=== PATIENT | female | born 2000 | race Caucasian/White ===

== ENCOUNTER 2024-05-27 09:57 | Outpatient (OUT) | payer OTHER, SELFPAY ==
--- NOTE | 2024-05-27 09:58 | US_ITS ---
[facility] [place] [id number] Patient Name: JANET RANDALL MRN: [id number] date: 2000 Sex: F Assigned Patient Location: [facility] Current Patient Location: [facility] Accession/Order Number: [id number] Exam Date: 05/27/2024 09:58 Report Date: 05/27/2024 10:54 At the request of: RICARDO SANTIAGO Procedure: US OB transvaginal EXAMINATION: US OB transvaginal HISTORY: MISSED MENSES COMPARISON: No relevant comparison available. FINDINGS: GESTATIONAL SAC: Present and normal appearing. YOLK SAC: Present and normal appearing. POLE: Present and normal appearing. CARDIAC: Present. UTERUS: Normal size and appearance. OVARIES: Right: Normal. Left: Normal. CERVIX: 3.7 cm in length and closed. CUL-DE-SAC: Trace amount of free fluid; likely physiologic. OTHER: None. AGE BY LMP: 8 weeks 2 days SEEMA BY LMP: 01/04/2025 AGE BY US CRL: 8 weeks 1 day SEEMA BY US CRL: 01/05/2025 US/US OB transvaginal IMPRESSION: 1. Single live intrauterine . Electronically authenticated by: CLARICE HILL Date: 05/27/2024 10:54
== END 2024-05-27 09:58 | disposition home or self-care (01) ==
LOC: NOMS 09:57
PROVIDERS: Visit Provider Obstetrics & Gynecology
DX: Z34.91 Encounter for supervision of normal pregnancy, unspecified, first trimester (principal); Z3A.08 8 weeks gestation of pregnancy; N92.6 Irregular menstruation, unspecified
CPT/HCPCS: 76817

== ENCOUNTER 2024-06-08 15:17 | Outpatient (OUT) | payer OTHER, SELFPAY ==
--- OUTSIDE RECORDS SUMMARY | 2024-06-08 15:25 | XMS_ITS | CCD ---
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 Name Role Phone CLARICE HILL Consulting Unavailable RUSS GALLOWAY Attending Unavailable JOY DAY Primary Care Unavailable RUSS GALLOWAY Admitting Unavailable RUSS GALLOWAY Consulting Unavailable Julianne Davidson Unavailable Maximus SENIOR SOFTWARE QA ANALYST-JOANNE, Samir Primary Care Provide r DANIELLE LANGE Referring Unavailable SCHLAJONY, SAMIR Primary Care Unavailable DANIELLE LANGE Attending Unavailable SCHTERI, SAMIR Referring Unavailable SCHLACHTGIANNI, SAMIR Primary Care Unavailable DANIELLE LANGE Attending Unavailable SCHLACHTGIANNI, SAMIR Referring Unavailable SCHLACHTER, SAMIR Primary Care Unavailable DANIELLE LANGE Referring Unavailable SCHLACHTGIANNI, SAMIR Primary Care Unavailable DANIELLE LANGE Attending Unavailable DANIELLE LANGE Referring Unavailable SCHLACHTER, SAMIR Primary Care Unavailable Reecechtgianni BILLER, Samir Unavailable Allergies Allergy Classification Reported Allergen(s) Allergy Type Date of Onset Reaction(s) Facility (1 source) Sulfonamides (Antibiotic) Drug allergy (disorder) [facility] Repository (2 sources) Sulfacetamide / Sulfur Drug Allergy [facility] Other (6 sources) Ondansetron; Translations: [ONDANSETRON] [facility] (7 sources) Sulfonamides (Antibiotic); Translations: [SULFA (SULFONAMIDE ANTIBIOTICS)] Propensity to adverse reactions to drug 8 [facility] Work Phone: Medications Current Medications Medication Drug Class(es) Dates Sig (Normalized) Sig (Original) Escitalopram (2 sources) Serotonin Reuptake Inhibitor Escitalopram Oxalate Active ferrous sulfate 325 mg oral tablet (3 sources) take 1 tablet by mouth once daily at breakfast ferrous sulfate 325 (65 FE) mg tablet Take 1 tablet (325 mg total) by mouth daily with breakfast. 0 Active ibuprofen 800 mg oral tablet (3 sources) Nonsteroidal Anti-inflammatory Drug Start: take 1 tablet by mouth every eight hours as needed for pain ibuprofen (MOTRIN) 800 mg tablet Indications: Left sided abdominal pain , Mittelschmerz Take 1 tablet (800 mg total) by mouth every 8 (eight) hours as needed for pain. 60 tablet 2 09/08/2023 Active ondansetron 4 mg disintegrating oral tablet (1 source) Serotonin-3 Receptor Antagonist Start: End: take 1 tablet by mouth every six hours as needed for nausea and vomiting and nausea and nausea ondansetron ODT (Zofran-ODT) 4 MG disintegrating tablet Indications: Nausea Take 1 tablet (4 mg) by mouth every 6 (six) hours if needed for nausea or vomiting 30 tablet 2 05/23/2024 06/22/2024 Active Problems Active Problems Problem Classification Problem Date Documented Da te Episodic/Chronic Abdominal pain (12 sources) Unspecified abdominal pain; Translations: [Left sided abdominal pain] Onset: 03-17-2019 09-08-2023 Episodic Calculus of urinary tract (5 sources) Unspecified renal colic; Translations: [Personal history of urinary calculi] Onset: 03-21-2019 10-13-2023 Episodic Genitourinary symptoms and ill-defined conditions (4 sources) Hematuria, unspecified; Translations: [Urinary crystal, calcium oxalate] Onset: 03-21-2019 10-13-2023 Episodic Menstrual disorders (1 source) Missed period; Translations: [Irregular menstruation, unspecified] 05-27-2024 Chronic Other female genital disorders (1 source) Joel; Translations: [Joel] 09-08-2023 Chronic Other female genital disorders (1 source) Pain in female genitalia on intercourse; Translations: [Unspecified dyspareunia] 09-08-2023 Chronic Other female genital disorders (1 source) Joel; Translations: [Joel] Onset: 09-08-2023 Chronic Other female genital disorders (1 source) Unspecified dyspareunia; Translations: [Unspecified dyspareunia] Onset: 09-08-2023 Chronic Other and delivery including normal (2 sources) ; Translations: [Encounter for supervision of normal , unspecified, unspecified trimester] 05-27-2024 Episodic Past or Other Problems Problem Classification Problem Date Documented Da te Episodic/Chronic Immunizations and screening for infectious disease (1 source) Contact with and (suspected) exposure to other viral communicable diseases Onset: 07-06-2021 Resolved: 07-06-2021 Episodic Mood disorders (3 sources) Mood disorders Onset: 06-24-2023 06-24-2023 Other upper respiratory infections (1 source) Acute pharyngitis, unspecified Onset: 04-02-2022 Resolved: 04-02-2022 Episodic Unclassified (3 sources) Onset: 06-01-2023 06-01-2023 Viral infection (1 source) COVID-19 Onset: 07-06-2021 Resolved: 07-06-2021 Results Test Name Value Interpretation Reference Range Facility HCG ( test) Ql (U)o n 05-27-2024 Interpretation and review of laboratory results Abnormal [facility] Preg Test, Ur [facility] macro (dipstick) panel (U)on 05-27-2024 Bilirubin, UA Negative Negative - 4(70) +++ mg/dL [facility] Blood, UA Positive Negative - 50 Dipak/mcL [facility] Comment on above: trace intact Clarity, UA Clear [facility] re Color, UA Yellow [facility] Glucose, UA Negative Negative - 1999(110) ++++ mg/dL [facility] Interpretation and review of laboratory results Abnormal [facility] Ketones, UA Negative Negative - 160(16) ++++ mg/dL [facility] Leukocytes, UA Trace Negative - 500+++ Jaswant/mcL [facility] Nitrite, UA Negative Negative - Positive [facility] pH, UA 7.0 5 - 9 [facility] Protein, UA Negative Negative - 1999(20) ++++ mg/dL [facility] Spec Grav, UA 1.015 1 - 1.03 [facility] Urobilinogen, UA 0.2 0.2 - 12 mg/dL [facility] US RETROPERITONEAL COMPLETEo n 10-16-2023 US RETROPERITONEAL COMPLETE US RETROPERITONEAL COMPLETE History: Left flank pain, left-sided abdominal pain. Calcium oxalate crystals in urine. Exam/Technique: Ultrasound of the kidneys and urinary bladder Comparison: Previous ultrasound of 08/13/2018 Findings: There is no collecting system dilatation in either kidney. No focal renal lesions are displayed on either side. The right kidney measures 11.0 centimeters in length , and the left kidney 11.8 centimeters . The full urinary bladder measures 823 ml, and displays no gross focal abnormalities. Bilateral ureteral jets are demonstrated. Post void bladder volume is still measured at 191 IMPRESSION: Normal ultrasound of the kidneys. Prominent post void retention of urine in the bladder Finalized by Heri Marte MD on 10/16/2023 1:22 AM Normal [facility] US PELVIC WITH TRANSVAGINALo n 09-15-2023 US PELVIC WITH TRANSVAGINAL US PELVIC WITH TRANSVAGINAL HISTORY: Patient is complaining of left-sided pelvic pain for the past 2 months. COMPARISON: 08/13/2018 TECHNIQUE: Multiplanar transabdominal and transvaginal ultrasonography of the pelvis using grayscale imaging, supplemented by color Doppler as needed. FINDINGS: The uterus measures 8.2 x 5.9 x 4.8 cm and is retroverted. Normal contour without focal lesions. Endometrial stripe measures 13.7 mm which at the upper limits of normal for menstruating female.The right ovary measures 2.8 x 1.8 x 2.6 cm.The left ovary measures 3.6 x 2.7 x 2.2 cm. Bilateral small ovarian follicles are visualized. No adnexal masses. Color Doppler demonstrates arterial and venous flow in both ovaries The bladder is within normal limits. Small amount of free fluid is seen in the posterior cul-de-sac and adjacent to the ovaries, likely physiologic in nature. IMPRESSION: Retroverted uterus and small amount of physiologic fluid in the cul-de-sac. Otherwise, unremarkable pelvic echo. Finalized by Zoe Rogers MD on 09/15/2023 6:54 PM Normal [facility] CHLAMYDIA/GC BY PCRon 2023 CHLAMYDIA/GC BY PCR SPECIMEN SOURCE CERVIX CHLAMYDIA DNA(PCR) Negative (qualifier value) Chlamydia trachomatis not detected by nucleic acid amplification. This does not exclude the possibility of infection because results are dependent on adequate specimen collection. GONORRHOEAE DNA(PCR) Negative (qualifier value) Neisseria gonorrhoeae not detected by nucleic acid amplification. This does not exclude the possibility of infection because results are dependent on adequate specimen collection. Normal [facility] Comment on above: Performed By: #### C #### [facility] ([id number]) [address] [place] [address], [address] [place] [address] POCT , urineon 08-24 Beta HCG ( test) Ql (U) Negative [facility] URINALYSISon 09-08-2023 Bilirubin Ql (U) Negative Normal NEG [facility] BLOOD/HGB Negative Normal NEG [facility] CA OXALATE CRYSTALS PRESENT Abnormal NONE [facility] Color (U) YELLOW Normal YELLOW [facility] Glucose Ql (U) Negative Normal NEG [facility] Ketones Ql (U) Negative Normal NEG [facility] Leukocyte esterase Test strip Ql (U) Negative Normal NEG [facility] MUCOUS PRESENT Abnormal NONE [facility] Nitrite Ql (U) Negative Normal NEG [facility] pH (U) 6.5 [pH] Normal 5.0-8.5 [facility] Protein Ql (U) Trace Abnormal NEG [facility] R.B.CELLS 2 /hpf Normal 0-5 [facility] Specific gravity (U) [Rel density] 1.027 Normal 1.003-1.035 [facility] SQUAMOUS EPITHELIUM 14 /hpf High 0-5 [facility] TURBIDITY CLEAR Normal CLEAR [facility] Urobilinogen (U) [Mass/Vol] mg/dL Normal <1.1 [facility] W.B.CELLS 3 /hpf Normal 0-5 [facility] URINE CULTUREon 09-08-2023 Bacteria identified Cx Nom (U) CULTURE RESULTS 10-50,000 ORGANISMS/mL NORMAL UROGENITAL AYLIN Normal [facility] Comment on above: Performed By: #### 6 30-4 #### [facility] ([id number]) [address], [address] [place] [address] Urinalysison 09-08-2023 Bilirubin Ql (U) Negative Negative^Ne gat odell [facility] Calcium oxalate crystals LM Ql (Urine sed) PRESENT Abnormal NONE^NONE [facility] Color (U) YELLOW YELLOW^YELLOW [facility] Epithelial cells Auto (Urine sed) [#/Area] 14 High [facility] Glucose (U) [Mass/Vol] Negative Negative^Negat odell mg/dL [facility] Hemoglobin Auto test strip Ql (U) Negative Negative^Negat odell [facility] Interpretation and review of laboratory results Abnormal [facility] Ketones (U) [Mass/Vol] Negative Negative^Negat odell mg/dL [facility] Leukocyte esterase Auto test strip Ql (U) Negative Negative^Negat odell [facility] Mucus Ql (Urine sed) PRESENT Abnormal NONE^NONE [facility] Nitrite Auto test strip Ql (U) Negative Negative^Negat odell [facility] pH (U) 6.5 [pH] 5.0 - 8.5 [facility] Protein (U) [Mass/Vol] Trace Abnormal Negative^Negat odell mg/dL [facility] RBC Auto (Urine sed) [#/Area] 2 [facility] Specific gravity Refractometry automated (U) [Rel density] 1.027 1.003 - 1.035 [facility] Turbidity Ql (U) CLEAR CLEAR^CLEAR [facility] Urobilinogen Qn (U) NINF [facility] WBC Auto (Urine sed) [#/Area] 3 [facility] VAGINITIS PANEL PCRon 2023 VAGINITIS PANEL PCR BACT. VAGINOSIS DNA Not detected (qualifier value) Qualitative results are reported based on detection and quantitation of targeted organism markers which include: Lactobacillus spp. (L. crispatus and L. jensenii), Gardnerella vaginalis, Atopobium vaginae, Bacterial Vaginosis Associated Bacteria-2 (BVAB-2) and Megasphaera-1 LIA SPECIES DNA Not detected (qualifier value) Lia species not detected include: C. albicans, C. tropicalis, C. parapsilosis or C. dubliniensis LIA KRUSEI DNA Not detected (qualifier value) No Lia krusei detected LIA GLABRATA DNA Not detected (qualifier value) No Lia glabrata detected TRICHOMONAS VAG DNA Not detected (qualifier value) No Trichomonas vaginalis detected NOTE BD MAX Vaginal Panel has not been evaluated for patients under 18 years old. Results for these patients should be reviewed and assessed in accordance with clinical presentation to determine patient diagnosis. Normal [facility] Comment on above: Performed By: #### V PPCR #### [facility] ([id number]) [address] [place] [address], [address] [place] [address] Quick Strepon 04-02-2022 S. pyogenes Org specific cx Ql (Throat) Negative 3TEN8 [facility] Other Quick Strep [facility] Other Vital Signs Date Time Vital Sign Value Performing Clinician Facility 05-27-2024 10:31-0400 Body weight 79.38 kg [facility] Nurse [facility] 05-27-2024 10:31-0400 Diastolic blood pressure 80 mm[Hg] [facility] Nurse [facility] 05-27-2024 10:31-0400 Systolic blood pressure 122 mm[Hg] [facility] Nurse [facility] 10-13-2023 14:41-0500 Body height 165.1 cm [employer] Work Phone: [facility] 10-13-2023 14:41-0500 Body mass index (BMI) [Ratio] 28.09 kg/m2 [employer] Work Phone: [facility] 10-13-2023 14:41-0500 Body weight 76.57 kg [employer] Work Phone: [facility] 10-13-2023 14:41-0500 Diastolic blood pressure 68 mm[Hg] [employer] Work Phone: [facility] 10-13-2023 14:41-0500 Systolic blood pressure 104 mm[Hg] Danielle Lange DO Work Phone: [facility] 09-08-2023 11:06-0500 Body height 165.1 cm Danielle Lange DO Work Phone: [facility] 09-08-2023 11:06-0500 Body mass index (BMI) [Ratio] 28.22 kg/m2 Danielle Lange DO Work Phone: [facility] 09-08-2023 11:06-0500 Body weight 76.93 kg Danielle Lange DO Work Phone: [facility] 09-08-2023 11:06-0500 Diastolic blood pressure 70 mm[Hg] Danielle Lange DO Work Phone: [facility] 09-08-2023 11:06-0500 Systolic blood pressure 116 mm[Hg] Danielle Lange DO Work Phone: [facility] 04-02-2022 12:20-0400 Body height 167.64 cm Julianne Lety Other [facility] Other 04-02-2022 12:20-0400 Body mass index (BMI) [Ratio] 30.66 kg/m2 Julianne Lety Other [facility] Other 04-02-2022 12:20-0400 Body temperature 99.3 [degF] Julianne Lety Other [facility] Other 04-02-2022 12:20-0400 Body weight 86.18 kg Julianne Winklermond Other [facility] Other 04-02-2022 12:20-0400 Respiratory rate 18 /min Julianne Lety Other [facility] Other 04-02-2022 12:20-0400 SaO2% (BldA) [Mass fraction] 99 % Julianne Davidson Other [facility] Other 07-06-2021 11:30-0500 Body height 165.1 cm Julianne Davidson Other [facility] Other 07-06-2021 11:30-0500 Body mass index (BMI) [Ratio] 29.95 kg/m2 Julianne Davidson Other [facility] Other 07-06-2021 11:30-0500 Body temperature 98.2 [degF] Julianne Davidson Other [facility] Other 07-06-2021 11:30-0500 Body weight 81.65 kg Julianne Davidson Other [facility] Other 07-06-2021 11:30-0500 SaO2% (BldA) [Mass fraction] 99 % Julianne Davidson Other [facility] Other Encounters Encounter Date Encounter Type Care Provider Facility Start: 05-27-2024 End: 05-27-2024 Office outpatient visit 5 minutes [facility] Kylee Nurse [facility] Comment on above: GA: 8w2d Start: 05-27-2024 End: 05-27-2024 ambulatory Not Available Start: 10-29-2023 Orders Only Sowmya Retana [facility] Comment on above: Renal lithiasis (Yanet annita Dx); Calcium oxalate crystals in urine; Flank pain; Left sided abdominal pain Start: 10-15-2023 End: 10-16[facility]: 10-13-2023 End: 10-13-2023 ambulatory DANIELLE Alexa LANGE [facility] Start: 10-13-2023 End: 10-13-2023 Office outpatient visit 15 minutes Danielle Lange DO Work Phone: [facility] Comment on above: Renal lithiasis (Yanet annita Dx); Left sided abdominal pain; Flank pain; Calcium oxalate crystals in urine Start: 09-14-2023 End: 09-15-2023 ambulatory DANIELLE LANGE [facility] Start: 09-08-2023 End: 09-09-[address] [facility] Start: 09-08-2023 End: 09-08-2023 ambulatory DANIELLE LANGE [facility] Start: 09-08-2023 End: 09-08-2023 Office outpatient visit 15 minutes Danielle Lange DO Work Phone: [facility] Comment on above: Dyspareunia in femal e (Primary Dx); Left sided abdominal pain; Mittelschmerz Start: 04-02-2022 End: 04-02-2022 ambulatory Julianne Davidson Other [facility] Other Start: 04-02-2022 Office outpatient vi sit 15 minutes Julianne Davidson [facility] Start: 07-06-2021 (URG) Urgent Care Visit Julianne Irvin d [facility] Start: 07-06-2021 End: 07-06-2021 ambulatory Julianne Davidson Other [facility] Other Start: 03-17-2019 End: 03-18-2019 Patient encounter procedure CLARICE HILL Facility:[facility]1 Procedures Date Procedure Procedure Detail Performing Clinician Start: 05-27-2024 End: 05-27-2024 Urnls dip stick/tablet rgnt non-auto w/o micrscp Pal Kylee DO Work Phone: Start: 10-13-2023 Follow-up visit Follow-up DANIELLE Alexa ANISA Start: 09-08-2023 Urine test visual color cmprsn meths Danielle L Lange DO Work Phone: Start: 06-24-2023 Adult depression scr eening assessment Danielle Lange DO Work Phone: Start: 06-18-2022 Microscopic observat ion [Identifier] in Cervix by Cyto stain Danielle Lange DO Work Phone: Plan of Treatment Date Care Activity Detail Author Start: 06-18-2025 Screening for malign ant neoplasm of cervix Pap Smear [facility] Start: 10-13-2024 Adult BMI Screening Adult BMI Screen ing [facility] Start: 10-13-2024 Tobacco Screening Tobacco Screening [facility] Start: 09-08-2024 Adult BMI Screening Adult BMI Screen ing [facility] Start: 09-08-2024 Screening for Chlamy hernesto trachomatis Chlamydia Screening [facility] Start: 09-08-2024 Tobacco Screening Tobacco Screening [facility] Start: 06-27-2024 End: 06-27-2024 Patient encounter procedure 06/27/2024 3:30 PM EST Routine [facility] [address] [place] [id number] Pal Pichardo DO [address] [place] [place] [address] [facility] Start: 06-24-2024 Depression Screening Depression Scre ening [facility] Start: 06-01-2024 Adult BMI Follow Up Plan Adult BMI F ollow Up Plan [facility] Start: 05-27-2024 End: 05-27-2025 ABO/Rh ABO/Rh Lab Routine Missed menses , unspecified gestational age Expected: 05/27/2024 (Approximate), Expires: 05/27/2025 [facility] Comment on above: Expected: 05/27/2024 (Approximate), Expires: 05/27/2025 Start: 05-27-2024 End: 05-27-2025 Blood type and Indirect antibody screen panel - Blood Type and screen Lab Routine Missed menses , unspecified gestational age Expected: 05/27/2024 (Approximate), Expires: 05/27/2025 [facility] Work Phone: Comment on above: Expected: 05/27/2024 (Approximate), Expires: 05/27/2025 Start: 05-27-2024 End: 05-27-2025 Drugs of abuse panel - Urine by Screen method Rapid drug screen, urine Lab Routine , unspecified gestational age Encounter for supervision of normal first in first trimester Expected: 05/27/2024 (Approximate), Expires: 05/27/2025 [facility] Comment on above: Expected: 05/27/2024 (Approximate), Expires: 05/27/2025 Start: 05-27-2024 End: 05-27-2025 US Pelvis transvaginal US OB transvaginal Imaging Routine Missed menses Expected: 05/27/2024 (Approximate), Expires: 05/27/2025 [facility] Comment on above: Expected: 05/27/2024 (Approximate), Expires: 05/27/2025 Start: 11-26-2023 DTaP,Tdap and Td Vac cines (7 - Td or Tdap) DTaP,Tdap and Td Vaccines (7 - Td or Tdap) [facility] Start: 10-13-2023 End: 10-13-2024 US Retroperitoneum Ultrasound retroperitoneal complete Imaging Routine Left sided abdominal pain Flank pain Renal lithiasis Calcium oxalate crystals in urine Expected: 10/13/2023, Ex[facility]: [facility] Work Phone: Comment on above: Expected: 10/13/2023 , Expires: 10/13/2024 Start: 10-06-2023 End: 10-06-2023 Patient encounter procedure 10/06/2023 2:00 PM EST Office Visit [facility] [address] [place] [address] Danielle Lange DO [address] [place] [address] [facility]necolo gy Start: 09-14-2023 End: 09-14-2023 Patient encounter procedure 09/14/2023 2:00 PM EST Appointment [facility] - Ultrasound [address] [place] [address] [facility] - Ultrasound Start: 09-08-2023 End: 09-08-2024 Bacteria identified in Urine by Culture [facility] Work Phone: Comment on above: Expected: 09/08/2023 (Approximate), Expires: 09/08/2024 Start: 09-08-2023 End: 09-08-2024 US Pelvis transabdominal and transvaginal Ultrasound pelvic with transvaginal Imaging Routine Left sided abdominal pain Expected: 09/08/2023, Expires: 09/08/2024 [facility] Comment on above: Expected: 09/08/2023 , Expires: 09/08/2024 Start: 09-08-2023 End: 09-08-2024 Vaginitis Panel PCR [facility] Comment on above: Expected: 09/08/2023 (Approximate), Expires: 09/08/2024 Start: 06-18-2023 Screening for Chlamy hernesto trachomatis Chlamydia Screening [facility] Start: 04-24-2023 Influenza vaccination Influenza Vacc ine [facility] Bacteria identified in Urine by Culture Urine culture Microbiology Routine Missed menses Ordered: 05/27/2024 [facility] Comment on above: Ordered: 05/27/2024 CBC W Auto Different ial panel - Blood CBC and differential Lab Routine Missed menses , unspecified gestational age Ordered: 05/27/2024 [facility] Comment on above: Ordered: 05/27/2024 End: 09-08-2024 Chlamydia/GC by PCR Rowdy Swab Chlamydia/GC by PCR [facility] Microbiology Routine Left sided abdominal pain 1 Occurrences starting 09/08/2023 until 09/08/2024 [facility] Comment on above: 1 Occurrences starti ng 09/08/2023 until 09/08/2024 Chlamydia/GC by PCR Rowdy Swab Chlamydia/GC by PCR Row[facility] Microbiology Routine Left sided abdominal pain 09/08/2023 7:35 PM EST [facility] Hemoglobin A1c/Hemoglobin.total in Blood Hemoglobin A1c Lab Routine Missed menses , unspecified gestational age Ordered: 05/27/2024 [facility] Comment on above: Ordered: 05/27/2024 Hepatitis B virus clarke rface Ag [Presence] in Serum or Plasma by Immunoassay Hepatitis B surface antigen Lab Routine Missed menses , unspecified gestational age Ordered: 05/27/2024 [facility] Comment on above: Ordered: 05/27/2024 Hepatitis C virus Ab [Presence] in Serum or Plasma by Immunoassay Hepatitis C antibody Lab Routine Missed menses , unspecified gestational age Ordered: 05/27/2024 [facility] Comment on above: Ordered: 05/27/2024 HIV-1/HIV-2 antigen/antibody combination immunoassay HIV-1 and HIV-2 antibodies Lab Routine Missed menses , unspecified gestational age Ordered: 05/27/2024 [facility] Comment on above: Ordered: 05/27/2024 Reagin Ab [Presence] in Serum by RPR RPR Lab Routine Missed menses , unspecified gestational age Ordered: 05/27/2024 [facility] Comment on above: Ordered: 05/27/2024 Rubella antibody, IgG Rubella an tibody, IgG Lab Routine Missed menses , unspecified gestational age Ordered: 05/27/2024 [facility] Comment on above: Ordered: 05/27/2024 Immunizations Immunization Date Immunization Notes Care Provider Ton king 06-28-2009 influenza virus vaccine, unspecified formulation Danielle Lange DO Work Phone: [facility] [facility] Payers Date Payer Category Payer Managed Care HMO (unspecified) AETNA AETNA [id number] 2024-Present [address] [place] [address] HMO [id number] 2024 Private Health Insurance [id number] 2019 Private Health Insurance [id number] 2019 Private Health Insurance [facility] PLUS [id number] 2019-Present [phone] [address] [address] [place] [address] [id number] 2001 Unknown [id number] 2001 Unknown [id number] 2001 Unknown [id number] 1286 2001 Unknown [id number] 1286 2001 Unknown [id number] 1286 2001 Unknown [id number] [id number] 1976 Unknown [id number] 1959 Unknown [id number] Social History Date Type Detail Facility Sex Assigned At [facility] Other Start: 08-08-2018 End: 05-27-2024 Sex Assigned At [facility] [employer] [facility] Start: 06-18-2022 End: 05-27-2024 Tobacco smoking status VAIS Never smoked tobacco [facility] Start: 06-18-2022 End: 05-27-2024 Tobacco use and exposure Smokeless tobacco non-user [facility] Start: 09-08-2023 End: 10-13-2023 Alcohol intake Current non-drinker of alcohol (finding) [facility] Start: 08-08-2018 End: 05-27-2024 History of Social function [facility] Frequency of Alcohol Consumption Never [facility] Start: 2001 [facility] Start: 05-27-2024 Alcoholic beverage intake Lifetime non-drinker (finding) [facility] Start: 04-13-2024 [facility] Start: 2001 Sex assigned at Female [facility] Start: 12-29-2023 Gender identity Identifies as female gender (finding) [facility] Clinical Notes 04-02-2022 to 05-27-2024 Linda Barone - 05/27/2024 10:30 AM Eduar Retana, CHEST PAIN COORDINATOR - 10/29/2023 2:54 PM Easton Lange, DO - 10/13/2023 2:30 PM Easton Lange, DO - 09/08/2023 11:00 AM EST Note Date & Type Note Facility 05-27-2024 History of Present illness Narrative Reason for Appointment: Patient ID: Marisela Marino is a 24 y.o. female who presents for Initial Visit Patient presents today for a Nurse OB Intake appointment. Patient is 8w2d with a Estimated Date of Delivery: 01/04/25 OB History Para Term AB Living 1 SAB IAB Ectopic Multiple Live Births # Outcome Date GA Lbr Aldair/2nd Weight Sex Type Anes PTL Lv 1 Current Current Medications: has a current medication list which includes the following prescription(s): ondansetron odt. Medical History: Active Ambulatory Problems Diagnosis Date Noted No Active Ambulatory Problems Resolved Ambulatory Problems Diagnosis Date Noted No Resolved Ambulatory Problems No Additional Past Medical History Family History Problem Relation Name Age of Onset Asthma Maternal Grandfather Solomon smith Breast cancer Maternal Grandmother Mikaela smith Social History Tobacco Use Smoking status: Never Smokeless tobacco: Never Substance Use Topics Alcohol use: Never Drug use: Never History reviewed. No pertinent surgical history. Allergies Allergen Reactions Sulfa Antibiotics Vitals: Estimated body mass index is 27.6 kg/m as calculated from the following: Height as of 09/20/18: 5' 5.5 . Weight as of 09/20/18: 168 lb 6.4 oz. BP: 122/80 Patient's last menstrual period was 03/30/2024. Assessment/Plan Diagnoses and all orders for this visit: Missed menses - Type and screen; Future - ABO/Rh; Future - CBC and differential - Hemoglobin A1c - RPR - Rubella antibody, IgG - Hepatitis B surface antigen - Hepatitis C antibody - HIV-1 and HIV-2 antibodies - Urine culture - US OB transvaginal; Future - POCT , urine manually resulted - POCT urinalysis dipstick manually resulted , unspecified gestational age - Type and screen; Future - ABO/Rh; Future - CBC and differential - Hemoglobin A1c - RPR - Rubella antibody, IgG - Hepatitis B surface antigen - Hepatitis C antibody - HIV-1 and HIV-2 antibodies - Rapid drug screen, urine; Future Encounter for supervision of normal first in first trimester - Rapid drug screen, urine; Future Nurse Note: OB Intake: Patient presents today for first OB visit. Patients history has been reviewed in great detail including any potential risks. Patient signed consent forms and patient desires testing in both trimesters. Patient currently has no complaints and has been advised to drink 6-8 glasses of water a day, eat no raw or undercooked meat, and stay away from [facility]. Patient has also been advised to not change litter boxes and eat 6 small meals a day. Patient has been consulted regarding the do's and don'ts of . Patient was given labs and all questions and concerns were answered. Follow Up: Patient is to return in 4 weeks for routine OB appointment. Follow Up: Patient is to have labs drawn at directed and return to office for initial OB appointment with provider. Patient may call office as needed with any concerns or questions. Nurse Visit Completed by: Linda Barone documented in this encounter [facility] 10-29-2023 History of Present illness Narrative Ordered new Filter Filler referral documented in this encounter [facility] 10-13-2023 History of Present illness Narrative Images from the original note were not included. Subjective Patient ID: Marisela Marino is a pleasant 23 y.o. female who presents today for pelvic ultrasound follow-up. Patient states that her pain has continued, but has become more localized to the upper right flank. She does have a history of renal lithiasis in the past. She states she has seen a embossing machine operator, but was only counseled to not drink orange juice or Gatorade. She does feel that this pain is more related to a renal issue than her pelvis at this time. She states that the pain is intermittent, but can be severe. Chief Complaint: Flank pain with history of renal lithiasis Menstrual History: OB History 0 Para 0 Term 0 0 AB 0 Living 0 SAB 0 IAB 0 Ectopic 0 Multiple 0 Live Births 0 No LMP recorded. The following portions of the patient's history were reviewed and updated as appropriate: allergies, current medications, past family history, past medical history, past social history, past surgical history, problem list, and medication reconciliation was completed including current medication and post discharge medication. Review of Systems Constitutional: negative Cardiovascular: negative Gastrointestinal: negative Genitourinary: Pelvic ultrasound results flank pain history of renal lithiasis Behavioral/Psych: negative Endocrine: negative Objective BP 104/68 Ht 165.1 cm (5' 5 ) Wt 76.6 kg (168 lb 12.8 oz) BMI 28.09 kg/m General: alert, appears stated age, and cooperative Heart: regular rate and rhythm, S1, S2 normal, no murmur, click, rub or gallop Lungs: clear to auscultation bilaterally Abdomen: soft, non-tender, without masses or organomegaly Ultrasound pelvic with transvaginal Order Status: Final result Study Result HISTORY: Patient is complaining of left-sided pelvic pain for the past 2 months. COMPARISON: 08/13/2018 TECHNIQUE: Multiplanar transabdominal and transvaginal ultrasonography of the pelvis using grayscale imaging, supplemented by color Doppler as needed. FINDINGS: The uterus measures 8.2 x 5.9 x 4.8 cm and is retroverted. Normal contour without focal lesions. Endometrial stripe measures 13.7 mm which at the upper limits of normal for menstruating female.The right ovary measures 2.8 x 1.8 x 2.6 cm.The left ovary measures 3.6 x 2.7 x 2.2 cm. Bilateral small ovarian follicles are visualized. No adnexal masses. Color Doppler demonstrates arterial and venous flow in both ovaries The bladder is within normal limits. Small amount of free fluid is seen in the posterior cul-de-sac and adjacent to the ovaries, likely physiologic in nature. IMPRESSION: Retroverted uterus and small amount of physiologic fluid in the cul-de-sac. Otherwise, unremarkable pelvic echo. Finalized by Zoe Rogers MD on 09/15/2023 6:54 PM Study Result Narrative & Impression HISTORY: Patient is complaining of left-sided pelvic pain for the past 2 months. COMPARISON: 08/13/2018 TECHNIQUE: Multiplanar transabdominal and transvaginal ultrasonography of the pelvis using grayscale imaging, supplemented by color Doppler as needed. FINDINGS: The uterus measures 8.2 x 5.9 x 4.8 cm and is retroverted. Normal contour without focal lesions. Endometrial stripe measures 13.7 mm which at the upper limits of normal for menstruating female.The right ovary measures 2.8 x 1.8 x 2.6 cm.The left ovary measures 3.6 x 2.7 x 2.2 cm. Bilateral small ovarian follicles are visualized. No adnexal masses. Color Doppler demonstrates arterial and venous flow in both ovaries The bladder is within normal limits. Small amount of free fluid is seen in the posterior cul-de-sac and adjacent to the ovaries, likely physiologic in nature. IMPRESSION: Retroverted uterus and small amount of physiologic fluid in the cul-de-sac. Otherwise, unremarkable pelvic echo. Finalized by Zoe Rogers MD on 09/15/2023 6:54 PM Imaging Ultrasound pelvic with transvaginal (Order: [id number]) - 09/14/2023 Result History Ultrasound pelvic with transvaginal (Order #[id number]) on 09/15/2023 - Order Result History Report PACS Images Show images for Ultrasound pelvic with transvaginal Percentile Graphs No episode available Ultrasound pelvic with transvaginal: Patient Communication Add Comments Seen Signed by Signed Date/Time Phone Pager ZOE ROGERS 09/15/2023 18:54 Exam Information Status Exam Begun Exam Ended Final [99] 09/14/2023 13:45 09/14/2023 14:04 Reviewed by Anahy Elliott LPN 09/16/2023 13:43 Danielle Lange DO 09/16/2023 10:39 Encounter View Encounter External Results Report Open External Results Report Ultrasound pelvic with transvaginal: Result Notes Anahy Elliott LPN Assessment 1. Left sided abdominal pain 2. Flank pain 3. Renal lithiasis 4. Calcium oxalate crystals in urine Plan 1. Pelvic ultrasound reviewed and was within normal limits. 2. With patient's symptoms currently being localized to the flank, her history of previous renal lithiasis, and patient stating this feels like renal lithiasis to her, renal ultrasound was ordered and referral to nephrology placed. documented in this encounter [facility] 09-08-2023 History of Present illness Narrative Subjective Patient ID: Marisela Marino is a pleasant 23 y.o. female who presents today with a complaint of left-sided pelvic pain. Patient states that the pain is intermittent but can be sharp and stabbing. She reports that it is present every time she has intercourse. She states the pain is always present in worse approximately 1 day before her menses. Patient states yesterday she had an episode of sharp stabbing pain that was so severe she almost presented to the emergency room. She does have history of kidney stones as well. She has not currently on control. She has not trying to achieve , but states if it happens it happens . First day of her last menstrual cycle was 08/22/2023. Her menstrual cycles are regular. Chief Complaint: Pelvic pain dyspareunia Menstrual History: OB History 0 Para 0 Term 0 0 AB 0 Living 0 SAB 0 IAB 0 Ectopic 0 Multiple 0 Live Births 0 Patient's last menstrual period was 08/22/2023 (exact date). The following portions of the patient's history were reviewed and updated as appropriate: allergies, current medications, past family history, past medical history, past social history, past surgical history, problem list, and medication reconciliation was completed including current medication and post discharge medication. Review of Systems Constitutional: negative Respiratory: negative Cardiovascular: negative Gastrointestinal: negative Genitourinary: Pain with intercourse, pain before her menses, acute sharp pelvic pain yesterday Neurological: negative Behavioral/Psych: negative Endocrine: negative Objective BP 116/70 Ht 165.1 cm (5' 5 ) Wt 76.9 kg (169 lb 9.6 oz) LMP 08/22/2023 (Exact Date) BMI 28.22 kg/m General: alert, appears stated age, and cooperative Heart: regular rate and rhythm, S1, S2 normal, no murmur, click, rub or gallop Lungs: clear to auscultation bilaterally Abdomen: soft, non-tender, without masses or organomegaly Vulva: normal Vagina: normal mucosa, normal discharge, no palpable nodules, discharge thin clear consistent with ovulation V nap collected Cervix: no cervical motion tenderness, no lesions, nulliparous appearance, and GC collected Uterus: mobile, non-tender, normal shape and consistency Adnexa: no mass, fullness, tenderness Assessment 1. Left sided abdominal pain 2. Mittelschmerz 3. Dyspareunia Plan 1. V nap in GC collected today 2. HCGs negative 3. UA dip negative today will send for culture 4. Pelvic ultrasound ordered 5. Mittelschmerz discussed as well as dysmenorrhea prescription for Motrin provided 6. Will see patient back in 3-4 weeks to review ultrasound and see if the prescription strength Motrin is helping to alleviate her symptoms documented in this encounter [facility] 04-02-2022 Evaluation note Encounter Date Diagnosis Assessment Notes Mar, Viral pharyngitis (ICD-10 - J02.9) Pharyngitis/to nsillopharyngi tis: adult home care material was printed Drink plenty fluids, get plenty of rest. Take Tylenol or Motrin for aches pains or fevers. Continue your cephalexin as prescribed until gone. Follow-up with your family physician if no improvement in 2 to 3 days. [facility] Other Evaluation noteNortNeuronetics Other Evaluation note* Diagnosis Dyspareunia in female- Primary Left sided abdominal pain Abdominal pain, unspecified site Mittelschmerz documented in this encounter [facility]* Diagnosis Renal lithiasis- Primary Calculus of kidney Left sided abdominal pain Abdominal pain, unspecified site Flank pain Abdominal pain, unspecified site Calcium oxalate crystals in urine documented in this encounter [facility]* Diagnosis Renal lithiasis- Primary Calculus of kidney Calcium oxalate crystals in urine Flank pain Abdominal pain, unspecified site Left sided abdominal pain Abdominal pain, unspecified site documented in this encounter [facility]* Diagnosis Missed menses , unspecified gestational age Encounter for supervision of normal first in first trimester documented [facility] Narrative - ReportedNoKeen Systems Other History general Narrative - Reported* Type Description Date Medical History chronic depression [facility] Other Instructions* Attachments The following attachments cannot be sent through Care Everywhere. * Painful Ovulation (Vietnamese) documented in [facility]* Attachments The following attachments cannot be sent through Care Everywhere. * Kidney stones in adults (Vietnamese) documented in [facility]Pro[facility] DaytonInstructionsNot on file documented in this encounterProKindred Hospital DaytonReason for referral (narrative)* Consultation (Routine) - Pending Review Specialty Diagnoses / Procedures Referred By Contac gianluca Referred To Contact Nephrology Diagnoses Left sided abdominal pain Flank pain Renal lithiasis Calcium oxalate crystals in urine Danielle Lange DO [address] [place] [address] Yannick Villagomez MD [address] [place] [address] Referral ID Status Reason Start Date Expiration Date Visits Requested Visits Authorized [id number] Pending Review Specialty Services Required 10/13/2023 10/12/2024 1 [facility] (narrative)* Consultation (Routine) - Pending Review Specialty Diagnoses / Procedures Referred By Keerthi hough Referred To Contact Nephrology Diagnoses Renal lithiasis Calcium oxalate crystals in urine Flank pain Left sided abdominal pain Danielle Lange DO [address] [place] [address] Hussein Card MD [address] [place] [address] [place] [address] Referral ID Status Reason Start Date Expiration Date Visits Requested Visits Authorized [id number] Pending Review Specialty Services Required 10/29/2023 10/28/2024 1 1 [facility] Summary Purpose Family History No Family History Records FoundNo Family History Records FoundNo Family History Records FoundNo Family History Records FoundNo Family History Records Found Advance Directives No Advanced Directives Records FoundNo Advanced Directives Records FoundNo Advanced Directives Records FoundNo Advanced Directives Records FoundNo Advanced Directives Records Found Additional Source Comments INFORMATION SOURCE (unrecogn ized section and content) DATE CREATED AUTHOR 09/15/2020 [facility] DATE CREATED AUTHOR AUTHOR'S ORGANIZ ATION 09/12/2023 [facility] DATE CREATED AUTHOR AUTHOR'S ORGANIZ ATION 10/21/2023 [facility] DATE CREATED AUTHOR AUTHOR'S ORGANIZ ATION 10/23/2023 [facility] DATE CREATED AUTHOR AUTHOR'S ORGANIZ ATION 05/29/2024 [facility] d[facility] Specialists EPIC REASON FOR VISIT (unrecogniz ed section and content) Reason Comments Abdominal Pain Left side started ab out 2 months agoPain the first day of cycle Reason Comments Follow-up Ultrasound results d /t pelvic pain Reason Comments Initial Visit Care Teams (unrecognized sec tion and content) Embossing Machine Operator Relationship Specialty Start Date End Date Samir Stroud APRN-JOANNE [address] [place] [address] PCP - General Family Medicine 12/28/22 Embossing Machine Operator Relationship Specialty Start Date End Date Samir Stroud APRN-CNP [address] [place] [address] PCP - General Family Medicine 12/28/22 Embossing Machine Operator Relationship Specialty Start Date End Date Samir Stroud APRN-CNP [address] [place] [address] PCP - General Family Medicine 12/28/22 Embossing Machine Operator Relationship Specialty Start Date End Date Samir Stroud NP [address] [place] [address] Referring Physician Family Medicine 05/19/23 FOR RECORDS PERTAINING TO PATIENTS WHO ARE OR HAVE BEEN ENROLLED IN A CHEMICAL DEPENDENCY/SUBSTANCEABUSE PROGRAM, SOME INFORMATION MAY BE OMITTED. This clinical summary was aggregated from multiple sources. Caution should be exercised in using it in the provision of clinical care. This summary normalizes information from multiple sources, and as a consequence, information in this document may materially change the coding, format and clinical context of patient data. In addition, data may be omitted in some cases. CLINICAL DECISIONS SHOULD BE BASED ON THE PRIMARY CLINICAL RECORDS. [facility]. provides no warranty or guarantee of the accuracy or completeness of information in this document.
[2024-06-08 15:51] LABS: BOX Test Reference Lab UNITY; BOX Test Sent Out UNITY
[2024-06-08 15:53] LABS: Basophils Percent Auto 0.3 % (0.2-2.0); Eosinophils Absolute Auto 0.1 10^3/uL (0.0-0.7); Eosinophils Percent Auto 0.6 % (0.9-7.0); Hematocrit 37.3 % (36.0-48.0); Hemoglobin 12.5 g/dL (12.0-16.0); Immature Granulocytes Abs Auto 0.05 10^3/uL (0.00-0.03); Immature Granulocytes Pct Auto 0.5 % (0.0-0.5); Lymphocytes Absolute Auto 2.5 10^3/uL (1.2-3.8); Lymphocytes Percent Auto 23.4 % (20.5-60.0); Mean Corpuscular HGB Conc 33.5 g/dL (29.9-35.2); Mean Corpuscular Hemoglobin 29.6 pg (26.7-34.0); Mean Corpuscular Volume 88.2 fL (81.0-99.0); Mean Platelet Volume 9.3 fL (9.5-13.5); Monocytes Absolute Auto 0.7 10^3/uL (0.3-0.8); Monocytes Percent Auto 6.9 % (1.7-12.0); Neutrophils Absolute Auto 7.3 10^3/uL (1.4-6.5); Neutrophils Percent Auto 68.3 % (43.0-75.0); Platelet Count 321 10^3/uL (150-450); Red Blood Count 4.23 10^6/uL (4.20-5.40); Red Cell Distribution Width 12.9 % (11.0-15.0); White Blood Count 10.6 10^3/uL (4.0-11.0)
[2024-06-08 16:00] LABS: Cannabinoid Screen Urine NEGATIVE (NEGATIVE)
[2024-06-08 16:00] LABS: Estimated Average Glucose 97 mg/dL
[2024-06-08 16:01] LABS: Amphetamine Screen Urine NEGATIVE (NEGATIVE); Barbiturates Screen Urine NEGATIVE (NEGATIVE); Benzodiazepines Screen Urine NEGATIVE (NEGATIVE); Buprenorphine Screen Urine NEGATIVE (NEGATIVE); Cocaine Screen Urine NEGATIVE (NEGATIVE); Methadone Screen Urine NEGATIVE (NEGATIVE); Methamphetamines Screen Urine NEGATIVE (NEGATIVE); Opiate Screen Urine NEGATIVE (NEGATIVE); Oxycodone Screen Urine NEGATIVE (NEGATIVE); Phencyclidine Screen Urine NEGATIVE (NEGATIVE); Tricyclic Antidepressant Urine NEGATIVE (NEGATIVE)
[2024-06-10 06:10] LABS: HBsAg Screen Negative (Negative); HCV Ab Non Reactive (Non Reactive); HIV Ab/p24 Ag Screen Non Reactive (Non Reactive); Rubella Antibodies, IgG 2.64 index (Immune >0.99)
[2024-06-10 10:10] LABS: Rapid Plasma Reagin, Quant Non Reactive titer (NonRea<1:1)
== END 2024-06-08 15:18 | disposition home or self-care (01) ==
LOC: LAB 15:21
PROVIDERS: Visit Provider Obstetrics & Gynecology
DX: Z34.01 Encounter for supervision of normal first pregnancy, first trimester (principal); Z36.0 Encounter for antenatal screening for chromosomal anomalies; N92.6 Irregular menstruation, unspecified
CPT/HCPCS: 36415; 80307; 83036; 85025; 86592; 86762; 86803; 86850; 86900; 86901; 87086; 87340; 87389

== ENCOUNTER 2024-07-27 20:00 | Outpatient (REF) | payer OTHER, SELFPAY ==
--- OUTSIDE RECORDS SUMMARY | 2024-07-27 20:04 | XMS_ITS | CCD ---
Author Organization [facility] Care Team Providers Care Rn Lactation Consultant Name Role Phone CLARICE HILL Consulting Unavailable RUSS GALLOWAY Attending Unavailable JOY DAY Primary Care Unavailable RUSS GALLOWAY Admitting Unavailable RUSS GALLOWAY Consulting Unavailable Julianne Davidson Unavailable [employer] COMMODITY LEAD-Samir RUBIO Primary Care Provide r DANIELLE LANGE Referring Unavailable SCHLACHTER, SAMIR Primary Care Unavailable DANIELLE LANGE Attending Unavailable SCHLACHTGIANNI, SAMIR Referring Unavailable SCHLACHTER, SAMIR Primary Care Unavailable DANIELLE LANGE Attending Unavailable SCHLACHTER, SAMIR Referring Unavailable SCHLACHTER, SAMIR Primary Care Unavailable DANIELLE LANGE Referring Unavailable SCHLACHTER, SAMIR Primary Care Unavailable DANIELLE LANGE Attending Unavailable DANIELLE LANGE Referring Unavailable SCHLACHTER, SAMIR Primary Care Unavailable Schjanellchter SOLAR BUSINESS DEVELOPER, Samir Unavailable [phone] RICARDO PICHARDO Attending Unavailable Allergies Allergy Classification Reported Allergen(s) Allergy Type Date of Onset Reaction(s) Facility (1 source) Sulfonamides (Antibiotic) Drug allergy (disorder) The [facility] Repository (2 sources) Sulfacetamide / Sulfur Drug Allergy [facility] Other (8 sources) Ondansetron; Translations: [ONDANSETRON] Drug [facility] Sulfonamides (Antibiotic); Translations: [SULFA (SULFONAMIDE ANTIBIOTICS)] Propensity to adverse reactions to drug 8 [facility] Work Phone: Medications Current Medications Medication Drug Class(es) Dates Sig (Normalized) Sig (Original) azithromycin 250 mg oral tablet (5 sources) Macrolide Antimicrobial Start: 11-04-2024 azithromycin (Zithromax Z-Nikolas) 250 MG tablet Indications: Viral upper respiratory tract infection As directed 6 tablet 06/27/2024 Active Escitalopram (2 sources) Serotonin Reuptake Inhibitor Escitalopram [...] Active ondansetron 4 mg disintegrating oral tablet (9 sources) Serotonin-3 Receptor Antagonist Start: End: take 1 tablet by mouth every six hours as needed for nausea and vomiting and nausea and nausea ondansetron ODT (Zofran-ODT) 4 MG disintegrating tablet Indications: Nausea Take 1 tablet (4 mg) by mouth every 6 (six) hours if needed for nausea or vomiting 30 tablet 2 06/27/2024 07/27/2024 Active promethazine hydrochloride 12.5 mg oral tablet (12 sources) Phenothiazine Start: take 1 tablet by mouth every six hours as needed for nausea and vomiting and nausea and nausea promethazine (Phenergan) 12.5 MG tablet Indications: Nausea Take 1 tablet (12.5 mg) by mouth every 6 (six) hours if needed for nausea or vomiting for up to 30 doses Take 1 tablet by mouth every 6 hours as needed for nausea. 30 tablet 2 06/27/2024 Active Problems Active Problems Problem Classification Problem Date Documented Date Episodic/Chronic Abdominal pain (12 sources) Unspecified abdominal pain; Translations: [Left sided abdominal pain] Onset: 03-17-2019 09-08-2023 Episodic Calculus of urinary tract (5 sources) Unspecified renal colic; Translations: [Personal history of urinary calculi] Onset: 03-21-2019 10-13-2023 Episodic Genitourinary symptoms and ill-defined conditions (4 sources) Hematuria, unspecified; Translations: [Urinary crystal, calcium oxalate] Onset: 03-21-2019 10-13-2023 Episodic Immunizations and screening for infectious disease (3 sources) Contact with and (suspected) exposure to other viral communicable diseases; Translations: [Exposure to sexually transmissible disorder] Onset: 07-06-2021 Resolved: 07-06-2021 Episodic Menstrual disorders (1 source) Missed period; Translations: [Irregular menstruation, unspecified] 05-27-2024 Chronic Nausea and vomiting (2 sources) Nausea; Translations: [Nausea] 06-27-2024 Episodic Other female genital disorders (1 source) Mittelschmerz; 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] 09-08-2023 Chronic Other female genital disorders (1 source) Pain in female genitalia on intercourse; Translations: [Unspecified dyspareunia] 09-08-2023 Chronic Other female genital disorders (1 source) Mittelschmerz; 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] Onset: 09-08-2023 Chronic Other female genital disorders (1 source) Unspecified dyspareunia; Translations: [Unspecified dyspareunia] Onset: 09-08-2023 Chronic Other female genital disorders (2 sources) Vaginal discharge; Translations: [Other specified noninflammatory disorders of vagina] 07-27-2024 Episodic Other and delivery including normal (6 sources) ; Translations: [Encounter for supervision of normal , unspecified, unspecified trimester] 05-27-2024 Episodic Other screening for suspected conditions (not mental disorders or infectious disease) (2 sources) Patient encounter status; Translations: [Encounter for other specified screening] 07-27-2024 Episodic Other upper respiratory infections (3 sources) Acute pharyngitis, unspecified; Translations: [Viral upper respiratory tract infection] Onset: 04-02-2022 Resolved: 04-02-2022 Episodic Residual codes; unclassified (2 sources) Gestation period, 12 weeks; Translations: [12 weeks gestation of ] 06-27-2024 Episodic Residual codes; unclassified (2 sources) Gestation period, 16 weeks; Translations: [16 weeks gestation of ] 07-27-2024 Episodic Past or Other Problems Problem Classification Problem Date Documented Da te Episodic/Chronic Mood disorders (3 sources) Mood disorders Onset: 06-24-2023 06-24-2023 Unclassified (3 sources) Onset: 06-01-2023 06-01-2023 Viral infection (1 source) COVID-19 Onset: 07-06-2021 Resolved: 07-06-2021 Results Test Name Value Interpretation Reference Range Facility Urinalysis macro (dipstick) panel (U)on 07-27-2024 Bilirubin, UA Negative Negative - 4(70) +++ mg/dL [facility] Healthcare Blood, UA Negative Negative - 50 Dipak/mcL [facility] Clarity, UA Clear [facility] Color, UA Yellow [facility] Glucose, UA Negative Negative - 1999(110) ++++ mg/dL [facility] Interpretation and review of laboratory results Normal [facility] Ketones, UA Negative Negative - 160(16) ++++ mg/dL [facility] Leukocytes, UA Negative Negative - 500+++ Jaswant/mcL [facility] Nitrite, UA Negative Negative - Positive [facility] pH, UA 6 5 - 9 [facility] Protein, UA Negative Negative - 1999(20) ++++ mg/dL [facility] Spec Grav, UA 1.02 1 - 1.03 [facility] Health care Urobilinogen, UA 1.0 0.2 - 12 mg/dL [facility] Urinalysis macro (dipstick) panel (U)on 06-27-2024 Bilirubin, UA Negative Negative - 4(70) +++ mg/dL [facility] Blood, UA Negative Negative - 50 Dipak/mcL [facility] Clarity, UA Clear [facility] Color, UA Yellow [facility] Glucose, UA Negative Negative - 1999(110) ++++ mg/dL [facility] Interpretation and review of laboratory results Abnormal [facility] Ketones, UA Negative Negative - 160(16) ++++ mg/dL [facility] Leukocytes, UA Trace Negative - 500+++ Jaswant/mcL [facility] Nitrite, UA Negative Negative - Positive [facility] pH, UA 5.5 5 - 9 [facility] Protein, UA Negative Negative - 1999(20) ++++ mg/dL [facility] Spec Grav, UA 1.02 1 - 1.03 [facility] Urobilinogen, UA 0.2 0.2 - 12 mg/dL [facility]on 06-08-2024 BOX TEST SENT OUT KERA edwards [address] [facility] BOX2 06/08/24 [facility] e HCG ( test) Ql (U)o n 05-27-2024 Interpretation and review of laboratory results Abnormal [facility] Preg Test, Ur Positive [facility] Urinalysis macro (dipstick) panel (U)on 05-27-2024 Bilirubin, UA Negative Negative - 4(70) +++ mg/dL [facility] Blood, UA Positive Negative - 50 Dipak/mcL [facility] Comment on above: trace intact Clarity, UA Clear [facility] re Color, UA Yellow [facility] e Glucose, UA Negative Negative - 1999(110) ++++ mg/dL [facility] Interpretation and review of laboratory results Abnormal [facility] Ketones, UA Negative Negative - 160(16) ++++ mg/dL [facility] Leukocytes, UA Trace Negative - 500+++ Jaswant/mcL [facility] Nitrite, UA Negative Negative - Positive [facility] pH, UA 7.0 5 - 9 [facility] Protein, UA Negative Negative - 2000(20) ++++ mg/dL [facility] Spec Grav, UA 1.015 1 - 1.03 [facility] Urobilinogen, UA 0.2 0.2 - 12 mg/dL [facility] US RETROPERITONEAL COMPLETEo n 10-16-2023 [...] Marte MD on 10/16/2023 1:22 AM Normal [facility] US PELVIC WITH TRANSVAGINALo n 09-15-2023 [...] Rogers MD on 09/15/2023 6:54 PM Normal [facility] CHLAMYDIA/GC BY PCRon 2023 CHLAMYDIA/GC BY [...] dependent on adequate specimen collection. Normal [facility] Comment on above: Performed By: #### C #### [facility] ([id number]) [address], [address] [place] [address] POCT , urineon 08-24 Beta HCG ( test) Ql (U) Negative [facility] URINALYSISon 09-08-2023 Bilirubin Ql (U) Negative Normal NEG [facility] BLOOD/HGB Negative Normal NEG [facility] CA OXALATE CRYSTALS PRESENT Abnormal NONE [facility] Color (U) YELLOW Normal YELLOW [facility] Glucose Ql (U) Negative Normal NEG [facility] Ketones Ql (U) Negative Normal NEG [facility] Leukocyte esterase Test strip Ql (U) Negative Normal NEG [facility] MUCOUS PRESENT Abnormal NONE [facility] Nitrite Ql (U) Negative Normal NEG [facility] pH (U) 6.5 [pH] Normal 5.0-8.5 [facility] Protein Ql (U) Trace Abnormal NEG [facility] R.B.CELLS 2 /hpf Normal 0-5 [facility] Specific gravity (U) [Rel density] 1.027 Normal 1.003-1.035 [facility] SQUAMOUS EPITHELIUM 14 /hpf High 0-5 [facility] TURBIDITY CLEAR Normal CLEAR [facility] Urobilinogen (U) [Mass/Vol] mg/dL Normal <1.1 [facility] W.B.CELLS 3 /hpf Normal 0-5 [facility] URINE CULTUREon 09-08-2023 Bacteria identified Cx Nom (U) CULTURE RESULTS 10-50,000 ORGANISMS/mL NORMAL UROGENITAL AYLIN Normal [facility] Comment on above: Performed By: #### 6 30-4 #### [facility] ([id number]) [address] [place] [address], [address] [place] [address] Urinalysison 09-08-2023 Bilirubin Ql (U) Negative Negative^Ne gat odell [facility] Calcium oxalate crystals LM Ql (Urine sed) PRESENT Abnormal NONE^NONE [facility] Color (U) YELLOW YELLOW^YELLOW [facility] Epithelial cells Auto (Urine sed) [#/Area] [address] [facility] Glucose (U) [Mass/Vol] Negative Negative^Negat odell mg/dL [facility] Hemoglobin Auto test strip Ql (U) Negative Negative^Negat odell [facility] Interpretation and review of laboratory results Abnormal [facility] Ketones (U) [Mass/Vol] Negative Negative^Negat odell mg/dL [facility] Leukocyte esterase Auto test strip Ql (U) Negative Negative^Negat odell [facility] Mucus Ql (Urine sed) PRESENT Abnormal NONE^NONE [facility] Nitrite Auto test strip Ql (U) Negative Negative^Negat odell [facility] pH (U) 6.5 [pH] 5.0 - 8.5 [facility] Protein (U) [Mass/Vol] Trace Abnormal Negative^Negat odell mg/dL [facility] RBC Auto (Urine sed) [#/Area] 2 [facility] Specific gravity Refractometry automated (U) [Rel density] 1.027 1.003 - 1.035 [facility] Turbidity Ql (U) CLEAR CLEAR^CLEAR [facility] Urobilinogen Qn (U) NINF [facility] WBC Auto (Urine sed) [#/Area] 3 [facility] VAGINITIS PANEL PCRon 2023 VAGINITIS PANEL PCR [...] presentation to determine patient diagnosis. Normal [facility] Comment on above: Performed By: #### V PPCR #### [facility] ([id number]) [address] [place] [address] Quick Strepon 04-02-2022 S. pyogenes Org specific cx Ql (Throat) Negative [facility] [employer] Other Quick Strep [facility] [employer] Other Vital Signs Date Time Vital Sign Value Performing Clinician Facility 07-27-2024 15:32-0500 Body weight 81.38 kg Ricardo Kylee DO Work Phone: [facility] 07-27-2024 15:32-0500 Diastolic blood pressure 66 mm[Hg] Ricardo Kylee DO Work Phone: [facility] 07-27-2024 15:32-0500 Systolic blood pressure 108 mm[Hg] Ricardo Kylee DO Work Phone: [facility] 06-27-2024 16:10-0500 Body weight 79.83 kg Ricardo Kylee DO Work Phone: [facility] 06-27-2024 16:10-0500 Diastolic blood pressure 68 mm[Hg] Ricardo Kylee DO Work Phone: [facility] 06-27-2024 16:10-0500 Systolic blood pressure 108 mm[Hg] Ricardo Kylee DO Work Phone: [facility] 05-27-2024 10:31-0400 Body weight 79.38 kg Nom Nurse [facility] 05-27-2024 10:31-0400 Diastolic blood pressure 80 mm[Hg] [facility] Nurse [facility] 05-27-2024 10:31-0400 Systolic blood pressure 122 mm[Hg] [facility] Nurse [facility] 10-13-2023 14:41-0500 Body height 165.1 cm Danielle Lange DO Work Phone: [facility] 10-13-2023 14:41-0500 Body mass index (BMI) [Ratio] 28.09 kg/m2 Danielle Lange DO Work Phone: [facility] 10-13-2023 14:41-0500 Body weight 76.57 kg Danielle Lange DO Work Phone: [facility] 10-13-2023 14:41-0500 Diastolic blood pressure 68 mm[Hg] Danielle Lange DO Work Phone: [facility] 10-13-2023 14:41-0500 Systolic blood pressure 104 mm[Hg] [facility] 09-08-2023 11:06-0500 Body height 165.1 cm Danielle Lange DO Work Phone: [facility] 09-08-2023 11:06-0500 Body mass index (BMI) [Ratio] 28.22 kg/m2 Danielle Lange DO Work Phone: [facility] 09-08-2023 11:06-0500 Body weight 76.93 kg Danielle Lange [facility] 09-08-2023 11:06-0500 Diastolic blood pressure 70 mm[Hg] Danielle Lange DO Work Phone: [facility] 09-08-2023 11:06-0500 Systolic blood pressure 116 mm[Hg] Danielle Lange DO Work Phone: [facility] 04-02-2022 12:20-0400 Body height 167.64 cm Julianne Davidson Other [employer] Other 04-02-2022 12:20-0400 Body mass index (BMI) [Ratio] 30.66 kg/m2 Julianne Davidson Other [employer] Other 04-02-2022 12:20-0400 Body temperature 99.3 [degF] Julianne Davidson Other [facility] [employer] Other 04-02-2022 12:20-0400 Body weight 86.18 kg Julianne Davidson Other [facility] [employer] Other 04-02-2022 12:20-0400 Respiratory rate 18 /min Julianne Davidson Other [facility] Other 04-02-2022 12:20-0400 SaO2% (BldA) [Mass fraction] 99 % Julianne Davidson Other [facility] Other 07-06-2021 11:30-0500 Body height 165.1 cm Julianne Davidson Other [employer] Other 07-06-2021 11:30-0500 Body mass index (BMI) [Ratio] 29.95 kg/m2 Julianne Davidson Other [facility] Other 07-06-2021 11:30-0500 Body temperature 98.2 [degF] Julianne Davidson Other [facility] [employer] Other 07-06-2021 11:30-0500 Body weight 81.65 kg Julianne Davidson Other [employer] Other 07-06-2021 11:30-0500 SaO2% (BldA) [Mass fraction] 99 % Julianne Davidson Other [employer] Other Encounters Encounter Date Encounter Type Care Provider Facility Start: 07-27-2024 End: 07-27-2024 Patient encounter procedure Ricardo Kylee DO Work Phone: [facility] Work Phone: Start: 07-27-2024 End: 07-27-2024 Periodic preventive med est patient 18-39 yrs Ricardo Kylee DO Work Phone: [facility] Comment on above: Well woman exam with routine gynecological exam; Second trimester ; 16 weeks gestation of ; Screening, , for anatomic survey; Vaginal discharge; STD exposure Start: 07-27-2024 End: 07-27-2024 Bamboo flowsheet Ricardo Kylee DO Work Phone: [facility] Start: 07-27-2024 End: 07-27-2024 Bamboo flowsheet Ricardo Kylee DO Work Phone: [facility] Start: 06-27-2024 End: 06-27-2024 flow sheet Ricardo Kylee DO Work Phone: [facility] Comment on above: First trimester preg nadeen; 12 weeks gestation of ; Nausea; Viral upper respiratory tract infection Start: 06-27-2024 End: 06-27-2024 ambulatory RICARDO KYLEE Not Available Start: 06-27-2024 End: 06-27-2024 Bamboo flowsheet Ricardo Kylee DO Work Phone: [facility] Start: 06-27-2024 End: 06-27-2024 Bamboo flowsheet Ricardo Kylee DO Work Phone: [facility] Start: 06-08-2024 End: 06-08-2024 Clinisync Result Encounter Ricardo Kylee DO Work Phone: [facility] External Department Unsolicited Start: 06-08-2024 End: 06-08-2024 Clinisync Result Encounter Ricardo Kylee DO Work Phone: [facility] External Department Unsolicited Start: 05-27-2024 End: 05-27-2024 Office outpatient visit 5 minutes [facility] Kylee Nurse [facility] Comment on above: GA: 8w2d Start: 05-27-2024 End: 05-27-2024 ambulatory RICARDO KYLEE Not Available Start: 10-29-2023 Orders Only Sowmya Retana [facility] Comment on above: Renal lithiasis (Yanet annita Dx); Calcium oxalate crystals in urine; Flank pain; Left sided abdominal pain Start: 10-15-2023 End: 10-16-2023 ambulatory DANIELLE [facility] Start: 10-13-2023 End: 10-13-2023 ambulatory [facility] Start: 10-13-2023 End: 10-13-2023 Office outpatient visit 15 minutes Danielle Lange DO Work Phone: [facility] Comment on above: Renal lithiasis (Yanet annita Dx); Left sided abdominal pain; Flank pain; Calcium oxalate crystals in urine Start: 09-14-2023 End: 09-15-2023 ambulatory [facility] Start: 09-08-2023 End: 09-09-2023 ambulatory [facility] Start: 09-08-2023 End: 09-08-2023 ambulatory [facility] Start: 09-08-2023 End: 09-08-2023 Office outpatient visit 15 minutes Danielle Liu Lange DO Work Phone: [facility] Comment on above: Dyspareunia in femal e (Primary Dx); Left sided abdominal pain; Mittelschmerz Start: 04-02-2022 End: 04-02-2022 ambulatory Julianne Davidson Other [employer] Other Start: 04-02-2022 Office outpatient vi sit 15 minutes Julianen Davidson [facility] Start: 07-06-2021 (URG) Urgent Care Visit Julianne monsalve [facility] Start: 07-06-2021 End: 07-06-2021 ambulatory Julianne Davidson Other [employer] Other Start: 03-17-2019 End: 03-18-2019 Patient encounter procedure CLARICE HILL Facility:H1 Procedures Date Procedure Procedure Detail Performing Clinician Start: 07-27-2024 Urnls dip stick/tabl et rgnt non-auto w/o micrscp Ricardo Kylee DO Work Phone: Start: 06-27-2024 Urnls dip stick/tabl et rgnt non-auto w/o micrscp Ricardo Kylee DO Work Phone: Start: 06-08-2024 BOX TEST Ricardo Fazi o DO Work Phone: Start: 05-27-2024 End: 05-27-2024 Urnls dip stick/tablet rgnt non-auto w/o micrscp Ricardo Kylee DO Work Phone: Start: 10-13-2023 Follow-up visit Follow-up DANIELLE Alexa ANISA Start: 09-08-2023 Urine test visual color cmprsn meths Danielle Liu Lange DO Work Phone: Start: 06-24-2023 Adult depression scr eening assessment Danielle Lange DO Work Phone: Start: 06-18-2022 Microscopic observat ion [Identifier] in Cervix by Cyto stain Danielle Lange DO Work Phone: Plan of Treatment Date Care Activity Detail Author Start: 06-18-2025 Screening for malign ant neoplasm of cervix Pap Smear [facility] Start: 10-13-2024 Adult BMI Screening Adult BMI Screen ing [facility] Start: 10-13-2024 Tobacco Screening Tobacco Screening [facility] Start: 09-08-2024 Adult BMI Screening Adult BMI Screen ing [facility] Start: 09-08-2024 Screening for Chlamy hernesto trachomatis Chlamydia Screening [facility] Start: 09-08-2024 Tobacco Screening Tobacco Screening [facility] Start: 08-29-2024 End: 08-29-2024 Patient encounter procedure 08/29/2024 3:20 PM EST Routine [facility] [address] [place] [place] [id number] Carin Hernandez PA [address] [place] [address] [facility] Start: 07-27-2024 End: 07-27-2024 Patient encounter procedure [facility] Comment on above: Arrived Start: 07-27-2024 End: 01-25-2025 Alpha fetoprotein, maternal Alpha fetoprotein, maternal Lab Routine Second trimester 16 weeks gestation of Expected: 07/27/2024 (Approximate), Expires: 01/25/2025 [facility] Comment on above: Expected: 07/27/2024 (Approximate), Expires: 01/25/2025 Start: 07-27-2024 End: 07-27-2025 US for US OB ANATOMY SINGLE W US OB CERVICAL LENGTH Imaging Routine Screening, , for anatomic survey Expected: 07/27/2024 (Approximate), Expires: 07/27/2025 [facility] Comment on above: Expected: 07/27/2024 (Approximate), Expires: 07/27/2025 Start: 06-27-2024 End: 06-27-2024 Patient encounter procedure [facility] Comment on above: Arrived Start: 06-24-2024 Depression Screening Depression Scre [facility] Start: 06-01-2024 Adult BMI Follow Up Plan Adult BMI F ollow Up Plan [facility] Start: 05-27-2024 End: 05-27-2025 ABO/Rh ABO/Rh Lab Routine Missed menses , unspecified gestational age Expected: 05/27/2024 (Approximate), Expires: 05/27/2025 [facility] Comment on above: Expected: 05/27/2024 (Approximate), Expires: 05/27/2025 Start: 05-27-2024 End: 05-27-2025 Blood type and Indirect antibody screen panel - Blood Type and screen Lab Routine Missed menses , unspecified gestational age Expected: 05/27/2024 (Approximate), Expires: 05/27/2025 [facility] Work Phone: Comment on above: Expected: 05/27/2024 (Approximate), Expires: 05/27/2025 Start: 05-27-2024 End: 05-27-2025 Drugs of abuse panel - Urine by Screen method Rapid drug screen, urine Lab Routine , unspecified gestational age Encounter for supervision of normal first in first trimester Expected: 05/27/2024 (Approximate), Expires: 05/27/2025 [facility] Comment on above: Expected: 05/27/2024 (Approximate), Expires: 05/27/2025 Start: 05-27-2024 End: 05-27-2025 US Pelvis transvaginal US OB transvaginal Imaging Routine Missed menses Expected: 05/27/2024 (Approximate), Expires: 05/27/2025 [facility] Comment on above: Expected: 05/27/2024 (Approximate), Expires: 05/27/2025 Start: 11-26-2023 DTaP,Tdap and Td Vac cines (7 - Td or Tdap) DTaP,Tdap and Td Vaccines (7 - Td or Tdap) [facility] Start: 10-13-2023 End: 10-13-2024 US Retroperitoneum Ultrasound retroperitoneal complete Imaging Routine Left sided abdominal pain Flank pain Renal lithiasis Calcium oxalate crystals in urine Expected: 10/13/2023, Expires: 10/13/2024 [facility] Work Phone: Comment on above: Expected: 10/13/2023 , Expires: 10/13/2024 Start: 10-06-2023 End: 10-06-2023 Patient encounter procedure 10/06/2023 2:00 PM EST Office Visit [facility] Obstetrics/Gynecology [address] [place] [address] Danielle Lange, [address] [place] [address] [facility] [facility] Start: 09-14-2023 End: 09-14-2023 Patient encounter procedure 09/14/2023 2:00 PM EST Appointment [facility] - Ultrasound [address] [place] [id number] [facility] - Ultrasound Start: 09-08-2023 End: 09-08-2024 Bacteria identified in Urine by Culture [facility] Work Phone: Comment on above: Expected: 09/08/2023 (Approximate), Expires: 09/08/2024 Start: 09-08-2023 End: 09-08-2024 US Pelvis transabdominal and transvaginal Ultrasound pelvic with transvaginal Imaging Routine Left sided abdominal pain Expected: 09/08/2023, Expires: 09/08/2024 [facility] Comment on above: Expected: 09/08/2023 , Expires: 09/08/2024 Start: 09-08-2023 End: 09-08-[address] [facility] Comment on above: Expected: 09/08/2023 (Approximate), Expires: 09/08/2024 Start: 06-18-2023 Screening for Chlamy hernesto trachomatis Chlamydia Screening [facility] Start: 04-24-2023 Influenza vaccination Influenza Vacc ine [facility] Bacteria identified in Urine by Culture Urine culture Microbiology Routine Missed menses Ordered: 05/27/2024 [facility] Comment on above: Ordered: 05/27/2024 CBC W Auto Different ial panel - Blood CBC and differential Lab Routine Missed menses , unspecified gestational age Ordered: 05/27/2024 [facility] Comment on above: Ordered: 05/27/2024 CHLAMYDIA TRACHOMATI S (GENITO/STI) CHLAMYDIA TRACHOMATIS (GENITO/STI) Lab Routine STD exposure Ordered: 07/27/2024 [facility] Comment on above: Ordered: 07/27/2024 End: 09-08-2024 Chlamydia/GC by PCR Row[facility]ab Chlamydia/GC by PCR [facility] Microbiology Routine Left sided abdominal pain 1 Occurrences starting 09/08/2023 until 09/08/2024 [facility] Comment on above: 1 Occurrences starti ng 09/08/2023 until 09/08/2024 Chlamydia/GC by PCR Row[facility]ab Chlamydia/GC by PCR [facility] Microbiology Routine Left sided abdominal pain 09/08/2023 7:[address] [facility] Cytology Cervical or vaginal smear or scraping study Pap Smear Pathology and Cytology Routine Well woman exam with routine gynecological exam Ordered: 07/27/2024 [facility] Comment on above: Ordered: 07/27/2024 Hemoglobin A1c/Hemoglobin.total in Blood Hemoglobin A1c Lab Routine Missed menses , unspecified gestational age Ordered: 05/27/2024 [facility] Comment on above: Ordered: 05/27/2024 Hepatitis B virus clarke rface Ag [Presence] in Serum or Plasma by Immunoassay Hepatitis B surface antigen Lab Routine Missed menses , unspecified gestational age Ordered: 05/27/2024 [facility] Comment on above: Ordered: 05/27/2024 Hepatitis C virus Ab [Presence] in Serum or Plasma by Immunoassay Hepatitis C antibody Lab Routine Missed menses , unspecified gestational age Ordered: 05/27/2024 [facility] Comment on above: Ordered: 05/27/2024 HIV-1/HIV-2 antigen/antibody combination immunoassay HIV-1 and HIV-2 antibodies Lab Routine Missed menses , unspecified gestational age Ordered: 05/27/2024 [facility] Comment on above: Ordered: 05/27/2024 Neisseria gonorrhoea e DNA [Presence] in Unspecified specimen by MARIA M with probe detection Neisseria gonorrhea DNA probe, direct Lab Routine STD exposure Ordered: 07/27/2024 [facility] Comment on above: Ordered: 07/27/2024 Reagin Ab [Presence] in Serum by RPR RPR Lab Routine Missed menses , unspecified gestational age Ordered: 05/27/2024 [facility] Comment on above: Ordered: 05/27/2024 Rubella antibody, IgG Rubella an tibody, IgG Lab Routine Missed menses , unspecified gestational age Ordered: 05/27/2024 [facility] Comment on above: Ordered: 05/27/2024 SURESWAB(R) ADVANCED VAGINITIS PLUS, TMA SURESWAB(R) ADVANCED VAGINITIS PLUS, TMA Pathology and Cytology Routine Vaginal discharge STD exposure Ordered: 07/27/2024 [facility] Work Phone: Comment on above: Ordered: 07/27/2024 Immunizations Immunization Date Immunization Notes Care Provider Ton king 06-28-2009 influenza virus vaccine, unspecified formulation Danielle Lange DO Work Phone: [facility] Payers Date Payer Category Payer Managed Care HMO (unspecified) [id number] 2024 Private Health Insurance [id number] 2019 Private Health Insurance [id number] 2019 Private Health Insurance [facility] [id number] 2019-Present [phone] [address] [address] [place] [address] [id number] 2001 Unknown [id number] 2001 Unknown [id number] 2001 Unknown [id number] 2001 Unknown [id number] 1286 2001 Unknown [id number] 1286 2001 Unknown [id number] 1259 2001 Unknown [id number] 1259 1976 Unknown [id number] 1959 Unknown [id number] Social History Date Type Detail Facility Sex Assigned At [facility] Other Start: 08-08-2018 End: 05-27-2024 Sex Assigned At [facility] Start: 06-18-2022 End: 05-27-2024 Tobacco smoking status NHIS Never smoked tobacco [facility] Start: 06-18-2022 End: 05-27-2024 Tobacco use and exposure Smokeless tobacco non-user [facility] Start: 09-08-2023 End: 10-13-2023 Alcohol intake Current non-drinker of alcohol (finding) [facility] Start: 08-08-2018 End: 05-27-[address] [facility] Frequency of Alcohol Consumption Never [facility] Start: 2000 Sex Assigned At Not on file [facility] Start: 05-27-2024 End: 07-27-2024 Alcoholic beverage intake Lifetime non-drinker (finding) [facility] Start: 04-13-2024 [facility] Start: 2000 Sex assigned at Female [facility] Start: 12-29-2023 Gender identity Identifies as female gender (finding) [facility] Clinical Notes 04-02-2022 to 07-27-2024 Whitley Sanchez LPN - 07/27/2024 2:50 PM Katja Barone - 06/27/2024 3:30 PM Katja Barone - 05/27/2024 10:30 AM Eduar Retana CMA - 10/29/2023 2:54 PM EST Note Date & Type Note Facility 07-27-2024 History of Present illness Narrative Reason for Appointment: Patient ID: Marisela Marino is a 24 y.o. female who presents for Well Women Visit, Routine Visit, and STI Screening Patient presents today for Return OB appointment. MEDICATIONS Current Outpatient Medications Medication Instructions azithromycin (Zithromax Z-Nikolas) 250 MG tablet As directed ondansetron ODT (ZOFRAN-ODT) 4 mg, Oral, Every 6 hours PRN promethazine (PHENERGAN) 12.5 mg, Oral, Every 6 hours PRN, Take 1 tablet by mouth every 6 hours as needed for nausea. promethazine (PHENERGAN) 12.5 mg, Oral, Every 6 hours PRN, Take 1 tablet by mouth every 6 hours as needed for nausea. ALLERGIES Allergies Allergen Reactions Ondansetron Other Reaction(s): Vomiting Sulfa Antibiotics Hives Other Reaction(s): Unknown PROBLEMS Active Ambulatory Problems Diagnosis Date Noted No Active Ambulatory Problems Resolved Ambulatory Problems Diagnosis Date Noted No Resolved Ambulatory Problems No Additional Past Medical History HISTORY PAST MEDICAL HISTORY SOCIAL HISTORY History reviewed. No pertinent past medical history. Social History Tobacco Use Smoking status: Never Smokeless tobacco: Never Substance Use Topics Alcohol use: Never Drug use: Never FAMILY HISTORY Family History Problem Relation Name Age of Onset Asthma Maternal Grandfather Solomon smith Breast cancer Maternal Grandmother Mikaela smith SURGICAL HISTORY History reviewed. No pertinent surgical history. REVIEW OF SYSTEMS Review of Systems: Review of Systems Constitutional: Negative. HENT: Negative. Eyes: Negative. Respiratory: Negative. Cardiovascular: Negative. Gastrointestinal: Negative. Genitourinary: Negative. Musculoskeletal: Negative. Skin: Negative. Neurological: Negative. All other systems reviewed and are negative. Hematological: Negative. Endocrine: Negative. Allergic/Immunologic: Negative. OBJECTIVE Objective: Physical Exam Constitutional: Appearance: Normal appearance. She is well-developed. Genitourinary: Vulva normal. Breasts: Breasts are soft. Right: Normal. Left: Normal. Cardiovascular: Rate and Rhythm: Normal rate and regular rhythm. Pulmonary: Effort: Pulmonary effort is normal. Breath sounds: Normal breath sounds. Abdominal: General: Bowel sounds are normal. There is no distension. Palpations: Abdomen is soft. Tenderness: There is no abdominal tenderness. There is no guarding or rebound. Musculoskeletal: General: No swelling. Normal range of motion. Right lower leg: No edema. Left lower leg: No edema. Neurological: Mental Status: She is alert and oriented to person, place, and time. Skin: General: Skin is warm and dry. Psychiatric: Mood and Affect: Mood normal. Behavior: Behavior normal. Vitals and nursing note reviewed. Exam conducted with a crm coordinator present. Vitals: Estimated body mass index is 27.6 kg/m as calculated from the following: Height as of 09/20/18: 5' 5.5 . Weight as of 09/20/18: 168 lb 6.4 oz. BP: 108/66 Patient's last menstrual period was 03/30/2024. ASSESSMENT & PLAN ICD-10-CM 1. Well woman exam with routine gynecological exam Z01.419 Pap Smear 2. Second trimester Z34.92 POCT urinalysis dipstick manually resulted Alpha fetoprotein, maternal Alpha fetoprotein, maternal 3. 16 weeks gestation of Z3A.16 POCT urinalysis dipstick manually resulted Alpha fetoprotein, maternal Alpha fetoprotein, maternal 4. Screening, , for anatomic survey Z36.89 US OB ANATOMY SINGLE W US OB CERVICAL LENGTH 5. Vaginal discharge N89.8 SURESWAB(R) ADVANCED VAGINITIS PLUS, TMA 6. STD exposure Z20.2 SURESWAB(R) ADVANCED VAGINITIS PLUS, TMA CHLAMYDIA TRACHOMATIS (GENITO/STI) Neisseria gonorrhea DNA probe, direct Return OB/Annual Exam: Patient presents today for a annual exam/routine obstetrics appointment. Patient is currently 17w0d . Patient states she is doing well but has complaints of nausea in the morning. Pap and cultures was obtained without difficulty and patient was given orders for anatomy scan and msAFP to be obtained. Orders Placed This Encounter Procedures US OB ANATOMY SINGLE W US OB CERVICAL LENGTH CHLAMYDIA TRACHOMATIS (GENITO/STI) Neisseria gonorrhea DNA probe, direct Alpha fetoprotein, maternal POCT urinalysis dipstick manually resulted Follow Up: Patient is to schedule annual exam for next year and return to office in 4 weeks for OB appointment. Documented by Whitley Sanchez LPN on behalf of: Ricardo Pichardo DO documented in this encounter [facility] 06-27-2024 History of Present illness Narrative Reason for Appointment: Patient ID: Marisela Marino is a 24 y.o. female who presents for No chief complaint on file. Patient presents today for Return OB appointment. MEDICATIONS Current Outpatient Medications Medication Instructions promethazine (PHENERGAN) 12.5 mg, Oral, Every 6 hours PRN, Take 1 tablet by mouth every 6 hours as needed for nausea. ALLERGIES Allergies Allergen Reactions Sulfa Antibiotics PROBLEMS Active Ambulatory Problems Diagnosis Date Noted No Active Ambulatory Problems Resolved Ambulatory Problems Diagnosis Date Noted No Resolved Ambulatory Problems No Additional Past Medical History HISTORY PAST MEDICAL HISTORY SOCIAL HISTORY No past medical history on file. Social History Tobacco Use Smoking status: Never Smokeless tobacco: Never Substance Use Topics Alcohol use: Never Drug use: Never FAMILY HISTORY Family History Problem Relation Name Age of Onset Asthma Maternal Grandfather Solomon smith Breast cancer Maternal Grandmother Mikaela smith SURGICAL HISTORY No past surgical history on file. REVIEW OF SYSTEMS Review of Systems: Review of Systems All other systems reviewed and are negative. OBJECTIVE Objective: OBGyn Exam Vitals: Estimated body mass index is 27.6 kg/m as calculated from the following: Height as of 09/20/18: 5' 5.5 . Weight as of 09/20/18: 168 lb 6.4 oz. BP: Patient's last menstrual period was 03/30/2024. ASSESSMENT & PLAN ICD-10-CM 1. First trimester Z34.91 2. 12 weeks gestation of Z3A.12 POCT urinalysis dipstick manually resulted Return OB: Patient presents today for a routine obstetrics appointment. Patient is currently 12w5d . Patient states she is doing well but has complaints of being tired due to current . Orders Placed This Encounter Procedures POCT urinalysis dipstick manually resulted Patient will be given Zofran, Phenergan and Z-Pack. Patient to call office with any questions/concerns. Follow Up: Patient is to return to office in 4 weeks for routine OB appointment. Documented by Laila Allred LPN on behalf of: Rciardo Pichardo DO documented in this encounter [facility] 05-27-2024 History of Present illness Narrative Reason [...] or undercooked meat, and stay away from [facility]. Patient has also been advised to not [...] by: Linda Barone documented in this encounter [facility] 10-29-2023 History of Present illness Narrative Ordered new Sample Dye Mixer referral documented in this encounter [facility] 10-13-2023 History of Present illness Narrative Images [...] past. She states she has seen a manager shift, but was only counseled to not drink [...] PM Imaging Ultrasound pelvic with transvaginal (Order: [id number]) - 09/14/2023 Result History Ultrasound pelvic with transvaginal (Order #[id number]) on 09/15/2023 - Order Result History Report [...] to nephrology placed. documented in this encounter [facility] 09-08-2023 History of Present illness Narrative Subjective [...] alleviate her symptoms documented in this encounter [facility] 04-02-2022 Evaluation note Encounter Date Diagnosis Assessment Notes Mar, Viral pharyngitis (ICD-10 - J02.9) Pharyngitis/to nsillopharyngi tis: adult home care material was printed Drink plenty fluids, get plenty of rest. Take Tylenol or Motrin for aches pains or fevers. Continue your cephalexin as prescribed until gone. Follow-up with your family physician if no improvement in 2 to 3 days. [place] [facility] Other Evaluation noteNort [facility] Other Evaluation note* Diagnosis Dyspareunia in female- Primary Left sided abdominal pain Abdominal pain, unspecified site Mittelschmerz [facility] Diagnosis Renal lithiasis- Primary Calculus of kidney Left sided abdominal pain Abdominal pain, unspecified site Flank pain Abdominal pain, unspecified site Calcium oxalate crystals in urine [facility]* Diagnosis Renal lithiasis- Primary Calculus of kidney Calcium oxalate crystals in urine Flank pain Abdominal pain, unspecified site Left sided abdominal pain Abdominal pain, unspecified site [facility] Diagnosis Missed menses , unspecified gestational age Encounter for supervision of normal first in first trimester documented in this encounter [facility] Healthcare[facility]* Diagnosis First trimester state, incidental 12 weeks gestation of Nausea Nausea alone Viral upper respiratory tract infection Acute upper respiratory infections of unspecified site documented in this encounter [facility] HealthcareEvaluation note* Diagnosis Well woman exam with routine gynecological exam Routine gynecological examination Second trimester state, incidental 16 weeks gestation of Screening, , for anatomic survey Encounter for anatomic survey Vaginal discharge Leukorrhea, not specified as infective STD exposure [facility] - [facility] [employer] Other History general Narrative - Reported* Type Description Date Medical History chronic depression [facility] [employer] Other Instructions* Attachments The following attachments cannot be sent through Care Everywhere. * Painful Ovulation (Swazi) [facility]* Attachments The following attachments cannot be sent through Care Everywhere. * Kidney stones in adults (Swazi) [facility] KrowdPadInstructionsNot on file documented [facility] KrowdPadReason for referral (narrative)* Consultation (Routine) - Pending Review Specialty Diagnoses / Procedures Referred By Keerthi hough Referred To Contact Nephrology Diagnoses Left sided abdominal pain Flank pain Renal lithiasis Calcium oxalate crystals in urine Danielle Lange DO [address] [place] [address] Yannick Villagomez MD [address] [place] [address] Referral ID Status Reason Start Date Expiration Date Visits Requested Visits Authorized [id number] Pending Review Specialty Services Required 10/13/2023 10/12/[address] [facility] (n[facility]ative[facility] Consultation (Routine) - Pending Review Specialty Diagnoses / Procedures Referred By Keerthi hough Referred To Contact Nephrology Diagnoses Renal lithiasis Calcium oxalate crystals in urine Flank pain Left sided abdominal pain Danielle Lange DO [address] [place] [address] Hussein Card MD [address] [place] [address] [place] [address] Referral ID Status Reason Start Date Expiration Date Visits Requested Visits Authorized [id number] Pending Review Specialty Services Required 10/29/2023 10/28/2024 1 1 [facility] Summary Purpose Family History No Family History Records FoundNo Family History Records FoundNo Family History Records FoundNo Family History Records FoundNo Family History Records Found Advance Directives No Advanced Directives Records FoundNo Advanced Directives Records FoundNo Advanced Directives Records FoundNo Advanced Directives Records FoundNo Advanced Directives Records Found Additional Source Comments INFORMATION SOURCE (unrecogn ized section and content) DATE CREATED AUTHOR 09/15/2020 [facility] DATE CREATED AUTHOR AUTHOR'S ORGANIZ ATION 09/12/2023 [facility] DATE CREATED AUTHOR AUTHOR'S ORGANIZ ATION 10/21/2023 [facility] Ambulatory [facility] DATE CREATED AUTHOR AUTHOR'S ORGANIZ ATION 10/23/2023 [facility] DATE CREATED AUTHOR AUTHOR'S ORGANIZ ATION 06/28/2024 [facility] Special[facility] EPIC REASON FOR VISIT (unrecogniz ed section and content) Reason Comments Abdominal Pain Left side started ab out 2 months agoPain the first day of cycle Reason Comments Follow-up Ultrasound results d /t pelvic pain Reason Comments Initial Visit Reason Comments Routine Visit Reason Comments Well Women Visit Routine Visit STI Screening Care Teams (unrecognized sec tion and content) Rn Lactation Consultant Relationship Specialty Start Date End Date Samir Stroud APRN-[employer] [address] [place] [address] PCP - General Family Medicine 12/28/22 Rn Lactation Consultant Relationship Specialty Start Date End Date Samir Stroud, COMMODITY LEAD-[employer] [address] [place] [address] PCP - General Family Medicine 12/28/22 Rn Lactation Consultant Relationship Specialty Start Date End Date Samir Stroud APRN-[employer] [address] [place] [address] PCP - General Family Medicine 12/28/22 Rn Lactation Consultant Relationship Specialty Start Date End Date Samir Stroud NP [address] [place] [address] Referring Physician Family Medicine 05/19/23 Rn Lactation Consultant Relationship Specialty Start Date End Date Samir Stroud NP [address] [place] [address] Referring Physician Family Medicine 05/19/23 Rn Lactation Consultant Relationship Specialty Start Date End Date Samir Stroud NP [address] [place] [address] Referring Physician Family Medicine 05/19/23 Rn Lactation Consultant Relationship Specialty Start Date End Date Samir Stroud NP [address] [place] [address] Referring Physician Family Medicine 05/19/23 Rn Lactation Consultant Relationship Specialty Start Date End Date Samir Stroud NP [address] [place] [address] Referring Physician Family Medicine 05/19/23 Rn Lactation Consultant Relationship Specialty Start Date End Date Samir Stroud NP [address] [place] [address] Referring Physician Family Medicine 05/19/23 FOR RECORDS [...] BE BASED ON THE PRIMARY CLINICAL RECORDS. [email or web address] [email or web address]. provides no warranty or guarantee of the accuracy or completeness of information in this document.
[2024-08-03 18:07] LABS: Age Gdln ACOG Testing Note (.); IGP, rfx Aptima HPV ASCU Note (.)
== END 2024-07-27 20:01 | disposition home or self-care (01) ==
LOC: LAB 20:00
PROVIDERS: Visit Provider Obstetrics & Gynecology
DX: Z01.419 Encounter for gynecological examination (general) (routine) without abnormal findings (principal)
CPT/HCPCS: 88175

== ENCOUNTER 2024-08-25 15:05 | Outpatient (OUT) | payer OTHER, SELFPAY ==
--- NOTE | 2024-08-25 15:37 | US_ITS ---
[place] [id number] Patient Name: JANET RANDALL MRN: [id number] date: 2000 Sex: F Assigned Patient Location: LAB Current Patient Location: Accession/Order Number: [id number] Exam Date: 08/25/2024 16:04 Report Date: 08/26/2024 07:20 At the request of: RICARDO SANTIAGO Procedure: US OB anatomy EXAMINATION: US OB cervical length, US OB anatomy HISTORY: Anatomic Survey COMPARISON: No relevant comparison available. TECHNIQUE: Transabdominal sonographic examination was performed for obstetrical and evaluation. FINDINGS: Number: 1 Heart Rate: 155.17 bpm H.B. /min Amniotic Fluid Volume: Subjectively normal position: Breech presentation, longitudinal lie Placental Location: ANTERIOR, the placental edge is 7.3 cm from the internal cervical os Cervix Length: 4.66 cm , closed Normal anatomy: Lateral ventricles, cerebellum, posterior fossa, nose, lips, orbits, four-chamber heart, RVOT, LVOT, diaphragm, stomach, kidneys, abdominal cord insertion, bladder, both arteries, three-vessel cord, extremities Suboptimal visualization: Spine secondary to position Abnormalities: 1 mm left ventricular echogenic focus BIOMETRY: BPD: 5.03 cm; 21 weeks 2 days; 52.20 % HC: 19.01 cm; 21 weeks 2 days; 46.70 % AC: 16.17 cm; 21 weeks 2 days; 46.70 % FL: 3.59 cm; 21 weeks 3 days; 48.30 % EFW:413.46 g; 53 %, 15 ounces FL/AC: 22.18 FL/BPD: 71.29 HC/AC: 1.18 GESTATIONAL AGE: Age by EDC: 21 weeks 1 day SEEMA by EDC: 2025-01-04 Age by current US: 21 weeks 2 days SEEMA by current US: 2025-01-03 US/US OB anatomy IMPRESSION: 1 mm left ventricular echogenic focus, nonspecific Suboptimal visualization of spine Otherwise normal anatomy scan *Reference: [employer] Practice Guideline for the performance of Obstetric Ultrasound Examinations, May 24, 2007. Electronically authenticated by: MEERA SALGADO Date: 08/26/2024 07:20
--- NOTE | 2024-08-25 15:37 | US_ITS ---
[place] [id number] Patient Name: JANET RANDALL MRN: [id number] date: 2000 Sex: F Assigned Patient Location: LAB Current Patient Location: Accession/Order Number: [id number] Exam Date: 08/25/2024 16:04 Report Date: 08/26/2024 07:20 At the request of: RICARDO SANTIAGO Procedure: US OB cervical length EXAMINATION: US OB cervical length, US OB anatomy HISTORY: Anatomic Survey COMPARISON: No relevant comparison available. TECHNIQUE: Transabdominal sonographic examination was performed for obstetrical and evaluation. FINDINGS: Number: 1 Heart Rate: 155.17 bpm H.B. /min Amniotic Fluid Volume: Subjectively normal position: Breech presentation, longitudinal lie Placental Location: ANTERIOR, the placental edge is 7.3 cm from the internal cervical os Cervix Length: 4.66 cm , closed Normal anatomy: Lateral ventricles, cerebellum, posterior fossa, nose, lips, orbits, four-chamber heart, RVOT, LVOT, diaphragm, stomach, kidneys, abdominal cord insertion, bladder, both arteries, three-vessel cord, extremities Suboptimal visualization: Spine secondary to position Abnormalities: 1 mm left ventricular echogenic focus BIOMETRY: BPD: 5.03 cm; 21 weeks 2 days; 52.20 % HC: 19.01 cm; 21 weeks 2 days; 46.70 % AC: 16.17 cm; 21 weeks 2 days; 46.70 % FL: 3.59 cm; 21 weeks 3 days; 48.30 % EFW:413.46 g; 53 %, 15 ounces FL/AC: 22.18 FL/BPD: 71.29 HC/AC: 1.18 GESTATIONAL AGE: Age by EDC: 21 weeks 1 day SEEMA by EDC: 2025-01-04 Age by current US: 21 weeks 2 days SEEMA by current US: 2025-01-03 US/US OB cervical length IMPRESSION: 1 mm left ventricular echogenic focus, nonspecific Suboptimal visualization of spine Otherwise normal anatomy scan *Reference: [facility] Practice Guideline for the performance of Obstetric Ultrasound Examinations, May 24, 2007. Electronically authenticated by: MEERA SALGADO Date: 08/26/2024 07:20
[2024-08-29 17:07] LABS: AFP Value 51.3 ng/mL (.); Gest. Age on Collection Date 21.1 weeks (.); Insulin Dep Diabetes No (.); Maternal Age At EDD 23.7 yr (.); OSBR Risk 1 IN 10000 (.); Results Report (.)
== END 2024-08-25 15:06 | disposition home or self-care (01) ==
PROVIDERS: PCP Nurse Practitioner Family; Visit Provider Obstetrics & Gynecology
DX: Z34.92 Encounter for supervision of normal pregnancy, unspecified, second trimester (principal); Z36.89 Encounter for other specified antenatal screening; Z3A.21 21 weeks gestation of pregnancy
CPT/HCPCS: 36415; 76805; 76817; 82105

== ENCOUNTER 2024-09-22 16:04 | Outpatient (OUT) | payer OTHER, SELFPAY ==
--- NOTE | 2024-09-22 16:06 | US_ITS ---
The [address] [address] Patient Name: JANET RANDALL MRN: [id number] date: 2000 Sex: F Assigned Patient Location: US Current Patient Location: Accession/Order Number: [id number] Exam Date: 09/22/2024 16:10 Report Date: 09/23/2024 06:19 At the request of: RICARDO SANTIAGO Procedure: US OB incomplete anatomy EXAM: US OB incomplete anatomy HISTORY: ENCOUNTER FOR FOLLOW-UP ANATOMY Z36.2 COMPARISON: Ultrasound OB anatomy 08/25/2024 TECHNIQUE: Transabdominal ultrasound. FINDINGS: Presentation: Breech Amniotic fluid: Subjectively normal Heart rate: 151 bpm Anatomy: Adequate visualization of the spine. Persistent echogenic focus within left cardiac ventricle. US/US OB incomplete anatomy IMPRESSION: 1. Single live intrauterine . 2. Persistent echogenic focus within the left cardiac ventricle; nonspecific but can be associated with the trisomy syndromes. 3. No appreciable abnormality of the spine. Electronically authenticated by: CLARICE HILL Date: 09/23/2024 06:19
--- OUTSIDE RECORDS SUMMARY | 2024-09-22 16:15 | XMS_ITS | CCD ---
Author Organization [facility] Care Team Providers Care Recreational Director Name Role Phone CLARICE HILL Consulting Unavailable RUSS GALLOWAY Attending Unavailable JOY DAY Primary Care Unavailable RUSS GALLOWAY Admitting Unavailable RUSS GALLOWAY Consulting Unavailable Julianne Davidson Unavailable Maximus FOUNTAIN ROLLER ASSEMBLER-JOANNE, Samir Primary Care Provide r DANIELLE LANGE Referring Unavailable SCHLACHTER, SAMIR Primary Care Unavailable DANIELLE LANGE Attending Unavailable SCHLACHTGIANNI, SAMIR Referring Unavailable SCHLACHTER, SAMIR Primary Care Unavailable DANIELLE LANGE Attending Unavailable SCHLACHTER, SAMIR Referring Unavailable SCHLACHTER, SAMIR Primary Care Unavailable DANIELLE LANGE Referring Unavailable SCHLACHTER, SAMIR Primary Care Unavailable DANIELLE LANGE Attending Unavailable ADNIELLE LANGE Referring Unavailable SCHLACHTER, SAMIR Primary Care Unavailable Schjanellchter FELLMONGERING MACHINE OPERATOR, Samir Unavailable RICARDO PICHARDO Attending Unavailable RICARDO PICHARDO Attending Unavailable CARIN GARCIA Attending Unavailable Allergies Allergy Classification Reported Allergen(s) Allergy Type Date of Onset Reaction(s) Facility (1 source) Sulfonamides (Antibiotic) Drug allergy (disorder) [facility] Repository (2 sources) Sulfacetamide / Sulfur Drug Allergy Dinos Rule Other (14 sources) Ondansetron; Translations: [ONDANSETRON] Drug Allergy 9 [facility] (20 sources) Sulfonamides (Antibiotic); Translations: [SULFA (SULFONAMIDE ANTIBIOTICS)] Propensity to adverse reactions to drug 8 [facility] [employer] Work Phone: Medications Current Medications Medication Drug [...] for pain. 60 tablet 2 09/08/2023 Active omeprazole 20 mg delayed release oral capsule (4 sources) Proton Pump Inhibitor Start: End: take 1 capsule by mouth before mealtime omeprazole (PriLOSEC) [address] capsule Indications: Gastroesophageal Reflux Disease , Heartburn Take 1 capsule (20 mg) by mouth in the morning. Take before meals. Do not crush or chew.. 30 capsule 11 08/01/2024 08/01/2025 Active ondansetron 4 mg disintegrating oral tablet [...] Active promethazine hydrochloride 12.5 mg oral tablet (20 sources) Phenothiazine Start: take 1 tablet by [...] for nausea. 30 tablet 2 06/27/2024 Active Completed/Discontinued Medications Medication Drug Class(es) Dates Sig (Normalized) Sig (Original) azithromycin 250 mg oral tablet (10 sources) Macrolide Antimicrobial Start: 06-27-2024 End: 08-29-2024 azithromycin (Zithromax Z-Nikolas) 250 MG tablet Indications: Viral upper respiratory tract infection As directed 6 tablet 06/27/2024 08/29/2024 Discontinued (Therapy completed) Problems Active Problems Problem Classification Problem Date [...] Episodic Other female genital disorders (1 source) Amortelschjefferson; 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] 09-08-2023 Chronic Other female genital disorders (1 source) Pain in female genitalia on intercourse; Translations: [Unspecified dyspareunia] 09-08-2023 Chronic Other female genital disorders (1 source) Joel; 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] Onset: 09-08-2023 Chronic Other female genital disorders (1 source) Unspecified dyspareunia; Translations: [Unspecified dyspareunia] Onset: 09-08-2023 Chronic Other female genital disorders (2 sources) Vaginal discharge; Translations: [Other specified noninflammatory disorders of vagina] 07-27-2024 Episodic Other and delivery including normal (8 sources) ; Translations: [Encounter for supervision of [...] [16 weeks gestation of ] 07-27-2024 Episodic Residual codes; unclassified (2 sources) Gestation period, 21 weeks; Translations: [21 weeks gestation of ] 08-29-2024 Episodic Past or Other Problems Problem Classification Problem Date Documented Da te Episodic/Chronic Mood disorders (3 sources) Mood disorders Onset: 06-24-2023 06-24-2023 Unclassified (3 sources) Onset: 06-01-2023 06-01-2023 Viral infection (1 source) COVID-19 Onset: 07-06-2021 Resolved: 07-06-2021 Results Test Name Value Interpretation Reference Range Facility AFP, SERUM, OPEN SPINA BIFID Aon 08-29-2024 AFP MOM 0.89 . [facility] [employer] AFP VALUE 51.3 ng/mL . [facility] [employer] COMMENT: Comment . [facility] [employer] Comment on above: Esha Pacheco , Ph.D., [facility] Director References: Available Upon Request. Multiples Of Median Cutoffs For AFP Elevations Crandall 2.5 Black 2.8 IDD 2.0 Twins 4.5 Abbreviation Definitions IDD - Insulin Dep Diabetes OSBR - Open Spina Bifida Risk For further inquiries contact [employer] [facility] [facility] at [phone]. This test was developed and its performance characteristics determined by [employer]. It has not been cleared or approved by the Food and Drug Administration. Performed at: [facility] [address] [place], [place] [id number] Diamond Mounter: Manoj Flores [facility]ly [facility], Phone: [phone] GEST. AGE ON COLLECTION DATE 21.1 . weeks [facility] GESTAT. AGE BASED ON LMP . [facility] Comment on above: Recalculations are n ot recommended when gestational dating by LMP and ultrasound are within 10 days. INSULIN DEP DIABETES No . [facility] INTERPRETATION Comment . [facility] Comment on above: Interpretation: Scre en Negative This result is screen negative for OSB. The AFP MoM calculated is based on the gestational age provided. MS-AFP can identify up to 80% of open neural tube defects. Closed neural tube defects and some open defects may not be detected by this test. This test does not screen for Down Syndrome or Trisomy 18. If screening for Down Syndrome or Trisomy 18 is desired, contact [facility] to discuss available options. The [employer] recommends amniocentesis be offered to women age 35 and older. [age] [facility] MULTIPLE GESTATION No . [facility] [place] [address] [place] [id number] . [facility] . [facility] [employer] RESULTS Report . [facility] [employer] TEST RESULTS: Negative . [facility] WEIGHT 179 . lbs [facility] [employer] N N LMP [id number] [phone] N 1 Y 179 N N N N N White/ [facility] [employer] Urinalysis macro (dipstick) panel (U)on 08-29-2024 Bilirubin, UA Negative Negative - 4(70) +++ mg/dL [facility] Blood, UA Negative Negative - 50 Dipak/mcL [facility] Clarity, UA Clear [facility] re Color, UA Yellow [facility] [employer] Glucose, UA Negative Negative - 1999(110) ++++ mg/dL [facility] Interpretation and review of laboratory results Abnormal [facility] Ketones, UA Negative Negative - 160(16) ++++ mg/dL [facility] Leukocytes, UA Positive Negative - 500+++ Jaswant/mcL [facility] Comment on above: small Nitrite, UA Negative Negative - Positive [facility] pH, UA 6 5 - 9 [facility] [employer] Protein, UA Negative Negative - 1999(20) ++++ mg/dL [facility] Spec Grav, UA 1.025 1 - 1.03 [facility] Urobilinogen, UA 0.2 0.2 - 12 mg/dL [facility] IGP,APTIMA HPV,AGE GDLNon AGE GDLN ACOG TESTING Note . [facility] Comment on above: TESTS RESULT FLAG UN ITS REF RANGE LAB Clinician Provided Cytology Information Source.............Cervix Other.............. No. of containers..01 ThinPrep Vial Age Algo ACOG Kizzy... FLAG LEGEND: L-Low Normal,H-High Normal,LL-Alert Low,HH-Alert High <-Panic Low,>-Panic High,A-Abnormal,AA-Critical Abnormal Performed at: 01 =G [address] [address] Ambar Castillo MD, IGP, RFX APTIMA HPV ASCU Note . [facility] Comment on above: TESTS RESULT FLAG UN ITS REF RANGE LAB DIAGNOSIS: 02 NEGATIVE FOR INTRAEPITHELIAL LESION OR MALIGNANCY. Specimen adequacy: 02 Satisfactory for evaluation. No endocervical component is identified. An endocervical component is not commonly seen in the patient. Performed by: 02 Grecia Davis Property Worker ([facility]) . 02 Note: Note 02 The Pap smear is a screening test designed to aid in the detection of premalignant and malignant conditions of the uterine cervix. It is not a diagnostic procedure and should not be used as the sole means of detecting cervical cancer. Both false-positive and false-negative reports do occur. Test Methodology: Note 02 This liquid based ThinPrep(R) pap test was screened with the use of an image guided system. . 02 The HPV DNA reflex criteria were not met with this specimen result therefore, no HPV testing was performed. FLAG LEGEND: L-Low Normal,H-High Normal,LL-Alert Low,HH-Alert High <-Panic Low,>-Panic High,A-Abnormal,AA-Critical Abnormal Performed at: [address] [id number] Ambar Castillo MD, Performed at: =G - [address] [id number] Diamond Mounter: Ambar Castillo MD, Phone: [phone] Performed at: [facility] [address] [id number] Diamond Mounter: Ambar Castillo MD, Phone: [phone] SPATULA-ALONE CERVIX [facility] RECURRENT VAGINITIS (HTRX)on 07-30-2024 ATOPOBIUM VAGINAE 0 [facility] ATOPOBIUM VAGINAE Not detected [facility] BVAB 2,3 (BACTERIAL VAGINOSIS ASSOCIATED BACTERIA 2, 3); MOBILUNCUS SPP 0 [facility] BVAB 2,3 (BACTERIAL VAGINOSIS ASSOCIATED BACTERIA 2, 3); MOBILUNCUS SPP Not detected [facility] LIA ALBICANS, PARAPSILOSIS, TROPICALIS 0 [facility] LIA ALBICANS, PARAPSILOSIS, TROPICALIS Not detected [facility] LIA GLABRATA 0 [facility] LIA GLABRATA Not detected [facility] LIA KRUSEI 0 [facility] LIA KRUSEI Not detected [facility] CHLAMYDIA TR[facility]ATIS 0 [facility]ACHOMATIS [facility] detected [facility] GARDNERELLA VAGINALIS 0 [facility] GARDNERELLA VAGINALIS Not detected [facility] MEGASPHAERA (TYPES 1, 2) 0 [facility] MEGASPHAERA (TYPES 1, 2) Not detected [facility] MYCOPLASMA GENITALIUM 0 [facility] MYCOPLASMA GENITALIUM Not detected [facility] NEISSERIA GONORRHOEAE 0 [facility] NEISSERIA GONORRHOEAE Not detected [facility] TRICHOMONAS VAGINALIS 0 [facility] TRICHOMONAS VAGINALIS Not detected [facility] Urinalysis macro (dipstick) panel (U)on 07-27-2024 Bilirubin, UA Negative Negative - 4(70) +++ mg/dL [facility] Blood, UA Negative Negative - 50 Dipak/mcL [facility] Clarity, UA Clear [facility] Color, UA Yellow [facility] Glucose, UA Negative Negative - 1999(110) ++++ mg/dL [facility] Interpretation and review of laboratory results Normal [facility] Ketones, UA Negative Negative - 160(16) ++++ mg/dL [facility] Leukocytes, UA Negative Negative - 500+++ Jaswant/mcL [facility] Nitrite, UA Negative Negative - Positive [facility] pH, UA 6 5 - 9 [facility] Protein, UA Negative Negative - 1999(20) ++++ mg/dL [facility] Spec Grav, UA 1.02 1 - 1.03 [facility] Urobilinogen, UA 1.0 0.2 - 12 mg/dL [facility] Urinalysis macro (dipstick) panel (U)on 06-27-2024 Bilirubin, UA Negative Negative - 4(70) +++ mg/dL [facility] Blood, UA Negative Negative - 50 Dipak/mcL [facility] Clarity, UA Clear [facility] re Color, UA Yellow [facility] Glucose, UA Negative Negative - 1999(110) ++++ mg/dL [facility] Interpretation and review of laboratory results Abnormal [facility] Ketones, UA Negative Negative - 160(16) ++++ mg/dL [facility] Leukocytes, UA Trace Negative - 500+++ Jaswant/mcL [facility] Nitrite, UA Negative Negative - Positive [facility] pH, UA 5.5 5 - 9 [facility] Protein, UA Negative Negative - 1999(20) ++++ mg/dL [facility] Spec Grav, UA 1.02 1 - 1.03 [facility] Urobilinogen, UA 0.2 0.2 - 12 mg/dL [facility] BOX TESTon 06-08-2024 BOX TEST SENT OUT [facility] BOX1 [facility] BOX2 06/08/24 [facility] HCG ( test) Ql (U)o n 05-27-2024 Interpretation and review of laboratory results Abnormal [facility] Preg Test, Ur Positive [facility] Urinalysis macro (dipstick) panel (U)on 05-27-2024 Bilirubin, UA Negative Negative - 4(70) +++ mg/dL [facility] Blood, UA Positive Negative - 50 Dipak/mcL [facility] Comment on above: trace intact Clarity, UA Clear [facility] re Color, UA Yellow [facility] Glucose, UA Negative Negative - 1999(110) ++++ mg/dL [facility] Interpretation and review of laboratory results Abnormal [facility] Ketones, UA Negative Negative - 160(16) ++++ mg/dL [facility] Leukocytes, UA Trace Negative - 500+++ Jaswant/mcL [facility] Nitrite, UA Negative Negative - Positive [facility] pH, UA 7.0 5 - 9 [facility] Protein, UA Negative Negative - 1999(20) ++++ mg/dL [facility] Spec Grav, UA 1.015 1 - 1.03 [facility] Urobilinogen, UA 0.2 0.2 - 12 mg/dL [facility] US RETROPERITONEAL COMPLETEo n 10-16-2023 [...] Marte MD on 10/16/2023 1:22 AM Normal [facility] US PELVIC WITH TRANSVAGINALo n 09-15-2023 [...] Rogers MD on 09/15/2023 6:54 PM Normal [facility] CHLAMYDIA/GC BY PCRon 2023 CHLAMYDIA/GC BY [...] are dependent on adequate specimen collection. Normal [facility] Comment on above: Performed By: #### C #### [facility] ([id number]) [address], [address] [place] [address] POCT , urineon 08-24 Beta HCG ( test) Ql (U) Negative [facility] URINALYSISon 09-08-2023 Bilirubin Ql (U) Negative Normal NEG [facility] BLOOD/HGB Negative Normal NEG [facility] CA OXALATE CRYSTALS PRESENT Abnormal NONE [facility] Color (U) YELLOW Normal YELLOW [facility] Glucose Ql (U) Negative Normal NEG [facility] Ketones Ql (U) Negative Normal NEG [facility] Leukocyte esterase Test strip Ql (U) Negative Normal NEG [facility] MUCOUS PRESENT Abnormal NONE [facility] Nitrite Ql (U) Negative Normal NEG [facility] pH (U) 6.5 [pH] Normal 5.0-8.5 [facility] Protein Ql (U) Trace Abnormal NEG [facility] R.B.CELLS 2 /hpf Normal 0-5 [facility] Specific gravity (U) [Rel density] 1.027 Normal 1.003-1.035 [facility] SQUAMOUS EPITHELIUM 14 /hpf High 0-5 [facility] TURBIDITY CLEAR Normal CLEAR [facility] Urobilinogen (U) [Mass/Vol] mg/dL Normal <1.1 [facility] W.B.CELLS 3 /hpf Normal 0-5 [facility] URINE CULTUREon 09-08-2023 Bacteria identified Cx Nom (U) CULTURE RESULTS 10-50,000 ORGANISMS/mL NORMAL UROGENITAL AYLIN Normal [facility] Comment on above: Performed By: #### 6 30-4 #### [facility] ([id number]) [address], [address] [place] [address] Urinalysison 01-16-2024 Bilirubin Ql (U) Negative Negative^Ne ga tive [facility] Calcium oxalate crystals LM Ql (Urine sed) PRESENT Abnormal NONE^NONE [facility] Color (U) YELLOW YELLOW^YELLOW [facility] Epithelial cells Auto (Urine sed) [#/Area] 14 High [facility] Glucose (U) [Mass/Vol] Negative Negative^Nega tive mg/dL [facility] Hemoglobin Auto test strip Ql (U) Negative Negative^Nega tive [facility] Interpretation and review of laboratory results Abnormal [facility] Ketones (U) [Mass/Vol] Negative Negative^Nega tive mg/dL [facility] Leukocyte esterase Auto test strip Ql (U) Negative Negative^Nega tive [facility] Mucus Ql (Urine sed) PRESENT Abnormal NONE^NONE [facility] Nitrite Auto test strip Ql (U) Negative Negative^Nega tive [facility] pH (U) 6.5 [pH] 5.0 - 8.5 [facility] Protein (U) [Mass/Vol] Trace Abnormal Negative^Nega tive mg/dL [facility] RBC Auto (Urine sed) [#/Area] 2 [facility] Specific gravity Refractometry automated (U) [Rel density] 1.027 1.003 - 1.035 [facility] Turbidity Ql (U) CLEAR CLEAR^CLEAR [facility] Urobilinogen Qn (U) NINF [facility] WBC Auto (Urine sed) [#/Area] 3 [facility] VAGINITIS PANEL PCRon 2023 VAGINITIS PANEL [...] clinical presentation to determine patient diagnosis. Normal [facility] Comment on above: Performed By: #### V PPCR #### [facility] ([id number]) [address], [address] [place] [address] Quick Strepon 04-02-2022 S. pyogenes Org specific cx Ql (Throat) Negative [employer] Other Quick Strep [employer] Other Vital Signs Date Time Vital Sign Value Performing Clinician Facility 08-29-2024 15:54-0500 Body weight 84.82 kg Carin VILLAGOMEZ Work Phone: [facility] 08-29-2024 15:54-0500 Diastolic blood pressure 74 mm[Hg] Carin VILLAGOMEZ Work Phone: [facility] 08-29-2024 15:54-0500 Systolic blood pressure 120 mm[Hg] Carin VILLAGOMEZ Work Phone: [facility] 07-27-2024 15:32-0500 Body weight 81.38 kg Ricardo Kylee DO Work Phone: [facility] 07-27-2024 15:32-0500 Diastolic blood pressure 66 mm[Hg] Ricardo Kylee DO Work Phone: [facility] 07-27-2024 15:32-0500 Systolic blood pressure 108 mm[Hg] Ricardo Kylee DO Work Phone: [facility] 06-27-2024 16:10-0500 Body weight 79.83 kg Ricardo Kylee DO Work Phone: [facility] 06-27-2024 16:10-0500 Diastolic blood pressure 68 mm[Hg] Ricardo Kylee DO Work Phone: [facility] 06-27-2024 16:10-0500 Systolic blood pressure 108 mm[Hg] Ricardo Pichardo DO Work Phone: [facility] 05-27-2024 10:31-0400 Body weight 79.38 kg [facility] 05-27-2024 10:31-0400 Diastolic blood pressure 80 mm[Hg] [facility] Nurse [facility] 05-27-2024 10:31-0400 Systolic blood pressure 122 mm[Hg] [facility] Nurse [facility] 10-13-2023 14:41-0500 Body height 165.1 cm Danielle Lange DO Work Phone: [facility] 10-13-2023 14:41-0500 Body mass index (BMI) [Ratio] 28.09 kg/m2 Danielle Lange DO Work Phone: [facility] 10-13-2023 14:41-0500 Body weight 76.57 kg Danielle Lange DO Work Phone: [facility] 10-13-2023 14:41-0500 Diastolic blood pressure 68 mm[Hg] Danielle Lange DO Work Phone: [facility] 10-13-2023 14:41-0500 Systolic blood pressure 104 mm[Hg] Danielle Lange DO Work Phone: [facility] 09-08-2023 11:06-0500 Body height 165.1 cm Danielle Lange DO Work Phone: [facility] 09-08-2023 11:06-0500 Body mass index (BMI) [Ratio] 28.22 kg/m2 Danielle Lange DO Work Phone: [facility] 09-08-2023 11:06-0500 Body weight 76.93 kg Danielle Lange DO Work Phone: [facility] 09-08-2023 11:06-0500 Diastolic blood pressure 70 mm[Hg] Danielle Lange DO Work Phone: [facility] 09-08-2023 11:06-0500 Systolic blood pressure 116 mm[Hg] Danielle Lange DO Work Phone: [employer] 04-02-2022 12:20-0400 Body height 167.64 cm Jluianne Winklermond Other [employer] Other 04-02-2022 12:20-0400 Body mass index (BMI) [Ratio] 30.66 kg/m2 Julianne Lety Other [employer] Other 04-02-2022 12:20-0400 Body temperature 99.3 [degF] Julianne Lety Other [employer] Other 04-02-2022 12:20-0400 Body weight 86.18 kg Julianne Lety Other [employer] Other 04-02-2022 12:20-0400 Respiratory rate 18 /min Julianne Lety Other [employer] Other 04-02-2022 12:20-0400 SaO2% (BldA) [Mass fraction] 99 % Julianne Lety Other [employer] Other 07-06-2021 11:30-0500 Body height 165.1 cm Julianne Lety Other [employer] Other 07-06-2021 11:30-0500 Body mass index (BMI) [Ratio] 29.95 kg/m2 Julianne Lety Other [employer] Other 07-06-2021 11:30-0500 Body temperature 98.2 [degF] Julianne Lety Other [employer] Other 07-06-2021 11:30-0500 Body weight 81.65 kg Julianne Lety Other [employer] Other 07-06-2021 11:30-0500 SaO2% (BldA) [Mass fraction] 99 % Julianne Lety Other [employer] Other Encounters Encounter Date Encounter Type Care Provider Facility Start: 08-29-2024 End: 08-29-2024 flow sheet Carin VILLAGOMEZ Work Phone: [facility] Comment on above: Second trimester pre gnancy; 21 weeks gestation of Start: 08-29-2024 End: 08-29-2024 ambulatory CARIN GARCIA Not Available Start: 08-29-2024 End: 08-29-2024 Bamboo flowsheet Carin VILLAGOMEZ Work Phone: [facility] Start: 08-29-2024 End: 08-29-2024 Bamboo flowsheet Carin VILLAGOMEZ Work Phone: [facility] Start: 08-25-2024 End: 08-29-2024 [facility] Result Encounter Ricardo Kylee DO Work Phone: [facility] External Department Unsolicited Start: 08-25-2024 End: 08-29-2024 Clinisync Result Encounter Ricardo Kylee DO Work Phone: [facility] External Department Unsolicited Start: 07-27-2024 End: 07-27-2024 Patient encounter procedure Ricardo Kylee DO Work Phone: [facility] Healthcare Work Phone: Start: 07-27-2024 End: 07-27-2024 Periodic preventive med est patient 18-39 yrs Ricardo Kylee DO Work Phone: [facility] Comment on above: Well woman exam with routine gynecological exam; Second trimester ; 16 weeks gestation of ; Screening, , for anatomic survey; Vaginal discharge; STD exposure Start: 07-27-2024 End: 07-27-2024 ambulatory RICARDO KYLEE Not Available Start: 07-27-2024 End: 07-27-2024 Bamboo flowsheet Ricardo Kylee DO Work Phone: [facility] Start: 07-27-2024 End: 08-03-2024 Bamboo flowsheet Ricardo Kylee DO Work Phone: [facility] Start: 07-27-2024 End: 08-03-2024 Clinisync Result Encounter Ricardo Kylee DO Work Phone: [facility] External Department Unsolicited Start: 07-27-2024 End: 07-30-2024 External Result Encounter Ricardo Kylee DO Work Phone: [facility] External Department Unsolicited Start: 06-27-2024 End: 06-27-2024 flow sheet Ricardo Kylee DO Work Phone: [facility] Comment on above: First trimester preg nadeen; 12 weeks gestation of ; Nausea; Viral upper respiratory tract infection Start: 06-27-2024 End: 06-27-2024 ambulatory RICARDO KYLEE Not Available Start: 06-27-2024 End: 06-27-2024 Bamboo flowsheet Ricardo Kylee DO Work Phone: [facility] Start: 06-27-2024 End: 06-27-2024 Bamboo flowsheet Ricardo Kylee DO Work Phone: [facility] Start: 06-08-2024 End: 06-08-2024 Clinisync Result Encounter Ricardo Kylee DO Work Phone: [facility] External [facility] Unsolicited Start: 06-08-2024 End: 06-08-2024 Clinisync Result Encounter Ricardo Kylee DO Work Phone: [facility] Unsolicited Start: 05-27-2024 End: 05-27-2024 Office outpatient visit 5 minutes [facility] Kylee Nurse [facility] Comment on above: GA: 8w2d Start: 05-27-2024 End: 05-27-2024 ambulatory RICARDO KYLEE Not Available Start: 10-29-2023 Orders Only Sowmya Retana [facility]ne[facility] Comment on above: Renal lithiasis (Yanet annita Dx); Calcium oxalate crystals in urine; Flank pain; Left sided abdominal pain Start: 10-15-2023 End: 10-16-2023 [facility]ulatory [facility] [facility] Start: 10-13-2023 End: 10-13-2023 ambulatory [facility] Start: 10-13-2023 End: 10-13-2023 Office outpatient visit 15 minutes Danielle Liu Vendly DO Work Phone: [facility] Comment on above: Renal lithiasis (Yanet annita Dx); Left sided abdominal pain; Flank pain; Calcium oxalate crystals in urine Start: 09-14-2023 End: 09-15-2023 [facility] Start: 09-08-2023 End: 09-09-2023 ambulatory [facility] Start: 09-08-2023 End: 09-08-2023 ambulatory [facility] Start: 09-08-2023 End: 09-08-2023 Office outpatient visit 15 minutes Danielle Liu Vendly DO Work Phone: [facility] Comment on above: Dyspareunia in femal e (Primary Dx); Left sided abdominal pain; Mittelschmerz Start: 04-02-2022 End: 04-02-2022 ambulatory Julianne Davidson Other [employer] Other Start: 04-02-2022 Office outpatient vi sit 15 minutes Julianne Davidson [facility] Start: 07-06-2021 (URG) Urgent Care Visit Julianne monsalve [facility] Start: 07-06-2021 End: 07-06-2021 ambulatory Julianne Davidson Other [employer] Other Start: 03-17-2019 End: 03-18-2019 Patient encounter procedure [place] Facility:[facility]1 Procedures Date Procedure Procedure Detail Performing Clinician Start: 08-29-2024 Urnls dip stick/tabl et rgnt non-auto w/o micrscp Carin Garcia PA Work Phone: Start: 08-25-2024 AFP, SERUM, OPEN SPI NA BIFIDA [employer] DO Work Phone: Start: 07-27-2024 RECURRENT VAGINITIS (HTRX) [employer] DO Work Phone: Start: 07-27-2024 Urnls dip stick/tabl et rgnt non-auto w/o micrscp Ricardo Kylee DO Work Phone: Start: 07-27-2024 IGP,APTIMA HPV,AGE GDLN [employer] Work Phone: Start: 06-27-2024 Urnls dip stick/tabl et rgnt non-auto w/o micrscp RicardoSemantriao DO Work Phone: Start: 06-08-2024 BOX TEST [employer] DO Work Phone: Start: 05-27-2024 End: 05-27-2024 Urnls dip stick/tablet rgnt non-auto w/o micrscp Ricardo Kylee DO Work Phone: Start: 10-13-2023 Follow-up visit Follow-up DANIELLE LANGE Start: 09-08-2023 Urine test visual color cmprsn meths Danielle Lange DO Work Phone: Start: 06-24-2023 Adult depression scr eening assessment Danielle Lange DO Work Phone: Start: 06-18-2022 Microscopic observat ion [Identifier] in Cervix by Cyto stain Danielle Lange DO Work Phone: Plan of Treatment Date Care Activity Detail Author Start: 06-18-2025 Screening for malign ant neoplasm of cervix Pap Smear [facility] Start: 10-13-2024 Adult BMI Screening Adult BMI Screen ing [facility] Start: 10-13-2024 Tobacco Screening Tobacco Screening [facility] Start: 09-28-2024 End: 09-28-2024 Patient encounter procedure 09/28/2024 3:40 PM EST Routine [facility] [address] [place] [address] Ricardo Pichardo DO [address] [place] [address] [facility] Start: 09-08-2024 Adult BMI Screening Adult BMI Screen ing [facility] Start: 09-08-2024 Screening for Chlamy hernesto trachomatis Chlamydia Screening [facility] Start: 09-08-2024 Tobacco Screening Tobacco Screening [facility] Start: 08-29-2024 End: 08-29-2024 Patient encounter procedure [facility] Comment on above: Arrived Start: 07-27-2024 End: 07-27-2024 Patient encounter procedure [...] Arrived Start: 06-24-2024 Depression Screening Depression Scre ening [facility] Start: 06-01-2024 Adult BMI Follow Up Plan Adult BMI F ollow Up Plan [facility] Start: 05-27-2024 End: 05-27-2025 ABO/Rh ABO/Rh Lab Routine Missed menses , unspecified gestational age Expected: 05/27/2024 (Approximate), Expires: 05/27/2025 [facility] Comment on above: Expected: 05/27/2024 (Approximate), Expires: 05/27/2025 Start: 05-27-2024 End: 05-27-2025 Blood type and Indirect antibody screen panel - Blood Type and screen Lab Routine Missed menses , unspecified gestational age Expected: 05/27/2024 (Approximate), Expires: 05/27/2025 [facility] Work Phone: Comment on above: Expected: 05/27/2024 (Approximate), Expires: 05/27/2025 Start: 05-27-2024 End: 05-27-2025 Drugs of abuse panel - Urine by Screen method Rapid drug screen, urine Lab Routine , unspecified gestational age Encounter for supervision of normal first in first trimester Expected: 05/27/2024 (Approximate), Expires: 05/27/2025 [facility] Comment on above: Expected: 05/27/2024 (Approximate), Expires: 05/27/2025 Start: 05-27-2024 End: 05-27-2025 US Pelvis transvaginal US OB transvaginal Imaging Routine Missed menses Expected: 05/27/2024 (Approximate), Expires: 05/27/2025 [facility] Comment on above: Expected: 05/27/2024 (Approximate), Expires: 05/27/2025 Start: 11-26-2023 DTaP,Tdap and Td Vac cines (7 - Td or Tdap) DTaP,Tdap and Td Vaccines (7 - Td or Tdap) [facility] Start: 10-13-2023 End: 10-13-2024 US Retroperitoneum Ultrasound retroperitoneal complete Imaging Routine Left sided abdominal pain Flank pain Renal lithiasis Calcium oxalate crystals in urine Expected: 10/13/2023, Expires: 10/13/2024 [facility] Work Phone: Comment on above: Expected: 10/13/2023 , Expires: 10/13/2024 Start: 10-06-2023 End: 10-06-2023 Patient encounter procedure 10/06/2023 2:00 PM EST Office Visit [facility] [address] [place] [phone] Danielle Lange, DO [address] [place], [place] [id number] [facility] Start: 09-14-2023 End: 09-14-2023 Patient encounter procedure 09/14/2023 2:00 PM EST Appointment [facility] Ultrasound [address] [place] [address] [facility] Start: 09-08-2023 End: 09-08-2024 Bacteria identified in Urine by Culture [facility] Work Phone: Comment on above: Expected: 09/08/2023 (Approximate), Expires: 09/08/2024 Start: 09-08-2023 End: 09-08-2024 US Pelvis transabdominal and transvaginal Ultrasound pelvic with transvaginal Imaging Routine Left sided abdominal pain Expected: 09/08/2023, Expires: 09/08/2024 [facility] Comment on above: Expected: 09/08/2023 , Expires: 09/08/2024 Start: 09-08-2023 End: 09-08-2024 Vaginitis Panel PCR [facility] Comment on above: Expected: 09/08/2023 (Approximate), Expires: 09/08/2024 Start: 06-18-2023 Screening for Chlamy hernesto trachomatis Chlamydia Screening [facility] Start: 04-24-2023 Influenza vaccination Influenza Vacc ine [facility] Bacteria identified in Urine by Culture Urine culture Microbiology Routine Missed menses Ordered: 05/27/2024 [facility] Comment on above: Ordered: 05/27/2024 CBC W Auto Different ial panel - Blood CBC and differential Lab Routine Missed menses , unspecified gestational age Ordered: 05/27/2024 [facility] Comment on above: Ordered: 05/27/2024 CHLAMYDIA TRACHOMATI S (GENITO/STI) CHLAMYDIA TRACHOMATIS (GENITO/STI) Lab Routine STD exposure Ordered: 07/27/2024 [facility] Comment on above: Ordered: 07/27/2024 End: 09-08-2024 Chlamydia/GC by PCR Rowdy Swab Chlamydia/GC by PCR [facility]ab Microbiology Routine Left sided abdominal pain 1 Occurrences starting 09/08/2023 until 09/08/2024 [facility] Comment on above: 1 Occurrences starti ng 09/08/2023 until 09/08/2024 Chlamydia/GC by PCR Rowdy Swab Chlamydia/GC by PCR Rowdy Swab Microbiology Routine Left sided abdominal pain 09/08/2023 7:35 PM EST [facility] Cytology Cervical or vaginal smear or scraping study Pap Smear Pathology and Cytology Routine Well woman exam with routine gynecological exam Ordered: 07/27/2024 [facility] Comment on above: Ordered: 07/27/2024 Hemoglobin A1c/Hemoglobin.total in Blood Hemoglobin A1c Lab Routine Missed menses , unspecified gestational age Ordered: 05/27/2024 [facility] Comment on above: Ordered: 05/27/2024 Hepatitis B virus clarke rface Ag [Presence] in Serum or Plasma by Immunoassay Hepatitis B surface antigen Lab Routine Missed menses , unspecified gestational age Ordered: 05/27/2024 [facility] Comment on above: Ordered: 05/27/2024 Hepatitis C virus Ab [Presence] in Serum or Plasma by Immunoassay Hepatitis C antibody Lab Routine Missed menses , unspecified gestational age Ordered: 05/27/2024 [facility] Comment on above: Ordered: 05/27/2024 HIV-1/HIV-2 antigen/antibody combination immunoassay HIV-1 and HIV-2 antibodies Lab Routine Missed menses , unspecified gestational age Ordered: 05/27/2024 [facility] Comment on above: Ordered: 05/27/2024 Neisseria gonorrhoea e DNA [Presence] in Unspecified specimen by MARIA M with probe detection Neisseria gonorrhea DNA probe, direct Lab Routine STD exposure Ordered: 07/27/2024 [facility] Comment on above: Ordered: 07/27/2024 Reagin Ab [Presence] in Serum by RPR RPR Lab Routine Missed menses , unspecified gestational age Ordered: 05/27/2024 [facility] Comment on above: Ordered: 05/27/2024 Rubella antibody, IgG Rubella an tibody, IgG Lab Routine Missed menses , unspecified gestational age Ordered: 05/27/2024 [facility] Comment on above: Ordered: 05/27/2024 SURESWAB(R) ADVANCED VAGINITIS PLUS, TMA SURESWAB(R) ADVANCED VAGINITIS PLUS, TMA Pathology and Cytology Routine Vaginal discharge STD exposure Ordered: 07/27/2024 [facility] Work Phone: Comment on above: Ordered: 07/27/2024 Immunizations Immunization Date Immunization Notes Care Provider Ton king 06-28-2009 influenza virus vaccine, unspecified formulation Danielle Mauro DO Work Phone: [facility] Payers Date Payer Category Payer Managed Care HMO (unspecified) [id number] 2024 Private Health Insurance [id number] 2019 Private Health Insurance [id number] 2019 Private Health Insurance [facility] CHOICE PLUS [id number] 2019-Present [phone] [address] [address] [place] [address] [id number] 2001 Unknown [id number] 2001 Unknown [id number] 1285 2001 Unknown [id number] 1285 2001 Unknown [id number] 1285 2001 Unknown [id number] 1285 2001 Unknown [id number] 9 2001 Unknown [id number] 1259 2001 Unknown [id number]. 1259 2001 Unknown [id number] 1259 1976 Unknown [id number] 593 1959 Unknown [id number] Social History Date Type Detail Facility Sex Assigned At [employer] Other Start: 08-08-2018 End: 05-27-2024 Sex Assigned At [facility] Start: 06-18-2022 End: 05-27-2024 Tobacco smoking status ARIS Never smoked tobacco [facility] Start: 06-18-2022 End: 05-27-2024 Tobacco use and exposure Smokeless tobacco non-user [facility] Start: 09-08-2023 End: 10-13-2023 Alcohol intake Current non-drinker of alcohol (finding) [facility] Start: 08-08-2018 End: 05-27-2024 History of Social function [facility] Frequency of Alcohol Consumption Never [facility] Start: 2001 Sex Assigned At Not on file [facility] Start: 05-27-2024 End: 07-27-2024 Alcoholic beverage intake Lifetime non-drinker (finding) [facility] Start: 04-13-2024 [facility] Start: 2001 Sex assigned at Female [facility] Start: 12-29-2023 Gender identity Identifies as female gender (finding) [facility] Clinical Notes 04-02-2022 to 08-29-2024 HERNANDO Magallanes - 08/29/2024 3:20 PM Lizette Sanchez LPN - 07/27/2024 2:50 PM Katja Barone - 06/27/2024 3:30 PM Katja Barone - 05/27/2024 10:30 AM EDT Note Date & Type Note Facility 08-29-2024 History of Present illness Narrative Reason for Appointment: Patient ID: Marisela Marino is a 24 y.o. female who presents for Routine Visit Patient presents today for Return OB appointment. MEDICATIONS Current Outpatient Medications Medication Instructions omeprazole (PRILOSEC) 20 mg, Oral, Daily before breakfast, Do not crush or chew. promethazine (PHENERGAN) 12.5 mg, Oral, Every 6 [...] Exam Constitutional: Appearance: Normal appearance. She is normal weight. HENT: Head: Normocephalic. Cardiovascular: Rate and Rhythm: Normal rate. Pulses: Normal pulses. Pulmonary: Effort: Pulmonary effort is normal. Breath sounds: Normal breath sounds. Abdominal: Palpations: Abdomen is soft. Musculoskeletal: General: Normal range of motion. Neurological: General: No focal deficit present. Mental Status: She is alert and oriented to person, place, and time. Psychiatric: Mood and Affect: Mood normal. Behavior: Behavior normal. Thought Content: Thought content normal. Judgment: Judgment normal. Vitals and nursing note reviewed. Vitals: Estimated body mass index is 27.6 kg/m as calculated from the following: Height as of 09/20/18: 5' 5.5 . Weight as of 09/20/18: 168 lb 6.4 oz. BP: 120/74 Patient's last menstrual period was 03/30/2024. ASSESSMENT & PLAN ICD-10-CM 1. Second trimester Z34.92 POCT urinalysis dipstick manually resulted 2. 21 weeks gestation of Z3A.21 Return OB: Patient presents today for a routine obstetrics appointment. Patient is currently 21w5d . Patient states she is doing well but has complaints of being tired due to current . Patient has verbalizes frequent movement. labor precautions was discussed/given and patient was instructed to perform kick counts three times a day. Orders Placed This Encounter Procedures POCT urinalysis dipstick manually resulted Follow Up: Patient is to return to office in 2 week for routine OB appointment. Documented by Kassandra Greenwood MA on behalf of: HERNANDO Magallanes documented in this encounter [facility] 07-27-2024 History of Present illness Narrative Reason [...] nursing note reviewed. Exam conducted with a reliner present. Vitals: Estimated body mass index is [...] Ricardo Pichardo DO documented in this encounter [facility] 06-27-2024 History of Present illness Narrative Reason [...] by Laila Allred LPN on behalf of: Ricardo Pichardo DO documented in this encounter [facility] 05-27-2024 History of Present illness Narrative Reason [...] or undercooked meat, and stay away from [facility]. 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 She states she has seen a observation nurse, but was only counseled to not drink [...] PM Imaging Ultrasound pelvic with transvaginal (Order: [id number]) - 09/14/2023 Result History Ultrasound pelvic with transvaginal (Order #[id number]) on 09/15/2023 - Order Result History Report [...] to nephrology placed. documented in this encounter [facility] 09-08-2023 History of Present illness Narrative Subjective [...] alleviate her symptoms [facility] Evaluation note Encounter Date Diagnosis Assessment Notes Mar, Viral pharyngitis (ICD-10 - J02.9) Pharyngitis/to nsillopharyngi tis: adult home care material was printed Drink plenty fluids, get plenty of rest. Take Tylenol or Motrin for aches pains or fevers. Continue your cephalexin as prescribed until gone. Follow-up with your family physician if no improvement in 2 to 3 days. [employer] Other Evaluation noteNort [employer] Other Evaluation note* Diagnosis Dyspareunia in female- Primary Left sided abdominal pain Abdominal pain, unspecified site Mittelschmerz [facility]* Diagnosis Renal lithiasis- Primary Calculus of kidney Left sided abdominal pain Abdominal pain, unspecified site Flank pain Abdominal pain, unspecified site Calcium oxalate crystals in urine [facility] Diagnosis Renal lithiasis- Primary Calculus of kidney Calcium oxalate crystals in urine Flank pain Abdominal pain, unspecified site Left sided abdominal pain Abdominal pain, unspecified site [facility]* Diagnosis Missed menses , unspecified gestational age Encounter for supervision of normal first in first trimester documented [facility]* Diagnosis First trimester state, incidental 12 weeks gestation of Nausea Nausea alone Viral upper respiratory tract infection Acute upper respiratory infections of unspecified site documented in [facility] encounter [facility]* Diagnosis Well woman exam with routine gynecological exam Routine gynecological examination Second trimester state, incidental 16 weeks gestation of Screening, , for anatomic survey Encounter for anatomic survey Vaginal discharge Leukorrhea, not specified as infective STD exposure documented in this encounter [facility]* Diagnosis Second trimester state, incidental 21 weeks gestation of [facility] Other History general Narrative - Reported* Type Description Date Medical History chronic depression [facility] Other Instructions* Attachments The following attachments cannot be sent through Care Everywhere. * Painful Ovulation (Lao) [facility]* Attachments The following attachments cannot be sent through Care Everywhere. * Kidney stones in adults (Lao) documented in [facility] WestInstructionsNot on file documented in this encounterPro[facility] WestReason for referral (narrative)* Consultation (Routine) - Pending Review Specialty Diagnoses / Procedures Referred By Keerthi hough Referred To Contact Nephrology Diagnoses Left sided abdominal pain Flank pain Renal lithiasis Calcium oxalate crystals in urine Danielle Lange DO [address] [place] [address] Yannick Villagomez MD [address] [place] [id number] Referral ID Status Reason Start Date Expiration Date Visits Requested Visits Authorized [id number] Pending Review Specialty Services Required 10/13/2023 10/12/2024 1 1 [facility] (narrative)* Consultation (Routine) - Pending Review Specialty Diagnoses / Procedures Referred By Keerthi hough Referred To Contact Nephrology Diagnoses Renal lithiasis Calcium oxalate crystals in urine Flank pain Left sided abdominal pain Danielle Lange DO [address] [place] [address] Hussein Card MD [address] [place] [address] [place] [address] Referral ID Status Reason Start Date Expiration Date Visits Requested Visits Authorized [id number] Pending Review Specialty Services Required 10/29/2023 10/28/2024 1 1 [facility] Summary Purpose Family History No Family History Records FoundNo Family History Records FoundNo Family History Records FoundNo Family History Records FoundNo Family History Records Found Advance Directives No Advanced Directives Records FoundNo Advanced Directives Records FoundNo Advanced Directives Records FoundNo Advanced Directives Records FoundNo Advanced Directives Records Found Additional Source Comments INFORMATION SOURCE (unrecogn ized section and content) DATE CREATED AUTHOR 09/15/2020 [facility] DATE CREATED AUTHOR AUTHOR'S ORGANIZ ATION 09/12/2023 [facility] DATE CREATED AUTHOR AUTHOR'S ORGANIZ ATION 10/21/2023 [facility] DATE CREATED AUTHOR AUTHOR'S ORGANIZ ATION 10/23/2023 [facility] DATE CREATED AUTHOR AUTHOR'S ORGANIZ ATION 09/04/2024 [facility] dical Specialists EPIC REASON FOR VISIT (unrecogniz ed section and content) Reason Comments Abdominal Pain Left side started ab out 2 months agoPain the first day of cycle Reason Comments Follow-up Ultrasound results d /t pelvic pain Reason Comments Initial Visit Reason Comments Routine Visit Reason Comments Well Women Visit Routine Visit STI Screening Care Teams (unrecognized sec tion and content) Recreational Director Relationship Specialty Start Date End Date Samir Stroud APRN-WEIGHT AND BALANCE CONTROL AGENT [address] [place] [id number] PCP - General Family Medicine 12/28/22 Recreational Director Relationship Specialty Start Date End Date Samir Stroud APRN-WEIGHT AND BALANCE CONTROL AGENT [address] [place] [id number] PCP - General Family Medicine 12/28/22 Recreational Director Relationship Specialty Start Date End Date Samir Stroud APRN-WEIGHT AND BALANCE CONTROL AGENT [address] [place] [id number] PCP - General Family Medicine 12/28/22 Recreational Director Relationship Specialty Start Date End Date Samir Stroud NP [address] [place] [id number] Referring Physician Family Medicine 05/19/23 Recreational Director Relationship Specialty Start Date End Date Samir Stroud NP [address] [place] [address] Referring Physician Family Medicine 05/19/23 Recreational Director Relationship Specialty Start Date End Date Samir Stroud NP [address] [place] [id number] Referring Physician Family Medicine 05/19/23 Recreational Director Relationship Specialty Start Date End Date Samir Stroud NP [address] [place] [address] Referring Physician Family Medicine 05/19/23 Recreational Director Relationship Specialty Start Date End Date Samir Stroud NP [address] [place] [id number] Referring Physician Family Medicine 05/19/23 Recreational Director Relationship Specialty Start Date End Date Samir Stroud NP [address] [place] [id number] Referring Physician Family Medicine 05/19/23 Recreational Director Relationship Specialty Start Date End Date Samir Stroud NP [address] [place] [id number] Referring Physician Family Medicine 05/19/23 Recreational Director Relationship Specialty Start Date End Date Samir Stroud NP [address] [place] [id number] Referring Physician Family Medicine 05/19/23 Recreational Director Relationship Specialty Start Date End Date Samir Stroud NP [address] [place] [id number] Referring Physician Family Medicine 05/19/23 FOR RECORDS [...] BE BASED ON THE PRIMARY CLINICAL RECORDS. [employer] provides no warranty or guarantee of the accuracy or completeness of information in this document.
== END 2024-09-22 16:05 | disposition home or self-care (01) ==
LOC: US 16:04
PROVIDERS: PCP Nurse Practitioner Family; Visit Provider Obstetrics & Gynecology
DX: Z36.2 Encounter for other antenatal screening follow-up (principal)
CPT/HCPCS: 76815

== ENCOUNTER 2024-10-01 08:30 | Outpatient (OUT) | payer OTHER, SELFPAY ==
--- OUTSIDE RECORDS SUMMARY | 2024-10-01 08:33 | XMS_ITS | CCD ---
Author Organization [facility] Inform ion Partnership [facility] Care Team Providers Care Pin Game Machine Inspector Name Role Phone CJ MANZO Consulting Unavailable RUSS GALLOWAY Attending Unavailable JOY DAY Primary Care Unavailable RUSS GALLOWAY Admitting Unavailable RUSS GALLOWAY Consulting Unavailable Julianne Davidson Unavailable Maximus PELT INSPECTOR-PRODUCT MANAGEMENT INTERN, Samir Primary Care Provide r DANIELLE LANGE Referring Unavailable SCHLACHTER, SAMIR Primary Care Unavailable DANIELLE LANGE Attending Unavailable SCHLACHTGIANNI, SAMIR Referring Unavailable SCHLACHTER, SAMIR Primary Care Unavailable DANIELLE LANGE Attending Unavailable SCHLACHTGIANNI, SAMIR Referring Unavailable SCHLACHTER, SAMIR Primary Care Unavailable DANIELLE LANGE Referring Unavailable SCHLACHTER, SAMIR Primary Care Unavailable DANIELLE LANGE Attending Unavailable DANIELLE LANGE Referring Unavailable SCHLACHTER, SAMIR Primary Care Unavailable Schlachter CORE ANALYSIS OPERATOR, Samir Unavailable RICARDO PICHARDO Attending Unavailable RICARDO PICHARDO Attending Unavailable RICARDO PICHARDO Attending Unavailable CARIN GARCIA Attending Unavailable Allergies Allergy Classification Reported Allergen(s) Allergy Type Date of Onset Reaction(s) Facility (1 source) Sulfonamides (Antibiotic) Drug allergy (disorder) [facility] Repository (2 sources) Sulfacetamide / Sulfur Drug Allergy [employer] Other (16 sources) Ondansetron; Translations: [ONDANSETRON] Drug Allergy 9 [facility] [employer] (20 sources) Sulfonamides (Antibiotic); Translations: [SULFA (SULFONAMIDE ANTIBIOTICS)] Propensity to adverse reactions to drug 8 [facility] [employer] Work Phone: Medications Current Medications [...] omeprazole 20 mg delayed release oral capsule (6 sources) Proton Pump Inhibitor Start: End: take [...] Test Name Value Interpretation Reference Range Facility OB INCOMPLETE ANATOMYon 0 09-23-2024 [place] [address] Ultrasound Report Signed Patient: MARISELA RANDALL MR#: [id number] : 2000 Acct:[id number] Age/Sex: 24 / F ADM Date: 09/22/24 Loc: US Attending Dr: Ricardo Pichardo D.O. Ordering Physician: Ricardo Pichardo D.O. Date of Service: 09/22/24 Procedure(s): US OB incomplete anatomy Accession Number(s): [id number] cc: Ricardo Pichardo D.O.; Samir Stroud NP [address] [address] Patient Name: MARISELA RANDALL MRN: [facility]:[id number] date: 2000 Sex: F Assigned Patient Location: US Current Patient Location: Accession/Order Number: [id number] Exam Date: 09/22/2024 16:10 Report Date: 09/23/2024 06:19 At the request of: RICARDO PICHARDO Procedure: US OB incomplete anatomy EXAM: US OB incomplete anatomy HISTORY: ENCOUNTER FOR FOLLOW-UP ANATOMY Z36.2 COMPARISON: Ultrasound OB anatomy 08/25/2024 TECHNIQUE: Transabdominal ultrasound. FINDINGS: Presentation: Breech Amniotic fluid: Subjectively normal Heart rate: 151 bpm Anatomy: Adequate visualization of the spine. Persistent echogenic focus within left cardiac ventricle. US/US OB incomplete anatomy IMPRESSION: 1. Single live intrauterine . 2. Persistent echogenic focus within the left cardiac ventricle; nonspecific but can be associated with the trisomy syndromes. 3. No appreciable abnormality of the spine. Electronically authenticated by: CJ MANZO Date: 09/23/2024 06:19 Dictated By: Cj Manzo M.D. Signed By: 09/23/24620 DD/ 8 TD/TT: Web Designer Developer: [facility] Radiology, Radiologist, MD - 09/23/2024 [place] [address] Ultrasound Report Signed Patient: MARISELA RANDALL MR#: [id number] : 2000 Acct:[id number] Age/Sex: 24 / F ADM Date: 09/22/24 Loc: US Attending Dr: Ricardo Pichardo D.O. Ordering Physician: Ricardo Pichardo D.O. Date of Service: 09/22/24 Procedure(s): US OB incomplete anatomy Accession Number(s): [id number] cc: Ricardo Pichardo D.O.; Samir Stroud NP The [address] [address] Patient Name: MARISELA RANDALL MRN: [facility]:[id number] date: 2000 Sex: F Assigned Patient Location: US Current Patient Location: Accession/Order Number: [id number] Exam Date: 09/22/2024 16:10 Report Date: 09/23/2024 06:19 At the request of: RICARDO PICHARDO Procedure: US OB incomplete anatomy EXAM: US OB incomplete anatomy HISTORY: ENCOUNTER FOR FOLLOW-UP ANATOMY Z36.2 COMPARISON: Ultrasound OB anatomy 08/25/2024 TECHNIQUE: Transabdominal ultrasound. FINDINGS: Presentation: Breech Amniotic fluid: Subjectively normal Heart rate: 151 bpm Anatomy: Adequate visualization of the spine. Persistent echogenic focus within left cardiac ventricle. US/US OB incomplete anatomy IMPRESSION: 1. Single live intrauterine . 2. Persistent echogenic focus within the left cardiac ventricle; nonspecific but can be associated with the trisomy syndromes. 3. No appreciable abnormality of the spine. Electronically authenticated by: CJ MANZO Date: 09/23/2024 06:19 Dictated By: Cj Manzo M.D. Signed By: 09/23/24620 DD/ 8 TD/TT: Web Designer Developer: [facility] Intent Radiology Study observation (narrative) [facility] Intent US OB INCOMPLETE ANATOMYOrde red By: Radiologist Radiology on 09-23-2024 [facility] Work Phone: AFP, SERUM, OPEN SPINA BIFID Aon 08-29-2024 AFP MOM 0.89 . [employer] AFP VALUE 51.3 ng/mL . getupp COMMENT: Comment . [facility] Comment on above: Esha Pacheco , Ph.D., [facility] Director References: Available Upon Request. Multiples Of Median Cutoffs For AFP Elevations Crandall 2.5 Black 2.8 IDD 2.0 Twins 4.5 Abbreviation Definitions IDD - Insulin Dep Diabetes OSBR - Open Spina Bifida Risk For further inquiries contact [employer] at [phone]. This test was developed and its performance characteristics determined by [employer]. It has not been cleared or approved by the Food and Drug Administration. Performed at: [facility] [employer] [address], [place] [id number] Field Artillery Operations Man: Manoj Flores Formerly [facility], Phone: [phone] GEST. AGE ON COLLECTION DATE 21.1 . weeks [facility] Intent GESTAT. AGE BASED ON LMP . [facility] Intent Comment on above: Recalculations are n ot recommended when gestational dating by LMP and ultrasound are within 10 days. INSULIN DEP DIABETES No . [facility] INTERPRETATION Comment . [facility] Comment on above: Interpretation: Scre en [...] Customer Services to discuss available options. The [place] [employer] recommends amniocentesis be offered to women age 35 and older. [age] [facility] MULTIPLE GESTATION No . [facility] H [facility] [place] [address] [place] [id number] . [facility] Rodrigo oquendore RACE . [facility] RESULTS Report . [facility] TEST RESULTS: Negative . [facility] WEIGHT 179 . lbs [facility] N N LMP [id number] [phone] N 1 Y 179 N N N N N White/ [facility] Urinalysis macro (dipstick) panel (U)on 08-29-2024 Bilirubin, UA Negative Negative - 4(70) +++ mg/dL [facility] Blood, UA Negative Negative - 50 Dipak/mcL [facility] Clarity, UA Clear [facility] re Color, UA Yellow [facility] Glucose, UA Negative Negative - 1999(110) ++++ mg/dL [facility] Interpretation and review of laboratory results Abnormal [facility] Ketones, UA Negative Negative - 160(16) ++++ mg/dL [facility] Leukocytes, UA Positive Negative - 500+++ Jaswant/mcL [facility] Comment on above: small Nitrite, UA Negative Negative - Positive [facility] pH, UA 6 5 - 9 [facility] e Protein, UA Negative Negative - 1999(20) ++++ mg/dL [facility] Spec Grav, UA 1.025 1 - 1.03 [facility] Urobilinogen, UA 0.2 0.2 - 12 mg/dL [facility] Health[facility] e IGP,APTIMA HPV,AGE GDLNon AGE GDLN ACOG TESTING Note . [facility] Comment on above: TESTS RESULT FLAG UN ITS REF RANGE LAB Clinician Provided Cytology Information Source.............Cervix Other.............. No. of containers..01 ThinPrep Vial Age Ifraho BHAVESH Kizzy... FLAG LEGEND: L-Low Normal,H-High Normal,LL-Alert Low,HH-Alert High <-Panic Low,>-Panic High,A-Abnormal,AA-Critical Abnormal Performed at: 01 =G [address] [address] Ambar Castillo MD, IGP, RFX APTIMA HPV ASCU Note . [facility] Comment on above: TESTS RESULT FLAG U NITS REF RANGE LAB DIAGNOSIS: 02 NEGATIVE FOR INTRAEPITHELIAL LESION OR MALIGNANCY. Specimen adequacy: 02 Satisfactory for evaluation. No endocervical component is identified. An endocervical component is not commonly seen in the patient. Performed by: 02 Grecia Davis Screw Driver Operator ([facility]) . 02 Note: Note 02 The [...] <-Panic Low,>-Panic High,A-Abnormal,AA-Critical Abnormal Performed at: [address] [address] Ambar Castillo MD, Performed at: =G - [facility] [id number] Field Artillery Operations Man: Ambar Castillo MD, Phone: [phone] Performed at: [address] [id number] Field Artillery Operations Man: Ambar Castillo MD, Phone: [phone] SPATULA-ALONE CERVIX [facility] e RECURRENT VAGINITIS (HTRX)on 07-30-2024 ATOPOBIUM VAGINAE 0 [facility] ATOPOBIUM VAGINAE Not detected [facility] BVAB 2,3 (BACTERIAL VAGINOSIS ASSOCIATED BACTERIA 2, 3); MOBILUNCUS SPP 0 [facility] BVAB 2,3 (BACTERIAL VAGINOSIS ASSOCIATED BACTERIA 2, 3); MOBILUNCUS SPP Not detected [facility] LIA ALBICANS, PARAPSILOSIS, TROPICALIS 0 [facility] LIA ALBICANS, PARAPSILOSIS, TROPICALIS Not detected [facility] LIA GLABRATA 0 [facility] LIA GLABRATA Not detected [facility] LIA KRUSEI 0 [facility] Healt hcare LIA KRUSEI Not detected [facility] CHLAMYDIA TRACHOMATIS 0 [facility] CHLAMYDIA TRACHOMATIS Not detected [facility] GARDNERELLA VAGINALIS 0 [facility] GARDNERELLA VAGINALIS Not detected [facility] MEGASPHAERA (TYPES 1, 2) 0 [facility] MEGASPHAERA (TYPES 1, 2) Not detected [facility] MYCOPLASMA GENITALIUM 0 [facility] MYCOPLASMA GENITALIUM Not detected [facility] NEISSERIA GONORRHOEAE 0 [facility] NEISSERIA GONORRHOEAE Not detected [facility] TRICHOMONAS VAGINALIS 0 [facility] TRICHOMONAS VAGINALIS Not detected [facility] Urinalysis macro (dipstick) panel (U)on 07-27-2024 Bilirubin, UA Negative Negative - 4(70) +++ mg/dL [facility] Blood, UA Negative Negative - 50 Dipak/mcL [facility] Clarity, UA Clear [facility] re Color, UA Yellow [facility] Glucose, UA Negative Negative - 1999(110) ++++ mg/dL [facility] Interpretation and review of laboratory results Normal [facility] Ketones, UA Negative Negative - 160(16) ++++ mg/dL [facility] Leukocytes, UA Negative Negative - 500+++ Jaswant/mcL [facility] Nitrite, UA Negative Negative - Positive [facility] pH, UA 6 5 - 9 [facility] Protein, UA Negative Negative - 1999(20) ++++ mg/dL [facility] Spec Grav, UA 1.02 1 - 1.03 [facility] Urobilinogen, UA 1.0 0.2 - 12 mg/dL [facility] Urinalysis macro (dipstick) panel (U)on 06-27-2024 Bilirubin, UA Negative Negative - 4(70) +++ mg/dL [facility] Blood, UA Negative Negative - 50 Dipak/mcL [facility] Clarity, UA Clear [facility]ca re Color, UA Yellow [facility] e Glucose, UA Negative Negative - 1999(110) ++++ mg/dL [facility] Interpretation and review of laboratory results Abnormal [facility] Ketones, UA Negative Negative - 160(16) ++++ mg/dL [facility] Leukocytes, UA Trace Negative - 500+++ Jaswant/mcL [facility] Nitrite, UA Negative Negative - Positive [facility] pH, UA 5.5 5 - 9 [facility] Protein, UA Negative Negative - 1999(20) ++++ mg/dL [facility] Spec Grav, UA 1.02 1 - 1.03 [facility] Urobilinogen, UA 0.2 0.2 - 12 mg/dL [facility] BOX TESTon 06-08-2024 BOX TEST SENT OUT [facility] [address]1 [facility] e BOX2 06/08/24 [facility] B[facility] [employer] HCG ( test) Ql (U)o n 05-27-2024 Interpretation and review of laboratory results Abnormal [facility] Preg Test, Ur Positive [facility] Urinalysis macro (dipstick) panel (U)on 05-27-2024 Bilirubin, UA Negative Negative - 4(70) +++ mg/dL [facility] Blood, UA Positive Negative - 50 Dipak/mcL [facility] Comment on above: trace intact Clarity, UA Clear [facility] [employer] re Color, UA Yellow [facility] Glucose, UA Negative Negative - 1999(110) ++++ mg/dL [facility] Interpretation and review of laboratory results Abnormal [facility] Ketones, UA Negative Negative - 160(16) ++++ mg/dL [facility] Leukocytes, UA Trace Negative - 500+++ Jaswant/mcL [facility] Nitrite, UA Negative Negative - Positive [facility] pH, UA 7.0 5 - 9 [facility] Protein, UA Negative Negative - 1999(20) ++++ mg/dL [facility] Spec Grav, UA 1.015 1 - 1.03 [facility] Urobilinogen, UA 0.2 0.2 - 12 mg/dL [facility] US RETROPERITONEAL COMPLETEo n [...] Marte MD on 10/16/2023 1:22 AM Normal [facility] US PELVIC WITH TRANSVAGINALo n 09-15-2023 [...] Rogers MD on 09/15/2023 6:54 PM Normal [facility] CHLAMYDIA/GC BY PCRon 2023 CHLAMYDIA/GC BY [...] are dependent on adequate specimen collection. Normal Comment on above: Performed By: #### C #### [facility] ([id number]) [address], [address] [place] [address] POCT , urineon 08-24 Beta HCG ( test) Ql (U) Negative [facility]-08-2023 Bilirubin Ql (U) Negative Normal NEG [facility] BLOOD/HGB Negative Normal NEG [facility] CA OXALATE CRYSTALS PRESENT Abnormal NONE [facility] Color (U) YELLOW Normal YELLOW [facility] Glucose Ql (U) Negative Normal NEG Ketones Ql (U) Negative Normal NEG Leukocyte esterase Test strip Ql (U) Negative Normal NEG [facility] MUCOUS PRESENT Abnormal NONE [facility] Nitrite Ql (U) Negative Normal NEG pH (U) 6.5 [pH] Normal 5.0-8.5 [facility] Protein Ql (U) Trace Abnormal NEG R.B.CELLS 2 /hpf Normal 0-5 [facility] Specific gravity (U) [Rel density] 1.027 Normal 1.003-1.035 SQUAMOUS EPITHELIUM 14 /hpf High 0-5 [facility] TURBIDITY CLEAR Normal CLEAR [facility] Urobilinogen (U) [Mass/Vol] mg/dL Normal <1.1 W.B.CELLS 3 /hpf Normal 0-5 [facility] URINE CULTUREon 09-08-2023 Bacteria identified Cx Nom (U) CULTURE RESULTS 10-50,000 ORGANISMS/mL NORMAL UROGENITAL AYLIN Normal Comment on above: Performed By: #### 6 30-4 #### [facility] ([id number]) [address], [address] [place] [address] Urinalysison 09-08-2023 Bilirubin Ql (U) Negative Negative^Ne ga tive [facility] Calcium oxalate crystals LM Ql (Urine sed) PRESENT Abnormal NONE^NONE [facility] Color (U) YELLOW YELLOW^YELLOW [facility] H ealth System Epithelial cells Auto (Urine sed) [#/Area] [address] [facility] Glucose (U) [Mass/Vol] Negative Negative^Nega tive mg/dL [facility] Hemoglobin Auto test strip Ql (U) Negative Negative^Nega tive [facility] Interpretation and review of laboratory results Abnormal [facility] Ketones (U) [Mass/Vol] Negative Negative^Nega tive mg/dL [facility] Leukocyte esterase Auto test strip Ql (U) Negative Negative^Nega tive [facility] Mucus Ql (Urine sed) PRESENT Abnormal NONE^NONE [facility] Nitrite Auto test strip Ql (U) Negative Negative^Nega tive [facility] pH (U) 6.5 [pH] 5.0 - 8.5 [facility] Protein (U) [Mass/Vol] Trace Abnormal Negative^Nega tive mg/dL [facility] RBC Auto (Urine sed) [#/Area] [address] [facility] Specific gravity Refractometry automated (U) [Rel density] 1.027 1.003 - 1.[address] [facility] Turbidity Ql (U) CLEAR CLEAR^CLEAR [facility] Urobilinogen Qn (U) NINF [facility] WBC Auto (Urine sed) [#/Area] 3 [facility] VAGINITIS PANEL PCRon 2023 VAGINITIS PANEL [...] clinical presentation to determine patient diagnosis. Normal Comment on above: Performed By: #### V PPCR #### [facility] ([id number]) [address], [address] [place] [address] Quick Strepon 04-02-2022 S. pyogenes Org specific cx Ql (Throat) Negative [email or web address] Other [employer] [facility] [employer] Other Vital Signs Date Time Vital Sign Value Performing Clinician Facility 08-29-2024 15:54-0500 Body weight 84.82 kg Carin VILLAGOMEZ Work Phone: [facility] 08-29-2024 15:54-0500 Diastolic blood pressure 74 mm[Hg] Carin VILLAGOMEZ Work Phone: [facility] 08-29-2024 15:54-0500 Systolic blood pressure 120 mm[Hg] Carin VILLAGOMEZ Work Phone: [facility] 07-27-2024 15:32-0500 Body weight 81.38 kg Ricardo Kylee DO Work Phone: [facility] 07-27-2024 15:32-0500 Diastolic blood pressure 66 mm[Hg] Ricardo Kylee DO Work Phone: [facility] 07-27-2024 15:32-0500 Systolic blood pressure 108 mm[Hg] Ricardo Kylee DO Work Phone: [facility] 06-27-2024 16:10-0500 Body weight 79.83 kg Ricardo Kylee DO Work Phone: [facility] 06-27-2024 16:10-0500 Diastolic blood pressure 68 mm[Hg] Ricardo Kylee DO Work Phone: [facility] 06-27-2024 16:10-0500 Systolic blood pressure 108 mm[Hg] Ricardo Brookso DO Work Phone: [facility] 05-27-2024 10:31-0400 Body weight 79.38 kg Nom Nurse [facility] 05-27-2024 10:31-0400 Diastolic blood pressure 80 mm[Hg] [facility] Nurse [facility] 05-27-2024 10:31-0400 Systolic blood pressure 122 mm[Hg] [facility] Nurse [facility] 10-13-2023 14:41-0500 Body height 165.1 cm Danielle Lange DO Work Phone: [facility] 10-13-2023 14:41-0500 Body mass index (BMI) [Ratio] 28.09 kg/m2 Danielle Lange DO Work Phone: [facility] 10-13-2023 14:41-0500 Body weight 76.57 kg Danielle Lange DO Work Phone: [facility] 10-13-2023 14:41-0500 Diastolic blood pressure 68 mm[Hg] Danielle Lange DO Work Phone: [facility] 10-13-2023 14:41-0500 Systolic blood pressure 104 mm[Hg] Danielle Lange DO Work Phone: [facility] 09-08-2023 11:06-0500 Body height 165.1 cm Danielle Lange DO Work Phone: [facility] 09-08-2023 11:06-0500 Body mass index (BMI) [Ratio] 28.22 kg/m2 Danielle Lange DO Work Phone: [facility] 09-08-2023 11:06-0500 Body weight 76.93 kg Danielle Lange DO Work Phone: [facility] 09-08-2023 11:06-0500 Diastolic blood pressure 70 mm[Hg] Danielle Lange DO Work Phone: [facility] 09-08-2023 11:06-0500 Systolic blood pressure 116 mm[Hg] Danielle Lange DO Work Phone: [employer] 04-02-2022 12:20-0400 Body height 167.64 cm Julianne Winklermond Other [email or web address] Other 04-02-2022 12:20-0400 Body mass index (BMI) [Ratio] 30.66 kg/m2 Julianne Lety Other [email or web address] Other 04-02-2022 12:20-0400 Body temperature 99.3 [degF] Julianne Lety Other [email or web address] Other 04-02-2022 12:20-0400 Body weight 86.18 kg Julianne Lety Other [email or web address] Other 04-02-2022 12:20-0400 Respiratory rate 18 /min Julianne Lety Other [email or web address] Other 04-02-2022 12:20-0400 SaO2% (BldA) [Mass fraction] 99 % Julianne Lety Other [email or web address] Other 07-06-2021 11:30-0500 Body height 165.1 cm Julianne Lety Other [email or web address] Other 07-06-2021 11:30-0500 Body mass index (BMI) [Ratio] 29.95 kg/m2 Julianne Lety Other [email or web address] Other 07-06-2021 11:30-0500 Body temperature 98.2 [degF] Julianne Lety Other [email or web address] Other 07-06-2021 11:30-0500 Body weight 81.65 kg Julianne Lety Other [email or web address] Other 07-06-2021 11:30-0500 SaO2% (BldA) [Mass fraction] 99 % Julianne Davidson Other [email or web address] Other Encounters Encounter Date Encounter Type Care Provider Facility Start: 09-28-2024 End: 09-28-2024 ambulatory RICARDO KYLEE Not Available Start: 09-28-2024 End: 09-28-2024 Bamboo flowsheet Ricardo Kylee DO Work Phone: [facility] Start: 09-28-2024 End: 09-28-2024 Bamboo flowsheet Ricardo Kylee DO Work Phone: [facility] Start: 09-23-2024 End: 09-23-2024 Clinisync Result Encounter Ricardo Kylee DO Work Phone: [facility] Unsolicited Start: 09-23-2024 End: 09-23-2024 Clinisync Result Encounter Ricardo Kylee DO Work Phone: [facility] Unsolicited Start: 08-29-2024 End: 08-29-2024 flow sheet Carin VILLAGOMEZ Work Phone: [facility] Comment on above: Second trimester pre gnancy; 21 weeks gestation of Start: 08-29-2024 End: 08-29-2024 ambulatory CARIN GARCIA Not Available Start: 08-29-2024 End: 08-29-2024 Bamboo flowsheet Carin VILLAGOMEZ Work Phone: [facility] Start: 08-29-2024 End: 08-29-2024 Bamboo flowsheet Carin VILLAGOMEZ Work Phone: [facility] Start: 08-25-2024 End: 08-29-2024 Clinisync Result Encounter Ricardo Kylee DO Work Phone: [facility] Unsolicited Start: 08-25-2024 End: 08-29-2024 Clinisync Result Encounter Ricardo Kylee DO Work Phone: [facility] Unsolicited Start: 07-27-2024 End: 07-27-2024 Patient encounter procedure Ricardo Kylee DO Work Phone: [facility] Work Phone: Start: 07-27-2024 End: 07-27-2024 [...] KYLEE Not Available Start: 10-29-2023 Orders Only Swomya Retana [facility] Obstetrics/Gynecology Comment on above: Renal lithiasis (Yanet annita Dx); Calcium oxalate crystals in urine; Flank pain; Left sided abdominal pain Start: 10-15-2023 End: 10-16-2023 ambulatory [facility] Start: 10-13-2023 End: 10-13-2023 ambulatory [facility] Start: 10-13-2023 End: 10-13-2023 [facility] Work Phone: [facility] Comment on above: Renal lithiasis (Yanet annita Dx); Left sided abdominal pain; Flank pain; Calcium oxalate crystals in urine Start: 09-14-2023 End: 09-15-2023 ambulatory [facility] Start: 09-08-2023 End: 09-09-2023 ambulatory [facility] Start: 09-08-2023 End: 09-08-2023 ambulatory [facility] Start: 09-08-2023 End: 09-08-2023 Office outpatient visit 15 minutes Danielle Liu Lange DO [facility] Comment on above: Dyspareunia in femal e (Primary Dx); Left sided abdominal pain; Mittelschmerz Start: 04-02-2022 End: 04-02-2022 ambulatory Julianne Davidson Other [email or web address] Other Start: 04-02-2022 Office outpatient vi sit 15 minutes Julianne Davidson [facility] Start: 07-06-2021 (URG) Urgent Care Visit Julianne Albaro monsalve [facility] Start: 07-06-2021 End: 07-06-2021 ambulatory Julianne Davidson Other [email or web address] Other Start: 03-17-2019 End: 03-18-2019 Patient encounter procedure CJ MANZO Facility: Procedures Date Procedure Procedure Detail Performing Clinician Start: 09-23-2024 OB INCOMPLETE ANATOMY Ricardo Kylee DO Work Phone: Start: 08-29-2024 Urnls dip stick/tabl et rgnt non-auto w/o micrscp Carin VILLAGOMEZ Work Phone: Start: 08-25-2024 AFP, SERUM, OPEN SPI NA BIFIDA Ricardo Kylee DO Work Phone: Start: 07-27-2024 RECURRENT VAGINITIS (HTRX) Ricardo Kylee DO Work Phone: Start: 07-27-2024 Urnls dip stick/tabl et rgnt non-auto w/o micrscp Ricardo Kylee DO Work Phone: Start: 07-27-2024 IGP,APTIMA HPV,AGE GDLN Ricardo Kylee DO Work Phone: Start: 06-27-2024 Urnls dip stick/tabl et rgnt non-auto w/o micrscp Ricardo Kylee DO Work Phone: Start: 06-08-2024 BOX TEST Ricardo Fazi o DO Work Phone: Start: 05-27-2024 End: 05-27-2024 Urnls dip stick/tablet rgnt non-auto w/o micrscp Ricardo Pichardo DO Work Phone: Start: 10-13-2023 Follow-up visit [...] malign ant neoplasm of cervix Pap Smear [facility] Start: 10-13-2024 Adult BMI Screening Adult BMI Screen ing [facility] Start: 10-13-2024 Tobacco Screening Tobacco Screening [facility] Start: 09-28-2024 End: 09-28-2024 Patient encounter procedure [facility] Comment on above: Arrived Start: 09-08-2024 Adult [facility] Start: 09-08-2024 Screening for Chlamy hernesto trachomatis Chlamydia Screening [facility] Start: 09-08-2024 Tobacco Screening Tobacco Screening [facility] Start: 08-29-2024 End: 08-29-2024 Patient encounter procedure [...] Start: 06-27-2024 End: 06-27-2024 Patient encounter procedure [facility] Comment on above: Arrived Start: 06-24-2024 Depression Screening Depression Scre prashant [facility] Start: 06-01-2024 Adult BMI Follow Up Plan Adult BMI F ollow Up Plan [facility] Start: 05-27-2024 End: 05-27-2025 ABO/Rh ABO/Rh Lab Routine Missed menses , unspecified gestational age Expected: 05/27/2024 (Approximate), Expires: 05/27/2025 [facility] Comment on above: Expected: 05/27/2024 (Approximate), Expires: 05/27/2025 Start: 05-27-2024 End: 05-27-2025 Blood type and Indirect antibody screen panel - Blood Type and screen Lab Routine Missed menses , unspecified gestational age Expected: 05/27/2024 (Approximate), Expires: 05/27/2025 [facility] Work Phone: Comment on above: Expected: 05/27/2024 (Approximate), Expires: 05/27/2025 Start: 05-27-2024 End: 05-27-2025 Drugs of abuse panel - Urine by Screen method Rapid drug screen, urine Lab Routine , unspecified gestational age Encounter for supervision of normal first in first trimester Expected: 05/27/2024 (Approximate), Expires: 05/27/2025 [facility] Comment on above: Expected: 05/27/2024 (Approximate), Expires: 05/27/2025 Start: 05-27-2024 End: 05-27-2025 US Pelvis transvaginal US OB transvaginal Imaging Routine Missed menses Expected: 05/27/2024 (Approximate), Expires: 05/27/2025 [facility] Comment on above: Expected: 05/27/2024 (Approximate), Expires: 05/27/2025 Start: 11-26-2023 DTaP,Tdap and Td Vac cines (7 - Td or Tdap) DTaP,Tdap and Td Vaccines (7 - Td or Tdap) [facility] Start: 10-13-2023 End: 10-13-2024 US Retroperitoneum Ultrasound retroperitoneal complete Imaging Routine Left sided abdominal pain Flank pain Renal lithiasis Calcium oxalate crystals in urine Expected: 10/13/2023, Expires: 10/13/2024 [facility] Work Phone: Comment on above: Expected: 10/13/2023 , Expires: 10/13/2024 Start: 10-06-2023 End: 10-06-2023 Patient encounter procedure 10/06/2023 2:00 PM EST Office Visit [facility] [address] [place] [address] Danielle Lange DO [address] [place] [address] [facility] Start: 09-14-2023 End: 09-14-2023 Patient encounter procedure 09/14/2023 2:00 PM EST Appointment [facility] - Ultrasound [address] [place] [address] [facility] - Ultrasound Start: 09-08-2023 End: 09-08-2024 Bacteria identified in Urine by Culture [facility] Work Phone: Comment on above: Expected: 09/08/2023 (Approximate), Expires: 09/08/2024 Start: 09-08-2023 End: 09-08-2024 US Pelvis transabdominal and transvaginal Ultrasound pelvic with transvaginal Imaging Routine Left sided abdominal pain Expected: 09/08/2023, Expires: 09/08/[address] [facility] Comment on above: Expected: 09/08/2023 , Expires: 09/08/2024 Start: 09-08-2023 End: 09-08-2024 Vaginitis Panel PCR [facility] Comment on above: Expected: 09/08/2023 (Approximate), Expires: 09/08/2024 Start: 06-18-2023 Screening for Chlamy hernesto trachomatis Chlamydia Screening [facility] Start: 04-24-2023 Influenza vaccination Influenza Vacc ine [facility] Bacteria identified in Urine by Culture Urine culture Microbiology Routine Missed menses Ordered: 05/27/2024 [facility] Comment on above: Ordered: 05/27/2024 CBC W Auto Different ial panel - Blood CBC and differential Lab Routine Missed menses , unspecified gestational age Ordered: 05/27/2024 [facility] Comment on above: Ordered: 05/27/2024 CHLAMYDIA TRACHOMATI S (GENITO/STI) CHLAMYDIA TRACHOMATIS (GENITO/STI) Lab Routine STD exposure Ordered: 07/27/2024 [facility] Comment on above: Ordered: 07/27/2024 End: 09-08-2024 Chlamydia/GC by PCR Rowdy Swab Chlamydia/GC by PCR Rowdy Swab Microbiology Routine Left sided abdominal pain 1 Occurrences starting 09/08/2023 until 09/08/[address] [facility] Comment on above: 1 Occurrences starti ng 09/08/2023 until 09/08/2024 Chlamydia/GC by PCR Rowdy Swab Chlamydia/GC by PCR Rowdy Swab Microbiology Routine Left sided abdominal pain 09/08/2023 7:35 PM EST [facility] Cytology Cervical or vaginal smear or scraping study Pap Smear Pathology and Cytology Routine Well woman exam with routine gynecological exam Ordered: 07/27/2024 [facility] Comment on above: Ordered: 07/27/2024 Hemoglobin A1c/Hemoglobin.total in Blood Hemoglobin A1c Lab Routine Missed menses , unspecified gestational age Ordered: 05/27/2024 [facility] Comment on above: Ordered: 05/27/2024 Hepatitis B virus clarke rface Ag [Presence] in Serum or Plasma by Immunoassay Hepatitis B surface antigen Lab Routine Missed menses , unspecified gestational age Ordered: 05/27/2024 [facility] Comment on above: Ordered: 05/27/2024 Hepatitis C virus Ab [Presence] in Serum or Plasma by Immunoassay Hepatitis C antibody Lab Routine Missed menses , unspecified gestational age Ordered: 05/27/2024 [facility] Comment on above: Ordered: 05/27/2024 HIV-1/HIV-2 antigen/antibody combination immunoassay HIV-1 and HIV-2 antibodies Lab Routine Missed menses , unspecified gestational age Ordered: 05/27/2024 [facility] Comment on above: Ordered: 05/27/2024 Neisseria gonorrhoea e DNA [Presence] in Unspecified specimen by MARIA M with probe detection Neisseria gonorrhea DNA probe, direct Lab Routine STD exposure Ordered: 07/27/2024 [facility] Comment on above: Ordered: 07/27/2024 Reagin Ab [Presence] in Serum by RPR RPR Lab Routine Missed menses , unspecified gestational age Ordered: 05/27/2024 [facility] Comment on above: Ordered: 05/27/2024 Rubella antibody, IgG Rubella an tibody, IgG Lab Routine Missed menses , unspecified gestational age Ordered: 05/27/2024 [facility] Comment on above: Ordered: 05/27/2024 SURESWAB(R) ADVANCED VAGINITIS PLUS, TMA SURESWAB(R) ADVANCED VAGINITIS PLUS, TMA Pathology and Cytology Routine Vaginal discharge STD exposure Ordered: 07/27/2024 [facility] Work Phone: Comment on above: Ordered: 07/27/2024 Immunizations Immunization Date Immunization Notes Care Provider Ton king 06-28-2009 influenza virus vaccine, unspecified formulation Danielle Lange DO Work Phone: [facility] Payers Date Payer Category Payer Managed Care HMO (unspecified) [id number] 2024 Private Health Insurance [id number] 2019 Private Health Insurance [id number] 2019 Private Health Insurance [facility] PLUS [id number] 2019-Present [phone] [address] [address] [place] [address] [id number] 2001 Unknown [id number] 1286 2001 Unknown [id number]. 1286 2001 Unknown [id number]. 1286 2001 Unknown [id number] [id number]. 1286 2001 Unknown [id number] [id number]. 1286 2001 Unknown [id number] [id number]. 9 2001 Unknown [id number] [id number]. 9 2001 Unknown [id number] [id number]. 9 2001 Unknown [id number] [id number]. 9 2001 Unknown [id number]. 1259 1976 Unknown [id number]. 593 1959 Unknown [id number] Social History Date Type Detail Facility Sex Assigned At [email or web address] Other Start: 08-08-2018 End: 05-27-2024 [facility] Start: 06-18-2022 End: 05-27-2024 Tobacco smoking status NDIS Never smoked tobacco [facility] Start: 06-18-2022 End: 05-27-2024 Tobacco use and exposure Smokeless tobacco non-user [facility] Start: 09-08-2023 End: 10-13-2023 Alcohol intake Current non-drinker of alcohol (finding) [facility] Start: 08-08-2018 End: 05-27-2024 History of Social function [facility] Frequency of Alcohol Consumption Never [facility] Start: 2001 Sex Assigned At Not on file [facility] Start: 05-27-2024 End: 07-27-2024 Alcoholic beverage intake Lifetime non-drinker (finding) [facility] Start: 04-13-2024 [facility] Start: 2001 Sex assigned at Female [facility] Start: 12-29-2023 Gender identity Identifies as female gender (finding) [facility] Clinical Notes 04-02-2022 to 08-29-2024 HERNANDO Magallanes - 08/29/2024 3:20 PM Lizette Sanchez LPN - 07/27/2024 2:50 PM Katja Barone - 06/27/2024 3:30 PM Katja Barone - 05/27/2024 10:30 AM EDT Note Date & Type Note Facility 08-29-2024 History of Present illness Narrative Reason for Appointment: Patient ID: Marisela Randall is a 24 y.o. female who presents [...] of: HERNANDO Magallanes documented in this encounter [facility] 07-27-2024 History of Present illness Narrative Reason for Appointment: Patient ID: Marisela Randall is a 24 y.o. female who presents [...] nursing note reviewed. Exam conducted with a facility attendant present. Vitals: Estimated body mass index is [...] Ricardo Pichardo DO documented in this encounter [facility] 06-27-2024 History of Present illness Narrative Reason for Appointment: Patient ID: Marisela Randall is a 24 y.o. female who presents [...] Ricardo Pichardo DO documented in this encounter [facility] 05-27-2024 History of Present illness Narrative Reason for Appointment: Patient ID: Marisela Randall is a 24 y.o. female who presents [...] or undercooked meat, and stay away from [facility]. Patient has also been advised to [...] by: Linda Barone documented in this encounter [facility] 10-29-2023 History of Present illness Narrative Ordered new Conveyor Man referral documented in this encounter [facility] 10-13-2023 History of Present illness Narrative Images from the original note were not included. Subjective Patient ID: Marisela Randall is a pleasant 23 y.o. female who presents today for pelvic ultrasound follow-up. Patient states that her pain has continued, but has become more localized to the upper right flank. She does have a history of renal lithiasis in the past. She states she has seen a zigzag tunnel elastic operator, but was only counseled to not [...] PM Imaging Ultrasound pelvic with transvaginal (Order: [id number]) - 09/14/2023 Result History Ultrasound pelvic with transvaginal (Order #[id number]) on 09/15/2023 - Order Result History Report [...] to nephrology placed. documented in this encounter [facility] 09-08-2023 History of Present illness Narrative Subjective Patient ID: Marisela Randall is a pleasant 23 y.o. female who [...] for culture 4. Pelvic ultrasound ordered 5. Mittelschmerluiza discussed as well as dysmenorrhea prescription for Motrin provided 6. Will see patient back in 3-4 weeks to review ultrasound and see if the prescription strength Motrin is helping to alleviate her symptoms documented in this encounter [facility] 04-02-2022 Evaluation note Encounter Date Diagnosis Assessment Notes Mar, Viral pharyngitis (ICD-10 - J02.9) Pharyngitis/to nsillopharyngi tis: adult home care material was printed Drink plenty fluids, get plenty of rest. Take Tylenol or Motrin for aches pains or fevers. Continue your cephalexin as prescribed until gone. Follow-up with your family physician if no improvement in 2 to 3 days. [email or web address] Other Evaluation [email or web address] Other Evaluation note* Diagnosis Dyspareunia in female- Primary Left sided abdominal pain Abdominal pain, unspecified site Mittelschmerz documented in this encounter [facility] [employer] System[facility] note* Diagnosis Renal lithiasis- Primary Calculus of kidney Left sided abdominal pain Abdominal pain, unspecified site Flank pain Abdominal pain, unspecified site Calcium oxalate crystals in urine documented in this encounter [facility]* Diagnosis Renal lithiasis- Primary Calculus of kidney Calcium oxalate crystals in urine Flank pain Abdominal pain, unspecified site Left sided abdominal pain Abdominal pain, unspecified site documented in this encounter [facility] [employer] [facility] note* Diagnosis Missed menses , unspecified gestational age Encounter for supervision of normal first in first trimester documented in this encounter [facility]* Diagnosis First trimester state, incidental 12 weeks gestation of Nausea Nausea alone Viral upper respiratory tract infection Acute upper respiratory infections of unspecified site documented in this encounter [facility] Healthcare[facility] note* Diagnosis Well woman exam with routine gynecological exam Routine gynecological examination Second trimester state, incidental 16 weeks gestation of Screening, , for anatomic survey Encounter for anatomic survey Vaginal discharge Leukorrhea, not specified as infective STD exposure documented in this encounter [facility] Healthcare[facility] note* Diagnosis Second trimester state, incidental 21 weeks gestation of documented in this encounter [facility] HealthcareHistory general Narrative - [email or web address] Other History general Narrative - Reported* Type Description Date Medical History chronic depression [email or web address] Other Instructions* Attachments The following attachments cannot be sent through Care Everywhere. * Painful Ovulation (Panamanian) documented [facility] System[facility]* Attachments The following attachments cannot be sent through Care Everywhere. * Kidney stones in adults (Panamanian) documented in this encounterProFirelands [facility] CenterInstructionsNot on file documented in this encounterProFirelands Regional Medical CenterResaint [facility] for referral (narrative)* Consultation (Routine) - Pending Review Specialty Diagnoses / Procedures Referred By Contac t Referred To Contact Nephrology Diagnoses Left sided abdominal pain Flank pain Renal lithiasis Calcium oxalate crystals in urine Danielle Lange DO [address] [place] [address] Yannick Villagomez MD [address] [place] [id number] Referral ID Status Reason Start Date Expiration Date Visits Requested Visits Authorized [id number] Pending Review Specialty Services Required 10/13/2023 10/12/2024 1 1 [facility] (narrative)* Consultation (Routine) - Pending Review Specialty Diagnoses / Procedures Referred By Contac t Referred To Contact Nephrology Diagnoses Renal lithiasis Calcium oxalate crystals in urine Flank pain Left sided abdominal pain Danielle Lange DO [address] [place] [address] Hussein Card MD [address] [place] [address] [facility] [place] [address] Referral ID Status Reason Start Date Expiration Date Visits Requested Visits Authorized [id number] Pending Review Specialty Services Required 10/29/2023 10/28/2024 1 1 [employer] Summary Purpose Family History No Family History Records FoundNo Family History Records FoundNo Family History Records FoundNo Family History Records FoundNo Family History Records Found Advance Directives No Advanced Directives Records FoundNo Advanced Directives Records FoundNo Advanced Directives Records FoundNo Advanced Directives Records FoundNo Advanced Directives Records Found Additional Source Comments INFORMATION SOURCE (unrecogn ized section and content) DATE CREATED AUTHOR 09/15/2020 [facility] DATE CREATED AUTHOR AUTHOR'S ORGANIZ ATION 09/12/2023 DATE CREATED AUTHOR AUTHOR'S ORGANIZ ATION [facility]20[facility] DATE CREATED AUTHOR AUTHOR'S ORGANIZ ATION [facility] DATE CREATED AUTHOR AUTHOR'S ORGANIZ ATION 10/01/[address] [facility] EPIC REASON FOR VISIT (unrecogniz ed section and content) Reason Comments Abdominal Pain Left side started ab out 2 months agoPain the first day of cycle Reason Comments Follow-up Ultrasound results d /t pelvic pain Reason Comments Initial Visit Reason Comments Routine Visit Reason Comments Well Women Visit Routine Visit STI Screening Care Teams (unrecognized sec tion and content) Pin Game Machine Inspector Relationship Specialty Start Date End Date Samir Stroud APRN-JOANNE [address] [place] [address] PCP - General Family Medicine 12/28/22 Pin Game Machine Inspector Relationship Specialty Start Date End Date Samir Stroud APRN-CNP [address] [place] [address] PCP - General Family Medicine 12/28/22 Pin Game Machine Inspector Relationship Specialty Start Date End Date Samir Stroud APRN-CNP [address] [place] [address] PCP - General Family Medicine 12/28/22 Pin Game Machine Inspector Relationship Specialty Start Date End Date Samir Stroud NP [address] [place] [address] Referring Physician Family Medicine 05/19/23 Pin Game Machine Inspector Relationship Specialty Start Date End Date Samir Stroud NP [address] [place] [address] Referring Physician Family Medicine 05/19/23 Pin Game Machine Inspector Relationship Specialty Start Date End Date Samir Stroud NP [address] [place] [address] Referring Physician Family Medicine 05/19/23 Pin Game Machine Inspector Relationship Specialty Start Date End Date Samir Stroud NP [address] [place] [address] Referring Physician Family Medicine 05/19/23 Pin Game Machine Inspector Relationship Specialty Start Date End Date Samir Stroud NP [address] [place] [address] Referring Physician Family Medicine 05/19/23 Pin Game Machine Inspector Relationship Specialty Start Date End Date Samir Stroud NP [address] [place] [address] Referring Physician Family Medicine 05/19/23 Pin Game Machine Inspector Relationship Specialty Start Date End Date Samir Stroud NP [address] [place] [address] Referring Physician Family Medicine 05/19/23 Pin Game Machine Inspector Relationship Specialty Start Date End Date Samir Stroud NP [address] [place] [address] Referring Physician Family Medicine 05/19/23 Pin Game Machine Inspector Relationship Specialty Start Date End Date Samir Stroud NP [address] [place] [address] Referring Physician Family Medicine 05/19/23 FOR RECORDS [...] BE BASED ON THE PRIMARY CLINICAL RECORDS. [facility] CenterGreeng[facility]. provides no warranty or guarantee of the accuracy or completeness of information in this document.
[2024-10-01 09:39] LABS: Basophils Percent Auto 0.4 % (0.2-2.0); Eosinophils Percent Auto 0.4 % (0.9-7.0); Hematocrit 31.4 % (36.0-48.0); Hemoglobin 10.6 g/dL (12.0-16.0); Immature Granulocytes Abs Auto 0.07 10^3/uL (0.00-0.03); Immature Granulocytes Pct Auto 0.7 % (0.0-0.5); Lymphocytes Absolute Auto 1.7 10^3/uL (1.2-3.8); Lymphocytes Percent Auto 17.8 % (20.5-60.0); Mean Corpuscular HGB Conc 33.8 g/dL (29.9-35.2); Mean Corpuscular Hemoglobin 30.5 pg (26.7-34.0); Mean Corpuscular Volume 90.5 fL (81.0-99.0); Mean Platelet Volume 9.2 fL (9.5-13.5); Monocytes Absolute Auto 0.6 10^3/uL (0.3-0.8); Monocytes Percent Auto 5.8 % (1.7-12.0); Neutrophils Absolute Auto 7.2 10^3/uL (1.4-6.5); Neutrophils Percent Auto 74.9 % (43.0-75.0); Platelet Count 282 10^3/uL (150-450); Red Blood Count 3.47 10^6/uL (4.20-5.40); Red Cell Distribution Width 12.8 % (11.0-15.0); White Blood Count 9.6 10^3/uL (4.0-11.0)
[2024-10-01 09:49] LABS: Glucose 1 Hour 116 mg/dL (<130)
== END 2024-10-01 08:31 | disposition home or self-care (01) ==
LOC: LAB 08:30
PROVIDERS: PCP Nurse Practitioner Family; Visit Provider Obstetrics & Gynecology
DX: Z13.1 Encounter for screening for diabetes mellitus (principal)
CPT/HCPCS: 36415; 82950; 85025

== ENCOUNTER 2024-10-14 07:40 | Outpatient (RCR) | payer OTHER, SELFPAY ==
[2024-10-14 11:30] VITALS: BP 115/73; PULSE 86; TEMP 36.6; O2SAT 99
[2024-10-14] MEDS: RHO(D) IMMUNE GLOBULIN 1,500 UNIT SYRINGE 1500 UNIT IM (11:36)
--- NOTE | 2024-10-14 12:05 | PC.NURSE ---
1200 Patient waited for 25 min post injection and tolerated IM injection without difficulty. Patient denies feeling sick , short of breath or palpations.
== END 2024-10-17 12:24 | disposition home or self-care (01) ==
LOC: LAB 07:40
PROVIDERS: PCP Nurse Practitioner Family; Visit Provider Obstetrics & Gynecology
DX: O26.893 Other specified pregnancy related conditions, third trimester (principal); Z67.91 Unspecified blood type, Rh negative; Z3A.00 Weeks of gestation of pregnancy not specified
CPT/HCPCS: 36415; 86850; 86900; 86901; 96372; J2791

== ENCOUNTER 2024-12-07 20:08 | Outpatient (REF) | payer OTHER, SELFPAY ==
--- OUTSIDE RECORDS SUMMARY | 2024-12-07 20:14 | XMS_ITS | CCD ---
Author Organization [facility] Care Team Providers Care Medical Transcriptionist Name Role Phone CJ MANZO Consulting Unavailable RUSS GALLOWAY Attending Unavailable JYO DAY Primary Care Unavailable RUSS GALLOWAY Admitting Unavailable RUSS GALLOWAY Consulting Unavailable Julianne Davidson Unavailable DANIELLE LANGE Referring Unavailable SCHLACHTER, SAMIR Primary Care Unavailable DANIELLE LANGE Attending Unavailable SCHLACHTER, SAMIR Referring Unavailable SCHLACHTER, SAMIR Primary Care Unavailable DANIELLE LANGE Attending Unavailable SCHLACHTER, SAMIR Referring Unavailable SCHLACHTER, SAMIR Primary Care Unavailable DANIELLE LANGE Referring Unavailable SCHLACHTER, SAMIR Primary Care Unavailable DANIELLE LANGE Attending Unavailable DANIELLE LANGE Referring Unavailable SCHLACHTER, SAMIR Primary Care Unavailable Schlachter MOLDED CANDLES WICKER, Samir Unavailable Scheliana OPERATORS TEACHER-ADULT MANAGER, Samir Primary Care Provide r Micheal Salas DDS Attending Unavailable Schlachtrush MOLDED CANDLES WICKER, Samir Unavailable [phone] RICARDO PICHARDO Attending Unavailable KYLEERICARDO Attending Unavailable RADHA, CARIN Attending Unavailable KYLEEANSLEYY Attending Unavailable RADHA, CARIN Attending Unavailable RADHA, CARIN Referring Unavailable KYLEE, RICARDO Attending Unavailable RADHA, CARIN Attending Unavailable RADHA, CARIN Attending Unavailable Allergies Allergy Classification Reported Allergen(s) Allergy Type Date of Onset Reaction(s) Facility (1 source) Sulfonamides (Antibiotic) Drug allergy (disorder) [facility] Repository (2 sources) Sulfacetamide / Sulfur Drug Allergy [facility] Other (20 sources) Ondansetron; Translations: [ONDANSETRON] Drug Allergy 9 Vomiting [facility] Repository (6 sources) Sulfonamides (Antibiotic); Translations: [SULFA (SULFONAMIDE ANTIBIOTICS)] Propensity to adverse reactions to drug (disorder) 8 Hives [facility] Repository (20 sources) Sulfonamides (Antibiotic) Propensity to adverse reactions 8 Hives [facility] Work Phone: Medications Current Medications Medication Drug Class(es) Dates Sig (Normalized) Sig (Original) cephalexin 500 mg oral capsule (2 sources) Cephalosporin Antibacterial Start: 10-12-2024 End: 10-17-2024 take 1 capsule by mouth in the morning cephalexin (Keflex) 500 MG capsule Indications: Low back pain, unspecified back pain laterality, unspecified chronicity, unspecified whether sciatica present Take 1 capsule (500 mg) by mouth in the morning and 1 capsule (500 mg) before bedtime. Do all this for 5 days. 10 capsule 10/12/2024 10/17/2024 Active Escitalopram (2 sources) Serotonin Reuptake Inhibitor Escitalopram Oxalate Active ibuprofen 800 mg oral tablet (3 sources) Nonsteroidal Anti-inflammatory Drug Start: 09-08-2023 take 1 tablet by mouth every eight hours as needed for pain ibuprofen (MOTRIN) 800 mg tablet Indications: Left sided abdominal pain , Mittelschmerz Take 1 tablet (800 mg total) by mouth every 8 (eight) hours as needed for pain. 60 tablet 2 09/08/2023 Active metroNIDAZOLE 500 mg oral tablet (3 sources) Nitroimidazole Antimicrobial Start: 12-05-2024 End: 12-12-2024 take 1 tablet by mouth in the morning metroNIDAZOLE (Flagyl) 500 MG tablet Indications: Vaginal discharge Take 1 tablet (500 mg) by mouth in the morning and 1 tablet (500 mg) before bedtime. Do all this for 7 days. Do not drink alcohol while taking this medication. 14 tablet 12/05/2024 12/12/2024 Active ondansetron 4 mg disintegrating oral tablet (9 sources) Serotonin-3 Receptor Antagonist Start: 05-23-2024 End: 07-27-2024 take 1 tablet by mouth every six hours as needed for nausea and vomiting and nausea and nausea ondansetron ODT (Zofran-ODT) 4 MG disintegrating tablet Indications: Nausea Take 1 tablet (4 mg) by mouth every 6 (six) hours if needed for nausea or vomiting 30 tablet 2 06/27/2024 07/27/2024 Active pantoprazole 40 mg delayed release oral tablet (7 sources) Proton Pump Inhibitor Start: 10-26-2024 End: 10-26-2025 take 1 tablet by mouth before mealtime pantoprazole (Protonix) 40 MG EC tablet Indications: Gastroesophageal reflux in Take 1 tablet (40 mg) by mouth in the morning. Take before meals. Do not crush, chew, or split.. 30 tablet 11 10/26/2024 10/26/2025 Active Completed/Discontinued Medications Medication Drug Class(es) Dates Sig (Normalized) Sig (Original) azithromycin 250 mg oral tablet (10 sources) Macrolide Antimicrobial Start: 06-27-2024 End: 08-29-2024 azithromycin (Zithromax Z-Nikolas) 250 MG tablet Indications: Viral upper respiratory tract infection As directed 6 tablet 06/27/2024 08/29/2024 Discontinued (Therapy completed) ferrous sulfate 325 mg oral tablet (7 sources) End: 11-24-2024 take 1 tablet by mouth at mealtime ferrous sulfate 325 (65 Fe) MG tablet Take 325 mg by mouth in the morning. Take with meals. 11/24/2024 Discontinued omeprazole 20 mg delayed release oral capsule (16 sources) Proton Pump Inhibitor Start: 08-01-2024 End: 08-01-2025 take 1 capsule by mouth before mealtime omeprazole (PriLOSEC) [address] capsule Indications: Gastroesophageal Reflux Disease , Heartburn Take 1 capsule (20 mg) by mouth in the morning. Take before meals. Do not crush or chew.. 90 capsule 1 10/19/2024 11/24/2024 Discontinued promethazine hydrochloride 12.5 mg oral tablet (20 sources) Phenothiazine Start: 06-01-2024 End: 10-12-2024 take 1 tablet by mouth every six hours as needed for nausea and vomiting and nausea and nausea promethazine (Phenergan) 12.5 MG tablet Indications: Nausea Take 1 tablet (12.5 mg) by mouth every 6 (six) hours if needed for nausea or vomiting for up to 30 doses Take 1 tablet by mouth every 6 hours as needed for nausea. 30 tablet 2 06/27/2024 10/12/2024 Discontinued (Therapy completed) Problems Active Problems Problem Classification Problem Date Documented Date Episodic/Chronic Immunizations and screening for infectious disease (3 sources) Contact with and (suspected) exposure to other viral communicable diseases; Translations: [Exposure to sexually transmissible disorder] Onset: 07-06-2021 Resolved: 07-06-2021 Episodic Menstrual disorders (1 source) Missed period; Translations: [Irregular menstruation, unspecified] 05-27-2024 Chronic Nausea and vomiting (2 sources) Nausea; Translations: [Nausea] 06-27-2024 Episodic Other complications of (2 sources) Excessive growth affecting management of mother; Translations: [Maternal care for excessive growth, third trimester, not applicable or unspecified] 10-12-2024 Episodic Other complications of (2 sources) Gastroesophageal reflux disease in ; Translations: [Diseases of the digestive system complicating , unspecified trimester] 10-26-2024 Episodic Other female genital disorders (1 source) Mittelschmerz; 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] Onset: 09-08-2023 Chronic Other female genital disorders (1 source) Unspecified dyspareunia; Translations: [Unspecified dyspareunia] Onset: 09-08-2023 Chronic Other female genital disorders (1 source) Mittelschmerz; 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] 09-08-2023 Chronic Other female genital disorders (1 source) Pain in female genitalia on intercourse; Translations: [Unspecified dyspareunia] 09-08-2023 Chronic Other female genital disorders (2 sources) Vaginal discharge; Translations: [Other specified noninflammatory disorders of vagina] 07-27-2024 Episodic Other and delivery including normal (18 sources) ; Translations: [Encounter for supervision of normal , unspecified, unspecified trimester] 05-27-2024 Episodic Other screening for suspected conditions (not mental disorders or infectious disease) (4 sources) Patient encounter status; Translations: [Encounter for [...] [21 weeks gestation of ] 08-29-2024 Episodic Residual codes; unclassified (2 sources) Gestation period, 26 weeks; Translations: [26 weeks gestation of ] 09-28-2024 Episodic Residual codes; unclassified (2 sources) Gestation period, 28 weeks; Translations: [28 weeks gestation of ] 10-12-2024 Episodic Residual codes; unclassified (2 sources) Gestation period, 30 weeks; Translations: [30 weeks gestation of ] 10-26-2024 Episodic Residual codes; unclassified (2 sources) Gestation period, 34 weeks; Translations: [34 weeks gestation of ] 11-24-2024 Episodic Residual codes; unclassified (2 sources) Gestation period, 36 weeks; Translations: [36 weeks gestation of ] 12-07-2024 Episodic Spondylosis; intervertebral disc disorders; other back problems (2 sources) Low back pain; Translations: [Low back pain, unspecified back pain laterality, unspecified chronicity, unspecified whether sciatica present] 10-12-2024 Episodic Urinary tract infections (2 sources) Urinary tract infectious disease; Translations: [Urinary tract infection, site not specified] 10-12-2024 Episodic Past or Other Problems Problem Classification Problem Date Documented Da te Episodic/Chronic Abdominal pain (12 sources) Unspecified abdominal pain; Translations: [Abdominal pain] Onset: 03-17-2019 09-08-2023 Episodic Calculus of urinary tract (5 sources) Unspecified renal colic; Translations: [Personal history of urinary calculi] Onset: 03-21-2019 10-13-2023 Episodic Genitourinary symptoms and ill-defined conditions (4 sources) Hematuria, unspecified; Translations: [Other abnormal findings in urine] Onset: 03-21-2019 10-13-2023 Episodic Mood disorders (3 sources) Mood disorders Onset: 06-24-2023 06-24-2023 Unclassified (3 sources) Onset: 06-01-2023 06-01-2023 Viral infection (1 source) COVID-19 Onset: 07-06-2021 Resolved: 07-06-2021 Results Test Name Value Interpretation Reference Range Facility Urinalysis macro (dipstick) panel (U)on 12-07-2024 Bilirubin, UA Negative Negative - 4(70) +++ mg/dL [facility] Blood, UA Negative Negative - 50 Dipak/mcL [facility] Clarity, UA Clear [facility] re Color, UA Yellow [facility] Glucose, UA Negative Negative - 1999(110) ++++ mg/dL [facility] Interpretation and review of laboratory results Abnormal [facility] Ketones, UA Negative Negative - 160(16) ++++ mg/dL [facility] Leukocytes, UA Positive Negative - 500+++ Jaswant/mcL [facility] Nitrite, UA Negative Negative - Positive [facility] pH, UA 6.5 5 - 9 [facility] e Protein, UA Positive Negative - 1999(20) ++++ mg/dL [facility] Spec Grav, UA 1.025 1 - 1.03 [facility] Urobilinogen, UA 1.0 0.2 - 12 mg/dL [facility] US OB FOLLOW UP TRANSABDOMIN AL APPROACHon 11-24-2024 US OB FOLLOW UP TRANSABDOMINAL APPROACH EXAM: US OB FOLLOW UP TRANSABDOMINAL APPROACH HISTORY: Large for gestational age. COMPARISON: OB ultrasound 10/26/2024. TECHNIQUE: Two-dimensional transabdominal grayscale ultrasound imaging of the pelvis was performed. FINDINGS: Gestation: Single Presentation: Cephalic Cardiac Activity: 153 beats per minute Placental Location: Anterior with no sonographic abnormalities identified. Cervical canal: Not visualized Amniotic Fluid Index: 15.1 cm MEASUREMENTS: BPD: 8.9 cm EGA: 36 weeks 1 days HC: 30.8 cm EGA: 34 weeks 3 days AC: 31.6 cm EGA: 35 weeks 4 days FL: 6.7 cm EGA: 34 weeks 4 days HC/AC Ratio: 0.98 The gestational age by today's ultrasound is 35 weeks 1 days (+/- 17 days gestation). Estimated Weight: 2627 grams, +/- 394 grams ( 5 lb 13 oz). Weight Percentile for gestational age: 76 % IMPRESSION: 1. Single, live intrauterine gestation 34 weeks, 1 days by LMP. Today's ultrasound measurements correlate with a gestational age of 35 weeks 1 days. Estimated weight is 2627 grams, +/- 394 grams ( 5 lb 13 oz) which correlates to 76 %. SEEMA is 12/28/2024. Electronically Signed:Electronically signed by LINDSAY STEEL II, MD, PHD at 27-Nov-2024 10:37:34 PM [facility] Normal Not Available Comment on above: Order Comment: US OB SCAN FOR GROWTH Estimated Date of Delivery: 01/04/25 Gestational Age as of 11/09/2024: 32w0d Urinalysis macro (dipstick) panel (U)on 11-24-2024 Bilirubin, UA Negative Negative - 4(70) +++ mg/dL [facility] Blood, UA Positive Negative - 50 Dipak/mcL [facility] Comment on above: trace-intact Clarity, UA Clear [facility] Color, UA Yellow [facility] Glucose, UA Negative Negative - 2000(110) ++++ mg/dL [facility] Interpretation and review of laboratory results Abnormal [facility] Ketones, UA Positive Negative - 160(16) ++++ mg/dL [facility] Comment on above: 15 Leukocytes, UA Positive Negative - 500+++ Jaswant/mcL [facility] Comment on above: small Nitrite, UA Negative Negative - Positive [facility] pH, UA 7 5 - 9 [facility] Protein, UA Positive Negative - 2000(20) ++++ mg/dL [facility] Comment on above: 30 Spec Grav, UA 1.025 1 - 1.03 [facility] Urobilinogen, UA 1.0 0.2 - 12 [facility] FOLLOW UP TRANSABDOMIN AL APPROACHon 10-26-2024 US OB FOLLOW UP TRANSABDOMINAL APPROACH EXAM: US OB FOLLOW UP TRANSABDOMINAL APPROACH HISTORY: Large for gestational age. TECHNIQUE: Two-dimensional transabdominal grayscale ultrasound imaging of the pelvis was performed. COMPARISON: OB ultrasound 09/22/2024. FINDINGS: Gestation: Single Presentation: Cephalic Cardiac Activity: 163 beats per minute Placental Location: Anterior with no sonographic abnormalities identified. Cervical canal: Not visualized Amniotic Fluid Index: 12.8 cm MEASUREMENTS: BPD: 8.0 cm EGA: 32 weeks 1 days HC: 28.4 cm EGA: 31 weeks 1 days AC: 26.5 cm EGA: 30 weeks 4 days FL: 6.0 cm EGA: 31 weeks 2 days HC/AC Ratio: 1.07 The gestational age by today's ultrasound is 31 weeks 2 days (+/- 15 days gestation). Estimated Weight: 1675 grams, +/- 251 grams ( 3 lb 11 oz). Weight Percentile for gestational age: 72 % IMPRESSION: 1. Single, live intrauterine gestation 30 weeks, 0 days by LMP. Today's ultrasound measurements correlate with a gestational age of 31 weeks 2 days. Estimated weight is 1675 grams, +/- 251 grams ( 3 lb 11 oz) which correlates to 72 %. SEEMA is 12/26/2024. Electronically Signed:Electronically signed by LINDSAY STEEL II, MD, PHD at 27-Oct-2024 10:37:59 AM [facility] Normal Not Available Comment on above: Order Comment: US OB SCAN FOR GROWTH Estimated Date of Delivery: 01/04/25 Gestational Age as of 10/12/2024: 28w0d Urinalysis macro (dipstick) panel (U)on 10-26-2024 Bilirubin, UA Negative Negative - 4(70) +++ mg/dL [facility] Blood, UA Negative Negative - 50 Dipak/mcL [facility] Clarity, UA Clear [facility] re Color, UA Yellow [facility] e Glucose, UA Negative Negative - 1999(110) ++++ mg/dL [facility] Interpretation and review of laboratory results Abnormal [facility] Ketones, UA Negative Negative - 160(16) ++++ mg/dL [facility] Leukocytes, UA Positive Negative - 500+++ Jaswant/mcL [facility] Comment on above: large Nitrite, UA Negative Negative - Positive [facility] pH, UA 6.5 5 - 9 [facility] Protein, UA Negative Negative - 1999(20) ++++ mg/dL [facility] Spec Grav, UA 1.01 1 - 1.03 [facility] Urobilinogen, UA 0.2 0.2 - 12 mg/dL [facility] Urinalysis macro (dipstick) panel (U)on 10-12-2024 Bilirubin, UA Negative Negative - 4(70) +++ mg/dL [facility] Blood, UA Negative Negative - 50 Dipak/mcL [facility] Clarity, UA Clear [facility] re Color, UA Yellow [facility] Glucose, UA Negative Negative - 1999(110) ++++ mg/dL [facility] Interpretation and review of laboratory results Abnormal [facility] Ketones, UA Negative Negative - 160(16) ++++ mg/dL [facility] Leukocytes, UA Positive Negative - 500+++ Jaswant/mcL [facility] Comment on above: large Nitrite, UA Negative Negative - Positive [facility] pH, UA 7 5 - 9 [facility] e Protein, UA Negative Negative - 1999(20) ++++ mg/dL [facility] Spec Grav, UA 1.015 1 - 1.03 [facility] Urobilinogen, UA 0.2 0.2 - 12 mg/dL [facility] ALL CBC WITH AUTO DIFFon BASOPHILS ABSOLUTE AUTO 0 [facility] Basophils/100 WBC (Bld) 0.4 % 0.2 - 2.0 % [facility] Eosinophils/100 WBC (Bld) 0.4 % Low 0.9 - 7.0 % [facility] Erythrocyte distribution width (RBC) [Ratio] 12.8 % 11.0 - 15.0 % [facility] Hematocrit (Bld) [Volume fraction] 31.4 % Low 36.0 - 48.0 % [facility] e Hemoglobin (Bld) [Mass/Vol] 10.6 g/dL Low 12.0 - 16.0 g/dL [facility] IMMATURE GRANULOCYTES ABS AUTO 0.07 High [facility] Immature granulocytes/100 WBC (Bld) 0.7 % High 0.0 - 0.5 % [facility] Interpretation and review of laboratory results Abnormal [facility] LYMPHOCYTES ABSOLUTE AUTO 1.7 [facility] Lymphocytes/100 WBC (Bld) 17.8 % Low 20.5 - 60.0 % [facility] MCH (RBC) [Entitic mass] 30.5 pg 26.7 - 34.0 pg [facility] MCHC (RBC) [Mass/Vol] 33.8 g/dL 29.9 - 35.2 g/dL [facility] MCV (RBC) [Entitic vol] 90.5 fL 81.0 - 99.0 fL [facility] MONOCYTES ABSOLUTE AUTO 0.6 [facility] Monocytes/100 WBC (Bld) 5.8 % 1.7 - 12.0 % [facility] NEUTROPHILS ABSOLUTE AUTO 7.2 High [facility] Neutrophils/100 WBC (Bld) 74.9 % 43.0 - 75.0 % [facility] Platelet mean volume (Bld) [Entitic vol] 9.2 fL Low 9.5 - 13.5 fL [facility] EO # 0 [facility] PLT 282 [facility] RBC 3.47 Low [facility] WBC 9.6 [facility] US OB INCOMPLETE ANATOMYon 0 09-23-2024 [place] [address] Ultrasound Report Signed Patient: MARISELA RANDALL MR#: [id number] : 2000 Acct:[id number] Age/Sex: 24 / F ADM Date: 09/22/24 Loc: US Attending Dr: Ricardo Pichardo D.O. Ordering Physician: Ricardo Pichardo D.O. Date of Service: 09/22/24 Procedure(s): US OB incomplete anatomy Accession Number(s): [id number] cc: Ricardo Pichardo D.O.; Samir Stroud NP [place] [id number] Patient Name: MARISELA RANDALL MRN: [id number] date: 2000 Sex: F Assigned Patient Location: US Current Patient Location: Accession/Order Number: [id number] Exam Date: 09/22/2024 16:10 Report Date: 09/23/2024 [...] M.D. Signed By: 09/23/24620 DD/ 8 TD/TT: Patient Support Representative: [facility] Radiology, Radiologist, MD - 09/23/2024 [place] [address] Ultrasound Report Signed Patient: MARISELA RANDALL MR#: [id number] : 2000 Acct:[id number] Age/Sex: 24 / F ADM Date: 09/22/24 Loc: US Attending Dr: Ricardo Pichardo D.O. Ordering Physician: Ricardo Pichardo D.O. Date of Service: 09/22/24 Procedure(s): US OB incomplete anatomy Accession Number(s): [id number] cc: Ricardo Pichardo D.O.; Samir Stroud NP [facility] [place] [address] Patient Name: MARISELA RANDALL MRN: [facility]:[id number] date: 2000 Sex: F Assigned Patient Location: US Current Patient Location: Accession/Order Number: [id number] Exam Date: 09/22/2024 16:10 Report Date: 09/23/2024 [...] M.D. Signed By: 09/23/24620 DD/ 8 TD/TT: Patient Support Representative: [facility] Radiology Study observation (narrative) [facility] US OB INCOMPLETE ANATOMYOrde red By: Radiologist Radiology on 09-23-2024 [facility] [employer] Work Phone: AFP, SERUM, OPEN SPINA BIFID Aon 08-29-2024 AFP MOM 0.89 . [facility] [employer] [facility] AFP VALUE 51.3 ng/mL . [facility] [employer] COMMENT: Comment . [facility] [employer] Comment on above: Esha Pacheco , Ph.D., [facility] Director References: Available Upon Request. Multiples Of Median Cutoffs For AFP Elevations Crandall 2.5 Black 2.8 IDD 2.0 Twins 4.5 Abbreviation Definitions IDD - Insulin Dep Diabetes OSBR - Open Spina Bifida Risk For further inquiries contact [email or web address] [facility] at [phone]. This test was developed and its performance characteristics determined by [employer]. It has not been cleared or approved by the Food and Drug Administration. Performed at: [facility] [address] [place], [place] [id number] Trim Machine Operator: Manoj Flores Formerly [facility], Phone: [phone] GEST. AGE ON COLLECTION DATE 21.1 . weeks [facility] GESTAT. AGE BASED ON LMP . [facility] Comment on above: Recalculations are n ot recommended when gestational dating by LMP and ultrasound are within 10 days. INSULIN DEP DIABETES No . [facility] INTERPRETATION Comment . [facility] Comment on above: Interpretation: Scre en [...] Customer Services to discuss available options. The [employer] recommends amniocentesis be offered to women age 35 and older. [age]EMA [age] [facility] MULTIPLE GESTATION No . [facility] [place] [address] [place] [id number] . [facility] Healt hcare RACE . [facility] [employer] [facility] RESULTS Report . [facility] [employer] [facility] TEST RESULTS: Negative . [facility] WEIGHT 179 . lbs [facility] [employer] e N N LMP [id number] N 1 Y 179 N N N N N White/ [facility] [employer] [facility] Urinalysis macro (dipstick) panel (U)on 08-29-2024 Bilirubin, UA Negative Negative - 4(70) +++ mg/dL [facility] Blood, UA Negative Negative - 50 Dipak/mcL [facility] Clarity, UA Clear [facility] re Color, UA Yellow [facility] [employer] [facility] Glucose, UA Negative Negative - 1999(110) ++++ mg/dL [facility] Interpretation and review of laboratory results Abnormal [facility] Ketones, UA Negative Negative - 160(16) ++++ mg/dL [facility] Leukocytes, UA Positive Negative - 500+++ Jaswant/mcL [facility] Comment on above: small Nitrite, UA Negative Negative - Positive [facility] pH, UA 6 5 - 9 [facility] Protein, UA Negative Negative - 1999(20) ++++ mg/dL [facility] Spec Grav, UA 1.025 1 - 1.03 [facility] Urobilinogen, UA 0.2 0.2 - 12 mg/dL [facility] [employer] [facility] IGP,APTIMA HPV,AGE GDLNon AGE GDLN ACOG TESTING Note . [facility] Comment on above: TESTS RESULT FLAG UN ITS REF RANGE LAB Clinician Provided Cytology Information Source.............Cervix Other.............. No. of containers..01 ThinPrep Vial Age Algo ACOG Kizzy... 21-21 09 FLAG LEGEND: L-Low Normal,H-High Normal,LL-Alert Low,HH-Alert High <-Panic Low,>-Panic High,A-Abnormal,AA-Critical Abnormal Performed at: 01 [facility] [address] [place] [address] Ambar Castillo MD, IGP, RFX APTIMA HPV ASCU Note . [facility] Comment on above: TESTS RESULT FLAG UN ITS REF RANGE LAB DIAGNOSIS: 02 NEGATIVE FOR INTRAEPITHELIAL LESION OR MALIGNANCY. Specimen adequacy: 02 Satisfactory for evaluation. No endocervical component is identified. An endocervical component is not commonly seen in the patient. Performed by: Roopa Davis, Silk Screener ([facility]) . 02 Note: Note 02 The [...] <-Panic Low,>-Panic High,A-Abnormal,AA-Critical Abnormal Performed at: [address] [address] Ambar Castillo MD, Performed at: = - [facility] [id number] Trim Machine Operator: Ambar Castillo MD, Phone: [phone] Performed at: [address] [id number] Trim Machine Operator: Ambar Castillo MD, Phone: [phone] SPATULA-ALONE CERVIX [facility] e RECURRENT VAGINITIS (HTRX)on 07-30-2024 [facility] V[facility]AE Not detected [facility] BVAB 2,3 (BACTERIAL VAGINOSIS ASSOCIATED BACTERIA 2, 3); MOBILUNCUS SPP 0 [facility] BVAB 2,3 (BACTERIAL VAGINOSIS ASSOCIATED BACTERIA 2, 3); MOBILUNCUS SPP Not detected [facility] LIA ALBICANS, PARAPSILOSIS, TROPICALIS 0 [facility] LIA ALBICANS, PARAPSILOSIS, TROPICALIS Not detected [facility] LIA GLAB[facility]ATA 0 [facility] L[facility] GLABRATA Not detected [facility] LIA KRUSEI 0 [facility] LIA KRUSEI Not [facility] CHLAMYDIA TRACHOMATIS 0 [facility] CHLAM[facility] TRACHOMATIS Not detected [facility] GARDNERELLA VAGINALIS 0 [facility] GARDNERELLA VAGINALIS Not detected [facility] MEGASPHAERA (TYPES 1, 2) 0 [facility] MEGASPHAERA (TYPES 1, 2) Not detected [facility] MYCOPLASMA GENITALIUM 0 [facility] MYCOPLASMA GENITALIUM Not detected [facility] NEISSERIA GONORRHOEAE 0 [facility] NEISSERIA GONORRHOEAE Not detected [facility] TRICHOMONAS VAGINALIS 0 [facility] TRICHOMONAS VAGINALIS Not detected [facility] Urinalysis macro (dipstick) panel (U)on 07-27-2024 Bilirubin, UA Negative Negative - 4(70) +++ mg/dL [facility] Healthcare Blood, UA Negative Negative - 50 Dipak/mcL [facility] Healthcare Clarity, UA Clear [facility] Color, UA Yellow [facility] Healthcar e Glucose, UA Negative Negative - 1999(110) ++++ mg/dL [facility] Interpretation and review of laboratory results Normal [facility] Ketones, UA Negative Negative - 160(16) ++++ mg/dL [facility] Leukocytes, UA Negative Negative - 500+++ Jaswant/mcL [facility] Healthcare Nitrite, UA Negative Negative - Positive [facility] pH, UA 6 5 - 9 [facility] Healthcar e Protein, UA Negative Negative - 1999(20) ++++ mg/dL [facility] Healthcare Spec Grav, UA 1.02 1 - 1.03 [facility] Urobilinogen, UA 1.0 0.2 - 12 mg/dL [facility]inalysis macro (dipstick) panel (U)on 06-27-2024 Bilirubin, UA Negative Negative - 4(70) +++ mg/dL [facility] Blood, UA Negative Negative - 50 Dipak/mcL [facility] Healthcare Clarity, UA Clear [facility] Color, UA Yellow [facility] Healthcar e Glucose, UA Negative Negative - 1999(110) ++++ mg/dL [facility] Interpretation and review of laboratory results Abnormal [facility] Ketones, UA Negative Negative - 160(16) ++++ mg/dL [facility] Healthcare Leukocytes, UA Trace Negative - 500+++ Jaswant/mcL [facility] Healthcare Nitrite, UA Negative Negative - Positive [facility] pH, UA 5.5 5 - 9 [facility] Protein, UA Negative Negative - 1999(20) ++++ mg/dL [facility] Healthcare Spec Grav, UA 1.02 1 - 1.03 [facility] Urobilinogen, UA 0.2 0.2 - 12 mg/dL [facility] BOX TESTon 06-08-2024 BOX TEST SENT [facility] B[facility] Healthcar e BOX2 06/08/24 [facility] e [facility] e HCG ( test) Ql (U)o n 05-27-2024 Interpretation and review of laboratory results Abnormal [facility] Preg Test, Ur Positive [facility] Urinalysis macro (dipstick) panel (U)on 05-27-2024 Bilirubin, UA Negative Negative - 4(70) +++ mg/dL [facility] Blood, UA Positive Negative - 50 Dipak/mcL [facility] Comment on above: trace intact Clarity, UA Clear [facility] re Color, UA Yellow [facility] e Glucose, UA Negative Negative - 1999(110) ++++ mg/dL [facility] Interpretation and review of laboratory results Abnormal [facility] Ketones, UA Negative Negative - 160(16) ++++ mg/dL [facility] Leukocytes, UA Trace Negative - 500+++ Jaswant/mcL [facility] Nitrite, UA Negative Negative - Positive [facility] pH, UA 7.0 5 - 9 [facility] e Protein, UA Negative Negative - 1999(20) ++++ mg/dL [facility] Spec Grav, UA 1.015 1 - 1.03 [facility] Urobilinogen, UA 0.2 0.2 - 12 mg/dL [facility] Healthcar e US RETROPERITONEAL COMPLETEo n 10-16-2023 [...] Marte MD on 10/16/2023 1:22 AM Normal [facility] US PELVIC WITH TRANSVAGINALo n 09-15-2023 US [...] Rogers MD on 09/15/2023 6:54 PM Normal [facility] CHLAMYDIA/GC BY PCRon 2023 CHLAMYDIA/GC BY PCR [...] are dependent on adequate specimen collection. Normal [facility] [place] Comment on above: Performed By: #### C #### [facility] ([id number]) [address], [address] [place] [address] POCT , urineon 08-24 Beta HCG ( test) Ql (U) Negative [facility] URINALYSISon 09-08-2023 Bilirubin Ql (U) Negative Normal NEG [facility] BLOOD/HGB Negative Normal NEG [facility] CA OXALATE CRYSTALS PRESENT Abnormal NONE [facility] Color (U) YELLOW Normal YELLOW [facility] Glucose Ql (U) Negative Normal NEG [facility] Ketones Ql (U) Negative Normal NEG [facility] Leukocyte esterase Test strip Ql (U) Negative Normal NEG [facility] MUCOUS PRESENT Abnormal NONE [facility] Nitrite Ql (U) Negative Normal NEG [facility] pH (U) 6.5 [pH] Normal 5.0-8.5 [facility] Protein Ql (U) Trace Abnormal NEG [facility] R.B.CELLS 2 /hpf Normal 0-5 [facility] Specific gravity (U) [Rel density] 1.027 Normal 1.003-1.035 [facility] SQUAMOUS EPITHELIUM 14 /hpf High 0-5 [facility] TURBIDITY CLEAR Normal CLEAR [facility] Urobilinogen (U) [Mass/Vol] mg/dL Normal <1.1 [facility] W.B.CELLS 3 /hpf Normal 0-5 [facility] URINE CULTUREon 09-08-2023 Bacteria identified Cx Nom (U) CULTURE RESULTS 10-50,000 ORGANISMS/mL NORMAL UROGENITAL AYLIN Normal [facility] Comment on above: Performed By: #### 6 30-4 #### [facility] ([id number]) [address] [place] [address], [address] [place] [address] Urinalysison 09-08-2023 Bilirubin Ql (U) Negative Negative^Ne ga tive [facility] Calcium oxalate crystals LM Ql (Urine sed) PRESENT Abnormal NONE^NONE [facility] Color (U) YELLOW YELLOW^YELLOW [facility] Epithelial cells Auto (Urine sed) [#/Area] 14 High [facility] Glucose (U) [Mass/Vol] Negative Negative^Nega tive mg/dL [facility] Hemoglobin Auto test strip Ql (U) Negative Negative^Nega tive [facility] Interpretation and review of laboratory results Abnormal [facility] Ketones (U) [Mass/Vol] Negative Negative^Nega tive mg/dL [facility] Leukocyte esterase Auto test strip Ql (U) Negative Negative^Nega tive [facility] Mucus Ql (Urine sed) PRESENT Abnormal NONE^NONE [facility] Nitrite Auto test strip Ql (U) Negative Negative^Nega tive [facility] pH (U) 6.5 [pH] 5.0 - 8.5 [facility] Protein (U) [Mass/Vol] Trace Abnormal Negative^Nega tive mg/dL [facility] RBC Auto (Urine sed) [#/Area] 2 [facility] Specific gravity Refractometry automated (U) [Rel density] 1.027 1.003 - 1.035 [facility] Turbidity Ql (U) CLEAR CLEAR^CLEAR [facility] Urobilinogen Qn (U) NINF [facility] WBC Auto (Urine sed) [#/Area] 3 [facility] VAGINITIS PANEL PCRon 2023 VAGINITIS PANEL PCR [...] clinical presentation to determine patient diagnosis. Normal [facility] [place] Comment on above: Performed By: #### V PPCR #### [facility] ([id number]) [address] [place] [address], [address] [place] [address] [employer] Strepon 04-02-2022 S. pyogenes Org specific cx Ql (Throat) Negative [employer] Other [employer] Other Vital Signs Date Time Vital Sign Value Performing Clinician Facility 12-07-2024 15:42-0400 Body weight 99.29 kg Ricardo Kylee DO Work Phone: [facility] 12-07-2024 15:42-0400 Diastolic blood pressure 82 mm[Hg] Ricardo Kylee DO Work Phone: [facility] 12-07-2024 15:42-0400 Systolic blood pressure 122 mm[Hg] Ricardo Kylee DO Work Phone: [facility] 11-24-2024 15:42-0400 Body weight 95.62 kg Carin VILLAGOMEZ Work Phone: [facility] 11-24-2024 15:42-0400 Diastolic blood pressure 74 mm[Hg] Carin VILLAGOMEZ Work Phone: [facility] 11-24-2024 15:42-0400 Systolic blood pressure 118 mm[Hg] Carin VILLAGOMEZ Work Phone: [facility] 10-26-2024 14:45-0500 Body weight 90.27 kg Ricardo Kylee DO Work Phone: [facility] 10-26-2024 14:45-0500 Diastolic blood pressure 76 mm[Hg] Ricardo Kylee DO Work Phone: [facility] 10-26-2024 14:45-0500 Systolic blood pressure 122 mm[Hg] Ricardo Kylee DO Work Phone: [facility] 10-12-2024 16:21-0500 Body weight 90.72 kg Carin VILLAGOMEZ Work Phone: [facility] 10-12-2024 16:21-0500 Diastolic blood pressure 70 mm[Hg] Carin VILLAGOMEZ Work Phone: [facility] 10-12-2024 16:21-0500 Systolic blood pressure 120 mm[Hg] Carin VILLAGOMEZ Work Phone: [facility] 09-28-2024 16:23-0500 Body weight 88.51 kg Ricardo Kylee DO Work Phone: [facility] 09-28-2024 16:23-0500 Diastolic blood pressure 72 mm[Hg] Ricardo Kylee DO Work Phone: [facility] 09-28-2024 16:23-0500 Systolic blood pressure 116 mm[Hg] Ricardo Kylee DO Work Phone: [facility] 08-29-2024 15:54-0500 Body weight 84.82 kg Carin VILLAGOMEZ Work Phone: [facility] 08-29-2024 15:54-0500 Diastolic blood pressure 74 mm[Hg] Carin Garcia PA Work Phone: [facility] 08-29-2024 15:54-0500 Systolic blood pressure 120 mm[Hg] Carin Radha PA Work Phone: [facility] 07-27-2024 15:32-0500 Body weight 81.38 kg Ricardo Kylee DO Work Phone: [facility] 07-27-2024 15:32-0500 Diastolic blood pressure 66 mm[Hg] Ricardo Kylee DO Work Phone: [facility] 07-27-2024 15:32-0500 Systolic blood pressure 108 mm[Hg] Ricardo Kylee DO Work Phone: [facility] 06-27-2024 16:10-0500 Body weight 79.83 kg Ricardo Kylee DO Work Phone: [facility] 06-27-2024 16:10-0500 Diastolic blood pressure 68 mm[Hg] Ricardo Kylee DO Work Phone: [facility] 06-27-2024 16:10-0500 Systolic blood pressure 108 mm[Hg] Ricardo Kylee DO Work Phone: [facility] 05-27-2024 10:31-0400 Body weight 79.38 kg Nom Nurse [facility] 05-27-2024 10:31-0400 Diastolic blood pressure 80 mm[Hg] [facility] Nurse [facility] 05-27-2024 10:31-0400 Systolic blood pressure 122 mm[Hg] [facility] Nurse [facility] 10-13-2023 14:41-0500 Body height 165.1 cm Danielle Lange DO Work Phone: [facility] 10-13-2023 14:41-0500 Body mass index (BMI) [Ratio] 28.09 kg/m2 Danielle Lange DO Work Phone: [facility] 10-13-2023 14:41-0500 Body weight 76.57 kg Danielle Lange DO Work Phone: [facility] 10-13-2023 14:41-0500 Diastolic blood pressure 68 mm[Hg] Danielle Lange DO Work Phone: [facility] 10-13-2023 14:41-0500 Systolic blood pressure 104 mm[Hg] Danielle Lange DO Work Phone: [facility] 09-08-2023 11:06-0500 Body height 165.1 cm Danielle Lange DO Work Phone: [facility] [employer] 09-08-2023 11:06-0500 Body mass index (BMI) [Ratio] 28.22 kg/m2 Danielle Lange DO Work Phone: [facility] [employer] 09-08-2023 11:06-0500 Body weight 76.93 kg Danielle Lange DO Work Phone: [facility] [employer] 09-08-2023 11:06-0500 Diastolic blood pressure 70 mm[Hg] Danielle Lange DO Work Phone: [facility] [employer] 09-08-2023 11:06-0500 Systolic blood pressure 116 mm[Hg] Danielle Lange DO Work Phone: [facility] [employer] 04-02-2022 12:20-0400 Body height 167.64 cm Julianne Davidson Other [employer] Other 04-02-2022 12:20-0400 Body mass index (BMI) [Ratio] 30.66 kg/m2 Julianne Lety Other [employer] Other 04-02-2022 12:20-0400 Body temperature 99.3 [degF] Julianne Lety Other [employer] Other 04-02-2022 12:20-0400 Body weight 86.18 kg Julianne Lety Other [employer] Other 04-02-2022 12:20-0400 Respiratory rate 18 /min Julianne Lety Other [employer] Other 04-02-2022 12:20-0400 SaO2% (BldA) [Mass fraction] 99 % Julianne Lety Other [employer] Other 07-06-2021 11:30-0500 Body height 165.1 cm Julianne Lety Other [employer] Other 07-06-2021 11:30-0500 Body mass index (BMI) [Ratio] 29.95 kg/m2 Julianne Lety Other [employer] Other 07-06-2021 11:30-0500 Body temperature 98.2 [degF] Julianne Lety Other [employer] Other 07-06-2021 11:30-0500 Body weight 81.65 kg Julianne Lety Other [employer] Other 07-06-2021 11:30-0500 SaO2% (BldA) [Mass fraction] 99 % Julianne Lety Other [employer] Other Encounters Encounter Date Encounter Type Care Provider Facility Start: 12-07-2024 End: 12-07-2024 flow sheet Ricardo Kylee DO Work Phone: [facility] Comment on above: Third trimester preg nadeen; 36 weeks gestation of Start: 12-07-2024 End: 12-07-2024 Bamboo flowsheet Ricardo Kylee DO Work Phone: [facility] Start: 12-07-2024 End: 12-07-2024 Bamboo flowsheet Ricardo Kylee DO Work Phone: [facility] Start: 11-24-2024 End: 11-24-2024 flow sheet Carin VILLAGOMEZ Work Phone: [facility] Comment on above: 34 weeks gestation o f ; Third trimester Start: 11-24-2024 End: 11-24-2024 ambulatory CARIN GARCIA Not Available Start: 11-09-2024 End: 11-09-2024 ambulatory CARIN GARCIA Not Available Start: 11-01-2024 ambulatory Micheal Salas [facility] - [facility] Start: 10-26-2024 End: 10-26-2024 flow sheet Ricardo Kylee DO Work Phone: [facility] Comment on above: Third trimester preg nadeen; 30 weeks gestation of ; Gastroesophageal reflux in Start: 10-26-2024 End: 10-26-2024 ambulatory RICARDO KYLEE Not Available Start: 10-12-2024 End: 10-12-2024 flow sheet Carin VILLAGOMEZ Work Phone: [facility] Comment on above: Third trimester preg nadeen; 28 weeks gestation of ; Excessive growth affecting management of in third trimester, single or unspecified fetus; Urinary tract infection without hematuria, site unspecified; Low back pain, unspecified back pain laterality, unspecified chronicity, unspecified whether sciatica present Start: 10-12-2024 End: 10-12-2024 ambulatory CARIN GARCIA Not Available Start: 10-12-2024 End: 10-12-2024 Bamboo flowsheet Carin VILLAGOMEZ Work Phone: [facility] Start: 10-12-2024 End: 10-12-2024 Bamboo flowsheet Carin VILLAGOMEZ Work Phone: [facility] Start: 10-01-2024 End: 10-01-2024 Clinisync Result Encounter Ricardo Kylee DO Work Phone: [facility] Unsolicited Start: 10-01-2024 End: 10-01-2024 Clinisync Result Encounter Ricardo Kylee DO Work Phone: [facility] Unsolicited Start: 09-28-2024 End: 09-28-2024 flow sheet Ricardo Kylee DO Work Phone: [facility] Comment on above: Second trimester pre gnancy; 26 weeks gestation of ; Diabetes mellitus screening Start: 09-28-2024 End: 09-28-2024 ambulatory RICARDO KYLEE [...] Available Start: 10-29-2023 Orders Only Sowmya Retana [facility] Obst[facility]s/Gynecology Comment on above: Renal lithiasis (Yanet annita Dx); Calcium oxalate crystals in urine; Flank pain; Left sided abdominal pain Start: 10-15-2023 End: 10-16-2023 ambulatory [facility] Start: 10-13-2023 End: 10-13-2023 ambulatory [facility] Start: 10-13-2023 End: 10-13-2023 Office outpatient visit 15 minutes Danielle Lange DO [facility] Comment on above: Renal lithiasis (Yanet annita Dx); Left sided abdominal pain; Flank pain; Calcium oxalate crystals in urine Start: 09-14-2023 End: 09-15-2023 ambulatory [facility] Start: 09-08-2023 End: 09-09-2023 ambulatory DANIELLE LANGE [facility] Start: 09-08-2023 End: 09-08-2023 ambulatory DANIELLE LANGE [facility] Start: 09-08-2023 End: 09-08-2023 Office outpatient visit 15 minutes Danielle Lange DO [facility] Comment on above: Dyspareunia in femal e (Primary Dx); Left sided abdominal pain; [place] Start: 04-02-2022 End: 04-02-2022 ambulatory Juliannenelson Davidson Other [employer] Other Start: 04-02-2022 Office outpatient vi sit 15 minutes Juliannenelson Davidson [facility] Start: 07-06-2021 (URG) Urgent Care Visit Juliannenelson Irvin d [facility] Start: 07-06-2021 End: 07-06-2021 ambulatory Julianne Lety Other [employer] Other Start: 03-17-2019 End: 03-18-2019 Patient encounter procedure CJ MANZO Facility:[facility]1 Procedures Date Procedure Procedure Detail Performing Clinician Start: 12-07-2024 Urnls dip stick/tabl et rgnt non-auto w/o micrscp Ricardo Kylee DO Work Phone: Start: 11-24-2024 Urnls dip stick/tabl et rgnt non-auto w/o micrscp Carin VILLAGOMEZ Work Phone: Start: 10-26-2024 Urnls dip stick/tabl et rgnt non-auto w/o micrscp Ricardo Kylee DO Work Phone: Start: 10-12-2024 Urnls dip stick/tabl et rgnt non-auto w/o micrscp Carin VILLAGOMEZ Work Phone: Start: 10-01-2024 ALL CBC WITH AUTO DIFF Ricardo Kylee DO Work Phone: Start: 09-23-2024 US OB INCOMPLETE ANATOMY Ricardo Kylee DO Work [...] malign ant neoplasm of cervix Pap Smear [facility] Start: 12-13-2024 End: 12-13-2024 Patient encounter procedure 12/13/2024 2:20 PM EDT Routine [facility] [address] [place] [phone] Carin Garcia PA [address] [place] [address] [facility] Start: 12-07-2024 End: 12-07-2024 Patient encounter procedure 12/07/2024 3:30 PM EDT Routine [facility] [address] [place] [address] Ricardo Pichardo, DO [address] [place] [address] Arrived [facility] Comment on above: Arrived Start: 12-07-2024 End: 12-07-2025 CULTURE, GROUP B STREP WITH SUSCEPTIBLITY CULTURE, GROUP B STREP WITH SUSCEPTIBLITY Lab Routine Third trimester Expected: 12/07/2024, Expires: 12/07/2025 [facility] Work Phone: Comment on above: Expected: 12/07/2024 , Expires: 12/07/2025 Start: 11-09-2024 End: 11-09-2024 Patient encounter procedure 11/09/2024 3:20 PM EDT Routine [facility] [address] [place] [phone] Carin Garcia PA [address] [place] [address] [facility] Start: 10-26-2024 End: 10-26-2024 Patient encounter procedure 10/26/2024 2:40 PM EST Routine [facility] [address] [place] [phone] Ricardo Pichardo, DO [address] [place], [place] [id number] [facility] Start: 10-26-2024 End: 10-26-2024 Professional / ancillary services management 10/26/2024 2:00 PM EST Ancillary Procedure [facility] [address] [id number] [facility] Start: 10-13-2024 Adult BMI Screening Adult BMI Screen ing [facility] Start: 10-13-2024 Tobacco Screening Tobacco Screening [facility] Start: 10-12-2024 End: 10-12-2024 Patient encounter procedure [facility] Comment on above: Arrived Start: 10-12-2024 End: 10-12-2025 US for US OB follow up transabdominal approach Imaging Routine Excessive growth affecting management of in third trimester, single or unspecified fetus Expected: 10/12/2024 (Approximate), Expires: 10/12/2025 [facility] Work Phone: Comment on above: Expected: 10/12/2024 (Approximate), Expires: 10/12/2025 Start: 09-28-2024 End: 09-28-2024 Patient encounter procedure [facility] Comment on above: Arrived Start: 09-28-2024 End: 09-28-2025 CBC panel - Blood by Automated count CBC Lab Routine Diabetes mellitus screening Expected: 09/28/2024 (Approximate), Expires: 09/28/2025 [facility] Work Phone: Comment on above: Expected: 09/28/2024 (Approximate), Expires: 09/28/2025 Start: 09-28-2024 End: 09-28-2025 Measurement of glucose 1 hour after glucose challenge for glucose tolerance test Glucose tolerance, 1 hour Lab Routine Diabetes mellitus screening Expected: 09/28/2024 (Approximate), Expires: 09/28/2025 [facility] Healthcare Comment on above: Expected: 09/28/2024 (Approximate), Expires: 09/28/2025 Start: 09-08-2024 Adult BMI Screening Adult BMI Screen ing [facility] Start: 09-08-2024 Screening for Chlamy hernesto trachomatis Chlamydia Screening [facility] Start: 09-08-2024 Tobacco Screening Tobacco Screening [facility] Start: 08-29-2024 End: 08-29-2024 Patient encounter [...] Arrived Start: 06-24-2024 Depression Screening Depression Scre [facility] Start: 06-01-2024 Adult BMI Follow Up Plan Adult BMI F ollow Up Plan [facility] Start: 05-27-2024 End: 05-27-2025 ABO/Rh ABO/Rh Lab Routine Missed menses , unspecified gestational age Expected: 05/27/2024 (Approximate), Expires: 05/27/2025 [facility] Comment on above: Expected: 05/27/2024 (Approximate), [...] first trimester Expected: 05/27/2024 (Approximate), Expires: 05/27/2025 [facility] Comment on above: Expected: 05/27/2024 (Approximate), Expires: 05/27/2025 Start: 05-27-2024 End: 05-27-2025 US Pelvis transvaginal US OB transvaginal Imaging Routine Missed menses Expected: 05/27/2024 (Approximate), Expires: 05/27/2025 [facility] Comment on above: Expected: 05/27/2024 (Approximate), Expires: 05/27/2025 Start: 11-26-2023 DTaP,Tdap and Td Vac cines (7 - Td or Tdap) DTaP,Tdap and Td Vaccines (7 - Td or Tdap) [facility] Start: 10-13-2023 End: 10-13-2024 US Retroperitoneum Ultrasound retroperitoneal complete Imaging Routine Left sided abdominal pain Flank pain Renal lithiasis Calcium oxalate crystals in urine Expected: 10/13/2023, Expires: 10/13/2024 [facility] Work Phone: Comment on above: Expected: 10/13/2023 , Expires: 10/13/2024 Start: 10-06-2023 End: 10-06-2023 Patient encounter procedure 10/06/2023 2:00 PM EST Office Visit [facility] Obstetrics/Gynecology [address] [place] [address] Danielle Lange DO [address] [place], [place] [id number] [facility] Obstetrics/Gynecolo gy Start: 09-14-2023 End: 09-14-2023 Patient encounter procedure 09/14/2023 2:00 PM EST Appointment [facility] - Ultrasound [address] [place] [address] [facility] - Ultrasound Start: 09-08-2023 End: 09-08-2024 Bacteria identified in Urine by Culture [facility] Work Phone: Comment on above: Expected: 09/08/2023 (Approximate), Expires: 09/08/2024 Start: 09-08-2023 End: 09-08-2024 US Pelvis transabdominal and transvaginal Ultrasound pelvic with transvaginal Imaging Routine Left sided abdominal pain Expected: 09/08/2023, Expires: 09/08/2024 [facility] Comment on above: Expected: 09/08/2023 , Expires: 09/08/2024 Start: 09-08-2023 End: 09-08-2024 Vaginitis Panel PCR [facility] Comment on above: Expected: 09/08/2023 (Approximate), Expires: 09/08/2024 Start: 06-18-2023 Screening for Chlamy hernesto trachomatis Chlamydia Screening [facility] Start: 04-24-2023 Influenza vaccination Influenza Vacc ine [facility] Bacteria identified in Urine by Culture Urine culture Microbiology Routine Missed menses Ordered: 05/27/2024 [facility] Comment on above: Ordered: 05/27/2024 Bacteria identified in Urine by Culture Urine culture Microbiology Routine Urinary tract infection without hematuria, site unspecified Ordered: 10/12/2024 [facility] Comment on above: Ordered: 10/12/2024 CBC W Auto Different ial panel - Blood CBC and differential Lab Routine Missed menses , unspecified gestational age Ordered: 05/27/2024 [facility] Comment on above: Ordered: 05/27/2024 CHLAMYDIA TRACHOMATI S (GENITO/STI) CHLAMYDIA TRACHOMATIS (GENITO/STI) Lab Routine STD exposure Ordered: 07/27/2024 [facility] Comment on above: Ordered: 07/27/2024 End: 09-08-2024 Chlamydia/GC by PCR Rowdy Swab Chlamydia/GC by PCR Rowdy Swab Microbiology Routine Left sided abdominal pain 1 Occurrences starting 09/08/2023 until 09/08/2024 [facility] Comment on above: 1 Occurrences starti ng 09/08/2023 until 09/08/2024 Chlamydia/GC by PCR Rowdy Swab Chlamydia/GC by PCR Rowdy Swab Microbiology Routine Left sided abdominal pain 09/08/2023 7:35 PM [facility] Cytology Cervical or vaginal smear or scraping study Pap Smear Pathology and Cytology Routine Well woman exam with routine gynecological exam Ordered: 07/27/2024 [facility] Comment on above: Ordered: 07/27/2024 Hemoglobin A1c/Hemoglobin.total in Blood Hemoglobin A1c Lab Routine Missed menses , unspecified gestational age Ordered: 05/27/2024 [facility] Comment on above: Ordered: 05/27/2024 Hepatitis B virus clarke rface Ag [Presence] in Serum or Plasma by Immunoassay Hepatitis B surface antigen Lab Routine Missed menses , unspecified gestational age Ordered: 05/27/2024 [facility] Comment on above: Ordered: 05/27/2024 Hepatitis C virus Ab [Presence] in Serum or Plasma by Immunoassay Hepatitis C antibody Lab Routine Missed menses , unspecified gestational age Ordered: 05/27/2024 [facility] Comment on above: Ordered: 05/27/2024 HIV-1/HIV-2 antigen/antibody combination immunoassay HIV-1 and HIV-2 antibodies Lab Routine Missed menses , unspecified gestational age Ordered: 05/27/2024 [facility] Comment on above: Ordered: 05/27/2024 Neisseria gonorrhoea e DNA [Presence] in Unspecified specimen by MARIA M with probe detection Neisseria gonorrhea DNA probe, direct Lab Routine STD exposure Ordered: 07/27/2024 [facility] Comment on above: Ordered: 07/27/2024 Reagin Ab [Presence] in Serum by RPR RPR Lab Routine Missed menses , unspecified gestational age Ordered: 05/27/2024 [facility] Comment on above: Ordered: 05/27/2024 Rubella antibody, IgG Rubella an tibody, IgG Lab Routine Missed menses , unspecified gestational age Ordered: 05/27/2024 [facility] Comment on above: Ordered: 05/27/2024 SURESWAB(R) ADVANCED VAGINITIS PLUS, TMA SURESWAB(R) ADVANCED VAGINITIS PLUS, TMA Pathology and Cytology Routine Vaginal discharge STD exposure Ordered: 07/27/2024 [facility] Work Phone: Comment on above: Ordered: 07/27/2024 Immunizations Immunization Date Immunization Notes Care Provider Ton king 06-28-2009 influenza virus vaccine, unspecified formulation Danielle Lange DO Work Phone: [facility] Payers Date Payer Category Payer Managed Care HMO (unspecified) [id number] 2024 Private Health Insurance [id number] 2019 Private Health Insurance [id number] [address] [facility] PLUS [id number] 2019-Present [phone] [address] [address] [place] [address] [id number] 2001 Unknown [id number] 2.16.840.1.588098.3.579.2. 1285 2001 Unknown [id number] 2.16.840.1.444918.3.579.2. 128 2001 Unknown [id number] 2.16.840.1.311069.3.579.2. 1285 2001 Unknown [id number] 2.16.840.1.081593.3.579.2. 1286 2001 Unknown [id number] 2.16.840.1.993076.3.579.2. 1285 2001 Unknown [id number] 2.16.840.1.600939.3.579.2. 9 2001 Unknown [id number] 2.16.840.1.361432.3.579.2. 1258 2001 Unknown [id number] 2.16.840.1.549796.3.579.2. 9 2001 Unknown [id number] 2.16.840.1.362818.3.579.2. 9 2001 Unknown [id number] 2.16.840.1.633034.3.579.2. 1259 2001 Unknown [id number] 2.16.840.1.994662.3.579.2. 9 2001 Unknown [id number] 2.16.840.1.556550.3.579.2. 1259 2001 Unknown [id number] 2.16.840.1.315531.3.579.2. 9 2001 Unknown [id number] 2.16.840.1.729623.3.579.2. 1259 2001 Unknown [id number] 2.16.840.1.265825.3.579.2. 9 2001 Unknown [id number] 2.16.840.1.292471.3.579.2. 1259 1976 Unknown [id number] 2.16.840.1.514123.3.579.2. 593 1959 Unknown [id number] Social History Date Type Detail Facility Sex Assigned At [facility] Other Start: 10-04-2020 End: 05-27-2024 Sex Assigned At [facility] Start: 06-18-2022 End: 05-27-2024 Tobacco smoking status NJIS Never smoked tobacco [facility] Start: 06-18-2022 End: 05-27-2024 Tobacco use and exposure Smokeless tobacco non-user [facility] Start: 05-27-2024 End: 12-07-2024 Alcoholic beverage intake Lifetime non-drinker (finding) [facility] Start: 10-04-2020 End: 05-27-2024 History of Social function [facility] Start: 04-13-2024 [facility] Start: 2001 Sex assigned at Female [facility] Start: 12-29-2023 Gender identity Identifies as female gender (finding) [facility] Start: 09-08-2023 End: 10-13-2023 Alcohol intake Current non-drinker of alcohol (finding) [facility] Frequency of Alcohol Consumption Never [facility] Start: 2001 Sex Assigned At Not on file [facility] Clinical Notes 04-02-2022 to 12-07-2024 Whitley Daniel, STATION INSTALLER - 12/07/2024 3:30 PM HERNANDO Adler - 11/24/2024 3:50 PM Valentino Sanchez, STATION INSTALLER - 10/26/2024 2:40 PM HERNANDO Faye - 10/12/2024 3:20 PM Lizette Sanchez, STATION INSTALLER - 09/28/2024 3:40 PM EST Note Date & Type Note Facility 12-07-2024 History of Present illness Narrative Reason for Appointment: Patient ID: Marisela Randall is a 24 y.o. female who presents for Routine Visit Patient presents today for Return OB appointment. MEDICATIONS Current Outpatient Medications Medication Instructions metroNIDAZOLE (FLAGYL) 500 mg, Oral, 2 times daily, Do not drink alcohol while taking this medication pantoprazole (PROTONIX) 40 mg, Oral, Daily before breakfast, Do not crush, chew, or split. ALLERGIES Allergies Allergen Reactions Ondansetron Other Reaction(s): [...] appearance. She is well-developed. Genitourinary: Vulva normal. Cardiovascular: Rate and Rhythm: Normal rate and [...] nursing note reviewed. Exam conducted with a brownfield redevelopment specialist present. Vitals: Estimated body mass index is 27.6 kg/m as calculated from the following: Height as of 09/20/18: 5' 5.5 . Weight as of 09/20/18: 168 lb 6.4 oz. BP: 122/82 Patient's last menstrual period was 03/30/2024. ASSESSMENT & PLAN ICD-10-CM 1. Third trimester Z34.93 POCT urinalysis dipstick manually resulted CULTURE, GROUP B STREP WITH SUSCEPTIBLITY CULTURE, GROUP B STREP WITH SUSCEPTIBLITY 2. 36 weeks gestation of Z3A.36 POCT urinalysis dipstick manually resulted Patient is doing well but has complaints of being tired and having maternal discomfort due to . Patient verbalized frequent movement and was instructed to perform kick counts three times per day. labor precautions were given, LARC consent was signed/declined, and GBS was obtained. Cervical check was performed and patient is 0.5cm dilated. Orders Placed This Encounter Procedures CULTURE, GROUP B STREP WITH SUSCEPTIBLITY POCT urinalysis dipstick manually resulted Follow Up: Patient is to return to office in 1 week for routine OB appointment Documented by Whitley Sanchez LPN on behalf of: Ricardo Pichardo DO documented in this encounter [facility] 11-24-2024 History of Present illness Narrative Reason for Appointment: Patient ID: Marisela Randall is a 24 y.o. female who presents for Routine Visit Patient presents today for Return OB appointment. MEDICATIONS Current Outpatient Medications Medication Instructions pantoprazole (PROTONIX) 40 mg, Oral, Daily before breakfast, Do not crush, chew, or split. ALLERGIES Allergies Allergen Reactions Ondansetron Other Reaction(s): [...] Name Age of Onset Asthma Maternal Grandfather Sloomon smith Breast cancer Maternal Grandmother Mikaela smith [...] of 09/20/18: 168 lb 6.4 oz. BP: 118/74 Patient's last menstrual period was 03/30/2024. ASSESSMENT & PLAN ICD-10-CM 1. 34 weeks gestation of Z3A.34 POCT urinalysis dipstick manually resulted 2. Third trimester Z34.93 POCT urinalysis dipstick manually resulted Return OB: Patient presents today for a routine obstetrics appointment. Patient is currently 34w1d . Patient states she is doing well [...] week for routine OB appointment. Documented by HERNANDO Magallanes on behalf of: HERNANDO Magallanes documented in this encounter [facility] 10-26-2024 History of Present illness Narrative Reason for Appointment: Patient ID: Marisela Randall is a 24 y.o. female who presents for Routine Visit Patient presents today for Return OB appointment. MEDICATIONS Current Outpatient Medications Medication Instructions ferrous sulfate 325 mg, Oral, Daily with breakfast omeprazole (PRILOSEC) 20 mg, Oral, Daily before breakfast, Do not crush or chew. ALLERGIES Allergies Allergen Reactions Ondansetron Other Reaction(s): [...] Constitutional: Appearance: Normal appearance. She is well-developed. Cardiovascular: Rate and Rhythm: Normal rate and [...] nursing note reviewed. Exam conducted with a brownfield redevelopment specialist present. Vitals: Estimated body mass index is 27.6 kg/m as calculated from the following: Height as of 09/20/18: 5' 5.5 . Weight as of 09/20/18: 168 lb 6.4 oz. BP: 122/76 Patient's last menstrual period was 03/30/2024. ASSESSMENT & PLAN ICD-10-CM 1. Third trimester Z34.93 POCT urinalysis dipstick manually resulted 2. 30 weeks gestation of Z3A.30 Return OB: Patient presents today for a routine obstetrics appointment. Patient is currently 30w0d . Patient states she is doing well [...] week for routine OB appointment. Documented by Whitley Sanchez LPN on behalf of: Ricardo Pichardo DO documented in this encounter [facility] 10-12-2024 History of Present illness Narrative Reason for Appointment: Patient ID: Marisela Randall is a 24 y.o. female who presents for Routine Visit Patient presents today for Return OB appointment. MEDICATIONS Current Outpatient Medications Medication Instructions omeprazole (PRILOSEC) 20 mg, Oral, Daily before breakfast, Do not crush or chew. ALLERGIES Allergies Allergen Reactions Ondansetron Other Reaction(s): [...] was 03/30/2024. ASSESSMENT & PLAN ICD-10-CM 1. Third trimester Z34.93 POCT urinalysis dipstick manually resulted 2. 28 weeks gestation of Z3A.28 Return OB: Patient presents today for a routine obstetrics appointment. Patient is currently 28w0d . Patient states she is doing well but has complaints of being tired due to current . Patient has verbalizes frequent movement. labor precautions was discussed/given and patient was instructed to perform kick counts three times a day. Patient complaining of SOB and lower back pain for 2 weeks and its been consistent. Pt also complaining today was worse with the lower back pain to the point patient unable to walk for awhile. Patient looks well, physical exam is benign, pt does not appear short of breath at this time, no back pain noted on exam with range of motion and laying on cot. BP with in normal limits. Pt advised to get belly band to take some pressure off of her lower lumbar region and we will send in keflex as urine shows large leuks, UA will be sent for culture. Orders Placed This Encounter Procedures POCT urinalysis dipstick manually resulted Follow Up: Patient is to return to office in 2 week for routine OB appointment. Documented by Kassandra Greenwood MA on behalf of: HERNANDO Magallanes documented in this encounter [facility] 09-28-2024 History of Present illness Narrative Reason for [...] Constitutional: Appearance: Normal appearance. She is well-developed. Cardiovascular: Rate and Rhythm: Normal rate and [...] nursing note reviewed. Exam conducted with a brownfield redevelopment specialist present. Vitals: Estimated body mass index is 27.6 kg/m as calculated from the following: Height as of 09/20/18: 5' 5.5 . Weight as of 09/20/18: 168 lb 6.4 oz. BP: 116/72 Patient's last menstrual period was 03/30/2024. ASSESSMENT & PLAN ICD-10-CM 1. Second trimester Z34.92 POCT urinalysis dipstick manually resulted 2. 26 weeks gestation of Z3A.26 POCT urinalysis dipstick manually resulted 3. Diabetes mellitus screening Z13.1 CBC Glucose tolerance, 1 hour CBC Glucose tolerance, 1 hour Return OB: Patient presents today for a routine obstetrics appointment. Patient is currently 26w0d . Patient states she is doing well but has complaints of being tired due to current . Patient has verbalizes frequent movement. labor precautions was discussed/given. Orders Placed This Encounter Procedures CBC Glucose tolerance, 1 hour POCT urinalysis dipstick manually resulted Follow Up: Patient is to return to office in 2 week for routine OB appointment. Documented by Whitley Sanchez LPN on behalf of: Ricardo Pichardo DO documented in this encounter [facility] 08-29-2024 History of Present illness Narrative Reason [...] of: HERNANDO Magallanes documented in this encounter [facility] 07-27-2024 History of Present illness Narrative Reason [...] nursing note reviewed. Exam conducted with a brownfield redevelopment specialist present. Vitals: Estimated body mass index is [...] Ricardo Pichardo DO documented in this encounter [facility] 06-27-2024 History of Present illness Narrative [...] Ricardo Pichardo DO documented in this encounter [facility] 05-27-2024 History of Present illness Narrative [...] or undercooked meat, and stay away from [facility]. Patient has also been advised to [...] by: Linda Barone documented in this encounter [facility] 10-29-2023 History of Present illness Narrative Ordered new Mast Maker referral documented in this encounter [facility] 10-13-2023 History of Present illness Narrative [...] past. She states she has seen a security support analyst, but was only counseled to not drink [...] PM Imaging Ultrasound pelvic with transvaginal (Order: [id number]) - 09/14/2023 Result History Ultrasound pelvic with transvaginal (Order #[id number]) on 09/15/2023 - Order Result History Report [...] placed. [facility] History of Present illness Narrative Subjective [...] symptoms [facility] Evaluation note Encounter Date Diagnosis Assessment Notes Mar, Viral pharyngitis (ICD-10 - J02.9) Pharyngitis/to nsillopharyngi tis: adult home care material was printed Drink plenty fluids, get plenty of rest. Take Tylenol or Motrin for aches pains or fevers. Continue your cephalexin as prescribed until gone. Follow-up with your family physician if no improvement in 2 to 3 days. [facility] [employer] Other Evaluation noteNort [employer] Other Evaluation note* Diagnosis Missed menses , unspecified gestational age Encounter for supervision of normal first in first trimester documented in this encounter [facility] Healthcare[facility] note* Diagnosis First trimester state, incidental 12 weeks gestation of Nausea Nausea alone Viral upper respiratory tract infection Acute upper respiratory infections of unspecified site documented in [facility]* Diagnosis Well woman exam with routine gynecological exam Routine gynecological examination Second trimester state, incidental 16 weeks gestation of Screening, , for anatomic survey Encounter for anatomic survey Vaginal discharge Leukorrhea, not specified as infective STD exposure documented in this encounter [facility]* Diagnosis Second trimester state, incidental 21 weeks gestation of documented in this encounter [facility] HealthcareEvaluation note* Diagnosis Dyspareunia in female- Primary Left sided abdominal pain Abdominal pain, unspecified site [place]merz [facility] Diagnosis Second trimester state, incidental 26 weeks gestation of Diabetes mellitus screening Screening for diabetes mellitus documented in this encounter [facility] HealthcareEvaluation note* Diagnosis Renal lithiasis- Primary Calculus of kidney Left sided abdominal pain Abdominal pain, unspecified site Flank pain Abdominal pain, unspecified site Calcium oxalate crystals in urine [facility] Diagnosis Renal lithiasis- Primary Calculus of kidney Calcium oxalate crystals in urine Flank pain Abdominal pain, unspecified site Left sided abdominal pain Abdominal pain, unspecified site [facility] Diagnosis Third trimester state, incidental 28 weeks gestation of Excessive growth affecting management of in third trimester, single or unspecified fetus Urinary tract infection without hematuria, site unspecified Low back pain, unspecified back pain laterality, unspecified chronicity, unspecified whether sciatica present documented in this encounter [facility] note* Diagnosis Third trimester state, incidental 30 weeks gestation of Gastroesophageal reflux in documented in this encounter [facility]* Diagnosis 34 weeks gestation of Third trimester state, incidental documented in this encounter [facility] note* Diagnosis Third trimester state, incidental 36 weeks gestation of [facility] N[facility] - ReportedNortBarnes-[facility] [employer] Other History general Narrative - Reported* Type Description Date Medical History chronic depression [employer] Other Instructions* Attachments The following attachments cannot be sent through Care Everywhere. * Painful Ovulation (Albanian) [facility] Attachments The following attachments cannot be sent through Care Everywhere. * Kidney stones in adults (Albanian) [facility] [place] [facility] on [facility] documented in [facility]Pro[facility] [place] [facility] HospitalReason for referral (narrative)* Consultation (Routine) - Pending Review Specialty Diagnoses / Procedures Referred By Contkathleen hough Referred To Contact Nephrology Diagnoses Left sided abdominal pain Flank pain Renal lithiasis Calcium oxalate crystals in urine Danielle Lange DO [address] [place] [address] Yannick Villagomez MD [address] [place] [address] Referral ID Status Reason Start Date Expiration Date Visits Requested Visits Authorized [id number] Pending Review Specialty Services Required 10/13/2023 10/12/2024 1 1 [facility] Consultation (Routine) - Pending Review Specialty Diagnoses / Procedures Referred By Keerthi hough Referred To Contact Nephrology Diagnoses Renal lithiasis Calcium oxalate crystals in urine Flank pain Left sided abdominal pain Danielle Lange DO [address] [place] [address] Hussein Card MD [address] [place] [address] [place] [address] Referral ID Status Reason Start Date Expiration Date Visits Requested Visits Authorized [id number] Pending Review Specialty Services Required 10/29/2023 10/28/2024 1 1 [employer] Summary Purpose Family History No Family History [...] content) DATE CREATED AUTHOR 09/15/2020 [facility] DATE CREATED AUTHOR AUTHOR'S ORGANIZ ATION 09/12/2023 [facility] DATE CREATED AUTHOR AUTHOR'S ORGANIZ ATION [facility]/21/20[facility] DATE CREATED AUTHOR AUTHOR'S ORGANIZ ATION 10/23/2023 [facility] DATE CREATED AUTHOR AUTHOR'S ORGANIZ ATION 11/04/2024 [facility] DATE CREATED AUTHOR AUTHOR'S ORGANIZ ATION 11/28/2024 [facility] dical Specialists EPIC REASON FOR VISIT (unrecogniz ed section and content) Reason Comments Initial Visit Reason Comments Routine Visit Reason Comments Well Women Visit Routine Visit STI Screening Reason Comments Abdominal Pain Left side started ab out 2 months agoPain the first day of cycle Reason Comments Follow-up Ultrasound results d /t pelvic pain Care Teams (unrecognized sec tion and content) Medical Transcriptionist Relationship Specialty Start Date End Date Samir Stroud NP [address] [place] [address] Referring Physician Family Medicine 05/19/23 Medical Transcriptionist Relationship Specialty Start Date End Date Samir Stroud NP [address] [place] [address] Referring Physician Family Medicine 05/19/23 Medical Transcriptionist Relationship Specialty Start Date End Date Samir Stroud NP [address] [place] [address] Referring Physician Family Medicine 05/19/23 Medical Transcriptionist Relationship Specialty Start Date End Date Samir Stroud NP [address] [place] [address] Referring Physician Family Medicine 05/19/23 Medical Transcriptionist Relationship Specialty Start Date End Date Samir Stroud NP [address] [place] [address] Referring Physician Family Medicine 05/19/23 Medical Transcriptionist Relationship Specialty Start Date End Date Samir Stroud NP [address] [place] [address] Referring Physician Family Medicine 05/19/23 Medical Transcriptionist Relationship Specialty Start Date End Date Samir Stroud NP [address] [place] [address] Referring Physician Family Medicine 05/19/23 Medical Transcriptionist Relationship Specialty Start Date End Date Samir Stroud NP [address] [place] [address] Referring Physician Family Medicine 05/19/23 Medical Transcriptionist Relationship Specialty Start Date End Date Samir Stroud NP [address] [place] [address] Referring Physician Family Medicine 05/19/23 Medical Transcriptionist Relationship Specialty Start Date End Date Samir Stroud APRN-ADULT MANAGER [address] [place] [address] PCP - General Family Medicine 12/28/22 Medical Transcriptionist Relationship Specialty Start Date End Date Samir Stroud NP [address] [place] [address] Referring Physician Family Medicine 05/19/23 Medical Transcriptionist Relationship Specialty Start Date End Date Samir Stroud APRN-ADULT MANAGER [address] [place] [address] PCP - General Family Medicine 12/28/22 Medical Transcriptionist Relationship Specialty Start Date End Date Samir Stroud, OPERATORS TEACHER-ADULT MANAGER [address] [place] [address] PCP - General Family Medicine 12/28/22 Medical Transcriptionist Relationship Specialty Start Date End Date Samir Stroud NP [address] [place], [place] [id number] Referring Physician Family Medicine 05/19/23 Medical Transcriptionist Relationship Specialty Start Date End Date Samir Stroud NP [address] [place], [place] [address] Referring Physician Family Medicine 05/19/23 Medical Transcriptionist Relationship Specialty Start Date End Date Samir Stroud NP Referring Physician Family Medicine 05/19/23 Medical Transcriptionist Relationship Specialty Start Date End Date Samir Stroud NP Referring Physician Family Medicine 05/19/23 FOR RECORDS [...] BE BASED ON THE PRIMARY CLINICAL RECORDS. [employer] provides no warranty or guarantee of the accuracy or completeness of information in this document.
== END 2024-12-07 20:09 | disposition home or self-care (01) ==
LOC: LAB 20:08
PROVIDERS: PCP Nurse Practitioner Family; Visit Provider Obstetrics & Gynecology
DX: Z34.93 Encounter for supervision of normal pregnancy, unspecified, third trimester (principal)
CPT/HCPCS: 36415; 87081

== ENCOUNTER 2025-01-01 04:04 | Inpatient (IN) | payer OTHER, MEDICAID, SELFPAY ==
[2025-01-01] VITALS (60 sets, daily range): BP systolic 100–163; BP diastolic 55–89; PULSE 74–107; TEMP 35.8–36.9
--- OUTSIDE RECORDS SUMMARY | 2025-01-01 04:08 | XMS_ITS | CCD ---
Author Organization [facility] CliniSyny Care Team Providers Care [employer] Sales Engineer Name Role Phone CLARICE MANZO Consulting Unavailable RUSS GALLOWAY Attending Unavailable [...] Unavailable SCHLACHTER, SAMIR Primary Care Unavailable Schjanellchter NUTRITION TECHNICIAN, Samir Unavailable Maximus FIFTH HAND-ASSET MANAGER, Samir Primary Care Provide r Micheal Salas DDS Attending Unavailable Schjanellchtrush DANIELS, Samir Unavailable PAL PICHARDO Attending Unavailable DAVID, CARIN Attending Unavailable DAVID, CARIN Referring Unavailable KYLEE, PAL Attending Unavailable DAVID, CARIN Attending Unavailable KYLEE, PAL Attending Unavailable KYLEE, PAL Attending Unavailable DAVID, CARIN Attending Unavailable KYLEE, PAL Attending Unavailable DAVID, CARIN Attending Unavailable JESU PANDA Attending Unavailable KYLEE, PAL Attending Unavailable DAVID, CARIN Attending Unavailable Allergies Allergy Classification Reported Allergen(s) Allergy Type Date of Onset Reaction(s) Facility (1 source) Sulfonamides (Antibiotic) Drug allergy (disorder) [facility] Repository (2 sources) Sulfacetamide / Sulfur Drug Allergy [employer] Other (20 sources) Ondansetron; Translations: [ONDANSETRON] Drug [...] pantoprazole 40 mg delayed release oral tablet (17 sources) Proton Pump Inhibitor Start: 10-26-2024 End: [...] tablet 2 06/27/2024 10/12/2024 Discontinued (Therapy completed) terconazole 4 mg/ml vaginal cream (5 sources) Azole Antifungal Start: 12-12-2024 End: 12-21-2024 terconazole (Terazol 7) 0.4 % vaginal cream Indications: Yeast infection Insert 1 applicator into the vagina at bedtime for 7 days 45 g 12/12/2024 12/21/2024 Discontinued Problems Active Problems Problem Classification Problem Date [...] Episodic Other female genital disorders (1 source) Joel; 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] Onset: 09-08-2023 Chronic Other female genital disorders (1 source) Unspecified dyspareunia; Translations: [Unspecified dyspareunia] Onset: 09-08-2023 Chronic Other female genital disorders (1 source) Joel; 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] 09-08-2023 Chronic Other female genital disorders (1 source) Pain in female genitalia on intercourse; Translations: [Unspecified dyspareunia] 09-08-2023 Chronic Other female genital disorders (2 sources) Vaginal discharge; Translations: [Other specified noninflammatory disorders of vagina] 07-27-2024 Episodic Other and delivery including normal (20 sources) ; Translations: [Encounter for supervision of [...] of ] 11-24-2024 Episodic Residual codes; unclassified (4 sources) Gestation period, 36 weeks; Translations: [36 weeks gestation of ] 12-07-2024 Episodic Residual codes; unclassified (2 sources) Gestation period, 38 weeks; Translations: [38 weeks gestation of ] 12-21-2024 Episodic Residual codes; unclassified (2 sources) Gestation period, 39 weeks; Translations: [39 weeks gestation of ] 12-28-2024 Episodic Spondylosis; intervertebral disc disorders; other back [...] Range Facility Urinalysis macro (dipstick) panel (U)on 12-28-2024 Bilirubin, UA Negative Negative - 4(70) +++ mg/dL [facility] Blood, UA Positive Negative - 50 Dipak/mcL [facility] Comment on above: Moderate Clarity, UA Clear [facility] re Color, UA Yellow [facility] Glucose, UA Negative Negative - 1999(110) ++++ mg/dL [facility] Interpretation and review of laboratory results Abnormal [facility] Ketones, UA Negative Negative - 160(16) ++++ mg/dL [facility] Leukocytes, UA Trace Negative - 500+++ Jaswant/mcL [facility] Nitrite, UA Negative Negative - Positive [facility] pH, UA 7 5 - 9 [facility] Protein, UA Positive Negative - 1999(20) ++++ mg/dL [facility] Comment on above: 30mg/dL Spec Grav, UA 1.025 1 - 1.03 [facility] Urobilinogen, UA 0.2 0.2 - 12 mg/dL [facility] Urinalysis macro (dipstick) panel (U)on 12-21-2024 Bilirubin, UA Negative Negative - 4(70) +++ mg/dL [facility] Blood, UA Positive Negative - 50 Dipak/mcL [facility] Clarity, UA Clear [facility] Color, UA Yellow [facility] Glucose, UA Negative Negative - 1999(110) ++++ mg/dL [facility] Interpretation and review of laboratory results Abnormal [facility] Ketones, UA Negative Negative - 160(16) ++++ mg/dL [facility] Leukocytes, UA Moderate Negative - 500+++ Jaswant/mcL [facility] Nitrite, UA Negative Negative - Positive [facility] pH, UA 6.5 5 - 9 [facility] Protein, UA Trace Negative - 1999(20) ++++ mg/dL [facility] Spec Grav, UA 1.025 1 - 1.03 [facility] Urobilinogen, UA 0.2 0.2 - 12 mg/dL [facility] STREP GP B CULTURE+RFLXon STREP GP B CULTURE+RFLX SEE SCANNED REPORT [facility] Urinalysis macro (dipstick) panel (U)on 12-13-2024 Bilirubin, UA Negative Negative - 4(70) +++ mg/dL [facility] Blood, UA Positive Negative - 50 Dipak/mcL [facility] Comment on above: Trace-intact Clarity, UA Clear [facility] Color, UA Yellow [facility] Glucose, UA Negative Negative - 1999(110) ++++ mg/dL [facility] Interpretation and review of laboratory results Abnormal [facility] Ketones, UA Negative Negative - 160(16) ++++ mg/dL [facility] Leukocytes, UA Positive Negative - 500+++ Jaswant/mcL [facility] Comment on above: small Nitrite, UA Negative Negative - Positive [facility] pH, UA 6.5 5 - 9 [facility] Protein, UA Positive Negative - 1999(20) ++++ mg/dL [facility] Comment on above: 30mg/dL Spec Grav, UA 1.025 1 - 1.03 [facility] Urobilinogen, UA 0.2 0.2 - 12 mg/dL [facility] Urinalysis macro (dipstick) panel (U)on 12-07-2024 Bilirubin, UA Negative Negative - 4(70) +++ mg/dL [facility] Blood, UA Negative Negative - 50 Dipak/mcL [facility] Healthcare Clarity, UA Clear [facility] Color, UA Yellow [facility] Glucose, UA Negative Negative - 1999(110) ++++ mg/dL [facility] Interpretation and review of laboratory results Abnormal [facility] Ketones, UA Negative Negative - 160(16) ++++ mg/dL [facility] Leukocytes, UA Positive Negative - 500+++ Jaswant/mcL [facility] Nitrite, UA Negative Negative - Positive [facility] pH, UA 6.5 5 - 9 [facility] Global Experience e Protein, UA Positive Negative - 1999(20) ++++ mg/dL [facility] Spec Grav, UA 1.025 1 - 1.03 [facility] Urobilinogen, UA 1.0 0.2 - 12 mg/dL [facility] US OB FOLLOW UP TRANSABDOMIN [...] II, MD, PHD at 27-Nov-2024 10:37:34 PM [facility] Normal Not Available Comment on above: Order Comment: US OB SCAN FOR GROWTH Estimated Date of Delivery: 5/14/25 Gestational Age as of 11/09/2024: 32w0d Urinalysis macro (dipstick) panel (U)on 11-24-2024 Bilirubin, UA Negative Negative - 4(70) +++ mg/dL [facility] Blood, UA Positive Negative - 50 Dipak/mcL [facility] Comment on above: trace-intact Clarity, UA Clear [facility] Color, UA Yellow [facility] Glucose, UA Negative Negative - 2000(110) ++++ mg/dL [facility] Interpretation and review of laboratory results Abnormal [facility] Ketones, UA Positive Negative - 160(16) ++++ mg/dL [facility] Comment on above: 15 Leukocytes, UA Positive Negative - 500+++ Jaswant/mcL [facility] Comment on above: small Nitrite, UA Negative Negative - Positive [facility] pH, UA 7 5 - 9 [facility] Protein, UA Positive Negative - 2000(20) ++++ mg/dL [facility] Comment on above: 30 Spec Grav, UA 1.025 1 - 1.03 [facility] Urobilinogen, UA 1.0 0.2 - 12 mg/dL [facility] US OB FOLLOW UP TRANSABDOMIN [...] II, MD, PHD at 27-Oct-2024 10:37:59 AM [facility] Normal Not Available Comment on above: Order Comment: US OB SCAN FOR GROWTH Estimated Date of Delivery: 01/04/25 Gestational Age as of 10/12/2024: 28w0d Urinalysis macro (dipstick) panel (U)on 10-26-2024 Bilirubin, UA Negative Negative - 4(70) +++ mg/dL [facility] Blood, UA Negative Negative - 50 Dipak/mcL [facility] Healthcare Clarity, UA Clear [facility] Color, UA Yellow [facility] Glucose, UA Negative Negative - 1999(110) ++++ mg/dL [facility] Interpretation and review of laboratory results Abnormal [facility] Ketones, UA Negative Negative - 160(16) ++++ mg/dL [facility] Leukocytes, UA Positive Negative - 500+++ Jaswant/mcL [facility] Healthcare Comment on above: large Nitrite, UA Negative Negative - Positive [facility] pH, UA 6.5 5 - 9 [facility] Protein, UA Negative Negative - 1999(20) ++++ mg/dL [facility] Spec Grav, UA 1.01 1 - 1.03 [facility] Urobilinogen, UA 0.2 0.2 - 12 mg/dL [facility] Healthcare [facility] Urinalysis macro (dipstick) panel (U)on 10-12-2024 Bilirubin, UA Negative Negative - 4(70) +++ mg/dL [facility] Blood, UA Negative Negative - 50 Dipak/mcL [facility] Healthcare Clarity, UA Clear [facility] Color, UA Yellow [facility] Glucose, UA Negative Negative - 1999(110) ++++ mg/dL [facility] Interpretation and review of laboratory results Abnormal [facility] Healthcare Ketones, UA Negative Negative - 160(16) ++++ mg/dL [facility] Healthcare Leukocytes, UA Positive Negative - 500+++ Jaswant/mcL [facility] Comment on above: large Nitrite, UA Negative Negative - Positive [facility] pH, UA 7 5 - 9 [facility] Protein, UA Negative Negative - 1999(20) ++++ mg/dL [facility] Spec Grav, UA 1.015 1 - 1.03 [facility] Urobilinogen, UA 0.2 0.2 - 12 mg/dL [facility] ALL CBC WITH AUTO DIFFon BASOPHILS ABSOLUTE AUTO 0 [facility] Basophils/100 WBC (Bld) 0.4 % 0.2 - 2.0 % [facility] Eosinophils/100 WBC (Bld) 0.4 % Low 0.9 - 7.0 % [facility] Erythrocyte distribution width (RBC) [Ratio] 12.8 % 11.0 - 15.0 % [facility] Hematocrit (Bld) [Volume fraction] 31.4 % Low 36.0 - 48.0 % [facility] Hemoglobin (Bld) [Mass/Vol] 10.6 g/dL Low 12.0 - 16.0 g/dL [facility] IMMATURE GRANULOCYTES ABS AUTO 0.07 High [facility] Immature granulocytes/100 WBC (Bld) 0.7 % High 0.0 - 0.5 % [facility] Interpretation and review of laboratory results Abnormal [facility] LYMPHOCYTES ABSOLUTE AUTO 1.7 [facility] Lymphocytes/100 WBC (Bld) 17.8 % Low 20.5 - 60.0 % [facility] MCH (RBC) [Entitic mass] 30.5 pg 26.7 - 34.0 pg [facility] MCHC (RBC) [Mass/Vol] 33.8 g/dL 29.9 - 35.2 g/dL [facility] MCV (RBC) [Entitic vol] 90.5 fL 81.0 - 99.0 fL [facility] MONOCYTES ABSOLUTE AUTO 0.6 [facility] Monocytes/100 WBC (Bld) 5.8 % 1.7 - 12.0 % [facility] NEUTROPHILS ABSOLUTE AUTO 7.2 High [facility] Neutrophils/100 WBC (Bld) 74.9 % 43.0 - 75.0 % [facility] Platelet mean volume (Bld) [Entitic vol] 9.2 fL Low 9.5 - 13.5 fL [facility] EO # 0 [facility] PLT 282 [facility] RBC 3.47 Low [facility] WBC 9.6 [facility] US OB INCOMPLETE ANATOMYon 0 09-23-2024 [place] [address] Ultrasound Report Signed Patient: MARISELA RANDALL MR#: [id number] : 2000 Acct:[id number] Age/Sex: 24 / F ADM Date: 09/22/24 Loc: US Attending Dr: Pal Pichardo D.O. Ordering Physician: Pal Pichardo D.O. Date of Service: 09/22/24 Procedure(s): US OB incomplete anatomy Accession Number(s): [id number] cc: Pal Pichardo D.O.; Samir Stroud NP [place] [address] Patient Name: MARISELA RANDALL MRN: [facility]:[id number] date: 2000 Sex: F Assigned Patient Location: US Current Patient Location: Accession/Order Number: [id number] Exam Date: 09/22/2024 16:10 Report Date: 09/23/2024 06:19 At the request of: PAL PICHARDO Procedure: US OB incomplete anatomy EXAM: [...] abnormality of the spine. Electronically authenticated by: CLARICE MANZO Date: 09/23/2024 06:19 Dictated By: Clarice Manzo M.D. Signed By: 09/23/24620 DD/ 8 TD/TT: Finished Cloth Checker: [facility] Radiology, Radiologist, - 09/23/2024 [place] [address] Ultrasound Report Signed Patient: MARISELA RANDALL MR#: [id number] : 2000 Acct:[id number] Age/Sex: 24 / F ADM Date: 09/22/24 Loc: US Attending Dr: Pal Pichardo D.O. Ordering Physician: Pal Pichardo D.O. Date of Service: 09/22/24 Procedure(s): US OB incomplete anatomy Accession Number(s): [id number] cc: Pal Pichardo D.O.; Samir Stroud NP The [place] [id number] Patient Name: MARISELA RANDALL MRN: [facility]:[id number] date: 2000 Sex: F Assigned Patient Location: US Current Patient Location: Accession/Order Number: [id number] Exam Date: 09/22/2024 16:10 Report Date: 09/23/2024 06:19 At the request of: PAL PICHARDO Procedure: US OB incomplete anatomy EXAM: [...] abnormality of the spine. Electronically authenticated by: CLARICE MANZO Date: 09/23/2024 06:19 Dictated By: Clarice Manzo M.D. Signed By: 09/23/24620 DD/ 8 TD/TT: Finished Cloth Checker: [facility] Radiology Study observation (narrative) [facility] US OB INCOMPLETE ANATOMYOrde red By: Radiologist Radiology on 09-23-2024 [facility] Work Phone: AFP, SERUM, OPEN SPINA BIFID Aon 08-29-2024 AFP MOM 0.89 . [facility] Nuvilex[facility] AFP VALUE 51.3 ng/mL . [facility] COMMENT: Comment . [facility] Global Experience e Comment on above: Esha Pacheco , Ph.D., [facility] Director References: Available Upon Request. Multiples Of Median Cutoffs For AFP Elevations Crandall 2.5 Black 2.8 IDD 2.0 Twins 4.5 Abbreviation Definitions IDD - Insulin Dep Diabetes OSBR - Open Spina Bifida Risk For further inquiries contact [facility] [employer] [facility] at [phone]. This test was developed and its performance characteristics determined by [employer]. It has not been cleared or approved by the Food and Drug Administration. Performed at: [facility] [address] [place], [place] [id number] Instrumentation Manager: Manoj Flores [facility], Phone: [phone] GEST. AGE ON COLLECTION DATE 21.1 . weeks [facility] GESTAT. AGE BASED ON LMP . [facility] [employer] Comment on above: Recalculations are n ot recommended when gestational dating by LMP and ultrasound are within 10 days. INSULIN DEP DIABETES No . [facility] Healthcare INTERPRETATION Comment . [facility] Rodrigo cartwright Comment on above: Interpretation: Scre en Negative [...] Customer Services to discuss available options. The [employer] recommends amniocentesis be offered to women age 35 and older. [age] [facility] [employer] MULTIPLE GESTATION No . [facility] [place] [phone] . [facility] RACE . [facility] RESULTS Report . [facility] TEST RESULTS: Negative . [facility] WEIGHT 179 . lbs [facility] N N LMP [id number] 17 N 1 Y 179 N N N N N White/ [facility] Urinalysis macro (dipstick) panel (U)on 08-29-2024 Bilirubin, UA Negative Negative - 4(70) +++ mg/dL [facility] Blood, UA Negative Negative - 50 Dipak/mcL [facility] Clarity, UA Clear [facility] Nuvilexal re Color, UA Yellow [facility] Glucose, UA Negative Negative - 1999(110) ++++ mg/dL [facility] Interpretation and review of laboratory results Abnormal [facility] Ketones, UA Negative Negative - 160(16) ++++ mg/dL [facility] Leukocytes, UA Positive Negative - 500+++ Jaswant/mcL [facility] Comment on above: small Nitrite, UA Negative Negative - Positive [facility] pH, UA 6 5 - 9 [facility] Protein, UA Negative Negative - 1999(20) ++++ mg/dL [facility] Spec Grav, UA 1.025 1 - 1.03 [facility] Urobilinogen, UA 0.2 0.2 - 12 mg/dL [facility] IGP,APTIMA HPV,AGE GDLNon AGE GDLN ACOG TESTING Note . [facility] Comment on above: TESTS RESULT FLAG UN ITS REF RANGE LAB Clinician Provided Cytology Information Source.............Cervix Other.............. No. of containers..01 ThinPrep Vial Age Algo ACOG Kizzy... -21 09 FLAG LEGEND: L-Low Normal,H-High Normal,LL-Alert Low,HH-Alert High <-Panic Low,>-Panic High,A-Abnormal,AA-Critical Abnormal Performed at: 01 [facility] [address] [place] [address] Ambar Castillo MD, IGP, RFX APTIMA HPV ASCU Note . [facility] Comment on above: TESTS RESULT FLAG UN ITS REF RANGE LAB DIAGNOSIS: 02 NEGATIVE FOR INTRAEPITHELIAL LESION OR MALIGNANCY. Specimen adequacy: 02 Satisfactory for evaluation. No endocervical component is identified. An endocervical component is not commonly seen in the patient. Performed by: Roopa Davis, Spring Production Supervisor ([facility]) . 02 Note: Note 02 The Pap [...] <-Panic Low,>-Panic High,A-Abnormal,AA-Critical Abnormal Performed at: [address] [address] Ambar Castillo MD, Performed at: =[facility] [id number] Instrumentation Manager: Ambar Castillo MD, Phone: [phone] Performed at: [address] [id number] Instrumentation Manager: Ambar Castillo MD, Phone: [phone] SPATULA-ALONE CERVIX [facility] e RECURRENT VAGINITIS (HTRX)on 07-30-2024 ATOPOBIUM VAGINAE 0 [facility] ATOPOBIUM VAGINAE Not detected [facility] BVAB 2,3 (BACTERIAL VAGINOSIS ASSOCIATED BACTERIA 2, 3); MOBILUNCUS SPP 0 [facility] BVAB 2,3 (BACTERIAL VAGINOSIS ASSOCIATED BACTERIA 2, 3); MOBILUNCUS SPP Not detected [facility] CARTER ALBICANS, PARAPSILOSIS, TROPICALIS 0 [facility] CARTER ALBICANS, PARAPSILOSIS, TROPICALIS Not detected [facility] CARTER GLABRATA 0 [facility] Hea lthcare CARTER GLABRATA Not detected [facility]I [facility] CARTER KRUSEI Not detected [facility] CHLAMYDIA TRACHOMATIS 0 [facility] CHLAMYDIA TRACHOMATIS Not detected [facility] GARDNERELLA VAGINALIS 0 [facility] GARDNERELLA VAGINALIS Not detected [facility] MEGASPHAERA (TYPES 1, 2) 0 [facility] MEGASPHAERA (TYPES 1, 2) Not detected [facility] MYCOPLASMA GENITALIUM 0 [facility] MYCOPLASMA GENITALIUM Not detected [facility] NEISSERIA GONORRHOEAE 0 [facility] NEISSERIA GONORRHOEAE Not detected [facility] TRICHOMONAS VAGINALIS 0 [facility] TRICHOMONAS VAGINALIS Not detected [facility] Urinalysis macro (dipstick) panel (U)on 07-27-2024 Bilirubin, UA Negative Negative - 4(70) +++ mg/dL [facility] Blood, UA Negative Negative - 50 Dipak/mcL [facility] Clarity, UA Clear [facility] Healthca re Color, UA Yellow [facility] e Glucose, UA Negative Negative - 2000(110) ++++ mg/dL [facility] Interpretation and review of laboratory results Normal [facility] Ketones, UA Negative Negative - 160(16) ++++ mg/dL [facility] Leukocytes, UA Negative Negative - 500+++ Jaswant/mcL [facility] Nitrite, UA Negative Negative - Positive [facility] pH, UA 6 5 - 9 [facility] Health[facility] Protein, UA Negative Negative - 1999(20) ++++ mg/dL [facility] Spec Grav, UA 1.02 1 - 1.03 [facility] Urobilinogen, UA 1.0 0.2 - 12 mg/dL [facility] Urinalysis macro (dipstick) panel (U)on 06-27-2024 Bilirubin, UA Negative Negative - 4(70) +++ mg/dL [facility] Blood, UA Negative Negative - 50 Dipak/mcL [facility] Clarity, UA Clear [facility] re Color, UA Yellow [facility] e Glucose, UA Negative Negative - 1999(110) ++++ mg/dL [facility] Interpretation and review of laboratory results Abnormal [facility] Ketones, UA Negative Negative - 160(16) ++++ mg/dL [facility] Leukocytes, UA Trace Negative - 500+++ Jaswant/mcL [facility] Nitrite, UA Negative Negative - Positive [facility] pH, UA 5.5 5 - 9 [facility] Protein, UA Negative Negative - 1999(20) ++++ mg/dL [facility] Spec Grav, UA 1.02 1 - 1.03 [facility] Urobilinogen, UA 0.2 0.2 - 12 mg/dL [facility] Health[facility] BOX TESTon 06-08-2024 BOX TEST SENT OUT [facility] [address] [facility] HealthCinnaBid e [address]OX2 06/08/24 [facility] ROLI BOX [facility] Nuvilexcar e HCG ( test) Ql (U)o n 05-27-2024 Interpretation and review of laboratory results Abnormal [facility] Preg Test, Ur Positive [facility] Urinalysis macro (dipstick) panel (U)on 05-27-2024 Bilirubin, UA Negative Negative - 4(70) +++ mg/dL [facility] Blood, UA Positive Negative - 50 Dipak/mcL [facility] Comment on above: trace intact Clarity, UA Clear [facility] Healthca re Color, UA Yellow [facility] Health[facility] Glucose, UA Negative Negative - 1999(110) ++++ mg/dL [facility] Interpretation and review of laboratory results Abnormal [facility] Ketones, UA Negative Negative - 160(16) ++++ mg/dL [facility] Leukocytes, UA Trace Negative - 500+++ Jaswant/mcL [facility] Nitrite, UA Negative Negative - Positive [facility] pH, UA 7.0 5 - 9 [facility] e Protein, UA Negative Negative - 1999(20) ++++ mg/dL [facility] Spec Grav, UA 1.015 1 - 1.03 [facility] Urobilinogen, UA 0.2 0.2 - 12 mg/dL [facility] US RETROPERITONEAL COMPLETEo n 10-16-2023 [...] Marte MD on 10/16/2023 1:22 AM Normal [facility] US PELVIC WITH TRANSVAGINALo n [...] Rogers MD on 09/15/2023 6:54 PM Normal [facility] CHLAMYDIA/GC BY PCRon 2023 CHLAMYDIA/GC [...] are dependent on adequate specimen collection. Normal [facility] Comment on above: Performed By: #### C #### [facility] ([id number]) [address] [place] [address], [address] [place] [address] POCT , urineon 08-24 Beta HCG ( test) Ql (U) Negative [facility] URINALYSISon 09-08-2023 Bilirubin Ql (U) Negative Normal NEG [facility] BLOOD/HGB Negative Normal NEG [facility] CA OXALATE CRYSTALS PRESENT Abnormal NONE [facility] Color (U) YELLOW Normal YELLOW [facility] Glucose Ql (U) Negative Normal NEG [facility] Ketones Ql (U) Negative Normal NEG [facility] Leukocyte esterase Test strip Ql (U) Negative Normal NEG [facility] MUCOUS PRESENT Abnormal NONE [facility] Nitrite Ql (U) Negative Normal NEG [facility] pH (U) 6.5 [pH] Normal 5.0-8.5 [facility] Protein Ql (U) Trace Abnormal NEG [facility] R.B.CELLS 2 /hpf Normal 0-5 [facility] Specific gravity (U) [Rel density] 1.027 Normal 1.003-1.035 [facility] SQUAMOUS EPITHELIUM 14 /hpf High 0-5 [facility] TURBIDITY CLEAR Normal CLEAR [facility] Urobilinogen (U) [Mass/Vol] mg/dL Normal <1.1 [facility] W.B.CELLS 3 /hpf Normal 0-5 [facility] URINE CULTUREon 09-08-2023 Bacteria identified Cx Nom (U) CULTURE RESULTS 10-50,000 ORGANISMS/mL NORMAL UROGENITAL AYLIN Normal [facility] Comment on above: Performed By: #### 6 30-4 #### [facility] ([id number]) [address] [place] [address], [address] [place] [address] Urinalysison 09-08-2023 Bilirubin Ql (U) Negative Negative^Ne ga tive [facility] Calcium oxalate crystals LM Ql (Urine sed) PRESENT Abnormal NONE^NONE [facility] Color (U) YELLOW YELLOW^YELLOW [facility] Epithelial cells Auto (Urine sed) [#/Area] 14 High [facility] Glucose (U) [Mass/Vol] Negative Negative^Nega tive mg/dL [facility] Hemoglobin Auto test strip Ql (U) Negative Negative^Nega tive [facility] Interpretation and review of laboratory results Abnormal [facility] Ketones (U) [Mass/Vol] Negative Negative^Nega tive mg/dL [facility] Leukocyte esterase Auto test strip Ql (U) Negative Negative^Nega tive [facility] Mucus Ql (Urine sed) PRESENT Abnormal NONE^NONE [facility] Nitrite Auto test strip Ql (U) Negative Negative^Nega tive [facility] pH (U) 6.5 [pH] 5.0 - 8.5 [facility] Protein (U) [Mass/Vol] Trace Abnormal Negative^Nega tive mg/dL [facility] RBC Auto (Urine sed) [#/Area] 2 [facility] Specific gravity Refractometry automated (U) [Rel density] 1.027 1.003 - 1.035 [facility] Turbidity Ql (U) CLEAR CLEAR^CLEAR [facility] Urobilinogen Qn (U) NINF [facility] WBC Auto (Urine sed) [#/Area] 3 [facility] VAGINITIS PANEL PCRon 2023 VAGINITIS PANEL PCR BACT. VAGINOSIS DNA Not detected (qualifier value) Qualitative results are reported based on detection and quantitation of targeted organism markers which include: Lactobacillus spp. (L. crispatus and L. jensenii), Gardnerella vaginalis, Atopobium vaginae, Bacterial Vaginosis Associated Bacteria-2 (BVAB-2) and Megasphaera-1 CARTER SPECIES DNA Not detected (qualifier value) Carter species not detected include: C. albicans, C. tropicalis, C. parapsilosis or C. dubliniensis CARTER KRUSEI DNA Not detected (qualifier value) No Carter krusei detected CARTER GLABRATA DNA Not detected (qualifier value) No Carter glabrata detected TRICHOMONAS VAG DNA Not detected (qualifier value) No Trichomonas vaginalis detected NOTE BD MAX Vaginal Panel has not been evaluated for patients under 18 years old. Results for these patients should be reviewed and assessed in accordance with clinical presentation to determine patient diagnosis. Normal [facility] Comment on above: Performed By: #### V PPCR #### [facility] ([id number]) [address] [place] [address], [address] [place] [address] Quick Strepon 04-02-2022 S. pyogenes Org specific cx Ql (Throat) Negative [facility] Other Quick Strep [facility] Other Vital Signs Date Time Vital Sign Value Performing Clinician Facility 12-28-2024 15:23-0400 Body weight 100.7 kg Rentlord Phone: [facility] 12-28-2024 15:23-0400 Diastolic blood pressure 70 mm[Hg] Pal Kylee DO Work Phone: [facility] 12-28-2024 15:23-0400 Systolic blood pressure 130 mm[Hg] Pal Kylee DO Work Phone: [facility] 12-21-2024 15:55-0400 Body weight 100.43 kg Jesu Jassoerly NUTRITION TECHNICIAN Work Phone: [facility] 12-21-2024 15:55-0400 Diastolic blood pressure 76 mm[Hg] Jesu Farzad NUTRITION TECHNICIAN Work Phone: [facility] 12-21-2024 15:55-0400 Systolic blood pressure 110 mm[Hg] Jesu Farzad NUTRITION TECHNICIAN Work Phone: [facility] 12-13-2024 14:27-0400 Body weight 99.22 kg Carin VILLAGOMEZ Work Phone: [facility] 12-13-2024 14:27-0400 Diastolic blood pressure 70 mm[Hg] Carin VILLAGOMEZ Work Phone: [facility] 12-13-2024 14:27-0400 Systolic blood pressure 120 mm[Hg] Carin VILLAGOMEZ Work Phone: [facility] 12-07-2024 15:42-0400 Body weight 99.29 kg Pal Kylee DO Work Phone: [facility] 12-07-2024 15:42-0400 Diastolic blood pressure 82 mm[Hg] Pal Kylee DO Work Phone: [facility] 12-07-2024 15:42-0400 Systolic blood pressure 122 mm[Hg] Pal Kylee DO Work Phone: [facility] 11-24-2024 15:42-0400 Body weight 95.62 kg Carin VILLAGOMEZ Work Phone: [facility] 11-24-2024 15:42-0400 Diastolic blood pressure 74 mm[Hg] Carin VILLAGOMEZ Work Phone: [facility] 11-24-2024 15:42-0400 Systolic blood pressure 118 mm[Hg] Carin Mcneil PA Work Phone: [facility] 10-26-2024 14:45-0500 Body weight 90.27 kg Pal Kylee DO Work Phone: [facility] 10-26-2024 14:45-0500 Diastolic blood pressure 76 mm[Hg] Pal Kylee DO Work Phone: [facility] 10-26-2024 14:45-0500 Systolic blood pressure 122 mm[Hg] Pal Kylee DO Work Phone: [facility] 10-12-2024 16:21-0500 Body weight 90.72 kg Carin David PA Work Phone: [facility] 10-12-2024 16:21-0500 Diastolic blood pressure 70 mm[Hg] Carin David PA Work Phone: [facility] 10-12-2024 16:21-0500 Systolic blood pressure 120 mm[Hg] Carin Garcia PA Work Phone: [facility] 09-28-2024 16:23-0500 Body weight 88.51 kg Pal Kylee DO Work Phone: [facility] 09-28-2024 16:23-0500 Diastolic blood pressure 72 mm[Hg] Pal Kylee DO Work Phone: [facility] 09-28-2024 16:23-0500 Systolic blood pressure 116 mm[Hg] Pal Kylee DO Work Phone: [facility] 08-29-2024 15:54-0500 Body weight 84.82 kg Carin David PA Work Phone: [facility] 08-29-2024 15:54-0500 Diastolic blood pressure 74 mm[Hg] Carin David PA Work Phone: [facility] 08-29-2024 15:54-0500 Systolic blood pressure 120 mm[Hg] Carin David PA Work Phone: [facility] 07-27-2024 15:32-0500 Body weight 81.38 kg Pal Kylee DO Work Phone: [facility] 07-27-2024 15:32-0500 Diastolic blood pressure 66 mm[Hg] Pal Kylee DO Work Phone: [facility] 07-27-2024 15:32-0500 Systolic blood pressure 108 mm[Hg] Pal Kylee DO Work Phone: [facility] 06-27-2024 16:10-0500 Body weight 79.83 kg Pal Kylee DO Work Phone: [facility] 06-27-2024 16:10-0500 Diastolic blood pressure 68 mm[Hg] Pal Kylee DO Work Phone: [facility] 06-27-2024 16:10-0500 Systolic blood pressure 108 mm[Hg] Pal Kylee DO Work Phone: [facility] 05-27-2024 10:31-0400 Body weight 79.38 kg Nom Nurse [facility] 05-27-2024 10:31-0400 Diastolic blood pressure 80 mm[Hg] [facility] Nurse [facility] 05-27-2024 10:31-0400 Systolic blood pressure 122 mm[Hg] [facility] Nurse [facility] 10-13-2023 14:41-0500 Body height 165.1 cm Danielle Lange DO Work Phone: [facility] 10-13-2023 14:41-0500 Body mass index (BMI) [Ratio] 28.09 kg/m2 Danielle Lange DO Work Phone: [facility] 10-13-2023 14:41-0500 Body weight 76.57 kg Danielle Lange DO Work Phone: [facility] 10-13-2023 14:41-0500 Diastolic blood pressure 68 mm[Hg] Danielle Lange DO Work Phone: [facility] 10-13-2023 14:41-0500 Systolic blood pressure 104 mm[Hg] Danielle Lange DO Work Phone: [facility] 09-08-2023 11:06-0500 Body height 165.1 cm Danielle Lange DO Work Phone: [facility] 09-08-2023 11:06-0500 Body mass index (BMI) [Ratio] 28.22 kg/m2 Danielle Lange DO Work Phone: [facility] 09-08-2023 11:06-0500 Body weight 76.93 kg Danielle Lange DO Work Phone: [facility] 09-08-2023 11:06-0500 Diastolic blood pressure 70 mm[Hg] Danielle Lange DO Work Phone: [facility] 09-08-2023 11:06-0500 Systolic blood pressure 116 mm[Hg] Danielle Lange DO Work Phone: [facility] 04-02-2022 12:20-0400 Body height 167.64 cm Julianne Lety Other [facility] Other 04-02-2022 12:20-0400 Body mass index (BMI) [Ratio] 30.66 kg/m2 Julianne Lety Other [facility] Other 04-02-2022 12:20-0400 Body temperature 99.3 [degF] Julianne Lety Other [facility] Other 04-02-2022 12:20-0400 Body weight 86.18 kg Julianne Lety Other [facility] Other 04-02-2022 12:20-0400 Respiratory rate 18 /min Julianne Lety Other [facility] Other 04-02-2022 12:20-0400 SaO2% (BldA) [Mass fraction] 99 % Juliannenelson Davidson Other [facility] Other 07-06-2021 11:30-0500 Body height 165.1 cm Julianne Davidson Other [facility] Other 07-06-2021 11:30-0500 Body mass index (BMI) [Ratio] 29.95 kg/m2 Julianne Davidson Other [facility] Other 07-06-2021 11:30-0500 Body temperature 98.2 [degF] Julianne Davidson Other [facility] Other 07-06-2021 11:30-0500 Body weight 81.65 kg Julianne Davidson Other [facility] Other 07-06-2021 11:30-0500 SaO2% (BldA) [Mass fraction] 99 % Julianne Davidson Other [facility] Other Encounters Encounter Date Encounter Type Care Provider Facility Start: 12-28-2024 End: 12-28-2024 flow sheet Pal Kylee DO Work Phone: [facility] Comment on above: Third trimester preg nadeen; 39 weeks gestation of Start: 12-28-2024 End: 12-28-2024 ambulatory PAL KYLEE Not Available Start: 12-28-2024 End: 12-28-2024 Bamboo flowsheet Pal Kylee DO Work Phone: [facility] Start: 12-28-2024 End: 12-28-2024 Bamboo flowsheet Pal Kylee DO Work Phone: [facility] Start: 12-21-2024 End: 12-21-2024 flow sheet Jesu Panda NUTRITION TECHNICIAN Work Phone: [facility] Comment on above: 38 weeks gestation o f ; Third trimester Start: 12-21-2024 End: 12-21-2024 ambulatory JESU JASSOERLY Not Available Start: 12-21-2024 End: 12-21-2024 Bamboo flowsheet Jesu Farzad NUTRITION TECHNICIAN Work Phone: [facility] Start: 12-21-2024 End: 12-21-2024 Bamboo flowsheet Jesu Farzad NUTRITION TECHNICIAN Work Phone: [facility] Start: 12-13-2024 End: 12-13-2024 flow sheet Carin VILLAGOMEZ Work Phone: [facility] Comment on above: Third trimester preg nadeen; 36 weeks gestation of Start: 12-13-2024 End: 12-13-2024 ambulatory CARIN GARCIA Not Available Start: 12-13-2024 End: 12-13-2024 Bamboo flowsheet Carin VILLAGOMEZ Work Phone: [facility] Start: 12-13-2024 End: 12-13-2024 Bamboo flowsheet Carin VILLAGOMEZ Work Phone: [facility] Start: 12-07-2024 End: 12-07-2024 flow sheet Pal Kylee DO Work Phone: [facility] Comment on above: Third trimester preg nadeen; 36 weeks gestation of Start: 12-07-2024 End: 12-07-2024 ambulatory PAL KYLEE Not Available Start: 12-07-2024 End: 12-07-2024 Bamboo flowsheet Pal Kylee DO Work Phone: [facility] Start: 12-07-2024 End: 12-16-2024 Bamboo flowsheet Pal Kylee DO Work Phone: [facility] Start: 12-07-2024 End: 12-16-2024 Clinisync Result Encounter Pal Kylee DO Work Phone: [facility] Unsolicited Start: 11-24-2024 End: 11-24-2024 flow sheet Carin VILLAGOMEZ Work Phone: [facility] Comment on above: 34 weeks gestation o f ; Third trimester Start: 11-24-2024 End: 11-24-2024 ambulatory CARIN GARCIA Not Available Start: 11-09-2024 End: 11-09-2024 ambulatory CARIN GARCIA Not Available Start: 11-01-2024 ambulatory [facility]heal Salas D[facility] Start: 10-26-2024 End: 10-26-2024 flow sheet Pal Kylee DO Work Phone: [facility] Comment on above: Third trimester preg nadeen; 30 weeks gestation of ; Gastroesophageal reflux in Start: 10-26-2024 End: 10-26-2024 ambulatory PAL KYLEE Not Available Start: 10-12-2024 End: 10-12-2024 [...] Start: 10-01-2024 End: 10-01-2024 Clinisync Result Encounter Pal Kylee DO Work Phone: [facility] Unsolicited Start: 10-01-2024 End: 10-01-2024 Clinisync Result Encounter Pal Kylee DO Work Phone: [facility] Unsolicited Start: 09-28-2024 End: 09-28-2024 flow sheet Pal Kylee DO Work Phone: [facility] Comment on above: Second trimester pre gnancy; 26 weeks gestation of ; Diabetes mellitus screening Start: 09-28-2024 End: 09-28-2024 ambulatory PAL KYLEE Not Available Start: 09-28-2024 End: 09-28-2024 Bamboo flowsheet Pal Kylee DO Work Phone: [facility] Start: 09-28-2024 End: 09-28-2024 Bamboo flowsheet Pal Kylee DO Work Phone: [facility] Start: 09-23-2024 End: 09-23-2024 Clinisync Result Encounter Pal Kylee DO Work Phone: [facility] Unsolicited Start: 09-23-2024 End: 09-23-2024 Clinisync Result Encounter Pal Kylee DO Work Phone: [facility] Unsolicited Start: 08-29-2024 End: 08-29-2024 flow sheet Carin VILLAGOMEZ Work Phone: [facility] Comment on above: Second trimester pre gnancy; 21 weeks gestation of Start: 08-29-2024 End: 08-29-2024 ambulatory CARIN GARCIA Not Available Start: 08-29-2024 End: 08-29-2024 Bamboo flowsheet Carin VILLAGOMEZ Work Phone: [facility] Start: 08-29-2024 End: 08-29-2024 Bamboo flowsheet Carin VILLAGOMEZ Work Phone: [facility] Start: 08-25-2024 End: 08-29-2024 Clinisync Result Encounter Pal Kylee DO Work Phone: [facility] Unsolicited Start: 08-25-2024 End: 08-29-2024 Clinisync Result Encounter Pal Kylee DO Work Phone: [facility] Unsolicited Start: 07-27-2024 End: 07-27-2024 Patient encounter procedure Pal Kylee DO Work Phone: [facility] Work Phone: Start: 07-27-2024 End: 07-27-2024 Periodic preventive med est patient 18-39 yrs Pal Kylee DO Work Phone: [facility] Comment on above: Well woman exam with routine gynecological exam; Second trimester ; 16 weeks gestation of ; Screening, , for anatomic survey; Vaginal discharge; STD exposure Start: 07-27-2024 End: 07-27-2024 ambulatory PAL KYLEE Not Available Start: 07-27-2024 End: 07-27-2024 Bamboo flowsheet Pal Kylee DO Work Phone: [facility] Start: 07-27-2024 End: 08-03-2024 Bamboo flowsheet Pal Kylee DO Work Phone: [facility] Start: 07-27-2024 End: 08-03-2024 Clinisync Result Encounter Pal Kylee DO Work Phone: [facility] External Department Unsolicited Start: 07-27-2024 End: 07-30-2024 External Result Encounter Pal Kylee DO Work Phone: [facility] Unsolicited Start: 06-27-2024 End: 06-27-2024 flow sheet Pal Kylee DO Work Phone: [facility] Comment on above: First trimester preg nadeen; 12 weeks gestation of ; Nausea; Viral upper respiratory tract infection Start: 06-27-2024 End: 06-27-2024 ambulatory PAL KYLEE Not Available Start: 06-27-2024 End: 06-27-2024 Bamboo flowsheet Pal Kylee DO Work Phone: [facility] Start: 06-27-2024 End: 06-27-2024 Bamboo flowsheet Pal Kylee DO Work Phone: [facility] Start: 06-08-2024 End: 06-08-2024 Clinisync Result Encounter Pal Kylee DO Work Phone: [facility] Unsolicited Start: 06-08-2024 End: 06-08-2024 Clinisync Result Encounter Pal Camilozio DO Work Phone: [facility] External Department Unsolicited Start: 05-27-2024 End: 05-27-2024 Office outpatient visit 5 minutes [facility] Kylee Nurse [facility] Comment on above: GA: 8w2d Start: 05-27-2024 End: 05-27-2024 ambulatory PAL PICHARDO Not Available Start: 10-29-2023 Orders Only [facility] Comment on above: Renal lithiasis (Yante annita Dx); Calcium oxalate crystals in urine; Flank pain; Left sided abdominal pain Start: 10-15-2023 End: 10-16-2023 [facility] Start: 10-13-2023 End: 10-13-2023 ambulatory [facility] Start: 10-13-2023 End: 10-13-2023 Office outpatient visit 15 minutes [facility]le Lange [facility] Comment on above: Renal lithiasis (Yanet annita Dx); Left sided abdominal pain; Flank pain; Calcium oxalate crystals in urine Start: 09-14-2023 End: 09-15-2023 [facility] Start: 09-08-2023 End: 09-09-2023 ambulatory [facility] Start: 09-08-2023 End: 09-08-2023 ambulatory [facility] Start: 09-08-2023 End: 09-08-2023 Office outpatient visit 15 minutes Danielle Liu Lange DO [facility] Comment on above: Dyspareunia in femal e (Primary Dx); Left sided abdominal pain; [place] Start: 04-02-2022 End: 04-02-2022 ambulatory Julianne Davidson Other [facility] Other Start: 04-02-2022 Office outpatient vi sit 15 minutes Julianne Davidson [facility] Start: 07-06-2021 (URG) Urgent Care Visit Julianne monsalve [facility] Start: 07-06-2021 End: 07-06-2021 ambulatory Julianne Lety Other [facility] Other Start: 03-17-2019 End: 03-18-2019 Patient encounter procedure CLARICE Nicole [facility] Facility: Procedures Date Procedure Procedure Detail Performing Clinician Start: 12-28-2024 Urnls dip stick/tabl et rgnt non-auto w/o micrscp Pal Kylee DO Work Phone: Start: 12-21-2024 Urnls dip stick/tabl et rgnt non-auto w/o micrscp Jesu Panda NP Work Phone: Start: 12-13-2024 Urnls dip stick/tabl et rgnt non-auto w/o micrscp Pal Kylee DO Work Phone: Start: 12-07-2024 Urnls dip stick/tabl et rgnt non-auto w/o micrscp Pal Kylee DO Work Phone: Start: 12-07-2024 STREP GP B CULTURE+RFLX Pal Kylee DO Work Phone: Start: 11-24-2024 Urnls dip stick/tabl et rgnt non-auto w/o micrscp Carin VILLAGOMEZ Work Phone: Start: 10-26-2024 Urnls dip stick/tabl et rgnt non-auto w/o micrscp Pal Kylee DO Work Phone: Start: 10-12-2024 Urnls dip stick/tabl et rgnt non-auto w/o micrscp Carin VILLAGOMEZ Work Phone: Start: 10-01-2024 ALL CBC WITH AUTO DIFF Pal Kylee DO Work Phone: Start: 09-23-2024 US OB INCOMPLETE ANATOMY Pal Kylee DO Work Phone: Start: 08-29-2024 Urnls dip stick/tabl et rgnt non-auto w/o micrscp Carin Garcia PA Work Phone: Start: 08-25-2024 AFP, SERUM, OPEN SPI NA BIFIDA Pal Kylee DO Work Phone: Start: 07-27-2024 RECURRENT VAGINITIS (HTRX) Pal Kylee DO Work Phone: Start: 07-27-2024 Urnls dip stick/tabl et rgnt non-auto w/o micrscp Pal Kylee DO Work Phone: Start: 07-27-2024 IGP,APTIMA HPV,AGE GDLN Pal Kylee DO Work Phone: Start: 06-27-2024 Urnls dip stick/tabl et rgnt non-auto w/o micrscp Pal Kylee DO Work Phone: Start: 06-08-2024 BOX TEST Pal Fazi o DO Work Phone: Start: 05-27-2024 [...] malign ant neoplasm of cervix Pap Smear [facility] Start: 01-03-2025 End: 01-03-2025 Patient encounter procedure 01/03/2025 8:40 AM EDT Routine [facility] [address] [place] [phone] Pal Pichardo, [address] [place], [place] [address] [address] [facility] Start: 12-28-2024 End: 12-28-2024 Patient encounter procedure [facility] Comment on above: Arrived Start: 12-21-2024 End: 12-21-2024 Patient encounter procedure [facility] Comment on above: Arrived Start: 12-13-2024 End: 12-13-2024 Patient encounter procedure [facility] Comment on above: Arrived Start: 12-07-2024 End: 12-07-2024 Patient encounter procedure 12/07/2024 3:30 PM EDT Routine [facility] [address] [place] [phone] Pal Pichardo, [address] [place] [address] [place] [address] Arrived [facility] Comment on above: Arrived Start: 12-07-2024 End: 12-07-2025 CULTURE, GROUP B STREP WITH SUSCEPTIBLITY CULTURE, GROUP B STREP WITH SUSCEPTIBLITY Lab Routine Third trimester Expected: 12/07/2024, Expires: 12/07/2025 [facility] Work Phone: Comment on above: Expected: 12/07/2024 , Expires: 12/07/2025 Start: 11-09-2024 End: 11-09-2024 Patient encounter procedure 11/09/2024 3:20 PM EDT Routine [facility] [address] [place] [phone] Carin Garcia PA [address] [place] [address] [facility] Start: 10-26-2024 End: 10-26-2024 Patient encounter procedure 10/26/2024 2:40 PM EST Routine [facility] [address] [place] [phone] Pal Pichardo DO [address] [place] [address] [facility] Start: 10-26-2024 End: 10-26-2024 Professional / ancillary services management 10/26/2024 2:00 PM EST Ancillary Procedure [facility] [address] [place] [phone] [facility] Start: 10-13-2024 Adult BMI Screening Adult BMI Screen ing [facility] Start: 10-13-2024 Tobacco Screening Tobacco Screening [facility] Start: 10-12-2024 End: 10-12-2024 Patient encounter procedure [facility] Comment on above: Arrived Start: 10-12-2024 End: 10-12-2025 US for US OB follow up transabdominal approach Imaging Routine Excessive growth affecting management of in third trimester, single or unspecified fetus Expected: 10/12/2024 (Approximate), Expires: 10/12/2025 [facility] Work Phone: Comment on above: Expected: 10/12/2024 (Approximate), Expires: 10/12/2025 Start: 09-28-2024 End: 09-28-2024 Patient encounter procedure [facility] Comment on above: Arrived Start: 09-28-2024 End: 09-28-2025 CBC panel - Blood by Automated count CBC Lab Routine Diabetes mellitus screening Expected: 09/28/2024 (Approximate), Expires: 09/28/2025 [facility] Work Phone: Comment on above: Expected: 09/28/2024 (Approximate), Expires: 09/28/2025 Start: 09-28-2024 End: 09-28-2025 Measurement of glucose 1 hour after glucose challenge for glucose tolerance test Glucose tolerance, 1 hour Lab Routine Diabetes mellitus screening Expected: 09/28/2024 (Approximate), Expires: 09/28/2025 [facility] Comment on above: Expected: 09/28/2024 (Approximate), Expires: 09/28/2025 Start: 09-08-2024 Adult BMI Screening Adult BMI Screen ing [facility] Start: 09-08-2024 Screening for Chlamy hernesto trachomatis Chlamydia Screening [facility] Start: 09-08-2024 Tobacco Screening Tobacco Screening [facility] Start: 08-29-2024 End: 08-29-2024 Patient [...] Start: 06-24-2024 Depression Screening Depression Scre ening [facility] Start: 06-01-2024 Adult BMI Follow Up Plan Adult BMI F ollow Up Plan [facility] Start: 05-27-2024 End: 05-27-2025 ABO/Rh ABO/Rh Lab Routine Missed menses , unspecified gestational age Expected: 05/27/2024 (Approximate), Expires: 05/27/2025 [facility] Comment on above: Expected: 05/27/2024 (Approximate), Expires: 05/27/2025 Start: 05-27-2024 End: 05-27-2025 Blood type and Indirect antibody screen panel - Blood Type and screen Lab Routine Missed menses , unspecified gestational age Expected: 05/27/2024 (Approximate), Expires: 05/27/2025 [facility] Work Phone: Comment on above: Expected: 05/27/2024 (Approximate), Expires: 05/27/2025 Start: 05-27-2024 End: 05-27-2025 Drugs of abuse panel - Urine by Screen method Rapid drug screen, urine Lab Routine , unspecified gestational age Encounter for supervision of normal first in first trimester Expected: 05/27/2024 (Approximate), Expires: 05/27/2025 [facility] Comment on above: Expected: 05/27/2024 (Approximate), Expires: 05/27/2025 Start: 05-27-2024 End: 05-27-2025 US Pelvis transvaginal US OB transvaginal Imaging Routine Missed menses Expected: 05/27/2024 (Approximate), Expires: 05/27/2025 [facility] Comment on above: Expected: 05/27/2024 (Approximate), Expires: 05/27/2025 Start: 11-26-2023 DTaP,Tdap and Td Vac cines (7 - Td or Tdap) DTaP,Tdap and Td Vaccines (7 - Td or Tdap) [facility] Start: 10-13-2023 End: 10-13-2024 US Retroperitoneum Ultrasound retroperitoneal complete Imaging Routine Left sided abdominal pain Flank pain Renal lithiasis Calcium oxalate crystals in urine Expected: 10/13/2023, Expires: 10/13/2024 [facility] Work Phone: Comment on above: Expected: 10/13/2023 , Expires: 10/13/2024 Start: 10-06-2023 End: 10-06-2023 Patient encounter procedure 10/06/2023 2:00 PM EST Office Visit [facility] [address] [place] [address] Danielle Lange DO [address] [place], [place] [id number] [facility]necolo gy Start: 09-14-2023 End: 09-14-2023 Patient encounter procedure 09/14/2023 2:00 PM EST Appointment [facility] - Ultrasound [address] [place] [address] [facility] - Ultrasound Start: 09-08-2023 End: 09-08-2024 Bacteria identified in Urine by Culture [facility] Work Phone: Comment on above: Expected: 09/08/2023 (Approximate), Expires: 09/08/2024 Start: 09-08-2023 End: 09-08-2024 US Pelvis transabdominal and transvaginal Ultrasound pelvic with transvaginal Imaging Routine Left sided abdominal pain Expected: 09/08/2023, Expires: 09/08/2024 [facility] Comment on above: Expected: 09/08/2023 , Expires: 09/08/2024 Start: 09-08-2023 End: 09-08-2024 Vaginitis Panel PCR [facility] Comment on above: Expected: 09/08/2023 (Approximate), Expires: 09/08/2024 Start: 06-18-2023 Screening for Chlamy hernesto trachomatis Chlamydia Screening [facility] Start: 04-24-2023 Influenza vaccination Influenza Vacc ine [facility] Bacteria identified in Urine by Culture Urine culture Microbiology Routine Missed menses Ordered: 05/27/2024 [facility] Comment on above: Ordered: 05/27/2024 Bacteria identified in Urine by Culture Urine culture Microbiology Routine Urinary tract infection without hematuria, site unspecified Ordered: 10/12/2024 [facility] Comment on above: Ordered: 10/12/2024 CBC W Auto Different ial panel - Blood CBC and differential Lab Routine Missed menses , unspecified gestational age Ordered: 05/27/2024 [facility] Comment on above: Ordered: 05/27/2024 CHLAMYDIA TRACHOMATI S (GENITO/STI) CHLAMYDIA TRACHOMATIS (GENITO/STI) Lab Routine STD exposure Ordered: 07/27/2024 [facility] Comment on above: Ordered: 07/27/2024 End: 09-08-2024 Chlamydia/GC by PCR [facility] Chlamydia/GC by PCR [facility] Microbiology Routine Left sided abdominal pain 1 Occurrences starting 09/08/2023 until 09/08/2024 [facility] Comment on above: 1 Occurrences starti ng 09/08/2023 until 09/08/2024 Chlamydia/GC by PCR [facility] Chlamydia/GC by PCR [facility] Microbiology Routine Left sided abdominal pain 09/08/2023 7:35 PM EST [facility] Cytology Cervical or vaginal smear or scraping study Pap Smear Pathology and Cytology Routine Well woman exam with routine gynecological exam Ordered: 07/27/2024 [facility] Comment on above: Ordered: 07/27/2024 Hemoglobin A1c/Hemoglobin.total in Blood Hemoglobin A1c Lab Routine Missed menses , unspecified gestational age Ordered: 05/27/2024 [facility] Comment on above: Ordered: 05/27/2024 Hepatitis B virus clarke rface Ag [Presence] in Serum or Plasma by Immunoassay Hepatitis B surface antigen Lab Routine Missed menses , unspecified gestational age Ordered: 05/27/2024 [facility] Comment on above: Ordered: 05/27/2024 Hepatitis C virus Ab [Presence] in Serum or Plasma by Immunoassay Hepatitis C antibody Lab Routine Missed menses , unspecified gestational age Ordered: 05/27/2024 [facility] Comment on above: Ordered: 05/27/2024 HIV-1/HIV-2 antigen/antibody combination immunoassay HIV-1 and HIV-2 antibodies Lab Routine Missed menses , unspecified gestational age Ordered: 05/27/2024 [facility] Comment on above: Ordered: 05/27/2024 Neisseria gonorrhoea e DNA [Presence] in Unspecified specimen by MARIA M with probe detection Neisseria gonorrhea DNA probe, direct Lab Routine STD exposure Ordered: 07/27/2024 [facility] Comment on above: Ordered: 07/27/2024 Reagin Ab [Presence] in Serum by RPR RPR Lab Routine Missed menses , unspecified gestational age Ordered: 05/27/2024 [facility] Comment on above: Ordered: 05/27/2024 Rubella antibody, IgG Rubella an tibody, IgG Lab Routine Missed menses , unspecified gestational age Ordered: 05/27/2024 [facility] Comment on above: Ordered: 05/27/2024 SURESWAB(R) ADVANCED VAGINITIS PLUS, TMA SURESWAB(R) ADVANCED VAGINITIS PLUS, TMA Pathology and Cytology Routine Vaginal discharge STD exposure Ordered: 07/27/2024 [facility] Work Phone: Comment on above: Ordered: 07/27/2024 Immunizations Immunization Date Immunization Notes Care Provider Ton king 06-28-2009 influenza virus vaccine, unspecified formulation Danielle Lange DO [facility] Payers Date Payer Category Payer Managed Care HMO (unspecified) [id number] 2024 Private Health Insurance [id number] 2019 Private Health Insurance [id number] 2019 Private Health Insurance [facility] CHOICE PLUS [id number] 2019-Present [phone] [address] [address] [place] [address] [id number] 2001 Unknown [id number] 2.16.840.1.785048.3.579.2. 1285 2001 Unknown [id number] 2.16.840.1.070851.3.579.2. 1286 2001 Unknown [id number] 2.16.840.1.303441.3.579.2. 128 2001 Unknown [id number] 2.16.840.1.643392.3.579.2. 1286 2001 Unknown [id number] 2.16.840.1.794836.3.579.2. 128 2001 Unknown [id number] 2.16.840.1.846215.3.579.2. 1259 2001 Unknown [id number] 2.16.840.1.184302.3.579.2. 1259 2001 Unknown [id number] 2.16.840.1.739054.3.579.2. 9 2001 Unknown [id number] 2.16.840.1.972307.3.579.2. 1258 2001 Unknown [id number] 2.16.840.1.890347.3.579.2. 9 2001 Unknown [id number] 2.16.840.1.410422.3.579.2. 1258 2001 Unknown [id number] 2.16.840.1.141207.3.579.2. 1258 2001 Unknown [id number] 2.16.840.1.933021.3.579.2. 1258 2001 Unknown [id number] 2.16.840.1.080613.3.579.2. 1258 2001 Unknown [id number] 2.16.840.1.111731.3.579.2. 1258 2001 Unknown [id number] 2.16.840.1.134185.3.579.2. 1258 2001 Unknown [id number] 2.16.840.1.379438.3.579.2. 1258 2001 Unknown [id number] 2.16.840.1.189080.3.579.2. 1258 2001 Unknown [id number] 2.16.840.1.311273.3.579.2. 1258 2001 Unknown [id number] 2.16.840.1.684628.3.579.2. 1259 1976 Unknown [id number] 2.16.840.1.028833.3.579.2. 593 1959 Unknown [id number] Social History Date Type Detail Facility Sex Assigned At [employer] [facility] Start: 10-04-2020 End: 05-27-2024 [facility] Start: 06-18-2022 End: 05-27-2024 Tobacco smoking status NHIS Never smoked tobacco [facility] Start: 06-18-2022 End: 05-27-2024 Tobacco use and exposure Smokeless tobacco non-user [facility] Start: 05-27-2024 End: 12-21-2024 Alcoholic beverage intake Lifetime non-drinker (finding) [facility] Start: 10-04-2020 End: 05-27-2024 History of Social function [facility] Start: 04-13-2024 [facility] Start: 2001 Sex assigned at Female [facility] Start: 12-29-2023 Gender identity Identifies as female gender (finding) [facility] Start: 09-08-2023 End: 10-13-2023 Alcohol intake Current non-drinker of alcohol (finding) [facility] Frequency of Alcohol Consumption Never [facility] Start: 2001 Sex Assigned At Not on file [facility] Clinical Notes 04-02-2022 to 12-28-2024 Whitley Sanchez LPN - 12/28/2024 3:00 PM Benjy Panda NP - 12/21/2024 3:20 PM Valentino Sanchez LPN - 12/13/2024 2:20 PM Valentino Sanchez, BALBIR - 12/07/2024 3:30 PM EDT Note Date & Type Note Facility 12-28-2024 History of Present illness Narrative Reason for [...] nursing note reviewed. Exam conducted with a entry level marketing assistant present. Vitals: Estimated body mass index is 27.6 kg/m as calculated from the following: Height as of 09/20/18: 5' 5.5 . Weight as of 09/20/18: 168 lb 6.4 oz. BP: 130/70 Patient's last menstrual period was 03/30/2024. ASSESSMENT & PLAN ICD-10-CM 1. Third trimester Z34.93 POCT urinalysis dipstick manually resulted 2. 39 weeks gestation of Z3A.39 Return OB: Patient presents today for a routine obstetrics appointment. Patient is currently 39w0d . Patient states she is doing well but has complaints of being tired due to current . Patient has verbalizes frequent movement. labor precautions was discussed/given and patient was instructed to perform kick counts three times a day. Pt to be set up for induction 01/01/25 at 1830 with cytote. Will call to inform about induction- if pt declines induction will order NST/BPP for postdates. Orders Placed This Encounter Procedures POCT urinalysis dipstick manually resulted Follow Up: Patient is to return to office in 1 week for routine OB appointment. Documented by Whitley Sanchez LPN on behalf of: Pal Pichardo DO documented in this encounter [facility] 12-21-2024 History of Present illness Narrative Reason for [...] nursing note reviewed. Exam conducted with a entry level marketing assistant present. Vitals: Estimated body mass index is 27.6 kg/m as calculated from the following: Height as of 09/20/18: 5' 5.5 . Weight as of 09/20/18: 168 lb 6.4 oz. BP: 110/76 Patient's last menstrual period was 03/30/2024. ASSESSMENT & PLAN ICD-10-CM 1. 38 weeks gestation of Z3A.38 POCT urinalysis dipstick manually resulted 2. Third trimester Z34.93 POCT urinalysis dipstick manually resulted Return OB: Patient presents today for a routine obstetrics appointment. Patient is currently 38w0d . Patient states she is doing well but has complaints of being tired due to current . Patient has verbalizes frequent movement. labor precautions was discussed/given and patient was instructed to perform kick counts three times a day. Orders Placed This Encounter Procedures POCT urinalysis dipstick manually resulted Follow Up: Patient is to return to office in 1 week for routine OB appointment. Documented by Jesu Panda NP on behalf of: Jesu Panda NP documented in this encounter [facility] 12-13-2024 History of Present illness Narrative Reason for Appointment: Patient ID: Marisela Randall is a 24 y.o. female who presents for Routine Visit Patient presents today for Return OB appointment. MEDICATIONS Current Outpatient Medications Medication Instructions pantoprazole (PROTONIX) 40 mg, Oral, Daily before breakfast, Do not crush, chew, or split. terconazole (Terazol 7) 0.4 % vaginal cream 1 applicator, Vaginal, Nightly ALLERGIES Allergies Allergen Reactions Ondansetron Other Reaction(s): [...] Grandfather Solomon smith Breast cancer Maternal Grandmother iMkaela smith SURGICAL HISTORY No past surgical history [...] nursing note reviewed. Exam conducted with a entry level marketing assistant present. Vitals: Estimated body mass index is 27.6 kg/m as calculated from the following: Height as of 09/20/18: 5' 5.5 . Weight as of 09/20/18: 168 lb 6.4 oz. BP: 120/70 Patient's last menstrual period was 03/30/2024. ASSESSMENT & PLAN ICD-10-CM 1. Third trimester Z34.93 POCT urinalysis dipstick manually resulted 2. 36 weeks gestation of Z3A.36 Return OB: Patient presents today for a routine obstetrics appointment. Patient is currently 36w6d . Patient states she is doing well but has complaints of being tired due to current . Patient has verbalizes frequent movement. labor precautions was discussed/given and patient was instructed to perform kick counts three times a day. Orders Placed This Encounter Procedures POCT urinalysis dipstick manually resulted Follow Up: Patient is to return to office in 1 week for routine OB appointment. Documented by Whitley Sanchez LPN on behalf of: Pal Pichardo D.O. documented in this encounter [facility] 12-07-2024 History of Present illness Narrative Reason [...] nursing note reviewed. Exam conducted with a entry level marketing assistant present. Vitals: Estimated body mass index is [...] by Whitley Sanchez LPN on behalf of: Pal Pichardo DO documented in this encounter [facility] 11-24-2024 History of Present illness Narrative Reason [...] of: HERNANDO Magallanes documented in this encounter [facility] 10-26-2024 History of Present illness Narrative Reason [...] nursing note reviewed. Exam conducted with a entry level marketing assistant present. Vitals: Estimated body mass index is [...] by Whitley Sanchez LPN on behalf of: Pal Pichardo DO documented in this encounter [facility] 10-12-2024 History of Present illness Narrative Reason [...] of: HERNANDO Magallanes documented in this encounter [facility] 09-28-2024 History of Present illness Narrative Reason [...] nursing note reviewed. Exam conducted with a entry level marketing assistant present. Vitals: Estimated body mass index is [...] by Whitley Sanchez LPN on behalf of: Pal Pichardo DO documented in this encounter [facility] 08-29-2024 History of Present illness Narrative Reason [...] of: HERNANDO Magallanes documented in this encounter [facility] 07-27-2024 History of Present illness Narrative Reason for Appointment: Patient ID: Marisela Randlal is a 24 y.o. female who presents [...] nursing note reviewed. Exam conducted with a entry level marketing assistant present. Vitals: Estimated body mass index is [...] by Whitley Sanchez LPN on behalf of: Pal Pichardo DO documented in this encounter [facility] 06-27-2024 History of Present illness Narrative [...] by Laila Allred LPN on behalf of: Pal Pichardo DO documented in this encounter [facility] 05-27-2024 History of Present illness Narrative [...] or undercooked meat, and stay away from [facility]. Patient has also been advised to [...] by: Linda Barone documented in this encounter [facility] 10-29-2023 History of Present illness Narrative Ordered new [employer] referral documented in this encounter [facility] 10-13-2023 History of Present illness [...] past. She states she has seen a sales team leader, but was only counseled to not drink [...] PM Imaging Ultrasound pelvic with transvaginal (Order: [id number]) - 09/14/2023 Result History Ultrasound pelvic with transvaginal (Order #[id number]) on 09/15/2023 - Order Result History Report [...] to nephrology placed. documented in this encounter [facility] 09-08-2023 History of Present illness Narrative Subjective [...] alleviate her symptoms [facility] 04-02-2022 Evaluation note Encounter Date Diagnosis Assessment Notes Mar, Viral pharyngitis (ICD-10 - J02.9) Pharyngitis/to nsillopharyngi tis: adult home care material was printed Drink plenty fluids, get plenty of rest. Take Tylenol or Motrin for aches pains or fevers. Continue your cephalexin as prescribed until gone. Follow-up with your family physician if no improvement in 2 to 3 days. [place] [employer] Other Evaluation noteNort [employer] Other Evaluation note* Diagnosis Missed menses , unspecified gestational age Encounter for supervision of normal first in first trimester documented in this encounter [facility]* Diagnosis First trimester state, incidental 12 weeks gestation of Nausea Nausea alone Viral upper respiratory tract infection Acute upper respiratory infections of unspecified site documented in this encounter [facility]* Diagnosis Well woman exam with routine gynecological exam Routine gynecological examination Second trimester state, incidental 16 weeks gestation of Screening, , for anatomic survey Encounter for anatomic survey Vaginal discharge Leukorrhea, not specified as infective STD exposure [facility]* Diagnosis Second trimester state, incidental 21 weeks gestation of documented in this encounter [facility]* Diagnosis Dyspareunia in female- Primary Left sided abdominal pain Abdominal pain, unspecified site [place] [facility] Diagnosis Second trimester state, incidental 26 weeks gestation of Diabetes mellitus screening Screening for diabetes mellitus documented in this encounter [facility]* Diagnosis Renal lithiasis- Primary Calculus of kidney Left sided abdominal pain Abdominal pain, unspecified site Flank pain Abdominal pain, unspecified site Calcium oxalate crystals in urine [facility]* Diagnosis Renal lithiasis- Primary Calculus of kidney Calcium oxalate crystals in urine Flank pain Abdominal pain, unspecified site Left sided abdominal pain Abdominal pain, unspecified site [facility] Diagnosis Third trimester state, incidental 28 weeks gestation of Excessive growth affecting management of in third trimester, single or unspecified fetus Urinary tract infection without hematuria, site unspecified Low back pain, unspecified back pain laterality, unspecified chronicity, unspecified whether sciatica present documented in this encounter [facility]* Diagnosis Third trimester state, incidental 30 weeks gestation of Gastroesophageal reflux in documented in this encounter [facility]* Diagnosis 34 weeks gestation of Third trimester state, incidental documented in this encounter [facility]* Diagnosis Third trimester state, incidental 36 weeks gestation of documented in this encounter [facility]* Diagnosis Third trimester state, incidental 36 weeks gestation of documented in this encounter [facility]* Diagnosis 38 weeks gestation of Third trimester state, incidental documented in this encounter [facility]* Diagnosis Third trimester state, incidental 39 weeks gestation of [facility] N[facility] - ReportedNortWashington [facility] [employer] Other History general Narrative - Reported* Type Description Date Medical History chronic depression [facility] [employer] Other Instructions* Attachments The following attachments cannot be sent through Care Everywhere. * Painful Ovulation (Sinhala) [facility]* Attachments The following attachments cannot be sent through Care Everywhere. * Kidney stones in adults (Sinhala) documented in [facility] Hospital[facility]ructionsNot on file documented in this encounterProSt. Vincent HospitalReason for referral (narrative)* Consultation (Routine) - Pending Review Specialty Diagnoses / Procedures Referred By Contac t Referred To Contact Nephrology Diagnoses Left sided abdominal pain Flank pain Renal lithiasis Calcium oxalate crystals in urine Danielle Lange DO [address] [place] [id number] Yannick Villagomez MD [address] [place] [address] Referral ID Status Reason Start Date Expiration Date Visits Requested Visits Authorized [id number] Pending Review Specialty Services Required 10/13/2023 10/12/2024 1 1 [facility] (narrative)* Consultation (Routine) - Pending Review Specialty Diagnoses / Procedures Referred By Contac t Referred To Contact Nephrology Diagnoses Renal lithiasis Calcium oxalate crystals in urine Flank pain Left sided abdominal pain Danielle Lange DO [address] [place] [address] Hussein Card MD [address] [place] [address] [place] [address] Referral ID Status Reason Start Date Expiration Date Visits Requested Visits Authorized [id number] Pending Review Specialty Services Required 10/29/2023 10/28/2024 1 1 [facility] [employer] Summary Purpose Family History No Family History [...] DATE CREATED AUTHOR AUTHOR'S ORGANIZ ATION 09/12/2023 [facility] DATE CREATED AUTHOR AUTHOR'S ORGANIZ ATION 10/21/2023 [facility] DATE CREATED AUTHOR AUTHOR'S ORGANIZ ATION 10/23/2023 [facility] DATE CREATED AUTHOR AUTHOR'S ORGANIZ ATION 11/04/2024 [facility] DATE CREATED AUTHOR AUTHOR'S ORGANIZ ATION 12/31/2024 [facility] dical Specialists EPIC REASON FOR VISIT (unrecogniz ed section and content) Reason Comments Initial Visit Reason Comments Routine Visit Reason Comments Well Women Visit Routine Visit STI Screening Reason Comments Abdominal Pain Left side started ab out 2 months agoPain the first day of cycle Reason Comments Follow-up Ultrasound results d /t pelvic pain Care Teams (unrecognized sec tion and content) [employer] Sales Engineer Relationship Specialty Start Date End Date Samir Stroud NP [address] [place] [address] Referring Physician Family Medicine 05/19/23 [employer] Sales Engineer Relationship Specialty Start Date End Date Samir Stroud NP [address] [place] [address] Referring Physician Family Medicine 05/19/23 [employer] Sales Engineer Relationship Specialty Start Date End Date Samir Stroud NP [address] [place] [address] Referring Physician Family Medicine 05/19/23 [employer] Sales Engineer Relationship Specialty Start Date End Date Samir Stroud NP [address] [place] [address] Referring Physician Family Medicine 05/19/23 [employer] Sales Engineer Relationship Specialty Start Date End Date Samir Stroud NP [address] [place] [address] Referring Physician Family Medicine 05/19/23 [employer] Sales Engineer Relationship Specialty Start Date End Date Samir Stroud NP [address] [place] [address] Referring Physician Family Medicine 05/19/23 [employer] Sales Engineer Relationship Specialty Start Date End Date Samir Stroud NP [address] [place] [address] Referring Physician Family Medicine 05/19/23 [employer] Sales Engineer Relationship Specialty Start Date End Date Samir Stroud NP [address] [place] [address] Referring Physician Family Medicine 05/19/23 [employer] Sales Engineer Relationship Specialty Start Date End Date Samir Stroud NP [address] [place] [address] Referring Physician Family Medicine 05/19/23 [employer] Sales Engineer Relationship Specialty Start Date End Date Samir Stroud APRN-ASSET MANAGER [address] [place] [address] PCP - General Family Medicine 12/28/22 [employer] Sales Engineer Relationship Specialty Start Date End Date Samir Stroud NP [address] [place] [address] Referring Physician Family Medicine 05/19/23 [employer] Sales Engineer Relationship Specialty Start Date End Date Samir Stroud APRN-ASSET MANAGER [address] [place] [address] PCP - General Family Medicine 12/28/22 [employer] Sales Engineer Relationship Specialty Start Date End Date Samir Stroud, FIFTH HAND-ASSET MANAGER [address] [place] [address] PCP - General Family Medicine 12/28/22 [employer] Sales Engineer Relationship Specialty Start Date End Date Samir Stroud NP [address] [place] [address] Referring Physician Family [facility] 05/19/23 [employer] Sales Engineer Relationship Specialty Start Date End Date Samir Stroud NP [address] [place] [address] Referring Physician Family Medicine 05/19/23 [employer] Sales Engineer Relationship Specialty Start Date End Date Samir Stroud NP Referring Physician Family Medicine 05/19/23 [employer] Sales Engineer Relationship Specialty Start Date End Date Samir tSroud NP Referring Physician Family Medicine 05/19/23 [employer] Sales Engineer Relationship Specialty Start Date End Date Samir Stroud NP Referring Physician Family Medicine 05/19/23 [employer] Sales Engineer Relationship Specialty Start Date End Date Samir Stroud NP Referring Physician Family Medicine 05/19/23 [employer] Sales Engineer Relationship Specialty Start Date End Date Samir [...] BE BASED ON THE PRIMARY CLINICAL RECORDS. [facility] [employer] [facility]. provides no warranty or guarantee of the accuracy or completeness of information in this document.
[2025-01-01] MEDS: 0.9 % SODIUM CHLORIDE 1,000 ML 125 ML IV ×3 (04:45→19:41)
[2025-01-01 04:47] LABS: Bilirubin Urine NEGATIVE (NEGATIVE); Blood Urine LARGE (NEGATIVE); Clarity Urine CLEAR (CLEAR); Color Urine LT. YELLOW (YELLOW); Glucose Urine UA NEGATIVE (NEGATIVE); Ketones Urine NEGATIVE (NEGATIVE); Leukocyte Esterase Urine SMALL (NEGATIVE); Nitrite Urine NEGATIVE (NEGATIVE); Protein Urine NEGATIVE (NEG/TRACE); Urine Microscopic Indicated YES; Urobilinogen Urine 0.2 EU/dL (0.2-1.0); pH Urine 6.5 (5.0-9.0)
[2025-01-01 04:54] LABS: Amorphous Sediment Urine RARE; Bacteria Urine SMALL #/HPF (NONE SEEN); Cast Seen? NONE SEEN #/LPF (NONE SEEN); Crystals Seen? Seen #/HPF (None Seen); Mucus Urine TRACE (NONE SEEN); Squamous Epithelial Cell Urine MODERATE #/LPF (NONE/RARE); Urine Culture Indicated YES-LC
[2025-01-01 05:36] LABS: Hematocrit 28.5 % (36.0-48.0); Hemoglobin 9.4 g/dL (12.0-16.0); Mean Corpuscular Hemoglobin 27.7 pg (26.7-34.0); Mean Corpuscular Volume 84.1 fL (81.0-99.0); Mean Platelet Volume 10.8 fL (9.5-13.5); Platelet Count 345 10^3/uL (150-450); Red Blood Count 3.39 10^6/uL (4.20-5.40); Red Cell Distribution Width 13.6 % (11.0-15.0); White Blood Count 10.4 10^3/uL (4.0-11.0)
[2025-01-01 05:46] LABS: Cannabinoid Screen Urine NEGATIVE (NEGATIVE)
[2025-01-01 05:47] LABS: Amphetamine Screen Urine NEGATIVE (NEGATIVE); Barbiturates Screen Urine NEGATIVE (NEGATIVE); Benzodiazepines Screen Urine NEGATIVE (NEGATIVE); Buprenorphine Screen Urine NEGATIVE (NEGATIVE); Cocaine Screen Urine NEGATIVE (NEGATIVE); Methadone Screen Urine NEGATIVE (NEGATIVE); Methamphetamines Screen Urine NEGATIVE (NEGATIVE); Opiate Screen Urine NEGATIVE (NEGATIVE); Oxycodone Screen Urine NEGATIVE (NEGATIVE); Phencyclidine Screen Urine NEGATIVE (NEGATIVE); Tricyclic Antidepressant Urine NEGATIVE (NEGATIVE)
[2025-01-01] MEDS: 0.9 % SODIUM CHLORIDE 1,000 ML 1000 ML IV (10:39)
[2025-01-01] MEDS: ROPIVACAINE HCL/PF 400 MG/200 ML PREMIX 6 MG EPIDURAL (11:36)
[2025-01-02] VITALS (11 sets, daily range): BP systolic 121–143; BP diastolic 67–85; PULSE 77–96; TEMP 36.2–37.2
[2025-01-02] MEDS: LIDOCAINE HCL 1% 200 MG/20 ML MDV INJ (01:43)
[2025-01-02] MEDS: OXYTOCIN/0.9 % SODIUM CHLORIDE 20 UNITS/1,000 ML PLAST..BAG 125 UNIT IV (01:50)
--- NOTE | 2025-01-02 02:03 | PM.OBPRCVD ---
Procedure Intrapartal events: None Induction method: none Delivery augmentation: rupture of membranes Delivery monitor: external FHT and external uterine Route of delivery: Episiotomy Description: midline L&D Laceration Description: perineal - 2nd degree Delivery repair: Vicryl Estimated blood loss (mL): 275 Anesthesia type: Epidural Disposition: floor Delivery date: 01/02/25 Gender: female presentation: vertex Placental delivery description: Spontaneous cord description: 3 Vessels
[2025-01-02] MEDS: GLYCERIN/WITCH HAZEL PADS 1 PAD TOPICAL (02:40)
[2025-01-02] MEDS: IBUPROFEN 600 MG TABLET PO ×4 (02:41→22:09)
[2025-01-02] MEDS: BENZOCAINE/MENTHOL 85 GRAM SPRAY BOTTLE 1 APPLIC TOPICAL (02:41)
[2025-01-02] MEDS: ACETAMINOPHEN 325 MG TABLET 650 MG PO ×2 (10:54→16:42)
[2025-01-03 00:02] VITALS: BP 120/77; PULSE 94
[2025-01-03] MEDS: RHO(D) IMMUNE GLOBULIN 1,500 UNIT SYRINGE 1500 UNIT IV (00:26)
[2025-01-03] MEDS: ACETAMINOPHEN 325 MG TABLET 650 MG PO (00:27)
[2025-01-03 06:53] LABS: Basophils Absolute Auto 0.1 10^3/uL (0.0-0.1); Basophils Percent Auto 0.4 % (0.2-2.0); Eosinophils Absolute Auto 0.1 10^3/uL (0.0-0.7); Eosinophils Percent Auto 0.8 % (0.9-7.0); Hemoglobin 7.3 g/dL (12.0-16.0); Immature Granulocytes Abs Auto 0.16 10^3/uL (0.00-0.03); Immature Granulocytes Pct Auto 1.2 % (0.0-0.5); Lymphocytes Absolute Auto 2.4 10^3/uL (1.2-3.8); Lymphocytes Percent Auto 17.2 % (20.5-60.0); Mean Corpuscular HGB Conc 31.2 g/dL (29.9-35.2); Mean Corpuscular Hemoglobin 26.9 pg (26.7-34.0); Mean Corpuscular Volume 86.3 fL (81.0-99.0); Mean Platelet Volume 10.2 fL (9.5-13.5); Monocytes Absolute Auto 0.9 10^3/uL (0.3-0.8); Monocytes Percent Auto 6.2 % (1.7-12.0); Neutrophils Absolute Auto 10.3 10^3/uL (1.4-6.5); Neutrophils Percent Auto 74.2 % (43.0-75.0); Platelet Count 254 10^3/uL (150-450); Red Blood Count 2.71 10^6/uL (4.20-5.40); Red Cell Distribution Width 14.1 % (11.0-15.0); White Blood Count 13.9 10^3/uL (4.0-11.0)
[2025-01-03 06:55] LABS: Hematocrit 23.4 % (36.0-48.0)
--- NOTE | 2025-01-03 07:40 | PM.OBPN ---
OB - PN: Subj Subjective Patient comments: no complaints and pain well controlled [place] status: doing well Exam Constitutional Vital Signs, click to edit/add: Last Vital Signs Temp 98.4 F 01/02/25 12:00 Pulse 94 H 01/03/25 00:02 Resp 18 01/03/25 00:02 BP 120/77 01/03/25 00:02 O2 Del Method Room Air 01/03/25 00:02 Documenting provider has reviewed patient's vital signs: yes Common normals: no apparent distress Respiratory Common normals: normal respiratory effort and clear to auscultation bilaterally Cardio Common normals: regular rate and regular rhythm GI Common normals: Normal to inspection, nondistended, normoactive bowel sounds present Extremity Common normals: no clubbing, cyanosis or edema and no calf tenderness Results Labs Labs: Short CBC 01/03/25 Range/Units 06:40 WBC 13.9 H (4.0-11.0) 10^3/uL Hgb 7.3 L (12.0-16.0) g/dL Hct 23.4 L* (36.0-48.0) % Plt Count 254 (150-450) 10^3/uL OB - PN: A/P Plan - Vaginal Delivery day: 1 Plan: routine care, discharge home and follow up 6 weeks Time Spent with Patient Time: Total time spent is greater than 50% in coordination of care (as documented) at patient's floor/unit and/or counseling patient: Total time spent with greater than 50% in coordination of care (as documented) at patient's floor/unit and/or counseling patient: less than 15 minutes
[2025-01-03] MEDS: DOCUSATE SODIUM 100 MG CAPSULE PO (09:08)
[2025-01-03] MEDS: IBUPROFEN 600 MG TABLET PO (09:08)
[2025-01-03 09:10] VITALS: TEMP 36.6
[2025-01-03 09:11] VITALS: BP 132/84; PULSE 96
[2025-01-03] MEDS: ACETAMINOPHEN 300 MG/ 30 MG CODEINE TABLET 1 TAB PO (13:17)
[2025-01-03] MEDS: BENZOCAINE/MENTHOL 85 GRAM SPRAY BOTTLE 1 APPLIC TOPICAL (13:43)
== END 2025-01-03 13:45 | disposition home or self-care (01) | DRG 807 ==
PROVIDERS: Admitting Provider Obstetrics & Gynecology; PCP Nurse Practitioner Family; Visit Provider Obstetrics & Gynecology
DX: O70.1 Second degree perineal laceration during delivery (principal); Z37.0 Single live birth; Z3A.39 39 weeks gestation of pregnancy; Z88.2 Allergy status to sulfonamides; Z88.1 Allergy status to other antibiotic agents
CPT/HCPCS: 36415; 51702; 59025; 59050; 59410; 80307; 81001; 85025; 85027; 85461; 86850; 86900; 86901; 87086; J2791; J2795

== ENCOUNTER 2025-01-06 07:54 | Outpatient (OUT) | payer OTHER, MEDICAID, SELFPAY ==
--- OUTSIDE RECORDS SUMMARY | 2025-01-06 08:07 | XMS_ITS | CCD ---
Author Organization [facility] CliniSyil Care Team Providers Care Extension Supervisor Name Role Phone CLARICE MANZO Consulting Unavailable [...] Unavailable SCHLACHTER, SAMIR Primary Care Unavailable Schlachter INFORMATION AND DATA ARCHITECT ANALYST, Samir Unavailable Maximus CASING IN LINE FEEDER-AIRCRAFT DESIGN ENGINEER, Samir Primary Care Provide r Micheal Salas [...] source) Sulfonamides (Antibiotic) Drug allergy (disorder) [facility] Repository (2 sources) Sulfacetamide / Sulfur Drug Allergy Pryv Other (20 sources) Ondansetron; Translations: [ONDANSETRON] Drug [...] pantoprazole 40 mg delayed release oral tablet (19 sources) Proton Pump Inhibitor Start: 10-26-2024 End: [...] Test Name Value Interpretation Reference Range Facility ALL CBC WITH AUTO DIFFon BASOPHILS ABSOLUTE AUTO 0.1 [facility] Basophils/100 WBC (Bld) 0.4 % 0.2 - 2.0 % [facility] Eosinophils/100 WBC (Bld) 0.8 % Low 0.9 - 7.0 % [facility] Erythrocyte distribution width (RBC) [Ratio] 14.1 % 11.0 - 15.0 % [facility] Hematocrit (Bld) [Volume fraction] 23.4 % Critically low 36.0 - 48.0 % [facility] Comment on above: RESULTS CALLED TO SA RA EMMIE MITCHELL AT 0655 Hemoglobin (Bld) [Mass/Vol] 7.3 g/dL Low 12.0 - 16.0 g/dL [facility] IMMATURE GRANULOCYTES ABS AUTO 0.16 High [facility] Immature granulocytes/100 WBC (Bld) 1.2 % High 0.0 - 0.5 % [facility] Interpretation and review of laboratory results Abnormal [facility] LYMPHOCYTES ABSOLUTE AUTO 2.4 [facility] Lymphocytes/100 WBC (Bld) 17.2 % Low 20.5 - 60.0 % [facility] MCH (RBC) [Entitic mass] 26.9 pg 26.7 - 34.0 pg [facility] MCHC (RBC) [Mass/Vol] 31.2 g/dL 29.9 - 35.2 g/dL [facility] MCV (RBC) [Entitic vol] 86.3 fL 81.0 - 99.0 fL [facility] MONOCYTES ABSOLUTE AUTO 0.9 High [facility] Monocytes/100 WBC (Bld) 6.2 % 1.7 - 12.0 % [facility] NEUTROPHILS ABSOLUTE AUTO 10.3 High [facility] Neutrophils/100 WBC (Bld) 74.2 % 43.0 - 75.0 % [facility] Platelet mean volume (Bld) [Entitic vol] 10.2 fL 9.5 - 13.5 fL [facility] EO # 0.1 [facility] PLT 254 [facility] RBC 2.71 Low [facility] WBC 13.9 High [facility] UA (CLEAN/CATCH) ACCESS CONTROL OFFICER/LNIDA RO IF IND.on 01-01-2025 BILIRUBIN URINE Negative NEGATIVE [facility] BLOOD URINE LARGE Abnormal NEGATIVE [facility] re Clarity (U) CLEAR CLEAR [facility] re Color (U) LT. YELLOW YELLOW [facility] Health[facility] e GLUCOSE URINE UA Negative NEGATIVE mg/dL [facility] Interpretation and review of laboratory results Abnormal [facility] Ketones Ql (U) Negative NEGATIVE mg/dL [facility] Leukocyte esterase Test strip Ql (U) SMALL Abnormal NEGATIVE [facility] Health[facility] e NITRITE URINE Negative NEGATIVE [facility] care pH (U) 6.5 [pH] 5.0 - 9.0 [facility] PROTEIN URINE Negative NEG/TRACE mg/dL [facility] SPECIFIC GRAVITY URINE 1.010 1.005 - 1.025 [facility] URINE MICROSCOPIC INDICATED YES [facility] UROBILINOGEN URINE 0.2 EU/dL 0.2 - 1.0 EU/dL [facility] Urinalysis macro (dipstick) panel (U)on 12-28-2024 Bilirubin, UA Negative Negative - 4(70) +++ mg/dL [facility] Blood, UA Positive Negative - 50 Dipak/mcL [facility] Comment on above: Moderate Clarity, UA Clear [facility] Color, UA Yellow [facility] e Glucose, UA Negative Negative - 2000(110) ++++ mg/dL [facility] Interpretation and review of laboratory results Abnormal [facility] Healthcare Ketones, UA Negative Negative - 160(16) ++++ mg/dL [facility] Leukocytes, UA Trace Negative - 500+++ Jaswant/mcL [facility] Healthcare Nitrite, UA Negative Negative - Positive [facility] Healthcare pH, UA 7 5 - 9 [facility] Protein, UA Positive Negative - 1999(20) ++++ mg/dL [facility] Comment on above: 30mg/dL Spec Grav, UA 1.025 1 - 1.03 [facility] care Urobilinogen, UA 0.2 0.2 - 12 mg/dL [facility] Healthcar e Urinalysis macro (dipstick) panel (U)on 12-21-2024 Bilirubin, UA Negative Negative - 4(70) +++ mg/dL [facility] Blood, UA Positive Negative - 50 Dipak/mcL [facility] Clarity, UA Clear [facility] Color, UA Yellow [facility] Glucose, UA Negative Negative - 1999(110) ++++ mg/dL [facility] Interpretation and review of laboratory results Abnormal [facility] Ketones, UA Negative Negative - 160(16) ++++ mg/dL [facility] Leukocytes, UA Moderate Negative - 500+++ Jaswant/mcL [facility] Nitrite, UA Negative Negative - Positive [facility] pH, UA 6.5 5 - 9 [facility] Healthcar e Protein, UA Trace Negative - 1999(20) ++++ mg/dL [facility] Spec Grav, UA 1.025 1 - 1.03 [facility] care Urobilinogen, UA 0.2 0.2 - 12 mg/dL [facility] STREP GP B CULTURE+RFLXon STREP GP B CULTURE+RFLX SEE SCANNED REPORT [facility] Urinalysis macro (dipstick) panel (U)on 12-13-2024 Bilirubin, UA Negative Negative - 4(70) +++ mg/dL [facility] Blood, UA Positive Negative - 50 Dipak/mcL [facility] Healthcare Comment on above: Trace-intact Clarity, UA Clear [facility] Color, UA Yellow [facility] Glucose, UA Negative Negative - 1999(110) ++++ mg/dL [facility] Interpretation and review of laboratory results Abnormal [facility] Ketones, UA Negative Negative - 160(16) ++++ mg/dL [facility] Leukocytes, UA Positive Negative - 500+++ Jaswant/mcL [facility] Comment on above: small Nitrite, UA Negative Negative - Positive [facility] pH, UA 6.5 5 - 9 [facility] Healthcar e Protein, UA Positive Negative - 1999(20) ++++ mg/dL [facility] Comment on above: 30mg/dL Spec Grav, UA 1.025 1 - 1.03 [facility] Urobilinogen, UA 0.2 0.2 - 12 mg/dL [facility] Urinalysis macro (dipstick) panel (U)on 12-07-2024 Bilirubin, UA Negative Negative - 4(70) +++ mg/dL [facility] Blood, UA Negative Negative - 50 Dipak/mcL [facility] Clarity, UA Clear [facility] re Color, UA Yellow [facility] e Glucose, UA Negative Negative - 1999(110) ++++ mg/dL [facility] Interpretation and review of laboratory results Abnormal [facility] Ketones, UA Negative Negative - 160(16) ++++ mg/dL [facility] Leukocytes, UA Positive Negative - 500+++ Jaswant/mcL [facility] Nitrite, UA Negative Negative - Positive [facility] pH, UA 6.5 5 - 9 [facility] Protein, UA Positive Negative - 1999(20) ++++ mg/dL [facility] Spec Grav, UA 1.025 1 - 1.03 [facility] Urobilinogen, UA 1.0 0.2 - 12 mg/dL [facility] US OB FOLLOW UP TRANSABDOMIN [...] II, MD, PHD at 27-Nov-2024 10:37:34 PM [facility] Normal Not Available Comment on above: Order Comment: US OB SCAN FOR GROWTH Estimated Date of Delivery: 01/04/25 Gestational Age as of 11/09/2024: 32w0d Urinalysis macro (dipstick) panel (U)on 11-24-2024 Bilirubin, UA Negative Negative - 4(70) +++ mg/dL [facility] Blood, UA Positive Negative - 50 Dipak/mcL [facility] Comment on above: trace-intact Clarity, UA Clear [facility] Color, UA Yellow [facility] Glucose, UA Negative Negative - 2000(110) ++++ mg/dL [facility] Interpretation and review of laboratory results Abnormal [facility] Ketones, UA Positive Negative - 160(16) ++++ mg/dL [facility] Comment on above: 15 Leukocytes, UA Positive Negative - 500+++ Jaswant/mcL [facility] Comment on above: small Nitrite, UA Negative Negative - Positive [facility] pH, UA 7 5 - 9 [facility] Protein, UA Positive Negative - 2000(20) ++++ mg/dL [facility] Comment on above: 30 Spec Grav, UA 1.025 1 - 1.03 [facility] Urobilinogen, UA 1.0 0.2 - 12 mg/dL [facility] US OB FOLLOW UP TRANSABDOMIN [...] II, MD, PHD at 27-Oct-2024 10:37:59 AM [facility] Normal Not Available Comment on above: Order Comment: US OB SCAN FOR GROWTH Estimated Date of Delivery: 01/04/25 Gestational Age as of 10/12/2024: 28w0d Urinalysis macro (dipstick) panel (U)on 10-26-2024 Bilirubin, UA Negative Negative - 4(70) +++ mg/dL [facility] Blood, UA Negative Negative - 50 Dipak/mcL [facility] Healthcare Clarity, UA Clear [facility] Color, UA Yellow [facility] Glucose, UA Negative Negative - 1999(110) ++++ mg/dL [facility] Interpretation and review of laboratory results Abnormal [facility] Healthcare Ketones, UA Negative Negative - 160(16) ++++ mg/dL [facility] Leukocytes, UA Positive Negative - 500+++ Jaswant/mcL [facility] Comment on above: large Nitrite, UA Negative Negative - Positive [facility] pH, UA 6.5 5 - 9 [facility] Health[facility] e Protein, UA Negative Negative - 1999(20) ++++ mg/dL [facility] Spec Grav, UA 1.01 1 - 1.03 [facility] Urobilinogen, UA 0.2 0.2 - 12 mg/dL [facility] Urinalysis macro (dipstick) panel (U)on 10-12-2024 Bilirubin, UA Negative Negative - 4(70) +++ mg/dL [facility] Blood, UA Negative Negative - 50 Dipak/mcL [facility] Clarity, UA Clear [facility] re Color, UA Yellow [facility] Glucose, UA Negative Negative - 1999(110) ++++ mg/dL [facility] Interpretation and review of laboratory results Abnormal [facility] Ketones, UA Negative Negative - 160(16) ++++ mg/dL [facility] Leukocytes, UA Positive Negative - 500+++ Jaswant/mcL [facility] Comment on above: large Nitrite, UA Negative Negative - Positive [facility] pH, UA 7 5 - 9 [facility] e Protein, UA Negative Negative - 1999(20) ++++ mg/dL [facility] Spec Grav, UA 1.015 1 - 1.03 [facility] Urobilinogen, UA 0.2 0.2 - 12 mg/dL [facility] ALL CBC WITH AUTO DIFFon BASOPHILS ABSOLUTE AUTO 0 [facility] Basophils/100 WBC (Bld) 0.4 % 0.2 - 2.0 % [facility] Eosinophils/100 WBC (Bld) 0.4 % Low 0.9 - 7.0 % [facility] Erythrocyte distribution width (RBC) [Ratio] 12.8 % 11.0 - 15.0 % [facility] Hematocrit (Bld) [Volume fraction] 31.4 % Low 36.0 - 48.0 % [facility] Hemoglobin (Bld) [Mass/Vol] 10.6 g/dL Low 12.0 - 16.0 g/dL [facility] IMMATURE GRANULOCYTES ABS AUTO 0.07 High [facility] Immature granulocytes/100 WBC (Bld) 0.7 % High 0.0 - 0.5 % [facility] Interpretation and review of laboratory results Abnormal [facility] LYMPHOCYTES ABSOLUTE AUTO 1.7 [facility] Lymphocytes/100 WBC (Bld) 17.8 % Low 20.5 - 60.0 % [facility] MCH (RBC) [Entitic mass] 30.5 pg 26.7 - 34.0 pg [facility] MCHC (RBC) [Mass/Vol] 33.8 g/dL 29.9 - 35.2 g/dL [facility] MCV (RBC) [Entitic vol] 90.5 fL 81.0 - 99.0 fL [facility] MONOCYTES ABSOLUTE AUTO 0.6 [facility] Monocytes/100 WBC (Bld) 5.8 % 1.7 - [...] e US OB INCOMPLETE ANATOMYon 0 09-23-2024 [place] [address] Ultrasound Report Signed Patient: MARISELA RANDALL MR#: [id number] : 2000 Acct:[id number] Age/Sex: 24 / F ADM Date: 09/22/24 Loc: US Attending Dr: Pal Pichardo D.O. Ordering Physician: Pal Pichardo D.O. Date of Service: 09/22/24 Procedure(s): US OB incomplete anatomy Accession Number(s): [id number] cc: Pal Pichardo D.O.; Samir Stroud INFORMATION AND DATA ARCHITECT ANALYST [address] [address] Patient Name: MARISELA RANDALL MRN: [id number] date: 2000 Sex: F Assigned Patient Location: US Current Patient Location: Accession/Order Number: [id number] Exam Date: 09/22/2024 16:10 Report Date: 09/23/2024 [...] M.D. Signed By: 09/23/24620 DD/ 8 TD/TT: Motorman/Woman: [facility] Radiology, Radiologist, MD - 09/23/2024 [place] [address] Ultrasound Report Signed Patient: MARISELA RANDALL MR#: [id number] : 2000 Acct:[id number] Age/Sex: 24 / F ADM Date: 09/22/24 Loc: US Attending Dr: Pal Pichardo D.O. Ordering Physician: Pal Pichardo D.O. Date of Service: 09/22/24 Procedure(s): US OB incomplete anatomy Accession Number(s): [id number] cc: Pal Pichardo D.O.; Samir Stroud INFORMATION AND DATA ARCHITECT ANALYST [facility] [place] [id number] Patient Name: MARISELA RANDALL MRN: [facility]:[id number] date: 2000 Sex: F Assigned Patient Location: US Current Patient Location: Accession/Order Number: [id number] Exam Date: 09/22/2024 16:10 Report Date: 09/23/2024 [...] M.D. Signed By: 09/23/24620 DD/ 8 TD/TT: Motorman/Woman: [facility] [employer] Radiology Study observation (narrative) [facility] Dr[employer] US OB INCOMPLETE ANATOMYOrde red By: Radiologist Radiology on 09-23-2024 [facility] Work Phone: AFP, SERUM, OPEN SPINA BIFID Aon 08-29-2024 AFP MOM 0.89 . [employer] e AFP VALUE 51.3 ng/mL . [employer] COMMENT: Comment . [facility] Comment on above: Esha Pacheco , Ph.D., [facility] Director References: Available Upon Request. Multiples Of Median Cutoffs For AFP Elevations Crandall 2.5 Black 2.8 IDD 2.0 Twins 4.5 Abbreviation Definitions IDD - Insulin Dep Diabetes OSBR - Open Spina Bifida Risk For further inquiries contact [employer] [facility] at [phone]. This test was developed and its performance characteristics determined by [employer]. It has not been cleared or approved by the Food and Drug Administration. Performed at: [facility] [address] [id number] Glass Lathe Operator: Manoj Flores [facility], Phone: [phone] GEST. AGE ON COLLECTION DATE 21.1 . weeks [facility] [employer] GESTAT. AGE BASED ON LMP . [facility] [employer] Comment on above: Recalculations are n ot recommended when gestational dating by LMP and ultrasound are within 10 days. INSULIN DEP DIABETES No . [facility] [employer] INTERPRETATION Comment . [facility] Healt hcare Comment on above: Interpretation: Scre en [...] Customer Services to discuss available options. [employer] recommends amniocentesis be offered to women age 35 and older. [age] [facility] MULTIPLE GESTATION No . [facility] H [facility] [address] [place] [id number] . [facility] RACE . [facility] [employer] ([employer] e RESULTS Report . [facility] [employer] e TEST RESULTS: Negative . [facility] WEIGHT 179 . lbs [facility] [employer] e N N LMP [id number] N 1 Y 179 N N N N N White/ [facility] [employer] e Urinalysis macro (dipstick) panel (U)on 08-29-2024 Bilirubin, UA Negative Negative - 4(70) +++ mg/dL [facility] Blood, UA Negative Negative - 50 Dipak/mcL [facility] Clarity, UA Clear [facility] re Color, UA Yellow [facility] [employer] e Glucose, UA Negative Negative - 1999(110) ++++ mg/dL [facility] Interpretation and review of laboratory results Abnormal [facility] Ketones, UA Negative Negative - 160(16) ++++ mg/dL [facility] Leukocytes, UA Positive Negative - 500+++ Jaswant/mcL [facility] Comment on above: small Nitrite, UA Negative Negative - Positive [facility] pH, UA 6 5 - 9 [facility] [employer] e Protein, UA Negative Negative - 1999(20) ++++ mg/dL [facility] Spec Grav, UA 1.025 1 - 1.03 [facility] Urobilinogen, UA 0.2 0.2 - 12 mg/dL [facility] [employer] e IGP,APTIMA HPV,AGE GDLNon AGE GDLN ACOG TESTING Note . [facility] Comment on above: TESTS RESULT FLAG UN ITS REF RANGE LAB Clinician Provided Cytology Information Source.............Cervix Other.............. No. of containers..01 ThinPrep Vial Age Denny OSPINA Kizzy... FLAG LEGEND: L-Low Normal,H-High Normal,LL-Alert Low,HH-Alert High <-Panic Low,>-Panic High,A-Abnormal,AA-Critical Abnormal Performed at: 01 =G [address] [address] Ambar Castillo MD, IGP, RFX APTIMA HPV ASCU Note . [facility] Comment on above: TESTS RESULT FLAG UN ITS REF RANGE LAB DIAGNOSIS: 02 NEGATIVE FOR INTRAEPITHELIAL LESION OR MALIGNANCY. Specimen adequacy: 02 Satisfactory for evaluation. No endocervical component is identified. An endocervical component is not commonly seen in the patient. Performed by: 02 Grecia Davis, Building Mover ([facility]) . 02 Note: Note 02 The [...] <-Panic Low,>-Panic High,A-Abnormal,AA-Critical Abnormal Performed at: [address] [address] Ambar Castillo MD, Performed at: = - [address] [id number] Glass Lathe Operator: Ambar Castillo MD, Phone: [phone] Performed at: [address] [id number] Glass Lathe Operator: Ambar Castillo MD, Phone: [phone] SPATULA-ALONE CERVIX [facility] Healthcar e RECURRENT VAGINITIS (HTRX)on 07-30-2024 ATOPOBIUM VAGINAE 0 [facility] ATOPOBIUM VAGINAE Not detected [facility] BVAB 2,3 (BACTERIAL VAGINOSIS ASSOCIATED BACTERIA 2, 3); MOBILUNCUS SPP 0 [facility] BVAB 2,3 (BACTERIAL VAGINOSIS ASSOCIATED BACTERIA 2, 3); MOBILUNCUS SPP Not detected [facility] CARTER ALBICANS, PARAPSILOSIS, TROPICALIS 0 [facility] CARTER ALBICANS, PARAPSILOSIS, TROPICALIS Not detected [facility] CARTER GLABRATA 0 [facility] CARTER GLABRATA Not detected [facility] CARTER KRUSEI 0 [facility] CARTER KRUSEI Not detected [facility] CHLAMYDIA TRACHOMATIS 0 [facility] CHLAMYDIA TRACHOMATIS Not detected [facility] GARDNERELLA VAGINALIS 0 [facility] GARDNERELLA VAGINALIS Not detected [facility] MEGASPHAERA (TYPES 1, 2) 0 [facility] MEGASPHAERA (TYPES 1, 2) Not detected [facility] MYCOPLASMA GENITALIUM 0 [facility] MYCOPLASMA GENITALIUM Not detected [facility] NEISSERIA GONORRHOEAE 0 [facility] NEISSERIA GONORRHOEAE Not detected [facility] TRICHOMONAS VAGINALIS 0 [facility] TRICHOMONAS VAGINALIS Not detected [facility] Urinalysis macro (dipstick) panel (U)on 07-27-2024 Bilirubin, UA Negative Negative - 4(70) +++ mg/dL [facility] Blood, UA Negative Negative - 50 Dipak/mcL [facility] Healthcare Clarity, UA Clear [facility] Color, UA Yellow [facility] Healthcar e Glucose, UA Negative Negative - 1999(110) ++++ mg/dL [facility] Interpretation and review of laboratory results Normal [facility] Ketones, UA Negative Negative - 160(16) ++++ mg/dL [facility] Leukocytes, UA Negative Negative - 500+++ Jaswant/mcL [facility] Nitrite, UA Negative Negative - Positive [facility] pH, UA 6 5 - 9 [facility] Healthcar e Protein, UA Negative Negative - 1999(20) ++++ mg/dL [facility] Spec Grav, UA 1.02 1 - 1.03 [facility] Urobilinogen, UA 1.0 0.2 - 12 mg/dL [facility] Urinalysis macro (dipstick) panel (U)on 06-27-2024 Bilirubin, UA Negative Negative - 4(70) +++ mg/dL [facility] Blood, UA Negative Negative - 50 Dipak/mcL [facility] Clarity, UA Clear [facility] Healthca re Color, UA Yellow [facility] Health[facility] e Glucose, UA Negative Negative - 1999(110) ++++ mg/dL [facility] Interpretation and review of laboratory results Abnormal [facility] Ketones, UA Negative Negative - 160(16) ++++ mg/dL [facility] Leukocytes, UA Trace Negative - 500+++ Jaswant/mcL [facility] Healthcare Nitrite, UA Negative Negative - Positive [facility] pH, UA 5.5 5 - 9 [facility] Protein, UA Negative Negative - 1999(20) ++++ mg/dL [facility] Spec Grav, UA 1.02 1 - 1.03 [facility] Urobilinogen, UA 0.2 0.2 - 12 mg/dL [facility] BOX TESTon 06-08-2024 BOX TEST SENT OUT KERA edwards [address]OX1 KERA [facility] Healthcar e BOX2 06/08/24 [facility] Healthcar e UNITY BOX [facility] Healthcar e HCG ( test) Ql (U)o n 05-27-2024 Interpretation and review of laboratory results Abnormal [facility] Preg Test, Ur Positive [facility] Urinalysis macro (dipstick) panel (U)on 05-27-2024 Bilirubin, UA Negative Negative - 4(70) +++ mg/dL [facility] Blood, UA Positive Negative - 50 Dipak/mcL [facility] Comment on above: trace intact Clarity, UA Clear [facility] re Color, UA Yellow [facility] e Glucose, UA Negative Negative - 1999(110) ++++ mg/dL [facility] Interpretation and review of laboratory results Abnormal [facility] Ketones, UA Negative Negative - 160(16) ++++ mg/dL [facility] Leukocytes, UA Trace Negative - 500+++ Jaswant/mcL [facility] Nitrite, UA Negative Negative - Positive [facility] pH, UA 7.0 5 - 9 [facility] e Protein, UA Negative Negative - 1999(20) ++++ mg/dL [facility] Spec Grav, UA 1.015 1 - 1.03 [facility] Urobilinogen, UA 0.2 0.2 - 12 mg/dL [facility] Health[facility] e US RETROPERITONEAL COMPLETEo n [...] Marte MD on 10/16/2023 1:22 AM Normal [facility] US PELVIC WITH TRANSVAGINALo n [...] Rogers MD on 09/15/2023 6:54 PM Normal [facility] CHLAMYDIA/GC BY PCRon 2023 CHLAMYDIA/GC [...] are dependent on adequate specimen collection. Normal [facility] Comment on above: Performed By: #### C GS #### [facility] ([id number]) [address], [address] [place] [address] POCT , urineon 08-24 Beta HCG ( test) Ql (U) Negative [facility] [facility] URINALYSISon 09-08-2023 Bilirubin Ql (U) Negative Normal NEG [facility] BLOOD/HGB Negative Normal NEG [facility] CA OXALATE CRYSTALS PRESENT Abnormal NONE [facility] Color (U) YELLOW Normal YELLOW [facility] Glucose Ql (U) Negative Normal NEG [facility] Ketones Ql (U) Negative Normal NEG [facility] Leukocyte esterase Test strip Ql (U) Negative Normal NEG [facility] MUCOUS PRESENT Abnormal NONE [facility] Nitrite Ql (U) Negative Normal NEG [facility] pH (U) 6.5 [pH] Normal 5.0-8.5 [facility] Protein Ql (U) Trace Abnormal NEG [facility] R.B.CELLS 2 /hpf Normal 0-5 [facility] Specific gravity (U) [Rel density] 1.027 Normal 1.003-1.035 [facility] SQUAMOUS EPITHELIUM 14 /hpf High 0-5 [facility] TURBIDITY CLEAR Normal CLEAR [facility] Urobilinogen (U) [Mass/Vol] mg/dL Normal <1.1 [facility] W.B.CELLS 3 /hpf Normal 0-5 [facility] URINE CULTUREon 09-08-2023 Bacteria identified Cx Nom (U) CULTURE RESULTS 10-50,000 ORGANISMS/mL NORMAL UROGENITAL AYLIN Normal [facility] Comment on above: Performed By: #### 6 30-4 #### [facility] ([id number]) [address], [address] [place] [address] Urinalysison 09-08-2023 Bilirubin Ql (U) Negative Negative^Ne ga tive [facility] Calcium oxalate crystals LM Ql (Urine sed) PRESENT Abnormal NONE^NONE [facility] Color (U) YELLOW YELLOW^YELLOW [facility] Epithelial cells Auto (Urine sed) [#/Area] 14 High [facility] Glucose (U) [Mass/Vol] Negative Negative^Nega tive mg/dL [facility] Hemoglobin Auto test strip Ql (U) Negative Negative^Nega tive [facility] Interpretation and review of laboratory results Abnormal [facility] Ketones (U) [Mass/Vol] Negative Negative^Nega tive mg/dL [facility] Leukocyte esterase Auto test strip Ql (U) Negative Negative^Nega tive [facility] Mucus Ql (Urine sed) PRESENT Abnormal NONE^NONE [facility] Nitrite Auto test strip Ql (U) Negative Negative^Nega tive [facility] pH (U) 6.5 [pH] 5.0 - 8.5 [facility] Protein (U) [Mass/Vol] Trace Abnormal Negative^Nega tive mg/dL [facility] RBC Auto (Urine sed) [#/Area] 2 [facility] Specific gravity Refractometry automated (U) [Rel density] 1.027 1.003 - 1.035 [facility] Turbidity Ql (U) CLEAR CLEAR^CLEAR [facility] Urobilinogen Qn (U) NINF [facility] WBC Auto (Urine sed) [#/Area] 3 [facility] VAGINITIS PANEL PCRon 2023 VAGINITIS PANEL [...] clinical presentation to determine patient diagnosis. Normal [facility] Comment on above: Performed By: #### V PPCR #### [facility] ([id number]) [address], [address] [place] [address] Quick Strepon 04-02-2022 S. pyogenes Org specific cx Ql (Throat) Negative eJamming [facility] [employer] Other Quick Strep [facility] [employer] Other Vital Signs Date Time Vital Sign Value Performing Clinician Facility 12-28-2024 15:23-0400 Body weight 100.7 kg Pal Kylee DO Work Phone: [facility] 12-28-2024 15:23-0400 Diastolic blood pressure 70 mm[Hg] Pal Kylee DO Work Phone: [facility] 12-28-2024 15:23-0400 Systolic blood pressure 130 mm[Hg] Pal Kylee DO Work Phone: [facility] 12-21-2024 15:55-0400 Body weight 100.43 kg Jesu Panda INFORMATION AND DATA ARCHITECT ANALYST Work Phone: [facility] 12-21-2024 15:55-0400 Diastolic blood pressure 76 mm[Hg] Jesu Farzad INFORMATION AND DATA ARCHITECT ANALYST Work Phone: [facility] 12-21-2024 15:55-0400 Systolic blood pressure 110 mm[Hg] Jesu Panda INFORMATION AND DATA ARCHITECT ANALYST Work Phone: [facility] 12-13-2024 14:27-0400 Body weight 99.22 kg Carin VILLAGOMEZ Work Phone: [facility] 12-13-2024 14:27-0400 Diastolic blood pressure 70 mm[Hg] Carin VILLAGOMEZ Work Phone: [facility] 12-13-2024 14:27-0400 Systolic blood pressure 120 mm[Hg] Carin VILLAGOMEZ Work Phone: [facility] 12-07-2024 15:42-0400 Body weight 99.29 kg Pal Kylee DO Work Phone: [facility] 12-07-2024 15:42-0400 Diastolic blood pressure 82 mm[Hg] Pal Kylee DO Work Phone: [facility] 12-07-2024 15:42-0400 Systolic blood pressure 122 mm[Hg] Pal Kylee DO Work Phone: [facility] 11-24-2024 15:42-0400 Body weight 95.62 kg Carin Garcia PA Work Phone: [facility] 11-24-2024 15:42-0400 Diastolic blood pressure 74 mm[Hg] Carin David PA Work Phone: [facility] 11-24-2024 15:42-0400 Systolic blood pressure 118 mm[Hg] Carin Garcia PA Work Phone: [facility] 10-26-2024 14:45-0500 Body weight 90.27 kg Pal Kylee DO Work Phone: [facility] 10-26-2024 14:45-0500 Diastolic blood pressure 76 mm[Hg] Pal Kylee DO Work Phone: [facility] 10-26-2024 14:45-0500 Systolic blood pressure 122 mm[Hg] Pal Kylee DO Work Phone: [facility] 10-12-2024 16:21-0500 Body weight 90.72 kg Carin VILLAGOMEZ Work Phone: [facility] 10-12-2024 16:21-0500 Diastolic blood pressure 70 mm[Hg] Carin David PA Work Phone: [facility] 10-12-2024 16:21-0500 Systolic blood pressure 120 mm[Hg] Carin David PA Work Phone: [facility] 09-28-2024 16:23-0500 Body weight 88.51 kg Pal Kylee DO Work Phone: [facility] 09-28-2024 16:23-0500 Diastolic blood pressure 72 mm[Hg] Pal Kylee DO Work Phone: [facility] 09-28-2024 16:23-0500 Systolic blood pressure 116 mm[Hg] Pal Kylee DO Work Phone: [facility] 08-29-2024 15:54-0500 Body weight 84.82 kg Carin Garcia HERNANDO Work Phone: [facility] 08-29-2024 15:54-0500 Diastolic blood pressure 74 mm[Hg] Carin Valenciacinthya VILLAGOMEZ Work Phone: [facility] 08-29-2024 15:54-0500 Systolic blood pressure 120 mm[Hg] Carin Valenciaey PA Work Phone: [facility] 07-27-2024 15:32-0500 Body weight 81.38 kg Pal Kylee DO Work Phone: [facility] 07-27-2024 15:32-0500 Diastolic blood pressure 66 mm[Hg] Pal Kylee DO Work Phone: [facility] 07-27-2024 15:32-0500 Systolic blood pressure 108 mm[Hg] Pal Kylee DO Work Phone: [facility] 06-27-2024 16:10-0500 Body weight 79.83 kg Pal Kylee DO Work Phone: [facility] 06-27-2024 16:10-0500 Diastolic blood pressure 68 mm[Hg] Pal Kylee DO Work Phone: [facility] 06-27-2024 16:10-0500 Systolic blood pressure 108 mm[Hg] Pal Kylee DO Work Phone: [facility] 05-27-2024 10:31-0400 Body weight 79.38 kg Noms Nurse [facility] 05-27-2024 10:31-0400 Diastolic blood pressure 80 mm[Hg] [facility] Nurse [facility] 05-27-2024 10:31-0400 Systolic blood pressure 122 mm[Hg] Nom Nurse [facility] 10-13-2023 14:41-0500 Body height 165.1 cm Danielle Lange DO Work Phone: [employer] 10-13-2023 14:41-0500 Body mass index (BMI) [Ratio] 28.09 kg/m2 Danielle Lange DO [facility] 10-13-2023 14:41-0500 Body weight 76.57 kg Danielle Lange DO [facility] 10-13-2023 14:41-0500 Diastolic blood pressure 68 mm[Hg] Danielle Lange DO [facility] 10-13-2023 14:41-0500 Systolic blood pressure 104 mm[Hg] Danielle Lange DO [facility] 09-08-2023 11:06-0500 Body height 165.1 cm Danielle Lange DO [facility] 09-08-2023 11:06-0500 Body mass index (BMI) [Ratio] 28.22 kg/m2 Danielle Lange DO Work Phone[facility] 09-08-2023 11:06-0500 Body weight 76.93 kg Danielle Lange DO [facility] Phone[facility] 09-08-2023 11:06-0500 Diastolic blood pressure 70 mm[Hg] Danielle Lange DO Work Phone[facility] 09-08-2023 11:06-0500 Systolic blood pressure 116 mm[Hg] Danielle Lange DO Work Phone: [employer] 04-02-2022 12:20-0400 Body height 167.64 cm Julianne Davidson Other [employer] Other 04-02-2022 12:20-0400 Body mass index (BMI) [Ratio] 30.66 kg/m2 Julianne Davidson Other [employer] Other 04-02-2022 12:20-0400 Body temperature 99.3 [degF] Julianne Lety Other [employer] Other 04-02-2022 12:20-0400 Body weight 86.18 kg Julianne Lety Other [employer] Other 04-02-2022 12:20-0400 Respiratory rate 18 /min Julianne Winklermond Other [employer] Other 04-02-2022 12:20-0400 SaO2% (BldA) [Mass fraction] 99 % Julianne Lety Other [employer] Other 07-06-2021 11:30-0500 Body height 165.1 cm Julianne Davidson Other [employer] Other 07-06-2021 11:30-0500 Body mass index (BMI) [Ratio] 29.95 kg/m2 Juilanne Davidson Other [employer] Other 07-06-2021 11:30-0500 Body temperature 98.2 [degF] Julianne Davidson Other [employer] Other 07-06-2021 11:30-0500 Body weight 81.65 kg Julianne Lety Other [employer] Other 07-06-2021 11:30-0500 SaO2% (BldA) [Mass fraction] 99 % Julianne Lety Other [employer] Other Encounters Encounter Date Encounter Type Care Provider Facility Start: 01-03-2025 End: 01-03-2025 Clinisync Result Encounter Pal Kylee DO Work Phone: [facility] Unsolicited Start: 01-03-2025 End: 01-03-2025 Clinisync Result Encounter Pal Kylee DO Work Phone: [facility] Unsolicited Start: 01-01-2025 End: 01-01-2025 Clinisync Result Encounter Pal Kylee DO Work Phone: [facility] External [facility] Unsolicited Start: 01-01-2025 End: 01-01-2025 Clinisync Result Encounter Pal Kylee DO Work Phone: [facility] Unsolicited Start: 12-28-2024 End: 12-28-2024 flow sheet Pal [...] Start: 12-21-2024 End: 12-21-2024 flow sheet Jesu Farzad INFORMATION AND DATA ARCHITECT ANALYST Work Phone: [facility] Comment on above: 38 weeks gestation o f ; Third trimester Start: 12-21-2024 End: 12-21-2024 ambulatory JESU FARZAD Not Available Start: 12-21-2024 End: 12-21-2024 Bamboo flowsheet Jesu Farzad INFORMATION AND DATA ARCHITECT ANALYST Work Phone: [facility] Start: 12-21-2024 End: 12-21-2024 Bamboo flowsheet Jesu Farzad INFORMATION AND DATA ARCHITECT ANALYST Work Phone: [facility] Start: 12-13-2024 [...] Available Start: 11-01-2024 ambulatory Micheal Salas DDS [facility] Start: 10-26-2024 End: 10-26-2024 flow sheet Pal Kylee DO Work Phone: [facility] Comment on above: Third trimester preg nadeen; 30 weeks gestation of ; Gastroesophageal reflux in Start: 10-26-2024 End: 10-26-2024 ambulatory PAL KYLEE Not Available Start: 10-12-2024 End: 10-12-2024 flow sheet Carin VILLAGOMEZ Work Phone: [facility] Comment on above: Third trimester [...] 10-12-2024 Bamboo flowsheet Carin VILLAGOMEZ Work Phone: [facility] Start: 10-12-2024 End: 10-12-2024 Bamboo flowsheet Carin VILLAGOMEZ Work Phone: [facility] Start: 10-01-2024 End: 10-01-2024 Clinisync Result Encounter Pal Kylee DO Work Phone: [facility] External Department Unsolicited Start: 10-01-2024 End: 10-01-2024 Clinisync Result Encounter Pal Kylee DO Work Phone: [facility] External Department Unsolicited Start: 09-28-2024 End: 09-28-2024 flow sheet Pal Kylee DO Work Phone: [facility] Comment on above: Second trimester pre gnancy; 26 weeks gestation of ; Diabetes mellitus screening Start: 09-28-2024 End: 09-28-2024 ambulatory PAL KYLEE Not Available Start: 09-28-2024 End: 09-28-2024 Bamboo flowsheet Pal Kylee DO Work Phone: [facility] Start: 09-28-2024 End: 09-28-2024 Bamboo flowsheet Pal Kylee DO Work Phone: [facility] Start: 09-23-2024 End: 09-23-2024 Clinisync [...] PAL KYLEE Not Available Start: 07-27-2024 End: 12-04-2024 Bamboo flowsheet Pal Kylee DO Work Phone: [...] 8w2d Start: 05-27-2024 End: 05-27-2024 ambulatory PAL KYLEE Not Available Start: 10-29-2023 Orders Only Sowmya Ret[facility] Comment on above: Renal lithiasis (Yanet annita Dx); Calcium oxalate crystals in urine; Flank pain; Left sided abdominal pain Start: 10-15-2023 End: 10-16-2023 ambulatory [facility] Start: 10-13-2023 End: 10-13-2023 ambulatory [facility] Start: 10-13-2023 End: 10-13-2023 Office outpatient visit 15 minutes Danielle Liu Lange DO Work Phone: [facility] Comment on above: Renal lithiasis (Yanet annita Dx); Left sided abdominal pain; Flank pain; Calcium oxalate crystals in urine Start: 09-14-2023 End: 09-15-2023 ambulatory [facility] Start: 09-08-2023 End: 09-09-2023 ambulatory [facility] Start: 09-08-2023 End: 09-08-2023 ambulatory [facility] Start: 09-08-2023 End: 09-08-2023 Office outpatient visit 15 minutes Danielle Liu Lange DO Work Phone: [facility] Comment on above: Dyspareunia in femal e (Primary Dx); Left sided abdominal pain; [place] Start: 04-02-2022 End: 04-02-2022 ambulatory Julianne Davidson Other [employer] Other Start: 04-02-2022 Office outpatient vi sit 15 minutes Julianne Davidson [facility] Start: 07-06-2021 (URG) Urgent Care Visit Julianne monsalve [facility] Start: 07-06-2021 End: 07-06-2021 ambulatory Julianne Davidson Other [employer] Other Start: 03-17-2019 End: 03-18-2019 Patient encounter procedure CLARICE MANZO Facility:H1 Procedures Date Procedure Procedure Detail Performing Clinician Start: 01-03-2025 ALL CBC WITH AUTO DIFF Pal Kylee DO Work Phone: Start: 01-01-2025 [facility] UA (CLEAN/CATCH) ACCESS CONTROL OFFICER/MICRO IF IND. Pal Kylee DO Work Phone: Start: 12-28-2024 Urnls dip stick/tabl et rgnt non-auto w/o micrscp Pal Kylee DO Work Phone: Start: 12-21-2024 Urnls dip stick/tabl et rgnt non-auto w/o micrscp Jesu Farzad INFORMATION AND DATA ARCHITECT ANALYST Work Phone: Start: 12-13-2024 Urnls dip stick/tabl [...] DO Work Phone: Start: 06-08-2024 [employer] DO Work Phone: Start: 05-27-2024 End: 05-27-2024 [...] malign ant neoplasm of cervix Pap Smear [facility] Start: 01-03-2025 End: 01-03-2025 Patient encounter procedure 01/03/2025 8:40 AM EDT Routine [facility] [address] [place] [id number] Pal Pichardo, DO [address] [place], [place] [id number] [facility] Start: 12-28-2024 End: 12-28-2024 Patient encounter procedure [facility] Comment on above: Arrived Start: 12-21-2024 End: 12-21-2024 Patient encounter procedure [facility] Comment on above: Arrived Start: 12-13-2024 End: 12-13-2024 Patient encounter procedure [facility] Comment on above: Arrived Start: 12-07-2024 End: 12-07-2024 Patient encounter procedure 12/07/2024 3:30 PM EDT Routine [facility] [address] [place] [id number] Pal Pichardo, DO [address] [place] [address] Arrived [facility] Comment on above: Arrived Start: 12-07-2024 End: 12-07-2025 CULTURE, GROUP B STREP WITH SUSCEPTIBLITY CULTURE, GROUP B STREP WITH SUSCEPTIBLITY Lab Routine Third trimester Expected: 12/07/2024, Expires: 12/07/2025 [facility] Work Phone: Comment on above: Expected: 12/07/2024 , Expires: 12/07/2025 Start: 11-09-2024 End: 11-09-2024 Patient encounter procedure 11/09/2024 3:20 PM EDT Routine [facility] [address] [place] [phone] Carin Garcia PA [address] [place] [address] [facility] Start: 10-26-2024 End: 10-26-2024 Patient encounter procedure 10/26/2024 2:40 PM EST Routine [facility] [address] [place] [phone] Pal Pichardo, DO [address] [place] [address] [facility] Start: 10-26-2024 End: 10-26-2024 Professional / ancillary services management 10/26/2024 2:00 PM EST Ancillary Procedure [facility] [address] [place] [phone] [facility] Start: 10-13-2024 Adult BMI Screening Adult BMI Screen ing [facility] Start: 10-13-2024 Tobacco Screening Tobacco Screening [facility] Start: 10-12-2024 End: 10-12-2024 Patient encounter procedure [facility] Comment on above: Arrived Start: 10-12-2024 End: 10-12-2025 US for US OB follow up transabdominal approach Imaging Routine Excessive growth affecting management of in third trimester, single or unspecified fetus Expected: 10/12/2024 (Approximate), Expires: 10/12/2025 [facility] Healthcare Work Phone: Comment on above: Expected: 10/12/2024 (Approximate), Expires: 10/12/2025 Start: 09-28-2024 End: 09-28-2024 Patient encounter procedure [facility] Comment on above: Arrived Start: 09-28-2024 End: 09-28-2025 CBC panel - Blood by Automated count CBC Lab Routine Diabetes mellitus screening Expected: 09/28/2024 (Approximate), Expires: 09/28/2025 [facility] Work Phone: Comment on above: Expected: 09/28/2024 (Approximate), Expires: 09/28/2025 Start: 09-28-2024 End: 09-28-2025 Measurement of glucose 1 hour after glucose challenge for glucose tolerance test Glucose tolerance, 1 hour Lab Routine Diabetes mellitus screening Expected: 09/28/2024 (Approximate), Expires: 09/28/2025 [facility] Healthcare Comment on above: Expected: 09/28/2024 (Approximate), Expires: 09/28/2025 Start: 09-08-2024 Adult BMI Screening Adult BMI Screen ing [facility] Start: 09-08-2024 Screening for Chlamy hernesto trachomatis Chlamydia Screening [facility] Start: 09-08-2024 Tobacco Screening Tobacco Screening [facility] Start: 08-29-2024 End: 08-29-2024 Patient encounter [...] Arrived Start: 06-24-2024 Depression Screening Depression Scre [facility] Start: 06-01-2024 Adult BMI Follow Up Plan Adult BMI F ollow Up Plan [facility] Start: 05-27-2024 End: 05-27-2025 ABO/Rh ABO/Rh [...] first trimester Expected: 05/27/2024 (Approximate), Expires: 05/27/2025 [facility] Comment on above: Expected: 05/27/2024 (Approximate), Expires: 05/27/2025 Start: 05-27-2024 End: 05-27-2025 US Pelvis transvaginal US OB transvaginal Imaging Routine Missed menses Expected: 05/27/2024 (Approximate), Expires: 05/27/2025 [facility] Comment on above: Expected: 05/27/2024 (Approximate), Expires: 05/27/2025 Start: 11-26-2023 DTaP,Tdap and Td Vac cines (7 - Td or Tdap) DTaP,Tdap and Td Vaccines (7 - Td or Tdap) [facility] Start: 10-13-2023 End: 10-13-2024 US Retroperitoneum Ultrasound retroperitoneal complete Imaging Routine Left sided abdominal pain Flank pain Renal lithiasis Calcium oxalate crystals in urine Expected: 10/13/2023, Expires: 10/13/2024 [facility]: Comment on above: Expected: 10/13/2023 , Expires: 10/13/2024 Start: 10-06-2023 End: 10-06-2023 Patient encounter procedure 10/06/2023 2:00 PM EST Office Visit [facility]Gynecology [address] [place] [address] Danielle Lange DO [address] [place], [place] [id number] [facility] Obstetrics/Gynecolo gy Start: 09-14-2023 End: 09-14-2023 Patient encounter procedure 09/14/2023 2:00 PM EST Appointment [facility] [address] [place] [address] [facility] Start: 09-08-2023 End: 09-08-2024 Bacteria identified in [facility]rine [facility] Work Phone: Comment on above: Expected: 09/08/2023 (Approximate), Expires: 09/08/2024 Start: 09-08-2023 End: 09-08-2024 US Pelvis transabdominal and transvaginal Ultrasound pelvic with transvaginal Imaging Routine Left sided abdominal pain Expected: 09/08/2023, Expires: 09/08/2024 [facility] Comment on above: Expected: 09/08/2023 , Expires: 09/08/2024 Start: 09-08-2023 End: 09-08-2024 Vaginitis Panel PCR [facility] Comment on above: Expected: 09/08/2023 (Approximate), Expires: 09/08/2024 Start: 06-18-2023 Screening for Chlamy hernesto trachomatis Chlamydia Screening [facility] Start: 04-24-2023 Influenza vaccination Influenza Vacc ine [facility] Bacteria identified in Urine by Culture Urine culture Microbiology Routine Missed menses Ordered: 05/27/2024 [facility] Comment on above: Ordered: 05/27/2024 Bacteria identified in Urine by Culture Urine culture Microbiology Routine Urinary tract infection without hematuria, site unspecified Ordered: 10/12/2024 [facility] Healthcare Comment on above: Ordered: 10/12/2024 CBC W Auto Different ial panel - Blood CBC and differential Lab Routine Missed menses , unspecified gestational age Ordered: 05/27/2024 [facility] Comment on above: Ordered: 05/27/2024 CHLAMYDIA TRACHOMATI S (GENITO/STI) CHLAMYDIA TRACHOMATIS (GENITO/STI) Lab Routine STD exposure Ordered: 07/27/2024 [facility] Comment on above: Ordered: 07/27/2024 End: 09-08-2024 Chlamydia/GC by PCR [facility] Chlamydia/GC by PCR [facility] Microbiology Routine Left sided abdominal pain 1 Occurrences starting 09/08/2023 until 09/08/2024 [facility] Comment on above: 1 Occurrences starti ng 09/08/2023 until 09/08/2024 Chlamydia/GC by PCR [facility] Chlamydia/GC by PCR [facility] Microbiology Routine Left sided abdominal pain 09/08/2023 7:35 PM [facility] Cervical or vaginal smear or scraping study Pap Smear Pathology and Cytology Routine Well woman exam with routine gynecological exam Ordered: 07/27/2024 [facility] Comment on above: Ordered: 07/27/2024 Hemoglobin A1c/Hemoglobin.total in Blood Hemoglobin A1c Lab Routine Missed menses , unspecified gestational age Ordered: 05/27/2024 [facility] Comment on above: Ordered: 05/27/2024 Hepatitis B virus clarke rface Ag [Presence] in Serum or Plasma by Immunoassay Hepatitis B surface antigen Lab Routine Missed menses , unspecified gestational age Ordered: 05/27/2024 [facility] Comment on above: Ordered: 05/27/2024 Hepatitis C virus Ab [Presence] in Serum or Plasma by Immunoassay Hepatitis C antibody Lab Routine Missed menses , unspecified gestational age Ordered: 05/27/2024 [facility] Comment on above: Ordered: 05/27/2024 HIV-1/HIV-2 antigen/antibody combination immunoassay HIV-1 and HIV-2 antibodies Lab Routine Missed menses , unspecified gestational age Ordered: 05/27/2024 [facility] Comment on above: Ordered: 05/27/2024 Neisseria gonorrhoea e DNA [Presence] in Unspecified specimen by MARIA M with probe detection Neisseria gonorrhea DNA probe, direct Lab Routine STD exposure Ordered: 07/27/2024 [facility] Comment on above: Ordered: 07/27/2024 Reagin Ab [Presence] in Serum by RPR RPR Lab Routine Missed menses , unspecified gestational age Ordered: 05/27/2024 [facility] Comment on above: Ordered: 05/27/2024 Rubella antibody, IgG Rubella an tibody, IgG Lab Routine Missed menses , unspecified gestational age Ordered: 05/27/2024 [facility] Comment on above: Ordered: 05/27/2024 SURESWAB(R) ADVANCED VAGINITIS PLUS, TMA SURESWAB(R) ADVANCED VAGINITIS PLUS, TMA Pathology and Cytology Routine Vaginal discharge STD exposure Ordered: 07/27/2024 [facility] Work Phone: Comment on above: Ordered: 07/27/2024 Immunizations Immunization Date Immunization Notes Care Provider Ton king 06-28-2009 influenza virus vaccine, unspecified formulation Danielle Lange DO Work Phone: [facility] [employer] Payers Date Payer Category Payer Managed Care HMO (unspecified) [id number] 2024 Private Health Insurance [id number] 2019 Private Health Insurance [id number] 2019 Private Health Insurance [facility] PLUS [id number] 2019-Present [phone] [address] [address] [place] [address] [id number]. [id number] 2001 Unknown [id number] 2.16.840.1.262773.3.579.2. 1286 2001 Unknown [id number] 2.16.840.1.229878.3.579.2. 128 2001 Unknown [id number] 2.16.840.1.011501.3.579.2. 128 2001 Unknown [id number] 2.16.840.1.030292.3.579.2. 1286 2001 Unknown [id number] 2.16.840.1.279388.3.579.2. 1286 2001 Unknown [id number] 2.16.840.1.221066.3.579.2. 1259 2001 Unknown [id number] 2.16.840.1.899070.3.579.2. 1259 2001 Unknown [id number] 2.16.840.1.331887.3.579.2. 9 2001 Unknown [id number] 2.16.840.1.782525.3.579.2. 1259 2001 Unknown [id number] 2.16.840.1.287449.3.579.2. 1259 2001 Unknown [id number] 2.16.840.1.748068.3.579.2. 9 2001 Unknown [id number] 2.16.840.1.055329.3.579.2. 9 2001 Unknown [id number] 2.16.840.1.175798.3.579.2. 1258 2001 Unknown [id number] 2.16.840.1.653285.3.579.2. 1258 2001 Unknown [id number] 2.16.840.1.785174.3.579.2. 1258 2001 Unknown [id number] 2.16.840.1.089604.3.579.2. 9 2001 Unknown [id number] 2.16.840.1.345120.3.579.2. 1258 2001 Unknown [id number] 2.16.840.1.408490.3.579.2. 9 2001 Unknown [id number] 2.16.840.1.240770.3.579.2. 1258 2001 Unknown [id number] 2.16.840.1.485195.3.579.2. 1259 1976 Unknown [id number] 2.16.840.1.659970.3.579.2. 593 1959 Unknown [id number] Social History Date Type Detail Facility Sex Assigned At [employer] [facility] Start: 10-04-2020 End: 05-27-2024 Sex Assigned At [facility] [employer] Start: 06-18-2022 End: 05-27-2024 Tobacco smoking status NHIS Never smoked tobacco [facility] Start: 06-18-2022 End: 05-27-2024 Tobacco use and exposure Smokeless tobacco non-user [facility] Start: 05-27-2024 End: 12-21-2024 Alcoholic beverage intake Lifetime non-drinker (finding) [facility] Start: 10-04-2020 End: 05-27-2024 History of Social function [facility] Start: 04-13-2024 [facility] Start: 2001 Sex assigned at Female [facility] Start: 12-29-2023 Gender identity Identifies as female gender (finding) [facility] Start: 09-08-2023 End: 10-13-2023 Alcohol intake Current non-drinker of alcohol (finding) [facility] Frequency of Alcohol Consumption Never [facility] Start: 2001 Sex Assigned At Not on file [facility] Clinical Notes 04-02-2022 to 12-28-2024 Whitley Sanchez BUSINESS PRACTICES SUPERVISOR - 12/28/2024 3:00 PM EDAdelaida Panda NP - 12/21/2024 3:20 PM Valentino Sanchez LPN - 12/13/2024 2:20 PM Valentino Sanchez BUSINESS PRACTICES SUPERVISOR - 12/07/2024 3:30 PM EDT Note Date [...] nursing note reviewed. Exam conducted with a carton marker machine present. Vitals: Estimated body mass index is [...] up for induction 01/01/25 at 1830 with cytotec. Will call to inform about induction- if pt declines induction will order NST/BPP for postdates. Orders Placed This Encounter Procedures POCT urinalysis dipstick manually resulted Follow Up: Patient is to return to office in 1 week for routine OB appointment. Documented by Whitley Sanchez LPN on behalf of: Pal Pichardo DO documented in this encounter [facility] 12-21-2024 History of Present illness Narrative Reason [...] nursing note reviewed. Exam conducted with a carton marker machine present. Vitals: Estimated body mass index is [...] Jesu Panda NP documented in this encounter [facility] 12-13-2024 History of Present illness Narrative Reason [...] nursing note reviewed. Exam conducted with a carton marker machine present. Vitals: Estimated body mass index is [...] Pal Pichardo D.O. documented in this encounter [facility] 12-07-2024 History of Present illness Narrative Reason [...] nursing note reviewed. Exam conducted with a carton marker machine present. Vitals: Estimated body mass index is [...] Pal Pichardo DO documented in this encounter [facility] 11-24-2024 History of Present illness Narrative [...] of: HERNANDO Magallanes documented in this encounter [facility] 10-26-2024 History of Present illness Narrative [...] nursing note reviewed. Exam conducted with a carton marker machine present. Vitals: Estimated body mass index is [...] Pal Pichardo DO documented in this encounter [facility] 10-12-2024 History of Present illness Narrative [...] of: HERNANDO Magallanes documented in this encounter [facility] 09-28-2024 History of Present illness Narrative [...] nursing note reviewed. Exam conducted with a carton marker machine present. Vitals: Estimated body mass index is [...] Pal Pichardo DO documented in this encounter [facility] 08-29-2024 History of Present illness Narrative [...] of: HERNANDO Magallanes documented in this encounter [facility] 07-27-2024 History of Present illness Narrative [...] nursing note reviewed. Exam conducted with a carton marker machine present. Vitals: Estimated body mass index is [...] Pal Pichardo DO documented in this encounter [facility] 06-27-2024 History of Present illness Narrative [...] Pal Pichardo DO documented in this encounter [facility] 05-27-2024 History of Present illness Narrative [...] or undercooked meat, and stay away from [facility]. Patient has also been advised to [...] by: Linda Barone documented in this encounter [facility] 10-29-2023 History of Present illness Narrative Ordered new [employer] Sales Consultant referral documented in this encounter [facility] 10-13-2023 History of Present illness Narrative [...] past. She states she has seen a creative services specialist, but was only counseled to not drink [...] PM Imaging Ultrasound pelvic with transvaginal (Order: [id number]) - 09/14/2023 Result History Ultrasound pelvic with transvaginal (Order #[id number]) on 09/15/2023 - Order Result History Report [...] to nephrology placed. documented in this encounter [facility] 09-08-2023 History of Present illness Narrative [...] alleviate her symptoms documented in this encounter [facility] 04-02-2022 Evaluation note Encounter Date Diagnosis Assessment Notes Mar, Viral pharyngitis (ICD-10 - J02.9) Pharyngitis/to nsillopharyngi tis: adult home care material was printed Drink plenty fluids, get plenty of rest. Take Tylenol or Motrin for aches pains or fevers. Continue your cephalexin as prescribed until gone. Follow-up with your family physician if no improvement in 2 to 3 days. [employer] Other Evaluation noteNort [employer] Other Evaluation note* Diagnosis Missed menses , unspecified gestational age Encounter for supervision of normal first in first trimester documented in this encounter [facility] HealthcareEvaluation note* Diagnosis First trimester state, incidental 12 weeks gestation of Nausea Nausea alone Viral upper respiratory tract infection Acute upper respiratory infections of unspecified site documented in this encounter [facility] HealthcareEvaluation note* Diagnosis Well woman exam with routine gynecological exam Routine gynecological examination Second trimester state, incidental 16 weeks gestation of Screening, , for anatomic survey Encounter for anatomic survey Vaginal discharge Leukorrhea, not specified as infective STD exposure documented in this encounter [facility] HealthcareEvaluation note* Diagnosis Second trimester state, incidental 21 weeks gestation of documented in this encounter [facility] HealthcareEvaluation note* Diagnosis Dyspareunia in female- Primary Left sided abdominal pain Abdominal pain, unspecified site Mittelschmerz [facility] Diagnosis Second trimester state, incidental 26 weeks gestation of Diabetes mellitus screening Screening for diabetes mellitus [facility]* Diagnosis Renal lithiasis- Primary Calculus of kidney Left sided abdominal pain Abdominal pain, unspecified site Flank pain Abdominal pain, unspecified site Calcium oxalate crystals in urine [facility] Diagnosis Renal lithiasis- Primary Calculus of kidney Calcium oxalate crystals in urine Flank pain Abdominal pain, unspecified site Left sided abdominal pain Abdominal pain, unspecified site [facility]* Diagnosis Third trimester state, incidental 28 weeks gestation of Excessive growth affecting management of in third trimester, single or unspecified fetus Urinary tract infection without hematuria, site unspecified Low back pain, unspecified back pain laterality, unspecified chronicity, unspecified whether sciatica present [facility]* Diagnosis Third trimester state, incidental 30 weeks gestation of Gastroesophageal reflux in documented in this encounter [facility] HealthcareEvaluation note* Diagnosis 34 weeks gestation of Third trimester state, incidental [facility]* Diagnosis Third trimester state, incidental 36 weeks gestation of documented in this encounter [facility] HealthcareEvaluation note* Diagnosis Third trimester state, incidental 36 weeks gestation of documented in this encounter [facility] HealthcareEvaluation note* Diagnosis 38 weeks gestation of Third trimester state, incidental documented in this encounter [facility] HealthcareEvaluation note* Diagnosis Third trimester state, incidental 39 weeks gestation of [facility] - [facility] Other History general Narrative - Reported* Type Description Date Medical History chronic depression [facility] [employer] Other Instructions* Attachments The following attachments cannot be sent through Care Everywhere. * Painful Ovulation (Turkish) documented in this [facility]-toolsInstructions* Attachments The following attachments cannot be sent through Care Everywhere. * Kidney stones in adults (Turkish) [facility] [place] [employer] Payment SolutionsInstructionsNot on file documented in this encounterGerman HospitalReason for referral (narrative)* Consultation (Routine) - Pending Review Specialty Diagnoses / Procedures Referred By Contac t Referred To Contact Nephrology Diagnoses Left sided abdominal pain Flank pain Renal lithiasis Calcium oxalate crystals in urine Danielle Lange DO [address] [place] [address] Yannick Villagomez MD [address] [place] [address] Referral ID Status Reason Start Date Expiration Date Visits Requested Visits Authorized [id number] Pending Review Specialty Services Required 10/13/2023 10/12/2024 [address] [facility] [employer] [facility]ative[facility] Consultation (Routine) - Pending Review Specialty Diagnoses / Procedures Referred By Contac t Referred To Contact Nephrology Diagnoses Renal lithiasis Calcium oxalate crystals in urine Flank pain Left sided abdominal pain Danielle Lange DO [address] [place] [address] Hussein Card MD [address] [place] [address] [place] [address] Referral ID Status Reason Start Date Expiration Date Visits Requested Visits Authorized [id number] Pending Review Specialty Services Required 10/29/2023 10/28/2024 1 1 [facility] [employer] [facility] Summary Purpose Family History No Family History [...] section and content) DATE CREATED AUTHOR 09/15/2020 [facility] DATE CREATED AUTHOR AUTHOR'S ORGANIZ ATION 09/12/2023 [facility] DATE CREATED AUTHOR AUTHOR'S ORGANIZ ATION 10/21/2023 [facility] DATE CREATED AUTHOR AUTHOR'S ORGANIZ ATION 10/23/2023 [facility] DATE CREATED AUTHOR AUTHOR'S ORGANIZ ATION 11/04/2024 [facility] DATE CREATED AUTHOR AUTHOR'S ORGANIZ ATION 12/31/2024 [facility] EPIC REASON FOR VISIT (unrecogniz ed section and content) Reason Comments Initial Visit Reason Comments Routine Visit Reason Comments Well Women Visit Routine Visit STI Screening Reason Comments Abdominal Pain Left side started ab out 2 months agoPain the first day of cycle Reason Comments Follow-up Ultrasound results d /t pelvic pain Care Teams (unrecognized sec tion and content) Extension Supervisor Relationship Specialty Start Date End Date Samir Stroud NP [address] [place] [address] Referring Physician Family Medicine 05/19/23 Extension Supervisor Relationship Specialty Start Date End Date Samir Stroud NP [address] [place] [address] Referring Physician Family Medicine 05/19/23 Extension Supervisor Relationship Specialty Start Date End Date Samir Stroud NP [address] [place] [address] Referring Physician Family Medicine 05/19/23 Extension Supervisor Relationship Specialty Start Date End Date Samir Stroud NP [address] [place] [address] Referring Physician Family Medicine 05/19/23 Extension Supervisor Relationship Specialty Start Date End Date Samir Stroud NP [address] [place] [address] Referring Physician Family Medicine 05/19/23 Extension Supervisor Relationship Specialty Start Date End Date Samir Stroud NP [address] [place] [address] Referring Physician Family Medicine 05/19/23 Extension Supervisor Relationship Specialty Start Date End Date Samir Stroud NP [address] [place] [address] Referring Physician Family Medicine 05/19/23 Extension Supervisor Relationship Specialty Start Date End Date Samir Stroud NP [address] [place] [address] Referring Physician Family Medicine 05/19/23 Extension Supervisor Relationship Specialty Start Date End Date Samir Stroud NP [address] [place] [address] Referring Physician Family Medicine 05/19/23 Extension Supervisor Relationship Specialty Start Date End Date Samir Stroud, CASING IN LINE FEEDER-AIRCRAFT DESIGN ENGINEER [address] [place] [address] PCP - General Family Medicine 12/28/22 Extension Supervisor Relationship Specialty Start Date End Date Samir Stroud NP [address] [place] [address] Referring Physician Family Medicine 05/19/23 Extension Supervisor Relationship Specialty Start Date End Date Samir Stroud CASING IN LINE FEEDER-AIRCRAFT DESIGN ENGINEER [address] [place] [address] PCP - General Family Medicine 12/28/22 Extension Supervisor Relationship Specialty Start Date End Date Samir Stroud CASING IN LINE FEEDER-AIRCRAFT DESIGN ENGINEER [address] [place] [address] PCP - General Family Medicine 12/28/22 Extension Supervisor Relationship Specialty Start Date End Date Samir Stroud NP [address] [place] [address] Referring Physician [facility] 05/19/23 Extension Supervisor Relationship Specialty Start Date End Date Samir Stroud NP [address] [place] [address] Referring Physician [facility] 05/19/23 Extension Supervisor Relationship Specialty Start Date End Date Samir Stroud NP Referring Physician [facility] 05/19/23 Extension Supervisor Relationship Specialty Start Date End Date Samir Stroud NP Referring Physician Family [facility] 05/19/23 Extension Supervisor Relationship Specialty Start Date End Date Samir Stroud NP Referring Physician Family Medicine 05/19/23 Extension Supervisor Relationship Specialty Start Date End Date Samir Stroud NP Referring Physician Family Medicine 05/19/23 Extension Supervisor Relationship Specialty Start Date End Date Samir Stroud NP Referring Physician Family Medicine 05/19/23 Extension Supervisor Relationship Specialty Start Date End Date Samir [...] BE BASED ON THE PRIMARY CLINICAL RECORDS. [employer] [facility]. provides no warranty or guarantee of the accuracy or completeness of information in this document.
--- NOTE | 2025-01-06 10:37 | PC.NURSE ---
Family arrives for support. Mom states is frustrated with sore nipples, repeated bili levels. Mom reports very sore nipples, scabbed areas and difficulty with latching. Pt states sorry I didn't want too much help when I was in the hospital LC reassures pt that care is continues after delivery. Baby Wrenley awake and fussy. Weight obtained and is 3 oz above weight done yesterday. Diaper is heavy wet, parents relate has 6-8 et diapers and 5 yellow brown stools since yesterday morning. Baby has been offered the breast every 2-2.5 hours. Mom did pump 3 feeds and give milk via bottle. Marisela is unsure about breast vs bottle feeding. Wants baby to have breastmilk, will return to work in 8 weeks so wants baby to do both. Review establishing milk supply, latching and positioning. 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 Encouraged to focus on direct , care for oral ties and revisit LC for further support for continued and pumping when returning to work.. Much education completed. Discussed tongue and lip tie, referrals and what to expect day of procedure. Infant to breast, better latch and positioning demo'd difficult to keep nipple in mouth. Shield presented and baby latches well, sleepy at this time, few sucks with stimulation. Breast care discussed and demo given. Given lanolin, Soothies, shells, tea bag use. Pt states relief from tea bag, shells, and cream. Given info for establishing supply. Pt states feels much better with new information and support. Plans to call pediatric dentist for appointment. and will return for further support. Leaves ambulatory with and .
== END 2025-01-06 10:59 | disposition home or self-care (01) ==
PROVIDERS: PCP Nurse Practitioner Family; Visit Provider Obstetrics & Gynecology
DX: Z39.1 Encounter for care and examination of lactating mother (principal)

== ENCOUNTER 2025-01-07 20:51 | Observation (INO) | payer OTHER, MEDICAID, SELFPAY ==
--- OUTSIDE RECORDS SUMMARY | 2025-01-07 20:57 | XMS_ITS | CCD ---
Author Organization [facility] Care Team Providers Care Windows Systems Engineer Name Role Phone CLARICE MANZO Consulting [...] Unavailable SCHLACHTER, SAMIR Primary Care Unavailable Schjanellchter CERTIFIED FRAUD EXAMINER, Samir Unavailable [phone] [employer] BUSINESS DEPARTMENT CHAIR-TELEPHONE OPERATOR, Samir Primary Care Provide r Micheal Salas [...] source) Sulfonamides (Antibiotic) Drug allergy (disorder) [facility] Repository (2 sources) Sulfacetamide / Sulfur Drug Allergy [facility] Other (20 sources) Ondansetron; Translations: [ONDANSETRON] Drug [...] WITH AUTO DIFFon BASOPHILS ABSOLUTE AUTO 0.1 [facility] Basophils/100 WBC (Bld) 0.4 % 0.2 - 2.0 % [facility] Eosinophils/100 WBC (Bld) 0.8 % Low 0.9 - 7.0 % [facility] Erythrocyte distribution width (RBC) [Ratio] 14.1 % 11.0 - 15.0 % [facility] Hematocrit (Bld) [Volume fraction] 23.4 % Critically low 36.0 - 48.0 % [facility] Comment on above: RESULTS CALLED TO SA RA EMMIE MITCHELL AT 0655 Hemoglobin (Bld) [Mass/Vol] 7.3 g/dL Low 12.0 - 16.0 g/dL [facility] IMMATURE GRANULOCYTES ABS AUTO 0.16 High [facility] Immature granulocytes/100 WBC (Bld) 1.2 % High 0.0 - 0.5 % [facility] Interpretation and review of laboratory results Abnormal [facility] LYMPHOCYTES ABSOLUTE AUTO 2.4 [facility] Lymphocytes/100 WBC (Bld) 17.2 % Low 20.5 - 60.0 % [facility] MCH (RBC) [Entitic mass] 26.9 pg 26.7 - 34.0 pg [facility] MCHC (RBC) [Mass/Vol] 31.2 g/dL 29.9 - 35.2 g/dL [facility] MCV (RBC) [Entitic vol] 86.3 fL 81.0 [...] [facility] UA (CLEAN/CATCH) CLAIMS ATTORNEY/LINDA RO IF IND.on 01-01-2025 BILIRUBIN URINE Negative NEGATIVE [facility] thcare BLOOD URINE LARGE Abnormal NEGATIVE [facility] re Clarity (U) CLEAR CLEAR [facility] re Color (U) LT. YELLOW YELLOW [facility] GLUCOSE URINE UA Negative NEGATIVE mg/dL [facility] Interpretation and review of laboratory results Abnormal [facility] Ketones Ql (U) Negative NEGATIVE mg/dL [facility] Leukocyte esterase Test strip Ql (U) SMALL Abnormal NEGATIVE [facility] NITRITE URINE Negative NEGATIVE [facility] pH (U) 6.5 [pH] 5.0 - 9.0 [facility] PROTEIN URINE Negative NEG/TRACE mg/dL [facility] SPECIFIC GRAVITY URINE 1.010 1.005 - 1.025 [facility] URINE MICROSCOPIC INDICATED YES [facility] UROBILINOGEN URINE 0.2 EU/dL 0.2 - 1.0 EU/dL [facility] Urinalysis macro (dipstick) panel (U)on 12-28-2024 Bilirubin, UA Negative Negative - 4(70) +++ mg/dL [facility] Blood, UA Positive Negative - 50 Dipak/mcL [facility] Comment on above: Moderate Clarity, UA Clear [facility] Color, UA Yellow [facility] Glucose, UA Negative Negative - 2000(110) ++++ mg/dL [facility] Interpretation and review of laboratory results Abnormal [facility] Ketones, UA Negative Negative - 160(16) ++++ mg/dL [facility] Leukocytes, UA Trace Negative - 500+++ Jaswant/mcL [facility] Nitrite, UA Negative Negative - Positive [facility] pH, UA 7 5 - 9 [facility] Protein, UA Positive Negative - 1999(20) ++++ mg/dL [facility] Comment on above: 30mg/dL Spec Grav, UA 1.025 1 - 1.03 [facility] Urobilinogen, UA 0.2 0.2 - 12 mg/dL [facility] Urinalysis macro (dipstick) panel (U)on 12-21-2024 Bilirubin, UA Negative Negative - 4(70) +++ mg/dL [facility] Blood, UA Positive Negative - 50 Dipak/mcL [facility] Clarity, UA Clear [facility] re Color, UA Yellow [facility] Glucose, UA Negative Negative - 1999(110) ++++ mg/dL [facility] Interpretation and review of laboratory results Abnormal [facility] Ketones, UA Negative Negative - 160(16) ++++ mg/dL [facility] Leukocytes, UA Moderate Negative - 500+++ Jaswant/mcL [facility] Nitrite, UA Negative Negative - Positive [facility] pH, UA 6.5 5 - 9 [facility] Protein, UA Trace Negative - 1999(20) ++++ mg/dL [facility] Spec Grav, UA 1.025 1 - 1.03 [facility] Urobilinogen, UA 0.2 0.2 - 12 mg/dL [facility] STREP GP B CULTURE+RFLXon STREP GP B CULTURE+RFLX SEE SCANNED REPORT [facility] Urinalysis macro (dipstick) panel (U)on 12-13-2024 Bilirubin, UA Negative Negative - 4(70) +++ mg/dL [facility] Blood, UA Positive Negative - 50 Dipak/mcL [facility] Comment on above: Trace-intact Clarity, UA Clear [facility] Color, UA Yellow [facility] Glucose, UA Negative Negative - 1999(110) ++++ mg/dL [facility] Interpretation and review of laboratory results Abnormal [facility] Ketones, UA Negative Negative - 160(16) ++++ mg/dL [facility] Leukocytes, UA Positive Negative - 500+++ Jaswant/mcL [facility] Comment on above: small Nitrite, UA Negative Negative - Positive [facility] pH, UA 6.5 5 - 9 [facility] Protein, UA Positive Negative - 1999(20) ++++ mg/dL [facility] Comment on above: 30mg/dL Spec Grav, UA 1.025 1 - 1.03 [facility] Urobilinogen, UA 0.2 0.2 - 12 mg/dL [facility] Urinalysis macro (dipstick) panel (U)on 12-07-2024 Bilirubin, UA Negative Negative - 4(70) +++ mg/dL [facility] Blood, UA Negative Negative - 50 Dipak/mcL [facility] Clarity, UA Clear [facility] re Color, UA Yellow [facility] e Glucose, UA Negative Negative - 1999(110) ++++ mg/dL [facility] Interpretation and review of laboratory results Abnormal [facility] Ketones, UA Negative Negative - 160(16) ++++ mg/dL [facility] Leukocytes, UA Positive Negative - 500+++ Jaswant/mcL [facility] Nitrite, UA Negative Negative - Positive [facility] pH, UA 6.5 5 - 9 [facility] Protein, UA Positive Negative - 1999(20) ++++ mg/dL [facility] Spec Grav, UA 1.025 1 - 1.03 [facility] Urobilinogen, UA 1.0 0.2 - 12 mg/dL [facility] US OB FOLLOW UP [...] II, MD, PHD at 27-Nov-2024 10:37:34 PM [facility] Normal Not Available Comment on above: Order Comment: US OB SCAN FOR GROWTH Estimated Date of Delivery: 01/04/25 Gestational Age as of 11/09/2024: 32w0d Urinalysis macro (dipstick) panel (U)on 11-24-2024 Bilirubin, UA Negative Negative - 4(70) +++ mg/dL [facility] Blood, UA Positive Negative - 50 Dipak/mcL [facility] Comment on above: trace-intact Clarity, UA Clear [facility] Color, UA Yellow [facility] Glucose, UA Negative Negative - 2000(110) ++++ mg/dL [facility] Interpretation and review of laboratory results Abnormal [facility] Ketones, UA Positive Negative - 160(16) ++++ mg/dL [facility] Comment on above: 15 Leukocytes, UA Positive Negative - 500+++ Jaswant/mcL [facility] Comment on above: small Nitrite, UA Negative Negative - Positive [facility] pH, UA 7 5 - 9 [facility] Protein, UA Positive Negative - 2000(20) ++++ mg/dL [facility] Comment on above: 30 Spec Grav, UA 1.025 1 - 1.03 [facility] Urobilinogen, UA 1.0 0.2 - 12 mg/dL [facility] US OB FOLLOW UP [...] II, MD, PHD at 27-Oct-2024 10:37:59 AM [facility] Normal Not Available Comment on above: Order Comment: US OB SCAN FOR GROWTH Estimated Date of Delivery: 01/04/25 Gestational Age as of 10/12/2024: 28w0d Urinalysis macro (dipstick) panel (U)on 10-26-2024 Bilirubin, UA Negative Negative - 4(70) +++ mg/dL [facility] Blood, UA Negative Negative - 50 Dipak/mcL [facility] Clarity, UA Clear [facility] Color, UA Yellow [facility] Glucose, UA Negative Negative - 1999(110) ++++ mg/dL [facility] Interpretation and review of laboratory results Abnormal [facility] Ketones, UA Negative Negative - 160(16) ++++ mg/dL [facility] Leukocytes, UA Positive Negative - 500+++ Jaswant/mcL [facility] Comment on above: large Nitrite, UA Negative Negative - Positive [facility] pH, UA 6.5 5 - 9 [facility] Protein, UA Negative Negative - 1999(20) ++++ mg/dL [facility] Spec Grav, UA 1.01 1 - 1.03 [facility] Urobilinogen, UA 0.2 0.2 - 12 mg/dL [facility] Urinalysis macro (dipstick) panel (U)on 10-12-2024 Bilirubin, UA Negative Negative - 4(70) +++ mg/dL [facility] Blood, UA Negative Negative - 50 Dipak/mcL [facility] Clarity, UA Clear [facility] re Color, UA Yellow [facility] Glucose, UA Negative Negative - 1999(110) ++++ mg/dL [facility] Interpretation and review of laboratory results Abnormal [facility] Ketones, UA Negative Negative - 160(16) ++++ mg/dL [facility] Leukocytes, UA Positive Negative - 500+++ Jaswant/mcL [facility] Comment on above: large Nitrite, UA Negative Negative - Positive [facility] pH, UA 7 5 - 9 [facility] e Protein, UA Negative Negative - 1999(20) ++++ mg/dL [facility] Spec Grav, UA 1.015 1 - 1.03 [facility] Urobilinogen, UA 0.2 0.2 - 12 mg/dL [facility] ALL CBC WITH AUTO DIFFon BASOPHILS ABSOLUTE AUTO 0 [facility] Basophils/100 WBC (Bld) 0.4 % 0.2 - 2.0 % [facility] Eosinophils/100 WBC (Bld) 0.4 % Low 0.9 - 7.0 % [facility] Erythrocyte distribution width (RBC) [Ratio] 12.8 % 11.0 - 15.0 % [facility] Hematocrit (Bld) [Volume fraction] 31.4 % Low 36.0 - 48.0 % [facility] Hemoglobin (Bld) [Mass/Vol] 10.6 g/dL Low 12.0 - 16.0 g/dL [facility] IMMATURE GRANULOCYTES ABS AUTO 0.07 High [facility] Immature granulocytes/100 WBC (Bld) 0.7 % High 0.0 - 0.5 % [facility] Interpretation and review of laboratory results Abnormal [facility] LYMPHOCYTES ABSOLUTE AUTO 1.7 [facility] Lymphocytes/100 WBC (Bld) 17.8 % Low [...] e US OB INCOMPLETE ANATOMYon 0 09-23-2024 [place] [address] Ultrasound Report Signed Patient: MARISELA RANDALL MR#: [id number] : 2000 Acct:[id number] Age/Sex: 24 / F ADM Date: 09/22/24 Loc: US Attending Dr: Pal Pichardo D.O. Ordering Physician: Pal Pichardo D.O. Date of Service: 09/22/24 Procedure(s): US OB incomplete anatomy Accession Number(s): [id number] cc: Pal Pichardo D.O.; Samir Stroud CERTIFIED FRAUD EXAMINER [address] [address] Patient Name: MARISELA RANDALL MRN: [id number] date: 2000 Sex: F Assigned Patient Location: US Current Patient Location: Accession/Order Number: [id number] Exam Date: 09/22/2024 16:10 Report Date: 09/23/2024 [...] M.D. Signed By: 09/23/24620 DD/ 8 TD/TT: Campground Cleaning Attendant: [facility] Radiology, Radiologist, MD - 09/23/2024 [place] [address] Ultrasound Report Signed Patient: MARISELA RANDALL MR#: [id number] : 2000 Acct:[id number] Age/Sex: 24 / F ADM Date: 09/22/24 Loc: US Attending Dr: Pal Pichardo D.O. Ordering Physician: Pal Pichardo D.O. Date of Service: 09/22/24 Procedure(s): US OB incomplete anatomy Accession Number(s): [id number] cc: Pal Pichardo D.O.; Samir Stroud CERTIFIED FRAUD EXAMINER [facility] [place] [id number] Patient Name: MARISELA RANDALL MRN: [facility]:[id number] date: 2000 Sex: F Assigned Patient Location: US Current Patient Location: Accession/Order Number: [id number] Exam Date: 09/22/2024 16:10 Report Date: 09/23/2024 [...] M.D. Signed By: 09/23/24620 DD/ 8 TD/TT: Campground Cleaning Attendant: [facility] Radiology Study observation (narrative) [facility] US OB INCOMPLETE ANATOMYOrde red By: Radiologist Radiology on 09-23-2024 [facility] Work Phone: AFP, SERUM, OPEN SPINA BIFID Aon 08-29-2024 AFP MOM 0.89 . Adstrix e AFP VALUE 51.3 ng/mL . [employer] COMMENT: Comment . [facility] Comment on above: Esha Pacheco , Ph.D., [facility] Director References: Available Upon Request. Multiples Of Median Cutoffs For AFP Elevations Crandall 2.5 Black 2.8 IDD 2.0 Twins 4.5 Abbreviation Definitions IDD - Insulin Dep Diabetes OSBR - Open Spina Bifida Risk For further inquiries contact [employer] at [phone]. This test was developed and its performance characteristics determined by [employer]. It has not been cleared or approved by the Food and Drug Administration. Performed at: [facility] [address] [id number] Grain Elevator Agent: Manoj Flores [facility], Phone: [phone] GEST. AGE ON COLLECTION DATE 21.1 . weeks [facility] GESTAT. AGE BASED ON LMP . [facility] Comment on above: Recalculations are n ot recommended when gestational dating by LMP and ultrasound are within 10 days. INSULIN DEP DIABETES No . [facility] INTERPRETATION Comment . [facility] Comment on above: Interpretation: Scre [...] Customer Services to discuss available options. The [employer] recommends amniocentesis be offered to women age 35 and older. [age] [facility] MULTIPLE GESTATION No . [facility] [place] [address] [place] [address] . [facility] hcare RACE . [facility] RESULTS Report . [facility] TEST RESULTS: Negative . [facility] WEIGHT 179 . lbs [facility] N N LMP [id number] 17 N 1 Y 179 N N N N N White/ [facility] Urinalysis macro (dipstick) panel (U)on 08-29-2024 Bilirubin, UA Negative Negative - 4(70) +++ mg/dL [facility] Blood, UA Negative Negative - 50 Dipak/mcL [facility] Clarity, UA Clear [facility] re Color, UA Yellow [facility] Glucose, UA Negative Negative - 1999(110) ++++ mg/dL [facility] Interpretation and review of laboratory results Abnormal [facility] Ketones, UA Negative Negative - 160(16) ++++ mg/dL [facility] Leukocytes, UA Positive Negative - 500+++ Jaswant/mcL [facility] Comment on above: small Nitrite, UA Negative Negative - Positive [facility] pH, UA 6 5 - 9 [facility] Protein, UA Negative Negative - 1999(20) ++++ mg/dL [facility] Spec Grav, UA 1.025 1 - 1.03 [facility] Urobilinogen, UA 0.2 0.2 - 12 mg/dL [facility] e IGP,APTIMA HPV,AGE GDLNon AGE GDLN ACOG TESTING Note . [facility] Comment on above: TESTS RESULT FLAG UN ITS REF RANGE LAB Clinician Provided Cytology Information Source.............Cervix Other.............. No. of containers..01 ThinPrep Vial Age Denny OSIPNA Kizzy... FLAG LEGEND: L-Low Normal,H-High Normal,LL-Alert Low,HH-Alert High <-Panic Low,>-Panic High,A-Abnormal,AA-Critical Abnormal Performed at: 01 =G [address] [address] Ambar Castillo MD, IGP, RFX APTIMA HPV ASCU Note . [facility] Comment on above: TESTS RESULT FLAG UN ITS REF RANGE LAB DIAGNOSIS: 02 NEGATIVE FOR INTRAEPITHELIAL LESION OR MALIGNANCY. Specimen adequacy: 02 Satisfactory for evaluation. No endocervical component is identified. An endocervical component is not commonly seen in the patient. Performed by: 02 Grecia Davis, Labor Relations Director ([facility]) . 02 Note: Note 02 The Pap [...] <-Panic Low,>-Panic High,A-Abnormal,AA-Critical Abnormal Performed at: [address] [address] Ambar Castillo MD, Performed at: = - [address] [id number] Grain Elevator Agent: Ambar Castillo MD, Phone: [phone] Performed at: [address] [id number] Grain Elevator Agent: Ambar Castillo MD, Phone: [phone] SPATULA-ALONE CERVIX [facility] RECURRENT VAGINITIS (HTRX)on 07-30-2024 ATOPOBIUM VAGINAE 0 [facility] ATOPOBIUM VAGINAE Not detected [facility] BVAB 2,3 (BACTERIAL VAGINOSIS ASSOCIATED BACTERIA 2, 3); MOBILUNCUS SPP 0 [facility] BVAB 2,3 (BACTERIAL VAGINOSIS ASSOCIATED BACTERIA 2, 3); MOBILUNCUS SPP Not detected [facility] CARTER ALBICANS, PARAPSILOSIS, TROPICALIS 0 [facility] CARTER ALBICANS, PARAPSILOSIS, TROPICALIS Not detected [facility] CARTER GLABRATA 0 [facility] CARTER GLABRATA Not detected [facility] CARTER KRUSEI 0 [facility] CARTER KRUSEI Not detected [facility] CHLAMYDIA TRACHOMATIS 0 [facility] CHLAMYDIA TRACHOMATIS Not detected [facility] GARDNERELLA VAGINALIS 0 [facility] GARDNERELLA VAGINALIS Not detected [facility] MEGASPHAERA (TYPES 1, 2) 0 [facility] MEGASPHAERA (TYPES 1, 2) Not detected [facility] MYCOPLASMA GENITALIUM 0 [facility] MYCOPLASMA GENITALIUM Not detected [facility] NEISSERIA GONORRHOEAE 0 [facility] NEISSERIA GONORRHOEAE Not detected [facility] TRICHOMONAS VAGINALIS 0 [facility] TRICHOMONAS VAGINALIS Not detected [facility] Urinalysis macro (dipstick) panel (U)on 07-27-2024 Bilirubin, UA Negative Negative - 4(70) +++ mg/dL [facility] Blood, UA Negative Negative - 50 Dipak/mcL [facility] Clarity, UA Clear [facility] Color, UA Yellow [facility] Glucose, UA Negative Negative - 1999(110) ++++ mg/dL [facility] Interpretation and review of laboratory results Normal [facility] Ketones, UA Negative Negative - 160(16) ++++ mg/dL [facility] Leukocytes, UA Negative Negative - 500+++ Jaswant/mcL [facility] Nitrite, UA Negative Negative - Positive [facility] pH, UA 6 5 - 9 [facility] Protein, UA Negative Negative - 1999(20) ++++ mg/dL [facility] Spec Grav, UA 1.02 1 - 1.03 [facility] Urobilinogen, UA 1.0 0.2 - 12 mg/dL [facility] Urinalysis macro (dipstick) panel (U)on 06-27-2024 Bilirubin, UA Negative Negative - 4(70) +++ mg/dL [facility] Blood, UA Negative Negative - 50 Dipak/mcL [facility] Clarity, UA Clear [facility] Color, UA Yellow [facility] Glucose, UA Negative Negative - 1999(110) ++++ mg/dL [facility] Interpretation and review of laboratory results Abnormal [facility] Ketones, UA Negative Negative - 160(16) ++++ mg/dL [facility] Leukocytes, UA Trace Negative - 500+++ Jaswant/mcL [facility] Healthcare Nitrite, UA Negative Negative - Positive [facility] pH, UA 5.5 5 - 9 [facility] Protein, UA Negative Negative - 1999(20) ++++ mg/dL [facility] Spec Grav, UA 1.02 1 - 1.03 [facility] Urobilinogen, UA 0.2 0.2 - 12 mg/dL [facility] BOX TESTon 06-08-2024 BOX TEST SENT OUT KERA edwards BOX1 KERA [facility] BOX2 06/08/24 [facility] UNITY BOX [facility] HCG ( test) Ql (U)o n 05-27-2024 Interpretation and review of laboratory results Abnormal [facility] Preg Test, Ur [facility] Urinalysis macro (dipstick) panel (U)on 05-27-2024 Bilirubin, UA Negative Negative - 4(70) +++ mg/dL [facility] Blood, UA Positive Negative - 50 Dipak/mcL [facility] Comment on above: trace intact Clarity, UA Clear [facility] re Color, UA Yellow [facility] e Glucose, UA Negative Negative - 1999(110) ++++ mg/dL [facility] Interpretation and review of laboratory results Abnormal [facility] Ketones, UA Negative Negative - 160(16) ++++ mg/dL [facility] Leukocytes, UA Trace Negative - 500+++ Jaswant/mcL [facility] Nitrite, UA Negative Negative - Positive [facility] pH, UA 7.0 5 - 9 [facility] e Protein, UA Negative Negative - 1999(20) ++++ mg/dL [facility] Spec Grav, UA 1.015 1 - 1.03 [facility] Urobilinogen, UA 0.2 0.2 - 12 mg/dL [facility] US RETROPERITONEAL COMPLETEo n [...] Marte MD on 10/16/2023 1:22 AM Normal [facility] US PELVIC WITH TRANSVAGINALo n 09-15-2023 US [...] Rogers MD on 09/15/2023 6:54 PM Normal [facility] CHLAMYDIA/GC BY PCRon 2023 CHLAMYDIA/GC BY PCR [...] are dependent on adequate specimen collection. Normal [facility] Comment on above: Performed By: #### C GS #### [facility] ([id number]) [address], [address] [place] [address] POCT , urineon 08-24 Beta HCG ( test) Ql (U) Negative [facility] URINALYSISon 09-08-2023 Bilirubin Ql (U) Negative Normal NEG [facility] BLOOD/HGB Negative Normal NEG [facility] CA OXALATE CRYSTALS PRESENT Abnormal NONE [facility] Color (U) YELLOW Normal YELLOW [facility] Glucose Ql (U) Negative Normal NEG [facility] Ketones Ql (U) Negative Normal NEG [facility] Leukocyte esterase Test strip Ql (U) Negative Normal NEG [facility] MUCOUS PRESENT Abnormal NONE [facility] Nitrite Ql (U) Negative Normal NEG [facility] pH (U) 6.5 [pH] Normal 5.0-8.5 [facility] Protein Ql (U) Trace Abnormal NEG [facility] R.B.CELLS 2 /hpf Normal 0-5 [facility] Specific gravity (U) [Rel density] 1.027 Normal 1.003-1.035 [facility] SQUAMOUS EPITHELIUM 14 /hpf High 0-5 [facility] TURBIDITY CLEAR Normal CLEAR [facility] Urobilinogen (U) [Mass/Vol] mg/dL Normal <1.1 [facility] W.B.CELLS 3 /hpf Normal 0-5 [facility] URINE CULTUREon 09-08-2023 Bacteria identified Cx Nom (U) CULTURE RESULTS 10-50,000 ORGANISMS/mL NORMAL UROGENITAL AYLIN Normal [facility] Comment on above: Performed By: #### 6 30-4 #### [facility] ([id number]) [address], [address] [place] [address] Urinalysison 09-08-2023 Bilirubin Ql (U) Negative Negative^Ne ga tive [facility] Calcium oxalate crystals LM Ql (Urine sed) PRESENT Abnormal NONE^NONE [facility] Color (U) YELLOW YELLOW^YELLOW [facility] Epithelial cells Auto (Urine sed) [#/Area] 14 High [facility] Glucose (U) [Mass/Vol] Negative Negative^Nega tive mg/dL [facility] Hemoglobin Auto test strip Ql (U) Negative Negative^Nega tive [facility] Interpretation and review of laboratory results Abnormal [facility] Ketones (U) [Mass/Vol] Negative Negative^Nega tive mg/dL [facility] Leukocyte esterase Auto test strip Ql (U) Negative Negative^Nega tive [facility] Mucus Ql (Urine sed) PRESENT Abnormal NONE^NONE [facility] Nitrite Auto test strip Ql (U) Negative Negative^Nega tive [facility] pH (U) 6.5 [pH] 5.0 - 8.5 [facility] Protein (U) [Mass/Vol] Trace Abnormal Negative^Nega tive mg/dL [facility] RBC Auto (Urine sed) [#/Area] 2 [facility] Specific gravity Refractometry automated (U) [Rel density] 1.027 1.003 - 1.035 [facility] Turbidity Ql (U) CLEAR CLEAR^CLEAR [facility] Urobilinogen Qn (U) NINF [facility] WBC Auto (Urine sed) [#/Area] 3 [facility] VAGINITIS PANEL PCRon 2023 VAGINITIS PANEL PCR [...] clinical presentation to determine patient diagnosis. Normal [facility] Comment on above: Performed By: #### V PPCR #### [facility] ([id number]) [address], [address] [place] [address] [employer] St[employer] 04-02-2022 S. pyogenes Org specific cx Ql (Throat) Negative [facility] [employer] Other Quick Strep [facility] [employer] Other Vital Signs Date Time Vital Sign Value Performing Clinician Facility 12-28-2024 15:23-0400 Body weight 100.7 kg Pal Kylee DO Work Phone: [facility] 12-28-2024 15:23-0400 Diastolic blood pressure 70 mm[Hg] Pal Kylee DO Work Phone: [facility] 12-28-2024 15:23-0400 Systolic blood pressure 130 mm[Hg] Pal Kylee DO Work Phone: [facility] 12-21-2024 15:55-0400 Body weight 100.43 kg Jesu Panda CERTIFIED FRAUD EXAMINER Work Phone: [facility] 12-21-2024 15:55-0400 Diastolic blood pressure 76 mm[Hg] Jesu Farzad CERTIFIED FRAUD EXAMINER Work Phone: [facility] 12-21-2024 15:55-0400 Systolic blood pressure 110 mm[Hg] Jesu Panda CERTIFIED FRAUD EXAMINER Work Phone: [facility] 12-13-2024 14:27-0400 Body weight 99.22 kg Carin VILLAGOMEZ Work Phone: [facility] 12-13-2024 14:27-0400 Diastolic blood pressure 70 mm[Hg] Carin VILLAGOMEZ Work Phone: [facility] 12-13-2024 14:27-0400 Systolic blood pressure 120 mm[Hg] Carin VILLAGOMEZ Work Phone: [facility] 12-07-2024 15:42-0400 Body weight 99.29 kg Pal Kylee DO Work Phone: [facility] 12-07-2024 15:42-0400 Diastolic blood pressure 82 mm[Hg] Pal Kylee DO Work Phone: [facility] 12-07-2024 15:42-0400 Systolic blood pressure 122 mm[Hg] Pal Kylee DO Work Phone: [facility] 11-24-2024 15:42-0400 Body weight 95.62 kg Carin Garcia PA Work Phone: [facility] 11-24-2024 15:42-0400 Diastolic blood pressure 74 mm[Hg] Carin David PA Work Phone: [facility] 11-24-2024 15:42-0400 Systolic blood pressure 118 mm[Hg] Carin Garcia PA Work Phone: [facility] 10-26-2024 14:45-0500 Body weight 90.27 kg Pal Kylee DO Work Phone: [facility] 10-26-2024 14:45-0500 Diastolic blood pressure 76 mm[Hg] Pal Kylee DO Work Phone: [facility] 10-26-2024 14:45-0500 Systolic blood pressure 122 mm[Hg] Pal Kylee DO Work Phone: [facility] 10-12-2024 16:21-0500 Body weight 90.72 kg Carin VILLAGOMEZ Work Phone: [facility] 10-12-2024 16:21-0500 Diastolic blood pressure 70 mm[Hg] Carin David PA Work Phone: [facility] 10-12-2024 16:21-0500 Systolic blood pressure 120 mm[Hg] Carin David PA Work Phone: [facility] 09-28-2024 16:23-0500 Body weight 88.51 kg Pal Kylee DO Work Phone: [facility] 09-28-2024 16:23-0500 Diastolic blood pressure 72 mm[Hg] Pal Kylee DO Work Phone: [facility] 09-28-2024 16:23-0500 Systolic blood pressure 116 mm[Hg] Pal Kylee DO Work Phone: [facility] 08-29-2024 15:54-0500 Body weight 84.82 kg Carin Garcia HERNANDO Work Phone: [facility] 08-29-2024 15:54-0500 Diastolic blood pressure 74 mm[Hg] Carin Valenciacinthya VILLAGOMEZ Work Phone: [facility] 08-29-2024 15:54-0500 Systolic blood pressure 120 mm[Hg] Carin Valenciaey PA Work Phone: [facility] 07-27-2024 15:32-0500 Body weight 81.38 kg Pal Kylee DO Work Phone: [facility] 07-27-2024 15:32-0500 Diastolic blood pressure 66 mm[Hg] Pal Kylee DO Work Phone: [facility] 07-27-2024 15:32-0500 Systolic blood pressure 108 mm[Hg] Pal Kylee DO Work Phone: [facility] 06-27-2024 16:10-0500 Body weight 79.83 kg Pal Kylee DO Work Phone: [facility] 06-27-2024 16:10-0500 Diastolic blood pressure 68 mm[Hg] Pal Kylee DO Work Phone: [facility] 06-27-2024 16:10-0500 Systolic blood pressure 108 mm[Hg] Pal Kylee DO Work Phone: [facility] 05-27-2024 10:31-0400 Body weight 79.38 kg Noms Nurse [facility] 05-27-2024 10:31-0400 Diastolic blood pressure 80 mm[Hg] [facility] Nurse [facility] 05-27-2024 10:31-0400 Systolic blood pressure 122 mm[Hg] Nom Nurse [facility] 10-13-2023 14:41-0500 Body height 165.1 cm Danielle Lange DO Work Phone: [email or web address] 10-13-2023 14:41-0500 Body mass index (BMI) [Ratio] 28.09 kg/m2 Danielle Lange DO [email or web address] 10-13-2023 14:41-0500 Body weight 76.57 kg Danielle Lange DO Work Phone: [email or web address] 10-13-2023 14:41-0500 Diastolic blood pressure 68 mm[Hg] Danielle Lange DO Work Phone: [email or web address] 10-13-2023 14:41-0500 Systolic blood pressure 104 mm[Hg] Danielle Lange DO Work Phone: [email or web address] 09-08-2023 11:06-0500 Body height 165.1 cm Danielle Lange DO Work Phone: [email or web address] 09-08-2023 11:06-0500 Body mass index (BMI) [Ratio] 28.22 kg/m2 Danielle Lange DO Work Phone: [email or web address] 09-08-2023 11:06-0500 Body weight 76.93 kg Danielle Lange DO Work Phone: [email or web address] 09-08-2023 11:06-0500 Diastolic blood pressure 70 mm[Hg] Danielle Lange DO Work Phone: [email or web address] 09-08-2023 11:06-0500 Systolic blood pressure 116 mm[Hg] Danielle Lange DO Work Phone: [employer] 04-02-2022 12:20-0400 Body height 167.64 cm Julianne Davidson Other [employer] Other 04-02-2022 12:20-0400 Body mass index (BMI) [Ratio] 30.66 kg/m2 Julianne Davidson Other [employer] Other 04-02-2022 12:20-0400 Body temperature 99.3 [degF] Julianne Lety Other [employer] Other 04-02-2022 12:20-0400 Body weight 86.18 kg Julianne Lety Other [employer] Other 04-02-2022 12:20-0400 Respiratory rate 18 /min Julianne Winklermond Other [employer] Other 04-02-2022 12:20-0400 SaO2% (BldA) [Mass fraction] 99 % Julianne Lety Other [employer] Other 07-06-2021 11:30-0500 Body height 165.1 cm Julianne Davidson Other [employer] Other 07-06-2021 11:30-0500 Body mass index (BMI) [Ratio] 29.95 kg/m2 Julianne Davidson Other [employer] Other 07-06-2021 11:30-0500 Body temperature 98.2 [degF] Julianne Davidson Other [employer] Other 07-06-2021 11:30-0500 Body weight 81.65 kg Julianne Lety Other [employer] Other 07-06-2021 11:30-0500 SaO2% (BldA) [Mass fraction] 99 % Julianne Lety Other [employer] Other Encounters Encounter Date Encounter Type Care [...] 12-21-2024 End: 12-21-2024 flow sheet Jesu Farzad CERTIFIED FRAUD EXAMINER Work Phone: [facility] Comment on above: 38 weeks gestation o f ; Third trimester Start: 12-21-2024 End: 12-21-2024 ambulatory JESU FARZAD Not Available Start: 12-21-2024 End: 12-21-2024 Bamboo flowsheet Jesu Farzad CERTIFIED FRAUD EXAMINER Work Phone: [facility] Start: 12-21-2024 End: 12-21-2024 Bamboo flowsheet Jesu Farzad CERTIFIED FRAUD EXAMINER Work Phone: [facility] Start: 12-13-2024 [...] Available Start: 11-01-2024 ambulatory Micheal Salas DDS [facility] Start: 10-26-2024 End: 10-26-2024 flow sheet Pal Kylee DO Work Phone: [facility] Comment on above: Third trimester preg nadeen; 30 weeks gestation of ; Gastroesophageal reflux in Start: 10-26-2024 End: 10-26-2024 ambulatory PAL KYLEE Not Available Start: 10-12-2024 End: 10-12-2024 flow sheet Carin VILLAGOMEZ Work Phone: [facility] Comment on above: Third trimester [...] 10-12-2024 Bamboo flowsheet Carin VILLAGOMEZ Work Phone: [facility] Start: 10-12-2024 End: 10-12-2024 Bamboo flowsheet Carin VILLAGOMEZ Work Phone: [facility] Start: 10-01-2024 End: 10-01-2024 Clinisync Result Encounter Pal Kylee DO Work Phone: [facility] External Department Unsolicited Start: 10-01-2024 End: 10-01-2024 Clinisync Result Encounter Pal Kylee DO Work Phone: [facility] External Department Unsolicited Start: 09-28-2024 End: 09-28-2024 flow sheet Pal Kylee DO Work Phone: [facility] Comment on above: Second trimester pre gnancy; 26 weeks gestation of ; Diabetes mellitus screening Start: 09-28-2024 End: 09-28-2024 ambulatory PAL KYLEE Not Available Start: 09-28-2024 End: 09-28-2024 Bamboo flowsheet Pal Kylee DO Work Phone: [facility] Start: 09-28-2024 End: 09-28-2024 Bamboo flowsheet Pal Kylee DO Work Phone: [facility] Start: 09-23-2024 End: 09-23-2024 Clinisync [...] Available Start: 10-29-2023 Orders Only Sowmya [facility] Comment on above: Renal lithiasis (Yanet annita Dx); Calcium oxalate crystals in urine; Flank pain; Left sided abdominal pain Start: 10-15-2023 End: 10-16-2023 ambulatory [facility] Start: 10-13-2023 End: 10-13-2023 ambulatory [facility] Start: 10-13-2023 End: 10-13-2023 Office outpatient visit 15 minutes Danielle Liu Lange DO Work Phone: [facility] Comment on above: Renal lithiasis (Yanet annita Dx); Left sided abdominal pain; Flank pain; Calcium oxalate crystals in urine Start: 09-14-2023 End: 09-15-2023 ambulatory [facility] Start: 09-08-2023 End: 09-09-2023 ambulatory [facility] Start: 09-08-2023 End: 09-08-2023 ambulatory [facility] Start: 09-08-2023 End: 09-08-2023 Office outpatient visit 15 minutes Danielle Liu Lange DO Work Phone: [facility] Comment on above: Dyspareunia in femal e (Primary Dx); Left sided abdominal pain; [place] Start: 04-02-2022 End: 04-02-2022 ambulatory Julianne Davidson Other [employer] Other Start: 04-02-2022 Office outpatient vi sit 15 minutes Julianne Davidson [facility] Start: 07-06-2021 (URG) Urgent Care Visit Julianne monsalve [facility] Start: 07-06-2021 End: 07-06-2021 ambulatory Julianne Davidson Other [employer] Other Start: 03-17-2019 End: 03-18-2019 Patient encounter procedure CLARICE MANZO Facility:H1 Procedures Date Procedure Procedure Detail Performing Clinician Start: 01-03-2025 ALL CBC WITH AUTO DIFF Pal Kylee DO Work Phone: Start: 01-01-2025 [facility] UA (CLEAN/CATCH) CLAIMS ATTORNEY/MICRO IF IND. Pal Kylee DO Work Phone: Start: 12-28-2024 Urnls dip stick/tabl et rgnt non-auto w/o micrscp Pal Kylee DO Work Phone: Start: 12-21-2024 Urnls dip stick/tabl et rgnt non-auto w/o micrscp Jesu Farzad CERTIFIED FRAUD EXAMINER Work Phone: Start: 12-13-2024 Urnls dip stick/tabl [...] DO Work Phone: Start: 06-08-2024 BOX TEST [employer] DO Work Phone: Start: 05-27-2024 End: 05-27-2024 [...] malign ant neoplasm of cervix Pap Smear [facility] Start: 01-03-2025 End: 01-03-2025 Patient encounter procedure 01/03/2025 8:40 AM EDT Routine [facility] [address] [place] [id number] Pal Pichardo, DO [address] [place], [place] [id number] [facility] Start: 12-28-2024 End: 12-28-2024 Patient encounter procedure [facility] Comment on above: Arrived Start: 12-21-2024 End: 12-21-2024 Patient encounter procedure [facility] Comment on above: Arrived Start: 12-13-2024 End: 12-13-2024 Patient encounter procedure [facility] Comment on above: Arrived Start: 12-07-2024 End: 12-07-2024 Patient encounter procedure 12/07/2024 3:30 PM EDT Routine [facility] [address] [place] [phone] Pal Pichardo, DO [address] [place] [address] Arrived [facility] Comment on above: Arrived Start: 12-07-2024 End: 12-07-2025 CULTURE, GROUP B STREP WITH SUSCEPTIBLITY CULTURE, GROUP B STREP WITH SUSCEPTIBLITY Lab Routine Third trimester Expected: 12/07/2024, Expires: 12/07/2025 [facility] Work Phone: Comment on above: Expected: 12/07/2024 , Expires: 12/07/2025 Start: 11-09-2024 End: 11-09-2024 Patient encounter procedure 11/09/2024 3:20 PM EDT Routine [facility] [address] [place] [phone] Carin Garcia PA [address] [place] [address] [facility] Start: 10-26-2024 End: 10-26-2024 Patient encounter procedure 10/26/2024 2:40 PM EST Routine [facility] [address] [place] [phone] Pal Pichardo, DO [address] [place] [address] [facility] Start: 10-26-2024 End: 10-26-2024 Professional / ancillary services management 10/26/2024 2:00 PM EST Ancillary Procedure [facility] [address] [place] [phone] [facility] Start: 10-13-2024 Adult BMI Screening Adult BMI Screen ing [facility] Start: 10-13-2024 Tobacco Screening Tobacco Screening [facility] Start: 10-12-2024 End: 10-12-2024 Patient encounter procedure [facility] Comment on above: Arrived Start: 10-12-2024 End: 10-12-2025 US for US OB follow up transabdominal approach Imaging Routine Excessive growth affecting management of in third trimester, single or unspecified fetus Expected: 10/12/2024 (Approximate), Expires: 10/12/2025 [facility] Work Phone: Comment on above: Expected: 10/12/2024 (Approximate), Expires: 10/12/2025 Start: 09-28-2024 End: 09-28-2024 Patient encounter procedure [facility] Comment on above: Arrived Start: 09-28-2024 End: 09-28-2025 CBC panel - Blood by Automated count CBC Lab Routine Diabetes mellitus screening Expected: 09/28/2024 (Approximate), Expires: 09/28/2025 [facility] Work Phone: Comment on above: Expected: 09/28/2024 (Approximate), Expires: 09/28/2025 Start: 09-28-2024 End: 09-28-2025 Measurement of glucose 1 hour after glucose challenge for glucose tolerance test Glucose tolerance, 1 hour Lab Routine Diabetes mellitus screening Expected: 09/28/2024 (Approximate), Expires: 09/28/2025 [facility] Comment on above: Expected: 09/28/2024 (Approximate), Expires: 09/28/2025 Start: 09-08-2024 Adult BMI Screening Adult BMI Screen ing [facility] Start: 09-08-2024 Screening for Chlamy hernesto trachomatis Chlamydia Screening [facility] Start: 09-08-2024 Tobacco Screening Tobacco Screening [facility] Start: 08-29-2024 End: 08-29-2024 Patient encounter [...] 06-24-2024 Depression Screening Depression Scre [facility] Start: 06-01-2024 Adult BMI Follow Up Plan Adult BMI F ollow Up Plan [facility] Start: 05-27-2024 End: 05-27-2025 ABO/Rh ABO/Rh [...] first trimester Expected: 05/27/2024 (Approximate), Expires: 05/27/2025 [facility] Comment on above: Expected: 05/27/2024 (Approximate), Expires: 05/27/2025 Start: 05-27-2024 End: 05-27-2025 US Pelvis transvaginal US OB transvaginal Imaging Routine Missed menses Expected: 05/27/2024 (Approximate), Expires: 05/27/2025 [facility] Comment on above: Expected: 05/27/2024 (Approximate), Expires: 05/27/2025 Start: 11-26-2023 DTaP,Tdap and Td Vac cines (7 - Td or Tdap) DTaP,Tdap and Td Vaccines (7 - Td or Tdap) [facility] Start: 10-13-2023 End: 10-13-2024 US Retroperitoneum Ultrasound retroperitoneal complete Imaging Routine Left sided abdominal pain Flank pain Renal lithiasis Calcium oxalate crystals in urine Expected: 10/13/2023, Expires: 10/13/2024 [facility] Work [facility]: Comment on above: Expected: 10/13/2023 , Expires: 10/13/2024 Start: 10-06-2023 End: 10-06-2023 Patient encounter procedure 10/06/2023 2:00 PM EST Office Visit [facility] [address] [place] [address] Danielle Lange DO [address] [place], [place] [phone] [facility]stetric[facility]/Gynecolo gy Start: 09-14-2023 End: 09-14-2023 Patient encounter procedure 09/14/2023 2:00 PM EST Appointment [facility] [address] [place] [phone] [facility] Start: 09-08-2023 End: 09-08-2024 Bacteria identified in Urine by Culture [facility] Work Phone: Comment on above: Expected: 09/08/2023 (Approximate), Expires: 09/08/2024 Start: 09-08-2023 End: 09-08-2024 US Pelvis transabdominal and transvaginal Ultrasound pelvic with transvaginal Imaging Routine Left sided abdominal pain Expected: 09/08/2023, Expires: 09/08/2024 [facility] Comment on above: Expected: 09/08/2023 , Expires: 09/08/2024 Start: 09-08-2023 End: 09-08-2024 Vaginitis Panel PCR [facility] Comment on above: Expected: 09/08/2023 (Approximate), Expires: 09/08/2024 Start: 06-18-2023 Screening for Chlamy hernesto trachomatis Chlamydia Screening [facility] Start: 04-24-2023 Influenza vaccination Influenza Vacc ine [facility] Bacteria identified in Urine by Culture Urine culture Microbiology Routine Missed menses Ordered: 05/27/2024 [facility] Comment on above: Ordered: 05/27/2024 Bacteria identified in Urine by Culture Urine culture Microbiology Routine Urinary tract infection without hematuria, site unspecified Ordered: 10/12/2024 [facility] Comment on above: Ordered: 10/12/2024 CBC W Auto Different ial panel - Blood CBC and differential Lab Routine Missed menses , unspecified gestational age Ordered: 05/27/2024 [facility] Comment on above: Ordered: 05/27/2024 CHLAMYDIA TRACHOMATI S (GENITO/STI) CHLAMYDIA TRACHOMATIS (GENITO/STI) Lab Routine STD exposure Ordered: 07/27/2024 [facility] Comment on above: Ordered: 07/27/2024 End: 09-08-2024 Chlamydia/GC by PCR [facility] Chlamydia/GC by PCR [facility] Microbiology Routine Left sided abdominal pain 1 Occurrences starting 09/08/2023 until 09/08/2024 [facility] Comment on above: 1 Occurrences starti ng 09/08/2023 until 09/08/2024 Chlamydia/GC by PCR [facility] Chlamydia/GC by PCR [facility] Microbiology Routine Left sided abdominal pain 09/08/2023 7:35 PM [facility] Cytology Cervical or vaginal smear or scraping study Pap Smear Pathology and Cytology Routine Well woman exam with routine gynecological exam Ordered: 07/27/2024 [facility] Comment on above: Ordered: 07/27/2024 Hemoglobin A1c/Hemoglobin.total in Blood Hemoglobin A1c Lab Routine Missed menses , unspecified gestational age Ordered: 05/27/2024 [facility] Comment on above: Ordered: 05/27/2024 Hepatitis B virus clarke rface Ag [Presence] in Serum or Plasma by Immunoassay Hepatitis B surface antigen Lab Routine Missed menses , unspecified gestational age Ordered: 05/27/2024 [facility] Comment on above: Ordered: 05/27/2024 Hepatitis C virus Ab [Presence] in Serum or Plasma by Immunoassay Hepatitis C antibody Lab Routine Missed menses , unspecified gestational age Ordered: 05/27/2024 [facility] Comment on above: Ordered: 05/27/2024 HIV-1/HIV-2 antigen/antibody combination immunoassay HIV-1 and HIV-2 antibodies Lab Routine Missed menses , unspecified gestational age Ordered: 05/27/2024 [facility] Comment on above: Ordered: 05/27/2024 Neisseria gonorrhoea e DNA [Presence] in Unspecified specimen by MARIA M with probe detection Neisseria gonorrhea DNA probe, direct Lab Routine STD exposure Ordered: 07/27/2024 [facility] Comment on above: Ordered: 07/27/2024 Reagin Ab [Presence] in Serum by RPR RPR Lab Routine Missed menses , unspecified gestational age Ordered: 05/27/2024 [facility] Comment on above: Ordered: 05/27/2024 Rubella antibody, IgG Rubella an tibody, IgG Lab Routine Missed menses , unspecified gestational age Ordered: 05/27/2024 [facility] Comment on above: Ordered: 05/27/2024 SURESWAB(R) ADVANCED VAGINITIS PLUS, TMA SURESWAB(R) ADVANCED VAGINITIS PLUS, TMA Pathology and Cytology Routine Vaginal discharge STD exposure Ordered: 07/27/2024 [facility] Work Phone: Comment on above: Ordered: 07/27/2024 Immunizations Immunization Date Immunization Notes Care Provider Ton king 06-28-2009 influenza virus vaccine, unspecified formulation Danielle Lange DO Work Phone: [facility] [employer] Payers Date Payer Category Payer Managed Care HMO (unspecified) [id number] 2024 Private Health Insurance [id number] 2019 Private Health Insurance [id number] 2019 Private Health Insurance [facility] PLUS [id number] 2019-Present [phone] [address] [address] [place] [address] [id number] 2001 Unknown [id number] 2.16.840.1.238574.3.579.2. 1286 2001 Unknown [id number] 2.16.840.1.316633.3.579.2. 128 2001 Unknown [id number] 2.16.840.1.906252.3.579.2. 128 2001 Unknown [id number] 2.16.840.1.096906.3.579.2. 1286 2001 Unknown [id number] 2.16.840.1.005400.3.579.2. 1286 2001 Unknown [id number] 2.16.840.1.920193.3.579.2. 1259 2001 Unknown [id number] 2.16.840.1.479209.3.579.2. 1259 2001 Unknown [id number] 2.16.840.1.444680.3.579.2. 9 2001 Unknown [id number] 2.16.840.1.869107.3.579.2. 1259 2001 Unknown [id number] 2.16.840.1.583371.3.579.2. 1259 2001 Unknown [id number] 2.16.840.1.104499.3.579.2. 9 2001 Unknown [id number] 2.16.840.1.583570.3.579.2. 9 2001 Unknown [id number] 2.16.840.1.046505.3.579.2. 1258 2001 Unknown [id number] 2.16.840.1.397291.3.579.2. 1258 2001 Unknown [id number] 2.16.840.1.618159.3.579.2. 1258 2001 Unknown [id number] 2.16.840.1.980321.3.579.2. 9 2001 Unknown [id number] 2.16.840.1.239613.3.579.2. 1258 2001 Unknown [id number] 2.16.840.1.702743.3.579.2. 9 2001 Unknown [id number] 2.16.840.1.646915.3.579.2. 1258 2001 Unknown [id number] 2.16.840.1.946694.3.579.2. 1259 1976 Unknown [id number] 2.16.840.1.008708.3.579.2. 593 1959 Unknown [id number] Social History Date Type Detail Facility Sex Assigned At [employer] Other Start: 10-04-2020 End: 05-27-2024 Sex Assigned At [facility] [employer] Start: 06-18-2022 End: 05-27-2024 Tobacco smoking status NHIS Never smoked tobacco [facility] Start: 06-18-2022 End: 05-27-2024 Tobacco use and exposure Smokeless tobacco non-user [facility] Start: 05-27-2024 End: 12-21-2024 Alcoholic beverage intake Lifetime non-drinker (finding) [facility] Start: 10-04-2020 End: 05-27-2024 History of Social function [facility] Start: 04-13-2024 [facility] Start: 2000 Sex assigned at Female [facility] Start: 12-29-2023 Gender identity Identifies as female gender (finding) [facility] Start: 09-08-2023 End: 10-13-2023 Alcohol intake Current non-drinker of alcohol (finding) [facility] Frequency of Alcohol Consumption Never [facility] Start: 2000 Sex Assigned At Not on file [facility] ystem Clinical Notes 04-02-2022 to 12-28-2024 Whitley Sanchez QUALITY PROCESS LEAD - 12/28/2024 3:00 PM EDAdelaida Panda NP - 12/21/2024 3:20 PM Valentino Sanchez LPN - 12/13/2024 2:20 PM Valentino Sanchez QUALITY PROCESS LEAD - 12/07/2024 3:30 PM EDT Note Date [...] nursing note reviewed. Exam conducted with a qc lab technician present. Vitals: Estimated body mass index is [...] Pal Pichardo DO documented in this encounter [facility] 12-21-2024 History of Present illness Narrative [...] nursing note reviewed. Exam conducted with a qc lab technician present. Vitals: Estimated body mass index is [...] Jesu Panda NP documented in this encounter [facility] 12-13-2024 History of Present illness Narrative [...] nursing note reviewed. Exam conducted with a qc lab technician present. Vitals: Estimated body mass index is [...] Pal Pichardo D.O. documented in this encounter [facility] 12-07-2024 History of Present illness Narrative [...] nursing note reviewed. Exam conducted with a qc lab technician present. Vitals: Estimated body mass index is [...] Pal Pichardo DO documented in this encounter [facility] 11-24-2024 History of Present illness Narrative [...] of: HERNANDO Magallanes documented in this encounter [facility] 10-26-2024 History of Present illness Narrative [...] nursing note reviewed. Exam conducted with a qc lab technician present. Vitals: Estimated body mass index is [...] Pal Pichardo DO documented in this encounter [facility] 10-12-2024 History of Present illness Narrative [...] of: HERNANDO Magallanes documented in this encounter [facility] 09-28-2024 History of Present illness Narrative [...] nursing note reviewed. Exam conducted with a qc lab technician present. Vitals: Estimated body mass index is [...] Pal Pichardo DO documented in this encounter [facility] 08-29-2024 History of Present illness Narrative [...] of: HERNANDO Magallanes documented in this encounter [facility] 07-27-2024 History of Present illness Narrative [...] nursing note reviewed. Exam conducted with a qc lab technician present. Vitals: Estimated body mass index is [...] Pal Pichardo DO documented in this encounter [facility] 06-27-2024 History of Present illness Narrative [...] Pal Pichardo DO documented in this encounter [facility] 05-27-2024 History of Present illness Narrative [...] or undercooked meat, and stay away from [facility]. Patient has also been advised to [...] by: Linda Barone documented in this encounter [facility] 10-29-2023 History of Present illness Narrative Ordered new Guitar Maker referral documented in this encounter [facility] 10-13-2023 History of Present illness Narrative [...] past. She states she has seen a command center analyst, but was only counseled to not [...] PM Imaging Ultrasound pelvic with transvaginal (Order: [id number]) - 09/14/2023 Result History Ultrasound pelvic with transvaginal (Order #[id number]) on 09/15/2023 - Order Result History Report [...] to nephrology placed. documented in this encounter [facility] 09-08-2023 History of Present illness Narrative [...] alleviate her symptoms documented in this encounter [facility] 04-02-2022 Evaluation note Encounter Date Diagnosis Assessment Notes Mar, Viral pharyngitis (ICD-10 - J02.9) Pharyngitis/to nsillopharyngi tis: adult home care material was printed Drink plenty fluids, get plenty of rest. Take Tylenol or Motrin for aches pains or fevers. Continue your cephalexin as prescribed until gone. Follow-up with your family physician if no improvement in 2 to 3 days. [employer] Other Evaluation noteNort [employer] Other Evaluation note* Diagnosis Missed menses , unspecified gestational age Encounter for supervision of normal first in first trimester documented in this encounter [facility]* Diagnosis First trimester state, incidental 12 weeks gestation of Nausea Nausea alone Viral upper respiratory tract infection Acute upper respiratory infections of unspecified site documented in this encounter [facility]* Diagnosis Well woman exam with routine gynecological exam Routine gynecological examination Second trimester state, incidental 16 weeks gestation of Screening, , for anatomic survey Encounter for anatomic survey Vaginal discharge Leukorrhea, not specified as infective STD exposure documented in this encounter [facility]* Diagnosis Second trimester state, incidental 21 weeks gestation of documented in this encounter [facility]* Diagnosis Dyspareunia in female- Primary [...] crystals in urine [facility] Diagnosis Renal lithiasis- Primary Calculus of kidney Calcium oxalate crystals in urine Flank pain Abdominal pain, unspecified site Left sided abdominal pain Abdominal pain, unspecified site [facility] Diagnosis Third trimester state, incidental [...] Gastroesophageal reflux in documented in this encounter [facility]* Diagnosis 34 weeks gestation of Third trimester state, incidental documented [facility]* Diagnosis Third trimester state, incidental 36 weeks gestation of documented in this encounter [facility]* Diagnosis Third trimester state, incidental 36 weeks gestation of documented in this encounter [facility]* Diagnosis 38 weeks gestation of Third trimester state, incidental documented in this encounter [facility]* Diagnosis Third trimester state, incidental 39 weeks gestation of [facility] N[facility] - ReportedNortSt[facility] [employer] Other History general Narrative - Reported* Type Description Date Medical History chronic depression [facility] [employer] Other Instructions* Attachments The following attachments cannot be sent through Care Everywhere. * Painful Ovulation (Polish) documented in this encounterProW[facility] CenterWhiskey MediaInstructions* Attachments The following attachments cannot be sent through Care Everywhere. * Kidney stones in adults (Polish) [facility] MixersInstructionsNot on file documented in [facility]Dun[facility] HospitalReason for referral (narrative)* Consultation (Routine) - Pending Review Specialty Diagnoses / Procedures Referred By Contac t Referred To Contact Nephrology Diagnoses Left sided abdominal pain Flank pain Renal lithiasis Calcium oxalate crystals in urine Danielle Lange DO [address] [place] [address] Yannick Villagomez MD [address] [place] [address] Referral ID Status Reason Start Date Expiration Date Visits Requested Visits Authorized [id number] Pending Review Specialty Services Required 10/13/2023 10/12/2024 1 1 [facility] [facility] SystemReason for referral (narrative)* Consultation (Routine) - Pending Review Specialty Diagnoses / Procedures Referred By Contac t Referred To Contact Nephrology Diagnoses Renal lithiasis Calcium oxalate crystals in urine Flank pain Left sided abdominal pain Danielle Lange DO [address] [place] [address] Hussein Card MD [address] [place] [address] [place] [address] [place] [address] Referral ID Status Reason Start Date Expiration Date Visits Requested Visits Authorized [id number] Pending Review Specialty Services Required 10/29/2023 10/28/2024 1 1 [facility] Summary Purpose Family History No Family [...] section and content) DATE CREATED AUTHOR 09/15/2020 [facility] DATE CREATED AUTHOR AUTHOR'S ORGANIZ ATION 09/12/2023 [facility] DATE CREATED AUTHOR AUTHOR'S ORGANIZ ATION 10/21/2023 [facility] DATE CREATED AUTHOR AUTHOR'S ORGANIZ ATION 10/23/2023 [facility] DATE CREATED AUTHOR AUTHOR'S ORGANIZ ATION 11/04/2024 [facility] DATE CREATED AUTHOR AUTHOR'S ORGANIZ ATION 12/31/2024 [facility] dical Specialists EPIC REASON FOR VISIT (unrecogniz ed section and content) Reason Comments Initial Visit Reason Comments Routine Visit Reason Comments Well Women Visit Routine Visit STI Screening Reason Comments Abdominal Pain Left side started ab out 2 months agoPain the first day of cycle Reason Comments Follow-up Ultrasound results d /t pelvic pain Care Teams (unrecognized sec tion and content) Windows Systems Engineer Relationship Specialty Start Date End Date Samir Stroud NP [address] [place] [address] Referring Physician Family Medicine 05/19/23 Windows Systems Engineer Relationship Specialty Start Date End Date Samir Stroud NP [address] [place] [address] Referring Physician Family Medicine 05/19/23 Windows Systems Engineer Relationship Specialty Start Date End Date Samir Stroud NP [address] [place] [address] Referring Physician Family Medicine 05/19/23 Windows Systems Engineer Relationship Specialty Start Date End Date Samir Stroud NP [address] [place] [address] Referring Physician Family Medicine 05/19/23 Windows Systems Engineer Relationship Specialty Start Date End Date Samir Stroud NP [address] [place] [address] Referring Physician Family Medicine 05/19/23 Windows Systems Engineer Relationship Specialty Start Date End Date Samir Stroud NP [address] [place] [address] Referring Physician Family Medicine 05/19/23 Windows Systems Engineer Relationship Specialty Start Date End Date Samir Stroud NP [address] [place] [address] Referring Physician Family Medicine 05/19/23 Windows Systems Engineer Relationship Specialty Start Date End Date Samir Stroud NP [address] [place] [address] Referring Physician Family Medicine 05/19/23 Windows Systems Engineer Relationship Specialty Start Date End Date Samir Stroud NP [address] [place] [address] Referring Physician Family Medicine 05/19/23 Windows Systems Engineer Relationship Specialty Start Date End Date Samir Stroud, BUSINESS DEPARTMENT CHAIR-TELEPHONE OPERATOR [address] [place] [address] PCP - General Family Medicine 12/28/22 Windows Systems Engineer Relationship Specialty Start Date End Date Samir Stroud NP [address] [place] [address] Referring Physician Family Medicine 05/19/23 Windows Systems Engineer Relationship Specialty Start Date End Date Samir Stroud BUSINESS DEPARTMENT CHAIR-TELEPHONE OPERATOR [address] [place] [address] PCP - General Family Medicine 12/28/22 Windows Systems Engineer Relationship Specialty Start Date End Date Samir Stroud BUSINESS DEPARTMENT CHAIR-TELEPHONE OPERATOR [address] [place] [address] PCP - General Family Medicine 12/28/22 Windows Systems Engineer Relationship Specialty Start Date End Date Samir Stroud NP [address] [place] [address] Referring Physician [facility] 05/19/23 Windows Systems Engineer Relationship Specialty Start Date End Date Samir Stroud NP [address] [place] [address] Referring Physician [facility] 05/19/23 Windows Systems Engineer Relationship Specialty Start Date End Date Samir Stroud NP Referring Physician [facility] 05/19/23 Windows Systems Engineer Relationship Specialty Start Date End Date Samir Stroud NP Referring Physician Family [facility] 05/19/23 Windows Systems Engineer Relationship Specialty Start Date End Date Samir Stroud NP Referring Physician Family Medicine 05/19/23 Windows Systems Engineer Relationship Specialty Start Date End Date Samir Stroud NP Referring Physician Family Medicine 05/19/23 Windows Systems Engineer Relationship Specialty Start Date End Date Samir Stroud NP Referring Physician Family Medicine 05/19/23 Windows Systems Engineer Relationship Specialty Start Date End Date [...] BE BASED ON THE PRIMARY CLINICAL RECORDS. [employer] [facility]. provides no warranty or guarantee of the accuracy or completeness of information in this document.
[2025-01-07 20:58] VITALS: BP 136/89; PULSE 120; TEMP 37.4; O2SAT 97; BMI 34.8
--- NOTE | 2025-01-07 21:15 | ED.GENADUL1 ---
HPI HPI - General Adult General Chief complaint: Syncope Stated complaint: syncope Time Seen by Provider: 01/07/25 21:05 History of Present Illness HPI narrative: delivered baby 6 days ago. Now presents with 2 day history of fever , weakness and light headiness. Headache that comes and goes. No headache now. Has abdominal pain but it comes and goes. Still has some bleeding but has not increased. Has been taking ibuprofen. she is breast feeding and her left breast is sore Related Data Previous Rx's ?Medication ?Instructions ?Recorded acetaminophen 300 mg-codeine 30 mg 1 tab PO Q6H PRN pain #20 tabs 01/03/25 tablet docusate sodium 100 mg capsule 100 mg PO BID #60 caps 01/03/25 (Colace) ibuprofen 800 mg tablet 800 mg PO Q8H PRN pain 14 days #40 01/03/25 tabs Allergies Allergy/AdvReac Type Severity Reaction Status Date / Time Sulfa (Sulfonamide Allergy Severe Hives Verified 10/14/24 11:34 Antibiotics) Opioid HPI Opioid Management Most Recent Opioid Data: Last Pain Scale 5 01/03/25, 13:15 Last Pain Assessment 01/02/25, 10:55 Last MAR Pain Assessment 01/02/25, 02:41 Ur Phencyclidine Scrn, (NEGATIVE) Negative 01/01/25, 04:22 Review of Systems ROS Status of ROS 10 or more systems reviewed and unremarkable except as noted in history and below PFSH PFSH Social History Little interest or pleasure in doing things: not at all Feeling down, depressed, or hopeless: not at all Exam Constitutional Vital Signs, click to edit/add: Last Vital Signs Temp 99.4 F 01/07/25 20:58 Pulse 96 H 01/08/25 02:51 Resp 24 H 01/08/25 02:51 BP 116/77 01/08/25 02:51 Pulse Ox 100 01/08/25 02:51 O2 Del Method Room Air 01/08/25 02:51 Common normals: no apparent distress, average body habitus, oriented x3, no limitations, healthy appearing, alert and well nourished [facility] Common normals: normocephalic and head/scalp atraumatic Eye Common normals: EOMs intact bilaterally Chest Other: left breast examined with nursing in place with swelling and erythema of the left breast Cardio Rate: tachycardic GI Common normals: Normal to inspection, nondistended, normoactive bowel sounds present, soft to palpation and non-tender Extremity Common normals: normal to inspection and full ROM Other: pedal edema of her feet Neuro Common normals: oriented x3, CN's II-XII intact bilaterally, moves all extremities and no focal motor deficits Psych Appearance: grossly normal Course Vital Signs Vital signs: Vital Signs Temperature 99.4 F 01/07/25 20:58 Pulse Rate 120 H 01/07/25 20:58 Respiratory Rate 18 01/07/25 20:58 Blood Pressure 136/89 01/07/25 20:58 Pulse Oximetry 97 01/07/25 20:58 Oxygen Delivery Method Room Air 01/07/25 20:58 Temperature 99.4 F 01/07/25 20:58 Pulse Rate 96 H 01/08/25 02:51 Respiratory Rate 24 H 01/08/25 02:51 Blood Pressure 116/77 01/08/25 02:51 Pulse Oximetry 100 01/08/25 02:51 Oxygen Delivery Method Room Air 01/08/25 02:51 Medical Decision Making MDM Narrative Medical decision making narrative: patient is post 6 days. Breast feeding. Presents lightheaded with fever. Treated fever at home with ibuprofen. Found to have left breast mastitis/cellulitis. Treated with Unasyn and 3L NS. Still feels very weak and tachycardic after above treatment. WBC elevated at 17.6. Discussed with hospitalist and will plan obs admission for additional fluids and antibiotics Lab Data Labs: Lab Results 01/07/25 01/07/25 01/08/25 Range/Units 21:21 22:06 00:12 WBC 17.6 H (4.0-11.0) 10^3/uL RBC 2.82 L (4.20-5.40) 10^6/uL Hgb 7.7 L (12.0-16.0) g/dL Hct 24.2 L (36.0-48.0) % MCV 85.8 (81.0-99.0) fL MCH 27.3 (26.7-34.0) pg MCHC 31.8 (29.9-35.2) g/dL RDW 14.5 (11.0-15.0) % Plt Count 319 (150-450) 10^3/uL MPV 9.3 L (9.5-13.5) fL Neut % (Auto) 82.9 H (43.0-75.0) % Lymph % (Auto) 7.6 L (20.5-60.0) % [place] % (Auto) 7.0 (1.7-12.0) % Eos % (Auto) 0.6 L (0.9-7.0) % Baso % (Auto) 0.3 (0.2-2.0) % Neut # (Auto) 14.6 H (1.4-6.5) 10^3/uL Lymph # (Auto) 1.3 (1.2-3.8) 10^3/uL [place] # (Auto) 1.2 H (0.3-0.8) 10^3/uL Eos # (Auto) 0.1 (0.0-0.7) 10^3/uL Baso # (Auto) 0.1 (0.0-0.1) 10^3/uL Abs Immat Gran (auto) 0.29 H (0.00-0.03) 10^3/uL Imm/Tot Granulo (auto) 1.6 H (0.0-0.5) % Sodium 140 (136-145) mmol/L Potassium 3.3 L (3.5-5.1) mmol/L Chloride 105 (98-107) mmol/L Carbon Dioxide 23.4 (21.0-32.0) mmol/L Anion Gap 14.9 BUN 12.0 (7.0-18.0) mg/dL Creatinine 0.79 (0.55-1.02) mg/dL Est GFR ( Amer) >60 (>=60 mL/min/1.73m^2) Est GFR (Non-Af Amer) >60 (>=60 mL/min/1.73m^2) BUN/Creatinine Ratio 15.2 Glucose 103 (74-106) mg/dL Lactate 1.2 (0.4-2.0) mmol/L Calcium 8.7 (8.5-10.1) mg/dL Total Bilirubin 0.4 (0.2-1.0) mg/dL AST 13 L (15-37) U/L ALT 20 (14-59) U/L Alkaline Phosphatase 107 (46-116) U/L Total Protein 6.6 (6.4-8.2) g/dL Albumin 2.7 L (3.4-5.0) g/dL Globulin 3.9 g/dL Albumin/Globulin Ratio 0.7 Urine Color Lt. yellow (YELLOW) Urine Clarity Clear (CLEAR) Urine pH 6.0 (5.0-9.0) Ur Specific [place] <=1.005 A (1.005-1.025) Urine Protein Negative (NEG/TRACE) mg/dL Urine Glucose (UA) Negative (NEGATIVE) mg/dL Urine Ketones Negative (NEGATIVE) mg/dL Urine Occult Blood Large A (NEGATIVE) Urine Nitrite Negative (NEGATIVE) Urine Bilirubin Negative (NEGATIVE) Urine Urobilinogen 0.2 (0.2-1.0) EU/dL Ur Leukocyte Esterase Small A (NEGATIVE) Urine RBC 10-20 A (0-2) #/HPF Urine WBC 10-20 A (NONE SEEN) #/HPF Ur Squamous Epith Cells Moderate A (NONE/RARE) #/LPF Urine Crystals None seen (None Seen) #/HPF Urine Bacteria Trace A (NONE SEEN) #/HPF Urine Casts None seen (NONE SEEN) #/LPF Urine Mucus None seen (NONE SEEN) Ur Culture Indicated? Yes-[facility] [place] Discharge Plan Discharge Chief Complaint: Syncope Clinical Impression: Cellulitis of left breast Patient Disposition: Admitted as Observation
[2025-01-07] MEDS: 0.9 % SODIUM CHLORIDE 1,000 ML 999 ML IV ×2 (21:34→23:40)
[2025-01-07 21:37] VITALS: PULSE 103
--- NOTE | 2025-01-07 21:37 | ECG_ITS ---
[facility] Test Date: 2025-01-07 Pat Name: JANET RANDALL Department: Room: - Gender: Female Document Clerk: : 2000 Requested By: [id number] Order Number: [id number] Reading MD: EDILIA PINO M.D. Measurements Intervals Pitcher Rate: 103 P: 30 IN: 134 QRS: 8 QRSD: 72 T: 9 QT: 324 QTc: 384 Interpretive Statements 1120 Sinus tachycardia 5222 Moderate voltage criteria for LVH, may be normal variant abnormal ECG No previous ECG available for comparison Electronically Signed On 01-08-2025 6:41:10 EDT by EDILIA PINO M.D.
[2025-01-07 21:57] LABS: Alanine Aminotransferase 20 U/L (14-59); Albumin Globulin Ratio 0.7; Albumin Level 2.7 g/dL (3.4-5.0); Alkaline Phosphatase 107 U/L (46-116); Anion Gap 14.9; Aspartate Amino Transferase 13 U/L (15-37); BUN Creatinine Ratio 15.2; Bilirubin Total 0.4 mg/dL (0.2-1.0); Calcium 8.7 mg/dL (8.5-10.1); Carbon Dioxide 23.4 mmol/L (21.0-32.0); Chloride 105 mmol/L (98-107); Estimated GFR (African America >60 (>=60 mL/min/1.73m^2); Estimated GFR (Non-African Ame >60 (>=60 mL/min/1.73m^2); Globulin 3.9 g/dL; Glucose 103 mg/dL (74-106); Potassium 3.3 mmol/L (3.5-5.1); Sodium 140 mmol/L (136-145); Total Protein 6.6 g/dL (6.4-8.2)
[2025-01-07 21:59] LABS: Lactate/Lactic Acid 1.2 mmol/L (0.4-2.0)
[2025-01-07 22:13] LABS: Basophils Absolute Auto 0.1 10^3/uL (0.0-0.1); Basophils Percent Auto 0.3 % (0.2-2.0); Eosinophils Absolute Auto 0.1 10^3/uL (0.0-0.7); Eosinophils Percent Auto 0.6 % (0.9-7.0); Hematocrit 24.2 % (36.0-48.0); Hemoglobin 7.7 g/dL (12.0-16.0); Immature Granulocytes Abs Auto 0.29 10^3/uL (0.00-0.03); Immature Granulocytes Pct Auto 1.6 % (0.0-0.5); Lymphocytes Absolute Auto 1.3 10^3/uL (1.2-3.8); Lymphocytes Percent Auto 7.6 % (20.5-60.0); Mean Corpuscular HGB Conc 31.8 g/dL (29.9-35.2); Mean Corpuscular Hemoglobin 27.3 pg (26.7-34.0); Mean Corpuscular Volume 85.8 fL (81.0-99.0); Mean Platelet Volume 9.3 fL (9.5-13.5); Monocytes Absolute Auto 1.2 10^3/uL (0.3-0.8); Neutrophils Absolute Auto 14.6 10^3/uL (1.4-6.5); Neutrophils Percent Auto 82.9 % (43.0-75.0); Platelet Count 319 10^3/uL (150-450); Red Blood Count 2.82 10^6/uL (4.20-5.40); Red Cell Distribution Width 14.5 % (11.0-15.0); White Blood Count 17.6 10^3/uL (4.0-11.0)
[2025-01-07] MEDS: AMPICILLIN SODIUM/SULBACTAM NA 3 GM in 0.9 % SODIUM CHLORIDE 100 ML IV (22:56)
[2025-01-08] VITALS (8 sets, daily range): BP systolic 116–139; BP diastolic 67–97; PULSE 85–961; TEMP 36.4–37.6; O2SAT 95–100; BMI 34.6
[2025-01-08] MEDS: 0.9 % SODIUM CHLORIDE 1,000 ML 1000 ML IV (01:10)
[2025-01-08 01:24] LABS: Bilirubin Urine NEGATIVE (NEGATIVE); Blood Urine LARGE (NEGATIVE); Clarity Urine CLEAR (CLEAR); Color Urine LT. YELLOW (YELLOW); Glucose Urine UA NEGATIVE (NEGATIVE); Ketones Urine NEGATIVE (NEGATIVE); Leukocyte Esterase Urine SMALL (NEGATIVE); Nitrite Urine NEGATIVE (NEGATIVE); Protein Urine NEGATIVE (NEG/TRACE); Specific Gravity Urine <=1.005 (1.005-1.025); Urobilinogen Urine 0.2 EU/dL (0.2-1.0)
[2025-01-08 01:35] LABS: Bacteria Urine TRACE #/HPF (NONE SEEN); Cast Seen? NONE SEEN #/LPF (NONE SEEN); Crystals Seen? None Seen #/HPF (None Seen); Mucus Urine NONE SEEN (NONE SEEN); Squamous Epithelial Cell Urine MODERATE #/LPF (NONE/RARE); Urine Culture Indicated YES-FRMC
[2025-01-08 04:44] LABS: C Reactive Protein 11.99 mg/dL (<=0.50)
--- OUTSIDE RECORDS SUMMARY | 2025-01-08 04:53 | XMS_ITS | CCD ---
Author Organization [facility] CliniSyva Care Team Providers Care Tapeman Name Role Phone CLARICE MANZO Consulting Unavailable [...] Unavailable SCHLACHTER, SAMIR Primary Care Unavailable Schjanellchter RETAIL SERVICE REPRESENTATIVE, Samir Unavailable Maximus SUPERVISOR BOILER REPAIR-TURPENTINER, Samir Primary Care Provide r Micheal Salas DDS Attending Unavailable Schjanellchtrush DANIELS, Samir Unavailable PAL PICHARDO Attending Unavailable DAVID, CARIN Attending Unavailable DAVID, CARIN Referring Unavailable KYLEE, PAL Attending Unavailable DAVID, CARIN Attending Unavailable KYLEE, PAL Attending Unavailable KYLEE, PAL Attending Unavailable DAVID, CARIN Attending Unavailable KYLEE, PAL Attending Unavailable DAVID, CARIN Attending Unavailable JESU PANDA Attending Unavailable KYLEE, PLA Attending Unavailable DAVID, CARIN Attending Unavailable Allergies Allergy Classification Reported Allergen(s) Allergy Type Date of Onset Reaction(s) Facility (1 source) Sulfonamides (Antibiotic) Drug allergy (disorder) [facility] Repository (2 sources) Sulfacetamide / Sulfur [facility] Other (20 sources) Ondansetron; Translations: [ONDANSETRON] Drug [...] WITH AUTO DIFFon BASOPHILS ABSOLUTE AUTO 0.1 [facility] Basophils/100 WBC (Bld) 0.4 % 0.2 - 2.0 % [facility] Eosinophils/100 WBC (Bld) 0.8 % Low 0.9 - 7.0 % [facility] Erythrocyte distribution width (RBC) [Ratio] 14.1 % 11.0 - 15.0 % [facility] Hematocrit (Bld) [Volume fraction] 23.4 % Critically low 36.0 - 48.0 % [facility] Comment on above: RESULTS CALLED TO SA RA EMMIE MITCHELL AT 0655 Hemoglobin (Bld) [Mass/Vol] 7.3 g/dL Low 12.0 - 16.0 g/dL [facility] IMMATURE GRANULOCYTES ABS AUTO 0.16 High [facility] Immature granulocytes/100 WBC (Bld) 1.2 % High 0.0 - 0.5 % [facility] Interpretation and review of laboratory results Abnormal [facility] LYMPHOCYTES ABSOLUTE AUTO 2.4 [facility] Lymphocytes/100 WBC (Bld) 17.2 % Low 20.5 - 60.0 % [facility] MCH (RBC) [Entitic mass] 26.9 pg 26.7 - 34.0 pg [facility] MCHC (RBC) [Mass/Vol] 31.2 g/dL 29.9 - 35.2 g/dL [facility] MCV (RBC) [Entitic vol] 86.3 fL [...] [facility] TBH UA (CLEAN/CATCH) MINK RANCHER/LINDA RO IF IND.on 01-01-2025 BILIRUBIN URINE Negative NEGATIVE [facility] thcare BLOOD URINE LARGE Abnormal NEGATIVE [facility] Healthca re Clarity (U) CLEAR CLEAR [facility] Healthca re Color (U) LT. YELLOW YELLOW [facility] Health[facility] e GLUCOSE URINE UA Negative NEGATIVE mg/dL [facility] Interpretation and review of laboratory results Abnormal [facility] Ketones Ql (U) Negative NEGATIVE mg/dL [facility] Leukocyte esterase Test strip Ql (U) SMALL Abnormal NEGATIVE [facility] Healthcar e NITRITE URINE Negative NEGATIVE [facility] care pH (U) 6.5 [pH] 5.0 - 9.0 [facility] PROTEIN URINE Negative NEG/TRACE mg/dL [facility] SPECIFIC GRAVITY URINE 1.010 1.005 - 1.025 [facility] URINE MICROSCOPIC INDICATED YES [facility] UROBILINOGEN URINE 0.2 EU/dL 0.2 - 1.0 EU/dL [facility] Urinalysis macro (dipstick) panel (U)on 12-28-2024 Bilirubin, UA Negative Negative - 4(70) +++ mg/dL [facility] Blood, UA Positive Negative - 50 Dipak/mcL [facility] Comment on above: Moderate Clarity, UA Clear [facility] Color, UA Yellow [facility] Healthcar e Glucose, UA Negative Negative - 2000(110) ++++ mg/dL [facility] Interpretation and review of laboratory results Abnormal [facility] Healthcare Ketones, UA Negative Negative - 160(16) ++++ mg/dL [facility] Leukocytes, UA Trace Negative - 500+++ Jaswant/mcL [facility] Healthcare Nitrite, UA Negative Negative - Positive [facility] Healthcare pH, UA 7 5 - 9 [facility] Protein, UA Positive Negative - 1999(20) ++++ mg/dL [facility] Comment on above: 30mg/dL Spec Grav, UA 1.025 1 - 1.03 [facility] care Urobilinogen, UA 0.2 0.2 - 12 mg/dL [facility] Healthcar e Urinalysis macro (dipstick) panel (U)on 12-21-2024 Bilirubin, UA Negative Negative - 4(70) +++ mg/dL [facility] Blood, UA Positive Negative - 50 Dipak/mcL [facility] Clarity, UA Clear [facility] Color, UA Yellow [facility] Health[facility] e Glucose, UA Negative Negative - 1999(110) ++++ mg/dL [facility] Interpretation and review of laboratory results Abnormal [facility] Ketones, UA Negative Negative - 160(16) ++++ mg/dL [facility] Leukocytes, UA Moderate Negative - 500+++ Jaswant/mcL [facility] Nitrite, UA Negative Negative - Positive [facility] pH, UA 6.5 5 - 9 [facility] Healthcar e Protein, UA Trace Negative - 1999(20) ++++ mg/dL [facility] Spec Grav, UA 1.025 1 - 1.03 [facility] care Urobilinogen, UA 0.2 0.2 - 12 mg/dL [facility] STREP GP B CULTURE+RFLXon STREP GP B CULTURE+RFLX SEE SCANNED REPORT [facility] Urinalysis macro (dipstick) panel (U)on 12-13-2024 Bilirubin, UA Negative Negative - 4(70) +++ mg/dL [facility] Blood, UA Positive Negative - 50 Dipak/mcL [facility] Healthcare Comment on above: Trace-intact Clarity, UA Clear [facility] Color, UA Yellow [facility] Glucose, UA Negative Negative - 1999(110) ++++ mg/dL [facility] Interpretation and review of laboratory results Abnormal [facility] Ketones, UA Negative Negative - 160(16) ++++ mg/dL [facility] Leukocytes, UA Positive Negative - 500+++ Jaswant/mcL [facility] Comment on above: small Nitrite, UA Negative Negative - Positive [facility] pH, UA 6.5 5 - 9 [facility] Healthcar e Protein, UA Positive Negative - 1999(20) ++++ mg/dL [facility] Comment on above: 30mg/dL Spec Grav, UA 1.025 1 - 1.03 [facility] Urobilinogen, UA 0.2 0.2 - 12 mg/dL [facility] Urinalysis macro (dipstick) panel (U)on 12-07-2024 Bilirubin, UA Negative Negative - 4(70) +++ mg/dL [facility] Blood, UA Negative Negative - 50 Dipak/mcL [facility] Clarity, UA Clear [facility] re Color, UA Yellow [facility] e Glucose, UA Negative Negative - 1999(110) ++++ mg/dL [facility] Interpretation and review of laboratory results Abnormal [facility] Ketones, UA Negative Negative - 160(16) ++++ mg/dL [facility] Leukocytes, UA Positive Negative - 500+++ Jaswant/mcL [facility] Nitrite, UA Negative Negative - Positive [facility] pH, UA 6.5 5 - [facility] Protein, UA Positive Negative - 1999(20) ++++ mg/dL [facility] Spec Grav, UA 1.025 1 - 1.03 [facility] Urobilinogen, UA 1.0 0.2 - 12 mg/dL [facility] US OB FOLLOW UP TRANSABDOMIN [...] II, MD, PHD at 27-Nov-2024 10:37:34 PM [facility] Normal Not Available Comment on above: Order Comment: US OB SCAN FOR GROWTH Estimated Date of Delivery: 01/04/25 Gestational Age as of 11/09/2024: 32w0d Urinalysis macro (dipstick) panel (U)on 11-24-2024 Bilirubin, UA Negative Negative - 4(70) +++ mg/dL [facility] Blood, UA Positive Negative - 50 Dipak/mcL [facility] Comment on above: trace-intact Clarity, UA Clear [facility] Color, UA Yellow [facility] Glucose, UA Negative Negative - 2000(110) ++++ mg/dL [facility] Interpretation and review of laboratory results Abnormal [facility] Ketones, UA Positive Negative - 160(16) ++++ mg/dL [facility] Comment on above: 15 Leukocytes, UA Positive Negative - 500+++ Jaswant/mcL [facility] Comment on above: small Nitrite, UA Negative Negative - Positive [facility] pH, UA 7 5 - 9 [facility] Protein, UA Positive Negative - 2000(20) ++++ mg/dL [facility] Comment on above: 30 Spec Grav, UA 1.025 1 - 1.03 [facility] Urobilinogen, UA 1.0 0.2 - 12 mg/dL [facility] US OB FOLLOW UP TRANSABDOMIN [...] II, MD, PHD at 27-Oct-2024 10:37:59 AM [facility] Normal Not Available Comment on above: Order Comment: US OB SCAN FOR GROWTH Estimated Date of Delivery: 01/04/25 Gestational Age as of 10/12/2024: 28w0d Urinalysis macro (dipstick) panel (U)on 10-26-2024 Bilirubin, UA Negative Negative - 4(70) +++ mg/dL [facility] Blood, UA Negative Negative - 50 Dipak/mcL [facility] Healthcare Clarity, UA Clear [facility] Color, UA Yellow [facility] Glucose, UA Negative Negative - 1999(110) ++++ mg/dL [facility] Interpretation and review of laboratory results Abnormal [facility] Healthcare Ketones, UA Negative Negative - 160(16) ++++ mg/dL [facility] Leukocytes, UA Positive Negative - 500+++ Jaswant/mcL [facility] Comment on above: large Nitrite, UA Negative Negative - Positive [facility] pH, UA 6.5 5 - 9 [facility] Healthcar e Protein, UA Negative Negative - 1999(20) ++++ mg/dL [facility] Spec Grav, UA 1.01 1 - 1.03 [facility] Urobilinogen, UA 0.2 0.2 - 12 mg/dL [facility] Urinalysis macro (dipstick) panel (U)on 10-12-2024 Bilirubin, UA Negative Negative - 4(70) +++ mg/dL [facility] Blood, UA Negative Negative - 50 Dipak/mcL [facility] Clarity, UA Clear [facility] re Color, UA Yellow [facility] Glucose, UA Negative Negative - 1999(110) ++++ mg/dL [facility] Interpretation and review of laboratory results Abnormal [facility] Ketones, UA Negative Negative - 160(16) ++++ mg/dL [facility] Leukocytes, UA Positive Negative - 500+++ Jaswant/mcL [facility] Comment on above: large Nitrite, UA Negative Negative - Positive [facility] pH, UA 7 5 - 9 [facility] e Protein, UA Negative Negative - 1999(20) ++++ mg/dL [facility] Spec Grav, UA 1.015 1 - 1.03 [facility] Urobilinogen, UA 0.2 0.2 - 12 mg/dL [facility] ALL CBC WITH AUTO DIFFon BASOPHILS ABSOLUTE AUTO 0 [facility] Basophils/100 WBC (Bld) 0.4 % 0.2 - 2.0 % [facility] Eosinophils/100 WBC (Bld) 0.4 % Low 0.9 - 7.0 % [facility] Erythrocyte distribution width (RBC) [Ratio] 12.8 % 11.0 - 15.0 % [facility] Hematocrit (Bld) [Volume fraction] 31.4 % Low 36.0 - 48.0 % [facility] Hemoglobin (Bld) [Mass/Vol] 10.6 g/dL Low 12.0 - 16.0 g/dL [facility] IMMATURE GRANULOCYTES ABS AUTO 0.07 High [facility] Immature granulocytes/100 WBC (Bld) 0.7 % High 0.0 - 0.5 % [facility] Interpretation and review of laboratory results Abnormal [facility] LYMPHOCYTES ABSOLUTE AUTO 1.7 [facility] Lymphocytes/100 WBC (Bld) 17.8 % Low [...] e US OB INCOMPLETE ANATOMYon 0 09-23-2024 [place] [address] Ultrasound Report Signed Patient: MARISELA RANDALL MR#: [id number] : 2000 Acct:[id number] Age/Sex: 24 / F ADM Date: 09/22/24 Loc: US Attending Dr: Pal Pichardo D.O. Ordering Physician: Pal Pichardo D.O. Date of Service: 09/22/24 Procedure(s): US OB incomplete anatomy Accession Number(s): [id number] cc: Pal Pichardo D.O.; Samir Stroud RETAIL SERVICE REPRESENTATIVE [address] [address] Patient Name: MARISELA RANDALL MRN: [id number] date: 2000 Sex: F Assigned Patient Location: US Current Patient Location: Accession/Order Number: [id number] Exam Date: 09/22/2024 16:10 Report Date: 09/23/2024 [...] M.D. Signed By: 09/23/24620 DD/ 8 TD/TT: Chiller Hand: [facility] Radiology, Radiologist, MD - 09/23/2024 [place] [address] Ultrasound Report Signed Patient: MARISELA RANDALL MR#: [id number] : 2000 Acct:[id number] Age/Sex: 24 / F ADM Date: 09/22/24 Loc: US Attending Dr: Pal Pichardo D.O. Ordering Physician: Pal Pichardo D.O. Date of Service: 09/22/24 Procedure(s): US OB incomplete anatomy Accession Number(s): [id number] cc: Pal Pichardo D.O.; Samir Stroud RETAIL SERVICE REPRESENTATIVE The [place] [id number] Patient Name: MARISELA RANDALL MRN: [facility]:[id number] date: 2000 Sex: F Assigned Patient Location: US Current Patient Location: Accession/Order Number: [id number] Exam Date: 09/22/2024 16:10 Report Date: 09/23/2024 [...] M.D. Signed By: 09/23/24620 DD/ 8 TD/TT: Chiller Hand: [facility] [employer] Radiology Study observation (narrative) [facility] [employer] US OB INCOMPLETE ANATOMYOrde red By: Radiologist Radiology on 09-23-2024 [facility] Work Phone: AFP, SERUM, OPEN SPINA BIFID Aon 08-29-2024 AFP MOM 0.89 . [employer] AFP VALUE 51.3 ng/mL . [email or web address] COMMENT: Comment . [facility] [employer] Comment on above: Esha Pacheco , Ph.D., [facility] Director References: Available Upon Request. Multiples Of Median Cutoffs For AFP Elevations Crandall 2.5 Black 2.8 IDD 2.0 Twins 4.5 Abbreviation Definitions IDD - Insulin Dep Diabetes OSBR - Open Spina Bifida Risk For further inquiries contact [employer] at [phone]. This test was developed and its performance characteristics determined by [employer]. It has not been cleared or approved by the Food and Drug Administration. Performed at: [facility] [address] [id number] [address] [employer]: Manoj Flores [facility], Phone: [phone] GEST. AGE ON COLLECTION DATE 21.1 . weeks [facility] [employer] GESTAT. AGE BASED ON LMP . [facility] [employer] Comment on above: Recalculations are n ot recommended when gestational dating by LMP and ultrasound are within 10 days. INSULIN DEP DIABETES No . [facility] [employer] INTERPRETATION Comment . [facility]alt [facility] Comment on above: Interpretation: Scre [...] Customer Services to discuss available options. The [employer] recommends amniocentesis be offered to women age 35 and older. [age] [facility] MULTIPLE GESTATION No . [facility] H ealthcare [place] [address] [place] [address] . [facility] hcare RACE . [facility] [employer] RESULTS Report . [facility] [employer] TEST RESULTS: Negative . [facility] WEIGHT 179 . lbs [facility] [employer] N N LMP [id number] 17 N 1 Y 179 N N N N N White/ [facility] [employer] Urinalysis macro (dipstick) panel (U)on 08-29-2024 Bilirubin, UA Negative Negative - 4(70) +++ mg/dL [facility] Blood, UA Negative Negative - 50 Dipak/mcL [facility] Clarity, UA Clear [facility] re Color, UA Yellow [facility] [employer] Glucose, UA Negative Negative - 1999(110) ++++ mg/dL [facility] Interpretation and review of laboratory results Abnormal [facility] Ketones, UA Negative Negative - 160(16) ++++ mg/dL [facility] Leukocytes, UA Positive Negative - 500+++ Jaswant/mcL [facility] Comment on above: small Nitrite, UA Negative Negative - Positive [facility] pH, UA 6 5 - 9 [facility] [employer] Protein, UA Negative Negative - 1999(20) ++++ mg/dL [facility] Spec Grav, UA 1.025 1 - 1.03 [facility] Urobilinogen, UA 0.2 0.2 - 12 mg/dL [facility] [employer] IGP,APTIMA HPV,AGE GDLNon AGE GDLN ACOG TESTING Note . [facility] Comment on above: TESTS RESULT FLAG UN ITS REF RANGE LAB Clinician Provided Cytology Information Source.............Cervix Other.............. No. of containers..01 ThinPrep Vial Age Denny OSPINA Kizzy... FLAG LEGEND: L-Low Normal,H-High Normal,LL-Alert Low,HH-Alert High <-Panic Low,>-Panic High,A-Abnormal,AA-Critical Abnormal Performed at: 01 =G [address] [address] Ambar Castillo MD, IGP, RFX APTIMA HPV ASCU Note . [facility] Comment on above: TESTS RESULT FLAG UN ITS REF RANGE LAB DIAGNOSIS: 02 NEGATIVE FOR INTRAEPITHELIAL LESION OR MALIGNANCY. Specimen adequacy: 02 Satisfactory for evaluation. No endocervical component is identified. An endocervical component is not commonly seen in the patient. Performed by: 02 Grecia Davis, Paper Sheeter ([facility]) . 02 Note: Note 02 [...] <-Panic Low,>-Panic High,A-Abnormal,AA-Critical Abnormal Performed at: [address] [address] Ambar Castillo MD, Performed at: = - Lab[address] [id number] [address] [employer]: Ambar Castillo MD, Phone: [phone] Performed at: [address] [id number] [address] [employer]: Ambar Castillo MD, Phone: [phone] SPATULA-ALONE CERVIX [facility] Healthcar e RECURRENT VAGINITIS (HTRX)on 07-30-2024 ATOPOBIUM VAGINAE 0 [facility] ATOPOBIUM VAGINAE Not detected [facility] BVAB 2,3 (BACTERIAL VAGINOSIS ASSOCIATED BACTERIA 2, 3); MOBILUNCUS SPP 0 [facility] BVAB 2,3 (BACTERIAL VAGINOSIS ASSOCIATED BACTERIA 2, 3); MOBILUNCUS SPP Not detected [facility] CARTER ALBICANS, PARAPSILOSIS, TROPICALIS 0 [facility] CARTER ALBICANS, PARAPSILOSIS, TROPICALIS Not detected [facility] CARTER GLABRATA 0 [facility] GLABRATA Not detected [facility] CARTER KRUSEI 0 [facility] CARTER KRUSEI Not detected [facility] CHLAMYDIA TRACHOMATIS 0 [facility] CHLAMYDIA TRACHOMATIS Not detected [facility] GARDNERELLA VAGINALIS 0 [facility] GARDNERELLA VAGINALIS Not detected [facility] MEGASPHAERA (TYPES 1, 2) 0 [facility] MEGASPHAERA (TYPES 1, 2) Not detected [facility] MYCOPLASMA GENITALIUM 0 [facility] MYCOPLASMA GENITALIUM Not detected [facility] NEISSERIA GONORRHOEAE 0 [facility] NEISSERIA GONORRHOEAE Not detected [facility] TRICHOMONAS VAGINALIS 0 [facility] TRICHOMONAS VAGINALIS Not detected [facility] Urinalysis macro (dipstick) panel (U)on 07-27-2024 Bilirubin, UA Negative Negative - 4(70) +++ mg/dL [facility] Blood, UA Negative Negative - 50 Dipak/mcL [facility] Healthcare Clarity, UA Clear [facility] Color, UA Yellow [facility] Healthcar e Glucose, UA Negative Negative - 1999(110) ++++ mg/dL [facility] Interpretation and review of laboratory results Normal [facility] Ketones, UA Negative Negative - 160(16) ++++ mg/dL [facility] Leukocytes, UA Negative Negative - 500+++ Jaswant/mcL [facility] Nitrite, UA Negative Negative - Positive [facility] pH, UA 6 5 - 9 [facility] Healthcar e Protein, UA Negative Negative - 1999(20) ++++ mg/dL [facility] Spec Grav, UA 1.02 1 - 1.03 [facility] Urobilinogen, UA 1.0 0.2 - 12 mg/dL [facility] Urinalysis macro (dipstick) panel (U)on 06-27-2024 Bilirubin, UA Negative Negative - 4(70) +++ mg/dL [facility] Blood, UA Negative Negative - 50 Dipak/mcL [facility] Clarity, UA Clear [facility] Healthca re Color, UA Yellow [facility] Healthcar e Glucose, UA Negative Negative - 1999(110) ++++ mg/dL [facility] Interpretation and review of laboratory results Abnormal [facility] Ketones, UA Negative Negative - 160(16) ++++ mg/dL [facility] Leukocytes, UA Trace Negative - 500+++ Jaswant/mcL [facility] Healthcare Nitrite, UA Negative Negative - Positive [facility] pH, UA 5.5 5 - 9 [facility] Protein, UA Negative Negative - 1999(20) ++++ mg/dL [facility] Spec Grav, UA 1.02 1 - 1.03 [facility] Urobilinogen, UA 0.2 0.2 - 12 mg/dL [facility] BOX TESTon 06-08-2024 BOX TEST SENT OUT [facility] edwards [address] [facility] Healthcar e BOX2 06/08/24 [facility] e UNITY BOX [facility] Health[facility] e HCG ( test) Ql (U)o n 05-27-2024 Interpretation and review of laboratory results Abnormal [facility] Preg Test, Ur Positive [facility] Urinalysis macro (dipstick) panel (U)on 05-27-2024 Bilirubin, UA Negative Negative - 4(70) +++ mg/dL [facility] Blood, UA Positive Negative - 50 Dipak/mcL [facility] Comment on above: trace intact Clarity, UA Clear [facility] re Color, UA Yellow [facility] e Glucose, UA Negative Negative - 1999(110) ++++ mg/dL [facility] Interpretation and review of laboratory results Abnormal [facility] Ketones, UA Negative Negative - 160(16) ++++ mg/dL [facility] Leukocytes, UA Trace Negative - 500+++ Jaswant/mcL [facility] Nitrite, UA Negative Negative - Positive [facility] pH, UA 7.0 5 - 9 [facility] e Protein, UA Negative Negative - 1999(20) ++++ mg/dL [facility] Spec Grav, UA 1.015 1 - 1.03 [facility] Urobilinogen, UA 0.2 0.2 - 12 mg/dL [facility] US RETROPERITONEAL COMPLETEo n 10-16-2023 [...] Marte MD on 10/16/2023 1:22 AM Normal [place] US PELVIC WITH TRANSVAGINALo n 09-15-2023 US [...] Rogers MD on 09/15/2023 6:54 PM Normal [place] CHLAMYDIA/GC BY PCRon 2023 CHLAMYDIA/GC BY PCR [...] are dependent on adequate specimen collection. Normal [facility] Comment on above: Performed By: #### C GS #### [facility] ([id number]) [address] [place] [address] POCT , urineon 08-24 Beta HCG ( test) Ql (U) Negative [facility] URINALYSISon 09-08-2023 Bilirubin Ql (U) Negative Normal NEG [facility] BLOOD/HGB Negative Normal NEG [facility] CA OXALATE CRYSTALS PRESENT Abnormal NONE [facility] Color (U) YELLOW Normal YELLOW [facility] Glucose Ql (U) Negative Normal NEG [facility] Ketones Ql (U) Negative Normal NEG [facility] Leukocyte esterase Test strip Ql (U) Negative Normal NEG [facility] MUCOUS PRESENT Abnormal NONE [facility] Nitrite Ql (U) Negative Normal NEG [facility] pH (U) 6.5 [pH] Normal 5.0-8.5 [facility] Protein Ql (U) Trace Abnormal NEG [facility] R.B.CELLS 2 /hpf Normal 0-5 [facility] Specific gravity (U) [Rel density] 1.027 Normal 1.003-1.035 [facility] SQUAMOUS EPITHELIUM 14 /hpf High 0-5 [facility] TURBIDITY CLEAR Normal CLEAR [facility] Urobilinogen (U) [Mass/Vol] mg/dL Normal <1.1 [facility] W.B.CELLS 3 /hpf Normal 0-5 [facility] URINE CULTUREon 09-08-2023 Bacteria identified Cx Nom (U) CULTURE RESULTS 10-50,000 ORGANISMS/mL NORMAL UROGENITAL AY[facility] Comment on above: Performed By: #### 6 30-4 #### [facility] ([id number]) [address], [address] [place] [address] Urinalysison 09-08-2023 Bilirubin Ql (U) Negative Negative^Ne ga tive [facility] Calcium oxalate crystals LM Ql (Urine sed) PRESENT Abnormal NONE^NONE [facility] Color (U) YELLOW YELLOW^YELLOW [facility] Epithelial cells Auto (Urine sed) [#/Area] 14 High [facility] Glucose (U) [Mass/Vol] Negative Negative^Nega tive mg/dL [facility] Hemoglobin Auto test strip Ql (U) Negative Negative^Nega tive [facility] Interpretation and review of laboratory results Abnormal [facility] Ketones (U) [Mass/Vol] Negative Negative^Nega tive mg/dL [facility] Leukocyte esterase Auto test strip Ql (U) Negative Negative^Nega tive [facility] Mucus Ql (Urine sed) PRESENT Abnormal NONE^NONE [facility] Nitrite Auto test strip Ql (U) Negative Negative^Nega tive [facility] pH (U) 6.5 [pH] 5.0 - 8.5 [facility] Protein (U) [Mass/Vol] Trace Abnormal Negative^Nega tive mg/dL [facility] RBC Auto (Urine sed) [#/Area] 2 [facility] Specific gravity Refractometry automated (U) [Rel density] 1.027 1.003 - 1.035 [facility] Turbidity Ql (U) CLEAR CLEAR^CLEAR [facility] Urobilinogen Qn (U) NINF [facility] WBC Auto (Urine sed) [#/Area] 3 [facility] VAGINITIS PANEL PCRon 2023 VAGINITIS PANEL PCR [...] clinical presentation to determine patient diagnosis. [facility] Comment on above: Performed By: #### V PPCR #### [facility] ([id number]) [address] [place] [address] Quick Strepon 04-02-2022 S. pyogenes Org specific cx Ql (Throat) Negative Lum[facility] [employer] Other Quick Strep [facility] [employer] Other Vital Signs Date Time Vital Sign Value Performing Clinician Facility 12-28-2024 15:23-0400 Body weight 100.7 kg Pal Kylee DO Work Phone: [facility] 12-28-2024 15:23-0400 Diastolic blood pressure 70 mm[Hg] Pal Kylee DO Work Phone: [facility] 12-28-2024 15:23-0400 Systolic blood pressure 130 mm[Hg] Pal Kylee DO Work Phone: [facility] 12-21-2024 15:55-0400 Body weight 100.43 kg Jesu Panda RETAIL SERVICE REPRESENTATIVE Work Phone: [facility] 12-21-2024 15:55-0400 Diastolic blood pressure 76 mm[Hg] Jesu Farzad RETAIL SERVICE REPRESENTATIVE Work Phone: [facility] 12-21-2024 15:55-0400 Systolic blood pressure 110 mm[Hg] Jesu Panda RETAIL SERVICE REPRESENTATIVE Work Phone: [facility] 12-13-2024 14:27-0400 Body weight 99.22 kg Carin VILLAGOMEZ Work Phone: [facility] 12-13-2024 14:27-0400 Diastolic blood pressure 70 mm[Hg] Carin VILLAGOMEZ Work Phone: [facility] 12-13-2024 14:27-0400 Systolic blood pressure 120 mm[Hg] Carin VILLAGOMEZ Work Phone: [facility] 12-07-2024 15:42-0400 Body weight 99.29 kg Pal Kylee DO Work Phone: [facility] 12-07-2024 15:42-0400 Diastolic blood pressure 82 mm[Hg] Pal Kylee DO Work Phone: [facility] 12-07-2024 15:42-0400 Systolic blood pressure 122 mm[Hg] Pal Kylee DO Work Phone: [facility] 11-24-2024 15:42-0400 Body weight 95.62 kg Carin Garcia PA Work Phone: [facility] 11-24-2024 15:42-0400 Diastolic blood pressure 74 mm[Hg] Carin David PA Work Phone: [facility] 11-24-2024 15:42-0400 Systolic blood pressure 118 mm[Hg] Carin Garcia PA Work Phone: [facility] 10-26-2024 14:45-0500 Body weight 90.27 kg Pal Kylee DO Work Phone: [facility] 10-26-2024 14:45-0500 Diastolic blood pressure 76 mm[Hg] Pal Kylee DO Work Phone: [facility] 10-26-2024 14:45-0500 Systolic blood pressure 122 mm[Hg] Pal Kylee DO Work Phone: [facility] 10-12-2024 16:21-0500 Body weight 90.72 kg Carin VILLAGOMEZ Work Phone: [facility] 10-12-2024 16:21-0500 Diastolic blood pressure 70 mm[Hg] Carin David PA Work Phone: [facility] 10-12-2024 16:21-0500 Systolic blood pressure 120 mm[Hg] Carin David PA Work Phone: [facility] 09-28-2024 16:23-0500 Body weight 88.51 kg Pal Kylee DO Work Phone: [facility] 09-28-2024 16:23-0500 Diastolic blood pressure 72 mm[Hg] Pal Kylee DO Work Phone: [facility] 09-28-2024 16:23-0500 Systolic blood pressure 116 mm[Hg] Pal Kylee DO Work Phone: [facility] 08-29-2024 15:54-0500 Body weight 84.82 kg Carin Garcia HERNANDO Work Phone: [facility] 08-29-2024 15:54-0500 Diastolic blood pressure 74 mm[Hg] Carin Valenciacinthya VILLAGOMEZ Work Phone: [facility] 08-29-2024 15:54-0500 Systolic blood pressure 120 mm[Hg] Carin Valenciaey PA Work Phone: [facility] 07-27-2024 15:32-0500 Body weight 81.38 kg Pal Kylee DO Work Phone: [facility] 07-27-2024 15:32-0500 Diastolic blood pressure 66 mm[Hg] Pal Kylee DO Work Phone: [facility] 07-27-2024 15:32-0500 Systolic blood pressure 108 mm[Hg] Pal Kylee DO Work Phone: [facility] 06-27-2024 16:10-0500 Body weight 79.83 kg Pal Kylee DO Work Phone: [facility] 06-27-2024 16:10-0500 Diastolic blood pressure 68 mm[Hg] Pal Kylee DO Work Phone: [facility] 06-27-2024 16:10-0500 Systolic blood pressure 108 mm[Hg] Pal Kylee DO Work Phone: [facility] 05-27-2024 10:31-0400 Body weight 79.38 kg Noms Nurse [facility] 05-27-2024 10:31-0400 Diastolic blood pressure 80 mm[Hg] [facility] Nurse [facility] 05-27-2024 10:31-0400 Systolic blood pressure 122 mm[Hg] Nom Nurse [facility] 10-13-2023 14:41-0500 Body height 165.1 cm Danielle Lange DO Work Phone: [employer] 10-13-2023 14:41-0500 Body mass index (BMI) [Ratio] 28.09 kg/m2 Daniel[facility] 10-13-2023 14:41-0500 Body weight 76.57 kg Danielle Lange DO [facility] 10-13-2023 14:41-0500 Diastolic blood pressure 68 mm[Hg] Danielle [facility] 10-13-2023 14:41-0500 Systolic blood pressure 104 mm[Hg] Danielle [facility] 09-08-2023 11:06-0500 Body height 165.1 cm Danielle Lange [facility] 09-08-2023 11:06-0500 Body mass index (BMI) [Ratio] 28.22 kg/m2 Danielle Lange DO [facility] 09-08-2023 11:06-0500 Body weight 76.93 kg Danielle Lange DO [facility] 09-08-2023 11:06-0500 Diastolic blood pressure 70 mm[Hg] Danielle [facility] 09-08-2023 11:06-0500 Systolic blood pressure 116 mm[Hg] Danielle Lange DO Work Phone: [employer] 04-02-2022 12:20-0400 Body height 167.64 cm Julianne Davidson Other [employer] Other 04-02-2022 12:20-0400 Body mass index (BMI) [Ratio] 30.66 kg/m2 Julianne Davidson Other [employer] Other 04-02-2022 12:20-0400 Body temperature 99.3 [degF] Julianne Lety Other [employer] Other 04-02-2022 12:20-0400 Body weight 86.18 kg Julianne Lety Other [employer] Other 04-02-2022 12:20-0400 Respiratory rate 18 /min Julianne Winklermond Other [employer] Other 04-02-2022 12:20-0400 SaO2% (BldA) [Mass fraction] 99 % Julianne Lety Other [employer] Other 07-06-2021 11:30-0500 Body height 165.1 cm Julianne Davidson Other [employer] Other 07-06-2021 11:30-0500 Body mass index (BMI) [Ratio] 29.95 kg/m2 Julianne Davidson Other [employer] Other 07-06-2021 11:30-0500 Body temperature 98.2 [degF] Julianne Davidson Other [employer] Other 07-06-2021 11:30-0500 Body weight 81.65 kg Julianne Lety Other [employer] Other 07-06-2021 11:30-0500 SaO2% (BldA) [Mass fraction] 99 % Julianne Lety Other [employer] Other Encounters Encounter Date Encounter Type Care [...] 12-21-2024 End: 12-21-2024 flow sheet Jesu Farzad RETAIL SERVICE REPRESENTATIVE Work Phone: [facility] Comment on above: 38 weeks gestation o f ; Third trimester Start: 12-21-2024 End: 12-21-2024 ambulatory JESU FARZAD Not Available Start: 12-21-2024 End: 12-21-2024 Bamboo flowsheet Jesu Farzad RETAIL SERVICE REPRESENTATIVE Work Phone: [facility] Start: 12-21-2024 End: 12-21-2024 Bamboo flowsheet Jesu Farzad RETAIL SERVICE REPRESENTATIVE Work Phone: [facility] Start: 12-13-2024 [...] Available Start: 11-01-2024 ambulatory Micheal Salas DDS [facility] Start: 10-26-2024 End: 10-26-2024 flow sheet Pal Kylee DO Work Phone: [facility] Comment on above: Third trimester preg nadeen; 30 weeks gestation of ; Gastroesophageal reflux in Start: 10-26-2024 End: 10-26-2024 ambulatory PAL KYLEE Not Available Start: 10-12-2024 End: 10-12-2024 flow sheet Carin VILLAGOMEZ Work Phone: [facility] Comment on above: Third trimester [...] 10-12-2024 Bamboo flowsheet Carin VILLAGOMEZ Work Phone: [facility] Start: 10-12-2024 End: 10-12-2024 Bamboo flowsheet Carin VILLAGOMEZ Work Phone: [facility] Start: 10-01-2024 End: 10-01-2024 Clinisync Result Encounter Pal Kylee DO Work Phone: [facility] External Department Unsolicited Start: 10-01-2024 End: 10-01-2024 Clinisync Result Encounter Pal Kylee DO Work Phone: [facility] External Department Unsolicited Start: 09-28-2024 End: 09-28-2024 flow sheet Pal Kylee DO Work Phone: [facility] Comment on above: Second trimester pre gnancy; 26 weeks gestation of ; Diabetes mellitus screening Start: 09-28-2024 End: 09-28-2024 ambulatory PAL KYLEE Not Available Start: 09-28-2024 End: 09-28-2024 Bamboo flowsheet Pal Kylee DO Work Phone: [facility] Start: 09-28-2024 End: 09-28-2024 Bamboo flowsheet Pal Kylee DO Work Phone: [facility] Start: 09-23-2024 End: 09-23-2024 Clinisync [...] Available Start: 10-29-2023 Orders Only Sowmya Ret[facility] Comment on above: Renal lithiasis (Yanet annita Dx); Calcium oxalate crystals in urine; Flank pain; Left sided abdominal pain Start: 10-15-2023 End: 10-16-2023 ambulatory [facility] Start: 10-13-2023 End: 10-13-2023 ambulatory [facility] Start: 10-13-2023 End: 10-13-2023 Office outpatient visit 15 minutes Danielle Liu Lange DO Work Phone: [facility] Comment on above: Renal lithiasis (Yanet annita Dx); Left sided abdominal pain; Flank pain; Calcium oxalate crystals in urine Start: 09-14-2023 End: 09-15-2023 ambulatory [facility] Start: 09-08-2023 End: 09-09-2023 ambulatory [facility] Start: 09-08-2023 End: 09-08-2023 ambulatory [facility] Start: 09-08-2023 End: 09-08-2023 Office outpatient visit 15 minutes Danielle Liu Lange DO Work Phone: [facility] Comment on above: Dyspareunia in femal e (Primary Dx); Left sided abdominal pain; [place] Start: 04-02-2022 End: 04-02-2022 ambulatory Julianne Davidson Other [facility] [employer] [facility] Other Start: 04-02-2022 Office outpatient vi sit 15 minutes Julianne Davidson [facility] Start: 07-06-2021 (URG) Urgent Care Visit Julianne monsalve [facility] Start: 07-06-2021 End: 07-06-2021 ambulatory Julianne Davidson Other [facility] Other Start: 03-17-2019 End: 03-18-2019 Patient encounter procedure CLARICE MANZO Facility:H1 Procedures Date Procedure Procedure Detail Performing Clinician Start: 01-03-2025 ALL CBC WITH AUTO DIFF Pal Kylee DO Work Phone: Start: 01-01-2025 [facility] UA (CLEAN/CATCH) MINK RANCHER/MICRO IF IND. Pal Kylee DO Work Phone: Start: 12-28-2024 Urnls dip stick/tabl et rgnt non-auto w/o micrscp Pal Kylee DO Work Phone: Start: 12-21-2024 Urnls dip stick/tabl et rgnt non-auto w/o micrscp Jesu Farzad RETAIL SERVICE REPRESENTATIVE Work Phone: Start: 12-13-2024 Urnls dip stick/tabl [...] DO Work Phone: Start: 06-08-2024 BOX TEST Fit[employer]ark DO Work Phone: Start: 05-27-2024 End: 05-27-2024 [...] malign ant neoplasm of cervix Pap Smear [facility] Start: 01-03-2025 End: 01-03-2025 Patient encounter procedure 01/03/2025 8:40 AM EDT Routine [facility] [address] [place] [id number] Pal Pichardo, DO [address] [place], [place] [id number] [facility] Start: 12-28-2024 End: 12-28-2024 Patient encounter procedure [facility] Comment on above: Arrived Start: 12-21-2024 End: 12-21-2024 Patient encounter procedure [facility] Comment on above: Arrived Start: 12-13-2024 End: 12-13-2024 Patient encounter procedure [facility] Comment on above: Arrived Start: 12-07-2024 End: 12-07-2024 Patient encounter procedure 12/07/2024 3:30 PM EDT Routine [facility] [address] [place] [phone] Pal Pichardo, DO [address] [place] [address] Arrived [facility] Comment on above: Arrived Start: 12-07-2024 End: 12-07-2025 CULTURE, GROUP B STREP WITH SUSCEPTIBLITY CULTURE, GROUP B STREP WITH SUSCEPTIBLITY Lab Routine Third trimester Expected: 12/07/2024, Expires: 12/07/2025 [facility] Work Phone: Comment on above: Expected: 12/07/2024 , Expires: 12/07/2025 Start: 11-09-2024 End: 11-09-2024 Patient encounter procedure 11/09/2024 3:20 PM EDT Routine [facility] [address] [place] [phone] Carin Garcia PA [address] [place] [address] [facility] Start: 10-26-2024 End: 10-26-2024 Patient encounter procedure 10/26/2024 2:40 PM EST Routine [facility] [address] [place] [phone] Pal Pichardo, DO [address] [place] [address] [facility] Start: 10-26-2024 End: 10-26-2024 Professional / ancillary services management 10/26/2024 2:00 PM EST Ancillary Procedure [facility] [address] [place] [phone] [facility] Start: 10-13-2024 Adult BMI Screening Adult BMI Screen ing [facility] Start: 10-13-2024 Tobacco Screening Tobacco Screening [facility] Start: 10-12-2024 End: 10-12-2024 Patient encounter procedure [facility] Comment on above: Arrived Start: 10-12-2024 End: 10-12-2025 US for US OB follow up transabdominal approach Imaging Routine Excessive growth affecting management of in third trimester, single or unspecified fetus Expected: 10/12/2024 (Approximate), Expires: 10/12/2025 [facility] Work Phone: Comment on above: Expected: 10/12/2024 (Approximate), Expires: 10/12/2025 Start: 09-28-2024 End: 09-28-2024 Patient encounter procedure [facility] Comment on above: Arrived Start: 09-28-2024 End: 09-28-2025 CBC panel - Blood by Automated count CBC Lab Routine Diabetes mellitus screening Expected: 09/28/2024 (Approximate), Expires: 09/28/2025 [facility] Work Phone: Comment on above: Expected: 09/28/2024 (Approximate), Expires: 09/28/2025 Start: 09-28-2024 End: 09-28-2025 Measurement of glucose 1 hour after glucose challenge for glucose tolerance test Glucose tolerance, 1 hour Lab Routine Diabetes mellitus screening Expected: 09/28/2024 (Approximate), Expires: 09/28/2025 [facility] Comment on above: Expected: 09/28/2024 (Approximate), Expires: 09/28/2025 Start: 09-08-2024 Adult BMI Screening Adult BMI Screen ing [facility] Start: 09-08-2024 Screening for Chlamy hernesto trachomatis Chlamydia Screening [facility] Start: 09-08-2024 Tobacco Screening Tobacco Screening [facility] Start: 08-29-2024 End: 08-29-2024 Patient encounter [...] Arrived Start: 06-24-2024 Depression Screening Depression Scre [facility] Start: 06-01-2024 Adult BMI Follow Up Plan Adult BMI F ollow Up Plan [facility] Start: 05-27-2024 End: 05-27-2025 ABO/Rh ABO/Rh [...] first trimester Expected: 05/27/2024 (Approximate), Expires: 05/27/2025 [facility] Comment on above: Expected: 05/27/2024 (Approximate), Expires: 05/27/2025 Start: 05-27-2024 End: 05-27-2025 US Pelvis transvaginal US OB transvaginal Imaging Routine Missed menses Expected: 05/27/2024 (Approximate), Expires: 05/27/2025 [facility] Comment on above: Expected: 05/27/2024 (Approximate), Expires: 05/27/2025 Start: 11-26-2023 DTaP,Tdap and Td Vac cines (7 - Td or Tdap) DTaP,Tdap and Td Vaccines (7 - Td or Tdap) [facility] Start: 10-13-2023 End: 10-13-2024 US Retroperitoneum Ultrasound retroperitoneal complete Imaging Routine Left sided abdominal pain Flank pain Renal lithiasis Calcium oxalate crystals in urine Expected: 10/13/2023, Expires: [facility]: Comment on above: Expected: 10/13/2023 , Expires: 10/13/2024 Start: 10-06-2023 End: 10-06-2023 Patient encounter procedure 10/06/2023 2:00 PM EST Office Visit [facility] Ob[facility]Gynecology [address] [place] [address] Danielle Lange DO [address] [place], [place] [phone] [facility] Obstetrics/Gynecolo gy Start: 09-14-2023 End: 09-14-2023 Patient encounter procedure 09/14/2023 2:00 PM EST Appointment [facility] - Ultrasound [address] [place] [address] [facility] - Ultrasound Start: 09-08-2023 End: 09-08-2024 Bacteria identified in Urine by [facility] Work [facility]: Comment on above: Expected: 09/08/2023 (Approximate), Expires: 09/08/2024 Start: 09-08-2023 End: 09-08-2024 US Pelvis transabdominal and transvaginal Ultrasound pelvic with transvaginal Imaging Routine Left sided abdominal pain Expected: 09/08/2023, Expires: 09/08/2024 [facility] Comment on above: Expected: 09/08/2023 , Expires: 09/08/2024 Start: 09-08-2023 End: 09-08-2024 Vaginitis Panel PCR [facility] Comment on above: Expected: 09/08/2023 (Approximate), Expires: 09/08/2024 Start: 06-18-2023 Screening for Chlamy hernesto trachomatis Chlamydia Screening [facility] Start: 04-24-2023 Influenza vaccination Influenza Vacc ine [facility] Bacteria identified in Urine by Culture Urine culture Microbiology Routine Missed menses Ordered: 05/27/2024 [facility] Comment on above: Ordered: 05/27/2024 Bacteria identified in Urine by Culture Urine culture Microbiology Routine Urinary tract infection without hematuria, site unspecified Ordered: 10/12/2024 [facility] Comment on above: Ordered: 10/12/2024 CBC W Auto Different ial panel - Blood CBC and differential Lab Routine Missed menses , unspecified gestational age Ordered: 05/27/2024 [facility] Comment on above: Ordered: 05/27/2024 CHLAMYDIA TRACHOMATI S (GENITO/STI) CHLAMYDIA TRACHOMATIS (GENITO/STI) Lab Routine STD exposure Ordered: 07/27/2024 [facility] Comment on above: Ordered: 07/27/2024 End: 09-08-2024 Chlamydia/GC by PCR [facility] Chlamydia/GC by PCR [facility] Microbiology Routine Left sided abdominal pain 1 Occurrences starting 09/08/2023 until 09/08/2024 [facility] Comment on above: 1 Occurrences starti ng 09/08/2023 until 09/08/2024 Chlamydia/GC by PCR [facility] Chlamydia/GC by PCR [facility] Microbiology Routine Left sided abdominal pain 09/08/2023 7:35 PM [facility] Cytology Cervical or vaginal smear or scraping study Pap Smear Pathology and Cytology Routine Well woman exam with routine gynecological exam Ordered: 07/27/2024 [facility] Comment on above: Ordered: 07/27/2024 Hemoglobin A1c/Hemoglobin.total in Blood Hemoglobin A1c Lab Routine Missed menses , unspecified gestational age Ordered: 05/27/2024 [facility] Comment on above: Ordered: 05/27/2024 Hepatitis B virus clarke rface Ag [Presence] in Serum or Plasma by Immunoassay Hepatitis B surface antigen Lab Routine Missed menses , unspecified gestational age Ordered: 05/27/2024 [facility] Comment on above: Ordered: 05/27/2024 Hepatitis C virus Ab [Presence] in Serum or Plasma by Immunoassay Hepatitis C antibody Lab Routine Missed menses , unspecified gestational age Ordered: 05/27/2024 [facility] Comment on above: Ordered: 05/27/2024 HIV-1/HIV-2 antigen/antibody combination immunoassay HIV-1 and HIV-2 antibodies Lab Routine Missed menses , unspecified gestational age Ordered: 05/27/2024 [facility] Comment on above: Ordered: 05/27/2024 Neisseria gonorrhoea e DNA [Presence] in Unspecified specimen by MARIA M with probe detection Neisseria gonorrhea DNA probe, direct Lab Routine STD exposure Ordered: 07/27/2024 [facility] Comment on above: Ordered: 07/27/2024 Reagin Ab [Presence] in Serum by RPR RPR Lab Routine Missed menses , unspecified gestational age Ordered: 05/27/2024 [facility] Comment on above: Ordered: 05/27/2024 Rubella antibody, IgG Rubella an tibody, IgG Lab Routine Missed menses , unspecified gestational age Ordered: 05/27/2024 [facility] Comment on above: Ordered: 05/27/2024 SURESWAB(R) ADVANCED VAGINITIS PLUS, TMA SURESWAB(R) ADVANCED VAGINITIS PLUS, TMA Pathology and Cytology Routine Vaginal discharge STD exposure Ordered: 07/27/2024 [facility] Work Phone: Comment on above: Ordered: 07/27/2024 Immunizations Immunization Date Immunization Notes Care Provider Ton king 06-28-2009 influenza virus vaccine, unspecified formulation Danielle Lange DO Work Phone: [facility] [employer] Payers Date Payer Category Payer Managed Care HMO (unspecified) [id number] 2024 Private Health Insurance [id number] 2019 Private Health Insurance [id number] 2019 Private Health Insurance [facility] PLUS [id number] 2019-Present [phone] [address] [address] [place] [address] [id number] 2001 Unknown [id number] 2.16.840.1.502625.3.579.2. 1286 2001 Unknown [id number] 2.16.840.1.891772.3.579.2. 128 2001 Unknown [id number] 2.16.840.1.310634.3.579.2. 128 2001 Unknown [id number] 2.16.840.1.273825.3.579.2. 1286 2001 Unknown [id number] 2.16.840.1.270956.3.579.2. 1286 2001 Unknown [id number] 2.16.840.1.627606.3.579.2. 1259 2001 Unknown [id number] 2.16.840.1.124204.3.579.2. 1259 2001 Unknown [id number] 2.16.840.1.450027.3.579.2. 9 2001 Unknown [id number] 2.16.840.1.949711.3.579.2. 1259 2001 Unknown [id number] 2.16.840.1.632893.3.579.2. 1259 2001 Unknown [id number] 2.16.840.1.459883.3.579.2. 9 2001 Unknown [id number] 2.16.840.1.320464.3.579.2. 9 2001 Unknown [id number] 2.16.840.1.419241.3.579.2. 1258 2001 Unknown [id number] 2.16.840.1.218866.3.579.2. 1258 2001 Unknown [id number] 2.16.840.1.883874.3.579.2. 1258 2001 Unknown [id number] 2.16.840.1.939214.3.579.2. 9 2001 Unknown [id number] 2.16.840.1.679741.3.579.2. 1258 2001 Unknown [id number] 2.16.840.1.936550.3.579.2. 9 2001 Unknown [id number] 2.16.840.1.878205.3.579.2. 1258 2001 Unknown [id number] 2.16.840.1.002680.3.579.2. 1259 1976 Unknown [id number] 2.16.840.1.269904.3.579.2. 593 1959 Unknown [id number] Social History Date Type Detail Facility Sex Assigned At [facility] [employer] Other Start: 10-04-2020 End: 05-27-2024 Sex Assigned At [facility] [facility] Start: 06-18-2022 End: 05-27-2024 Tobacco smoking status NHIS Never smoked tobacco [facility] Start: 06-18-2022 End: 05-27-2024 Tobacco use and exposure Smokeless tobacco non-user [facility] Start: 05-27-2024 End: 12-21-2024 Alcoholic beverage intake Lifetime non-drinker (finding) [facility] Start: 10-04-2020 End: 05-27-2024 History of Social function [facility] Start: 04-13-2024 [facility] Start: 2000 Sex assigned at Female [facility] Start: 12-29-2023 Gender identity Identifies as female gender (finding) [facility] Start: 09-08-2023 End: 10-13-2023 Alcohol intake Current non-drinker of alcohol (finding) [facility] Frequency of Alcohol Consumption Never [facility] Start: 2000 Sex Assigned At Not on file [facility] Clinical Notes 04-02-2022 to 12-28-2024 Whitley Sanchez SUPERVISOR [employer] - 12/28/2024 3:00 PM EDAdelaida Panda NP - 12/21/2024 3:20 PM Valentino Sanchez LPN - 12/13/2024 2:20 PM Valentino Sanchez [employer]PER[employer] - 12/07/2024 3:30 PM EDT Note Date [...] nursing note reviewed. Exam conducted with a packing machine feeder present. Vitals: Estimated body mass index is [...] Pal Pichardo DO documented in this encounter [facility] 12-21-2024 History of Present illness Narrative [...] nursing note reviewed. Exam conducted with a packing machine feeder present. Vitals: Estimated body mass index is [...] Jesu Panda NP documented in this encounter [facility] 12-13-2024 History of Present illness Narrative [...] nursing note reviewed. Exam conducted with a packing machine feeder present. Vitals: Estimated body mass index is [...] Pal Pichardo D.O. documented in this encounter [facility] 12-07-2024 History of Present illness Narrative [...] nursing note reviewed. Exam conducted with a packing machine feeder present. Vitals: Estimated body mass index is [...] Pal Pichardo DO documented in this encounter [facility] 11-24-2024 History of Present illness Narrative [...] of: HERNANDO Magallanes documented in this encounter [facility] 10-26-2024 History of Present illness Narrative [...] nursing note reviewed. Exam conducted with a packing machine feeder present. Vitals: Estimated body mass index is [...] Pal Pichardo DO documented in this encounter [facility] 10-12-2024 History of Present illness Narrative [...] of: HERNANDO Magallanes documented in this encounter [facility] 09-28-2024 History of Present illness Narrative [...] nursing note reviewed. Exam conducted with a packing machine feeder present. Vitals: Estimated body mass index is [...] Pal Pichardo DO documented in this encounter [facility] 08-29-2024 History of Present illness Narrative [...] of: HERNANDO Magallanes documented in this encounter [facility] 07-27-2024 History of Present illness Narrative [...] nursing note reviewed. Exam conducted with a packing machine feeder present. Vitals: Estimated body mass index is [...] Whitley Sanchez LPN on behalf of: Pal Pichadro DO documented in this encounter [facility] 06-27-2024 History of Present illness Narrative [...] Pal Pichardo DO documented in this encounter [facility] 05-27-2024 History of Present illness Narrative [...] or undercooked meat, and stay away from [facility]. Patient has also been advised to [...] by: Linda Barone documented in this encounter [facility] 10-29-2023 History of Present illness Narrative Ordered new Buggy Runner referral documented in this encounter [facility] 10-13-2023 History of Present illness Narrative [...] past. She states she has seen a engineering officer, but was only counseled to not drink [...] PM Imaging Ultrasound pelvic with transvaginal (Order: [id number]) - 09/14/2023 Result History Ultrasound pelvic with transvaginal (Order #[id number]) on 09/15/2023 - Order Result History Report [...] to nephrology placed. documented in this encounter [facility] 09-08-2023 History of Present illness Narrative [...] alleviate her symptoms documented in this encounter [facility] 04-02-2022 Evaluation note Encounter Date Diagnosis Assessment Notes Mar, Viral pharyngitis (ICD-10 - J02.9) Pharyngitis/to nsillopharyngi tis: adult home care material was printed Drink plenty fluids, get plenty of rest. Take Tylenol or Motrin for aches pains or fevers. Continue your cephalexin as prescribed until gone. Follow-up with your family physician if no improvement in 2 to 3 days. [employer] Other Evaluation noteNort EzFl[employer] - A First of Its Kind [employer] Other Evaluation note* Diagnosis Missed menses , unspecified gestational age Encounter for supervision of normal first in first trimester documented in this encounter [facility] HealthcareEvaluation note* Diagnosis First trimester state, incidental 12 weeks gestation of Nausea Nausea alone Viral upper respiratory tract infection Acute upper respiratory infections of unspecified site documented in this encounter [facility] HealthcareEvaluation note* Diagnosis Well woman exam with routine gynecological exam Routine gynecological examination Second trimester state, incidental 16 weeks gestation of Screening, , for anatomic survey Encounter for anatomic survey Vaginal discharge Leukorrhea, not specified as infective STD exposure documented in this encounter [facility] HealthcareEvaluation note* Diagnosis Second trimester state, incidental 21 weeks gestation of documented in this encounter [facility] HealthcareEvaluation note* Diagnosis Dyspareunia in female- Primary [...] crystals in urine [facility] Diagnosis Renal lithiasis- Primary Calculus of kidney Calcium oxalate crystals in urine Flank pain Abdominal pain, unspecified site Left sided abdominal pain Abdominal pain, unspecified site [facility]* Diagnosis Third trimester state, [...] Gastroesophageal reflux in documented in this encounter [facility] HealthcareEvaluation note* Diagnosis 34 weeks gestation of Third trimester state, incidental [facility]* Diagnosis Third trimester state, incidental 36 weeks gestation of documented in this encounter [facility] HealthcareEvaluation note* Diagnosis Third trimester state, incidental 36 weeks gestation of documented in this encounter [facility] HealthcareEvaluation note* Diagnosis 38 weeks gestation of Third trimester state, incidental documented in this encounter [facility] HealthcareEvaluation note* Diagnosis Third trimester state, incidental 39 weeks gestation of [facility]ortedN[facility] [employer] Other History general Narrative - Reported* Type Description Date Medical History chronic depression [facility] [employer] Other Instructions* Attachments The following attachments cannot be sent through Care Everywhere. * Painful Ovulation (Bulgarian) documented in this encounterProMer[facility] HospitalInstaclustrInstructions* Attachments The following attachments cannot be sent through Care Everywhere. * Kidney stones in adults (Bulgarian) [facility] PharmaInstructionsNot on file documented in [facility] encounterC[facility] HospitalReason for referral (narrative)* Consultation (Routine) - Pending Review Specialty Diagnoses / Procedures Referred By Contac t Referred To Contact Nephrology Diagnoses Left sided abdominal pain Flank pain Renal lithiasis Calcium oxalate crystals in urine Danielle Lange DO [address] [place] [address] Yannick Villagomez MD [address] [place] [address] Referral ID Status Reason Start Date Expiration Date Visits Requested Visits Authorized [id number] Pending Review Specialty Services Required 10/13/2023 10/12/2024 1 1 [facility] CenterReason for referral (narrative)* Consultation (Routine) - Pending Review Specialty Diagnoses / Procedures Referred By Contac t Referred To Contact Nephrology Diagnoses Renal lithiasis Calcium oxalate crystals in urine Flank pain Left sided abdominal pain Danielle Lange DO [address] [place] [address] Hussein Card MD [address] [place] [address] [place] [address] Referral ID Status Reason Start Date Expiration Date Visits Requested Visits Authorized [id number] Pending Review Specialty Services Required 10/29/2023 10/28/2024 1 1 [facility] Summary Purpose Family History No Family [...] section and content) DATE CREATED AUTHOR 09/15/2020 [facility] DATE CREATED AUTHOR AUTHOR'S ORGANIZ ATION 09/12/2023 [facility] DATE CREATED AUTHOR AUTHOR'S ORGANIZ ATION 10/21/2023 [facility] DATE CREATED AUTHOR AUTHOR'S ORGANIZ ATION 10/23/2023 [facility] DATE CREATED AUTHOR AUTHOR'S ORGANIZ ATION 11/04/2024 [facility] DATE CREATED AUTHOR AUTHOR'S ORGANIZ ATION 12/31/2024 [facility] EPIC REASON [...] Care Teams (unrecognized sec tion and content) Tapeman Relationship Specialty Start Date End Date Samir Stroud NP [address] [place] [address] Referring Physician Family Medicine 05/19/23 Tapeman Relationship Specialty Start Date End Date Samir Stroud NP [address] [place] [address] Referring Physician Family Medicine 05/19/23 Tapeman Relationship Specialty Start Date End Date Samir Stroud NP [address] [place] [address] Referring Physician Family Medicine 05/19/23 Tapeman Relationship Specialty Start Date End Date Samir Stroud NP [address] [place] [address] Referring Physician Family Medicine 05/19/23 Tapeman Relationship Specialty Start Date End Date Samir Stroud NP [address] [place] [address] Referring Physician Family Medicine 05/19/23 Tapeman Relationship Specialty Start Date End Date Samir Stroud NP [address] [place] [address] Referring Physician Family Medicine 05/19/23 Tapeman Relationship Specialty Start Date End Date Samir Stroud NP [address] [place] [address] Referring Physician Family Medicine 05/19/23 Tapeman Relationship Specialty Start Date End Date Samir Stroud NP [address] [place] [address] Referring Physician Family Medicine 05/19/23 Tapeman Relationship Specialty Start Date End Date Samir Stroud NP [address] [place] [address] Referring Physician Family Medicine 05/19/23 Tapeman Relationship Specialty Start Date End Date Samir Stroud, SUPERVISOR BOILER REPAIR-TURPENTINER [address] [place] [address] PCP - General Family Medicine 12/28/22 Tapeman Relationship Specialty Start Date End Date Samir Stroud NP [address] [place] [address] Referring Physician Family Medicine 05/19/23 Tapeman Relationship Specialty Start Date End Date Samir Stroud SUPERVISOR BOILER REPAIR-TURPENTINER [address] [place] [address] PCP - General Family Medicine 12/28/22 Tapeman Relationship Specialty Start Date End Date Samir Stroud SUPERVISOR BOILER REPAIR-TURPENTINER [address] [place] [address] PCP - General Family Medicine 12/28/22 Tapeman Relationship Specialty Start Date End Date Samir Stroud NP [address] [place] [address] Referring Physician [facility] 05/19/23 Tapeman Relationship Specialty Start Date End Date Samir Stroud NP [address] [place] [address] Referring Physician [facility] 05/19/23 Tapeman Relationship Specialty Start Date End Date Samir Stroud NP Referring Physician [facility] 05/19/23 Tapeman Relationship Specialty Start Date End Date Samir Stroud NP Referring Physician Family [facility] 05/19/23 Tapeman Relationship Specialty Start Date End Date Samir Stroud NP Referring Physician Family Medicine 05/19/23 Tapeman Relationship Specialty Start Date End Date Samir Stroud NP Referring Physician Family Medicine 05/19/23 Tapeman Relationship Specialty Start Date End Date Samir Stroud NP Referring Physician Family Medicine 05/19/23 Tapeman Relationship Specialty Start Date End Date Samir [...] BE BASED ON THE PRIMARY CLINICAL RECORDS. [facility]. provides no warranty or guarantee of the accuracy or completeness of information in this document.
[2025-01-08] MEDS: 0.9 % SODIUM CHLORIDE 1,000 ML 125 ML IV ×2 (05:29→13:45)
[2025-01-08] MEDS: ACETAMINOPHEN 325 MG TABLET 650 MG PO (07:59)
[2025-01-08] MEDS: CLINDAMYCIN PHOSPHATE/D5W 600 MG/50 ML PREMIX 100 MG IV ×2 (09:15→17:10)
[2025-01-08] MEDS: KETOROLAC TROMETHAMINE 30 MG/ML VIAL IVP ×2 (12:25→17:11)
[2025-01-08 16:18] LABS: Basophils Percent Auto 0.3 % (0.2-2.0); Eosinophils Absolute Auto 0.3 10^3/uL (0.0-0.7); Eosinophils Percent Auto 1.7 % (0.9-7.0); Hemoglobin 7.7 g/dL (12.0-16.0); Immature Granulocytes Abs Auto 0.28 10^3/uL (0.00-0.03); Immature Granulocytes Pct Auto 1.9 % (0.0-0.5); Lymphocytes Absolute Auto 1.6 10^3/uL (1.2-3.8); Lymphocytes Percent Auto 10.9 % (20.5-60.0); Mean Corpuscular HGB Conc 30.8 g/dL (29.9-35.2); Mean Corpuscular Hemoglobin 26.9 pg (26.7-34.0); Mean Corpuscular Volume 87.4 fL (81.0-99.0); Mean Platelet Volume 9.3 fL (9.5-13.5); Monocytes Absolute Auto 0.9 10^3/uL (0.3-0.8); Monocytes Percent Auto 6.4 % (1.7-12.0); Neutrophils Absolute Auto 11.4 10^3/uL (1.4-6.5); Neutrophils Percent Auto 78.8 % (43.0-75.0); Platelet Count 324 10^3/uL (150-450); Red Blood Count 2.86 10^6/uL (4.20-5.40); Red Cell Distribution Width 14.5 % (11.0-15.0); White Blood Count 14.5 10^3/uL (4.0-11.0)
--- NOTE | 2025-01-08 16:45 | P.HP_ITS ---
HPI H&P: HPI History of Present Illness Chief complaint: Mastitus Cellulitis Narrative: HPI and Hospital Course: 24 y o female, who just had a baby presented to ED with left breast swelling, pain/erythema that started 3 days ago and rapidly progressed over the course of 3 days. She also reports nausea, fever/chills at home. Patient was found to have left breast cellulitis and was admitted for IVF, IV abx. She reports considerable improvement in erythema, pain since admission. However, despite clinically improving, her leukocytosis on morning labs worsened from admission. Repeat labs showed a downward trend and considering the fact that she just had child , with no sig PMHx, risk factors and was improving clinically, she was cleared for discharge and was instructed to return to ED if she develops worsening symptoms. She was also instructed to finish her oral Clindamycin and continue to express milk from left breast. Patient was also instructed to f/u with PCP in one week. Discharge Diagnosis Left breast cellulitis/mastitis Discharge disposition Home Opioid HPI Opioid Management Most Recent Pain and Opioid Data: Last Pain Scale 2 Today, 16:00 Last Pain Assessment Today, 06:00 Last MAR Pain Assessment Today, 07:59 Last ORT Total Score 0 Today, 05:01 Last ORT Risk Category Low Risk Today, 05:01 Ur Phencyclidine Scrn, (NEGATIVE) Negative , 04:22 Review of Systems ROS Status of ROS 10 or more systems reviewed and unremark able except as noted in history and below [facility] Medical History (Updated 01/08/25 @ 16:54 by Shaikh Sandra MD) Kidney calculi ?N20.0 - Calculus of kidney (ICD-10) Family History (Updated 01/08/25 @ 05:53 by Og Mcgarry RN) Mother Hypertension Thyroid activity decreased Grandmother Breast CA Social History (Updated 01/08/25 @ 05:50 by Og Mcgarry RN) Known occupational exposures/hazards: No Highest level of school completed/degree received: high school graduate Little interest or pleasure in doing things: not at all Feeling down, depressed, or hopeless: not at all Gender Identity: female Meds Home Medications and Allergies Home Medications ?Medication ?Instructions ?Recorded ?Confirmed ?Type acetaminophen 300 mg-codeine 30 mg 1 tab PO Q6H PRN pa in #20 tabs 01/03/25 01/08/25 Rx tablet docusate sodium 100 mg capsule 100 mg PO BID #60 caps 01/03/25 01/08/25 Rx (Colace) ibuprofen 800 mg tablet 800 mg PO Q8H PRN pain 14 da ys #40 01/03/25 01/08/25 Rx tabs clindamycin HCl 300 mg capsule 300 mg PO Q6H 10 days # 40 caps 01/08/25 Rx Allergies Allergy/AdvReac Type Severity Reaction Status Date / Time Sulfa (Sulfonamide Allergy Severe Hives Verified 10/14/24 11:34 Antibiotics) Exam Constitutional Vital Signs, click to edit/add: Last Vital Signs Temp 99.5 F 01/08/25 16:12 Pulse 961 H 01/08/25 16:12 Resp 16 01/08/25 16:12 BP 118/74 01/08/25 16:12 Pulse Ox 96 01/08/25 16:12 O2 Del Method Room Air 01/08/25 11:26 Documenting provider has reviewed patient's vital signs: yes Common normals: no apparent distress and oriented x3 General appearance: cooperative HENMT Common normals: normocephalic and head/scalp atraumatic Head and scalp: normocephalic and atraumatic Eye Common normals: conjunctivae normal and no scleral icterus Conjunctiva: conjunctiva(e) normal Chest Breast/axilla inspection: abnormal inspection of the breast left edema and erythema Other: Overall improved from before. Respiratory Common normals: normal respiratory effort and clear to auscultation bilaterally Effort & inspection: able to speak in complete sentences Auscultation: clear to auscultation bilaterally Cardio Common normals: regular rate, S1 normal heart sound and S2 normal heart sound Rate: regular rate Heart sounds: S1 normal and S2 normal GI Common normals: Normal to inspection, nondistended, normoactive bowel sounds present, soft to palpation, non-tender and no hepatosplenomegaly Palpation: soft and no hepatosplenomegaly Extremity Common normals: no clubbing, cyanosis or edema Neuro Common normals: oriented x3, moves all extremities and no focal motor deficits Psych Common normals: mental status grossly normal, denies hallucinations, denies homicidal ideation and denies suicidal ideation Results Labs Labs: Short CBC 01/07/25 01/08/25 Range/Units 22:06 16:13 WBC 17.6 H 14.5 H (4.0-11.0) 10^3/uL Hgb 7.7 L 7.7 L (12.0-16.0) g/dL Hct 24.2 L 25.0 L (36.0-48.0) % Plt Count 319 324 (150-450) 10^3/uL BMP 01/07/25 21:21 Sodium 140 Potassium 3.3 L Chloride 105 Carbon Dioxide 23.4 BUN 12.0 Creatinine 0.79 Glucose 103 Calcium 8.7 Liver Function 01/07/25 Range/Units 21:21 Total Bilirubin 0.4 (0.2-1.0) mg/dL AST 13 L (15-37) U/L ALT 20 (14-59) U/L Alkaline Phosphatase 107 (46-116) U/L Albumin 2.7 L (3.4-5.0) g/dL Urine 01/08/25 Range/Units 00:12 Urine Color Lt. yellow (YELLOW) Urine Clarity Clear (CLEAR) Urine pH 6.0 (5.0-9.0) Ur Specific [place] <=1.005 A (1.005-1.025) Urine Protein Negative (NEG/TRACE) mg/dL Urine Glucose (UA) Negative (NEGATIVE) mg/dL Assessment and Plan Assessment and Plan (1) Cellulitis of left breast: (2) Leukocytosis: Qualifiers: Leukocytosis type: leukemoid reaction Qualified Code(s): D72.823 - Leukemoid reaction Plan Patient with left breast cellulitis. Treated with IVF, Clindamycin. Clinically improved overnight. Stable for discharge on oral Clindamycin. Take tylenol or motrin as needed for pain. Return to ED if worsening erythema, pain or fever develops. F/u with PCP in one week
--- NOTE | 2025-01-09 11:51 | CM.DCFOLLOWU ---
1st attempt 01/09/25, no answer
--- NOTE | 2025-01-10 12:52 | CM.DCFOLLOWU ---
Person spoke with:patient How are you feeling?well How is your pain?none Did you understand your discharge instructions?yes Do you have any questions about your discharge instructions?no Were you given any prescriptions at discharge?yes Were you able to get your prescriptions filled?yes Do you understand how to take your medications as ordered?yes Do you have any questions about your follow up appointment and do you plan to keep your follow up appointment? no questions, scheduled her follow ups Is there anything else that you would like to discuss?no Questions/Comments/Concerns/Other:none
== END 2025-01-08 18:14 | disposition home or self-care (01) ==
LOC: ER 01-08 04:05 → MS 01-08 04:51
PROVIDERS: Registered Nurse; Admitting Provider Internal Medicine; Emergency Provider Internal Medicine; PCP Nurse Practitioner Family; Visit Provider Internal Medicine
DX: O91.22 Nonpurulent mastitis associated with the puerperium (principal); Z88.2 Allergy status to sulfonamides
CPT/HCPCS: 36415; 80053; 81001; 83605; 85025; 86140; 87040; 87086; 93005; 94761; 96365; 96366; 96367; 96375; 96376; 99285; G0378; J0295; J1885

== ENCOUNTER 2025-01-12 10:03 | Outpatient (OUT) | payer OTHER, MEDICAID, SELFPAY ==
--- OUTSIDE RECORDS SUMMARY | 2025-01-08 00:12 | XMS_ITS ---
Author Name Auto Generated Organization OHIP Care Team Providers Care Drug Safety Assistant Name Role Phone Micheal Salas DDS Attending Unavailable Jignesh Morrison Attending Unavailable Prince, Jignesh T Admitting Unavailable JACK, RICARDO Attending Unavailable RADHA, SALOME Attending Unavailable RADHA, SALOME Referring Unavailable JACK, RICARDO Attending Unavailable RADHA, SALOME Attending Unavailable JACK, RICARDO Attending Unavailable JACK, RICARDO Attending Unavailable RADHA, SALOME Attending Unavailable JACK, RICARDO Attending Unavailable RADHA, SALOME Attending Unavailable RAMAN, JESU Attending Unavailable JACK, RICARDO Attending Unavailable RADHA, SALOME Attending Unavailable PROBLEMS No Problem Records Found PROCEDURES No Procedure Records Found RESULTS URINE CULTURE Observed: 01/08/2025 12:12 AM Status: F Source: [facility] <9,000 colonies/ml mixed bacterial skin contaminants 2 Days PERFORMED BY: [place] [address] PATHOLOGIST ANALYZER SALES MAULIK WOLF M.D. Performed By: #### CUU #### [address] US OB FOLLOW UP TRANSABDOMINAL APPROACH Observed: 11/24/2024 2:51 PM Status: F Source: [facility] EPIC Order Comment: US OB SCAN FO R GROWTH Estimated Date of Delivery: 01/04/25 Gestational Age as of 11/09/2024: 32w0d EXAM: US OB FOLLOW UP TRANSA BDOMINAL APPROACH HISTORY: Large for gestational age. COMPARISON: [...] II, MD, PHD at 27-Nov-2024 10:37:34 PM [facility] US OB FOLLOW UP TRANSABDOMINAL APPROACH Observed: 10/26/2024 1:58 PM Status: F Source: [facility] EPIC Order Comment: US OB SCAN FO R GROWTH Estimated Date of Delivery: 01/04/25 Gestational Age as of 10/12/2024: 28w0d EXAM: US OB FOLLOW UP TRANSA BDOMINAL APPROACH HISTORY: Large for gestational age. TECHNIQUE: [...] II, MD, PHD at 27-Oct-2024 10:37:59 AM [facility] ALLERGIES DATE TYPE / CODE NAME / CODE REACTION SEVERITY SOURCE 04/02/2022 Drug Allergy/989079198 (SNOMED CT) sulfur/V487760196 (RXNORM) Hives Unknown [facility] 04/02/2022 Drug Allergy/872599281 (SNOMED CT) sulfacetamide/F00 3779637(RXNORM) Hives Unknown [facility] ENCOUNTERS ADMIT/DISCHARGE ACCOUNT NUMBER ADMITTING ENCOUNTER CLASS LOCATION SOURCE 01/08/2025/01/09/20 [id number] [facility]ignesh [facility] 12/28/2024/12/29/19 25 [id number] Ambulatory Building:[facility] 12/21/2024/12/22/19 25 [id number] Ambulatory Building:[facility] 12/13/2024/12/14/19 25 [id number] Ambulatory Building:[facility] 12/07/2024/12/08/19 25 [id number] Ambulatory Building:[facility] 11/24/2024/11/25/19 25 [id number] Ambulatory Building:[facility] 11/24/2024/11/25/19 25 [id number] Ambulatory Building:[facility] 11/09/2024/11/10/19 25 [id number] Ambulatory Building:[facility] 11/01/2024 [id number] Ambulatory Building:[facility] 10/26/2024/10/27/19 25 [id number] Ambulatory Building:[facility] 10/26/2024/10/27/19 [id number] Ambulatory Building:[facility] EPIC 10/12/2024/10/12/19 25 [id number] Ambulatory Building:[facility] 09/28/2024/09/28/19 25 [id number] Ambulatory Building:[facility] 08/29/2024/08/29/19 25 [id number] Ambulatory Building:[facility] 07/27/2024/07/27/20 24 [id number] Ambulatory Building:[facility]IC 06/27/2024/06/27/20 24 [id number] Ambulatory Building:[facility] 05/27/2024/05/27/20 24 [id number] Ambulatory Building:[facility] EPIC PAYERS ENCOUNTER GUARANTOR PAYER SUBSCRIBER SOURCE 01/08/2025 Primary Insurance:Self PayPolicy Number: Effective Date:2025-01-08 [facility] MARISELA FIGLEYDOB: [place], [place] [address]Hls: (HP) Primary Insurance:AETNAPol icy Number: [id number] e Date:4359-81-05Qrw n Name:MARTINA BERMUDEZ [id number] [place] [address]CK: MEERA Dowd FIGLEYDOB: [id number] [place] [address] [facility] EPIC 12/21/2024 MARISELA FIGLEYDOB: [place], [place] [address]Ztp: (HP) Primary Insurance:AETNAPol icy Number: [id number] e Date:0988-45-83Bdj n Name:MARTINA BERMUDEZ [id number] [place] [address]MP: MEERA Dowd FIGLEYDOB: [id number] [place] [address] [facility] EPIC 12/13/2024 [facility] FIGLEYDOB: [place], [place] [address]Xvd: (HP) Primary Insurance:AETNAPol icy Number: [id number] e Date:6749-42-99Lwy n Name:[place] [address]UU: MEERA Dowd FIGLEYDOB: [id number] [place] [address] [facility] EPIC 12/07/2024 MARISELA FIGLEYDOB: [place], [place] [address]Ios: (HP) Primary Insurance:AETNAPol icy Number: [id number] e Date:0390-44-71Ihs n Name:[place] [address]WN: MEERA Dowd FIGLEYDOB: [id number] [place] [address] [facility] EPIC 11/24/2024 MARISELA FIGLEYDOB: [place], [place] [address]Ndy: (HP) Primary Insurance:AETNAPol icy Number: [id number] e Date:6560-02-77Hmv n Name:[place] [address]UW: MEERA Dowd FIGLEYDOB: [id number] [place] [address] [facility] EPIC 11/24/2024 MARISELA FIGLEYDOB: [place], [place] [address]Qnq: (HP) Primary Insurance:AETNAPol icy Number: [id number] e Date:6706-17-65Pqj n Name:[place] [address]IC: MEERA Dowd FIGLEYDOB: [id number] [place] [address] [facility] 11/09/2024 [facility] FIGLEYDOB: [place], [place] [address]Ghf: (HP) Primary Insurance:AETNAPol icy Number: [id number] e Date:4961-53-04Cbr n Name:[place] [address]MR: MEERA Dowd FIGLEYDOB: [id number] [place] [address] [facility] 10/26/2024 MARISELA FIGLEYDOB: [place], [place] [address]Nsg: (HP) Primary Insurance:AETNAPol icy Number: [id number] e Date:8327-18-14Yin n Name:[place] [address]GS: MEERA Dowd FIGLEYDOB: [id number] [place] [address] [facility] 10/26/2024 MARISELA FIGLEYDOB: [place], [place] [address]Gdf: (HP) Primary Insurance:AETNAPol icy Number: [id number] e Date:3671-37-70Mpm n Name:[place] [address]TD: MEERA Dowd FIGLEYDOB: [id number] [place] [address] [facility] 10/12/2024 MARISELA FIGLEYDOB: [place], [place] [address]Rau: (HP) Primary Insurance:AETNAPol icy Number: [id number] e Date:2651-62-76Pqs n Name:[place] [address]OG: MEERA Dowd FIGLEYDOB: [id number] [place] [address] [facility] 09/28/2024 [facility] FIGLEYDOB: [place], [place] [address]Iol: (HP) Primary Insurance:AETNAPol icy Number: [id number] e Date:2226-30-02Alj n Name:[place] [address]SR: MEERA Dowd FIGLEYDOB: [id number] [place] [address] [facility] 08/29/2024 [facility] FIGLEYDOB: [place], [place] [address]Agy: (HP) Primary Insurance:AETNAPol icy Number: [id number] e Date:3047-80-66Ehx n Name:[place] [address]MR: MEERA Dowd FIGLEYDOB: [id number] [place] [address] [facility] 07/27/2024 [facility] FIGLEYDOB: [place], [place] [address]Mep: (HP) Primary Insurance:AETNAPol icy Number: [id number] e Date:4340-25-39Xfy n Name:[place] [address]ZI: MEERA Dowd FIGLEYDOB: [id number] [place] [address] [facility] 06/27/2024 [facility] FIGLEYDOB: [place], [place] [address]Vmj: () Primary Insurance:AETNAPol icy Number: [id number] e Date:0334-18-34Rzk n Name:MARTINA Layne[address] [place] [address]CY: MEERA Dowd FIGLEYDOB: [id number] [place] [address] [facility] 05/27/2024 [facility] FIGLEYDOB: [place], [place] [address]Zlu: () Primary Insurance:AETNAPol icy Number: [id number] e Date:6293-99-75Ybb n Name:MARTINA BERMUDEZ [id number] [place] [address]MT: MEERA Dowd FIGLEYDOB: [id number] [place] [address] [facility]
== END 2025-01-12 13:28 | disposition home or self-care (01) ==
LOC: FBCO 10:07
PROVIDERS: PCP Nurse Practitioner Family; Visit Provider Obstetrics & Gynecology
DX: Z39.1 Encounter for care and examination of lactating mother (principal)

== ENCOUNTER 2025-01-23 16:08 | Outpatient (OUT) | payer OTHER, MEDICAID, SELFPAY ==
--- NOTE | 2025-01-23 16:16 | US_ITS ---
Patient Name: JANET RANDALL MR#: [id number] : 2000 Exam Date: 01/23/2025 Ordering Doctor: DR RICARDO SANTIAGO . RADIOLOGY REPORT PROCEDURE: US BREAST LT COMPLETE COMPARISON: None. INDICATIONS: BREAST PAIN, LEFT N64.4 TECHNIQUE: Breast ultrasound was performed, with evaluation focusing only on specific areas of concern. FINDINGS: LEFT BREAST: Within the left breast at the 3 o'clock position in the region of tenderness and palpable abnormality uterus heterogeneous tissue with accompanying edema and hypervascularity suggesting mastitis. No definite evidence of abscess. This measures 3.2 x 1.6 x 2.2 cm in greatest dimension. Dense fibroglandular tissues noted in this region as well. In the retroareolar region of the left breast there is an anechoic simple appearing cyst with well-circumscribed margins measuring 6 x 4 x 6 millimeters in greatest dimension. DIAGNOSTIC CATEGORY 3--PROBABLY BENIGN FINDING. THE FOLLOWING FINDING(S) HAS A HIGH PROBABILITY OF A BENIGN ETIOLOGY: RECOMMENDATIONS: ULTRASOUND: LEFT BREAST follow-up in 6 months is recommended to assess stability/resolution. Close clinical observation is also advised with repeat imaging sooner if clinically warranted. PLEASE NOTE: A NORMAL ULTRASOUND EXAMINATION DOES NOT EXCLUDE THE POSSIBILITY OF BREAST CANCER. A CLINICALLY SUSPICIOUS PALPABLE LUMP SHOULD BE BIOPSIED. Dictated by: Aamir Blue MD on 01/24/2025 at 07:57 Approved by: Aamir Blue MD on 01/24/2025 at 08:03
--- OUTSIDE RECORDS SUMMARY | 2025-01-23 18:12 | XMS_ITS | CCD ---
Author Organization [facility] Care Team Providers Care Shipyard Painter Name Role Phone CLARICE MANZO Consulting Unavailable [...] Unavailable SCHLACHTER, SAMIR Primary Care Unavailable Schjanellchter INSTITUTION DIRECTOR, Samir Unavailable [phone] Maximus SPA TECHNICIAN-CLAY DIGGER, Samir Primary Care Provide r Micheal Salas DDS Attending Unavailable SchjanellchtSamir beverly NP Unavailable PAL PICHARDO Attending Unavailable CARIN GARCIA Attending Unavailable DAVID, CARIN Referring Unavailable KYLEE, PAL Attending Unavailable DAVID, CARIN Attending Unavailable KYLEE, PAL Attending Unavailable KYLEE, PAL Attending Unavailable DAVID, CARIN Attending Unavailable KYLEE, PAL Attending Unavailable DAVID, CARIN Attending Unavailable JESU PANDA Attending Unavailable KYLEE, PAL Attending Unavailable DAVID, CARIN Attending Unavailable Jignesh Morrison Attending Unavailable Jignesh Morrison Admitting Unavailable Allergies Allergy Classification Reported Allergen(s) Allergy Type Date of Onset Reaction(s) Facility (1 source) Sulfonamides (Antibiotic) Drug allergy (disorder) [facility] Repository (2 sources) Sulfacetamide / Sulfur Drug Allergy [facility] Other (20 sources) Ondansetron; Translations: [ONDANSETRON] Drug Allergy 9 Vomiting [facility] Repository (6 sources) Sulfonamides (Antibiotic); Translations: [SULFA (SULFONAMIDE ANTIBIOTICS)] Propensity to adverse reactions to drug (disorder) 8 Hives [facility] Repository (20 sources) Sulfonamides (Antibiotic) Prop[facility] to adverse [facility] Work Phone: (1 source) Sulfacetamide Drug Allergy 2 [facility] Repository (1 source) Sulfur Drug Allergy 2 [facility] Repository Medications Current Medications Medication Drug Class(es) Dates Sig (Normalized) Sig (Original) amoxicillin 875 mg / clavulanate 125 mg oral tablet (2 sources) Penicillin-class Antibacterial Start: 01-23-2025 End: 02-02-2025 take 1 tablet by mouth in the morning amoxicillin-clavul anate (Augmentin) 875-125 MG tablet Indications: Pain aggravated by breast feeding , Flu-like symptoms , Breast pain, left Take 1 tablet (875 mg) by mouth in the morning and 1 tablet (875 mg) before bedtime. Do all this for 10 days. 20 tablet 01/23/2025 02/02/2025 Active cephalexin 500 mg oral capsule (2 sources) [...] tablet 12/05/2024 12/12/2024 Active ondansetron 4 mg oral tablet (11 sources) Serotonin-3 Receptor Antagonist Start: 01-23-2025 take 1 tablet by mouth every six hours as needed for nausea and nausea, then take 1 tablet by mouth every six hours as needed for nausea and nausea ondansetron (Zofran) 4 MG tablet Indications: Pain aggravated by breast feeding , Flu-like symptoms , Breast pain, left Take 1 tablet (4 mg) by mouth every 6 (six) hours if needed for nausea or vomiting for up to 30 doses Take 1 tablet by mouth every 6 hours as needed for nausea. 30 tablet 3 01/23/2025 Active Start: 05-23-2024 End: 07-27-2024 take 1 tablet by mouth every six hours as needed for nausea and vomiting and nausea and nausea ondansetron ODT (Zofran-ODT) 4 MG disintegrating tablet Indications: Nausea Take 1 tablet (4 mg) by mouth every 6 (six) hours if needed for nausea or vomiting 30 tablet 2 06/27/2024 07/27/2024 Active pantoprazole 40 mg delayed release oral tablet (20 sources) Proton Pump Inhibitor Start: 10-26-2024 End: [...] (2 sources) Nausea; Translations: [Nausea] 06-27-2024 Episodic Nonmalignant breast conditions (2 sources) Mastodynia; Translations: [Mastodynia] 01-23-2025 Episodic Other complications of (2 sources) Excessive [...] [39 weeks gestation of ] 12-28-2024 Episodic Residual codes; unclassified (4 sources) Pain; Translations: [Pain, unspecified] Onset: 01-23-2025 01-23-2025 Episodic Residual codes; unclassified (2 sources) Viral syndrome; Translations: [Other general symptoms and signs] 01-23-2025 Episodic Spondylosis; intervertebral disc disorders; other back [...] Test Name Value Interpretation Reference Range Facility Urine Cultureon 01-08-2025 Bacteria identified Cx Nom (U) <9,000 colonies/ml mixed bacterial skin contaminants 2 Days PERFORMED BY: [facility] [address] [place] [address] PATHOLOGIST DENTAL FLOSS PACKER MAULIK WOLF M.D. Normal [facility] Comment on above: Performed By: #### C UU #### [facility] [address] ALL CBC WITH AUTO DIFFon BASOPHILS ABSOLUTE AUTO 0.1 [facility] Basophils/100 WBC (Bld) 0.4 % 0.2 - 2.0 % [facility] Eosinophils/100 WBC (Bld) 0.8 % Low 0.9 - 7.0 % [facility] Erythrocyte distribution width (RBC) [Ratio] 14.1 % 11.0 - 15.0 % [facility] Hematocrit (Bld) [Volume fraction] 23.4 % Critically low 36.0 - 48.0 % [facility] Comment on above: RESULTS CALLED TO SA RA EMMIE MITCHELL AT 0655 Hemoglobin (Bld) [Mass/Vol] 7.3 g/dL Low 12.0 - 16.0 g/dL [facility] IMMATURE GRANULOCYTES ABS AUTO 0.16 High [facility] Immature granulocytes/100 WBC (Bld) 1.2 % High 0.0 - 0.5 % [facility] Interpretation and review of laboratory results Abnormal [facility] LYMPHOCYTES ABSOLUTE AUTO 2.4 [facility] Lymphocytes/100 WBC (Bld) 17.2 % Low 20.5 - 60.0 % [facility] MCH (RBC) [Entitic mass] 26.9 pg 26.7 - 34.0 pg [facility] MCHC (RBC) [Mass/Vol] 31.2 g/dL 29.9 - 35.2 g/dL [facility] MCV (RBC) [Entitic vol] 86.3 fL 81.0 - 99.0 fL [facility] MONOCYTES ABSOLUTE AUTO 0.9 High [facility] Monocytes/100 WBC (Bld) 6.2 % 1.7 - 12.0 % [facility] NEUTROPHILS ABSOLUTE AUTO 10.3 High [facility] Neutrophils/100 WBC (Bld) 74.2 % 43.0 - 75.0 % [facility] Platelet mean volume (Bld) [Entitic vol] 10.2 fL 9.5 - 13.5 fL [facility] EO # 0.1 [facility] PLT 254 [facility] RBC 2.71 Low [facility] WBC 13.9 High [facility] UA (CLEAN/CATCH) STITCH SEPARATOR/LINDA RO IF IND.on 01-01-2025 BILIRUBIN URINE Negative NEGATIVE [facility]care BLOOD URINE LARGE Abnormal NEGATIVE [facility] re Clarity (U) CLEAR CLEAR [facility] Color (U) LT. YELLOW YELLOW [facility] GLUCOSE URINE UA Negative NEGATIVE mg/dL [facility] Interpretation and review of laboratory results Abnormal [facility] Ketones Ql (U) Negative NEGATIVE mg/dL [facility] Leukocyte esterase Test strip Ql (U) SMALL Abnormal NEGATIVE [facility] NITRITE URINE Negative NEGATIVE [facility] care pH (U) 6.5 [pH] 5.0 - 9.0 [facility] PROTEIN URINE Negative NEG/TRACE mg/dL [facility] SPECIFIC GRAVITY URINE 1.010 1.005 - 1.025 [facility] URINE MICROSCOPIC INDICATED YES [facility] UROBILINOGEN URINE 0.2 EU/dL 0.2 - 1.0 EU/dL [facility] Urinalysis macro (dipstick) panel (U)on 12-28-2024 Bilirubin, UA Negative Negative - 4(70) +++ mg/dL [facility] Blood, UA Positive Negative - 50 Dipak/mcL [facility] Comment on above: Moderate Clarity, UA Clear [facility] Color, UA Yellow [facility] Glucose, UA Negative Negative - 2000(110) ++++ mg/dL [facility] Interpretation and review of laboratory results Abnormal [facility] Ketones, UA Negative Negative - 160(16) ++++ mg/dL [facility] Leukocytes, UA Trace Negative - 500+++ Jaswant/mcL [facility] Healthcare Nitrite, UA Negative Negative - Positive [facility] pH, UA 7 5 - 9 [facility] Protein, UA Positive Negative - 1999(20) ++++ mg/dL [facility] Comment on above: 30mg/dL Spec Grav, UA 1.025 1 - 1.03 [facility] care Urobilinogen, UA 0.2 0.2 - 12 mg/dL [facility] Urinalysis macro (dipstick) panel (U)on 12-21-2024 Bilirubin, UA Negative Negative - 4(70) +++ mg/dL [facility] Blood, UA Positive Negative - 50 Dipak/mcL [facility] Clarity, UA Clear [facility] Color, UA Yellow [facility] Glucose, UA Negative Negative - 1999(110) ++++ mg/dL [facility] Interpretation and review of laboratory results Abnormal [facility] Ketones, UA Negative Negative - 160(16) ++++ mg/dL [facility] Leukocytes, UA Moderate Negative - 500+++ Jaswant/mcL [facility] Nitrite, UA Negative Negative - Positive [facility] pH, UA 6.5 5 - 9 [facility] Protein, UA Trace Negative - 1999(20) ++++ mg/dL [facility] Spec Grav, UA 1.025 1 - 1.03 [facility] Urobilinogen, UA 0.2 0.2 - 12 mg/dL [facility] STREP GP B CULTURE+RFLXon STREP GP B CULTURE+RFLX SEE SCANNED REPORT [facility] Urinalysis macro (dipstick) panel (U)on 12-13-2024 Bilirubin, UA Negative Negative - 4(70) +++ mg/dL [facility] Blood, UA Positive Negative - 50 Dipak/mcL [facility] Healthcare Comment on above: Trace-intact Clarity, UA Clear [facility] Color, UA Yellow [facility] Glucose, UA Negative Negative - 1999(110) ++++ mg/dL [facility] Interpretation and review of laboratory results Abnormal [facility] Ketones, UA Negative Negative - 160(16) ++++ mg/dL [facility] Leukocytes, UA Positive Negative - 500+++ Jaswant/mcL [facility] Comment on above: small Nitrite, UA Negative Negative - Positive [facility] pH, UA 6.5 5 - 9 [facility] Protein, UA Positive Negative - 1999(20) ++++ mg/dL [facility] Comment on above: 30mg/dL Spec Grav, UA 1.025 1 - 1.03 [facility] Urobilinogen, UA 0.2 0.2 - 12 mg/dL [facility] Urinalysis macro (dipstick) panel (U)on 12-07-2024 Bilirubin, UA Negative Negative - 4(70) +++ mg/dL [facility] Blood, UA Negative Negative - 50 Dipak/mcL [facility] Clarity, UA Clear [facility] re Color, UA Yellow [facility] e Glucose, UA Negative Negative - 1999(110) ++++ mg/dL [facility] Interpretation and review of laboratory results Abnormal [facility] Ketones, UA Negative Negative - 160(16) ++++ mg/dL [facility] Leukocytes, UA Positive Negative - 500+++ Jaswant/mcL [facility] Nitrite, UA Negative Negative - Positive [facility] pH, UA 6.5 5 - 9 [facility] Protein, UA Positive Negative - 1999(20) ++++ mg/dL [facility] Spec Grav, UA 1.025 1 - 1.03 [facility] Urobilinogen, UA 1.0 0.2 - 12 mg/dL [facility] US OB FOLLOW [...] II, MD, PHD at 27-Nov-2024 10:37:34 PM [facility] Normal Not Available Comment on above: Order Comment: US OB SCAN FOR GROWTH Estimated Date of Delivery: 01/04/25 Gestational Age as of 11/09/2024: 32w0d Urinalysis macro (dipstick) panel (U)on 11-24-2024 Bilirubin, UA Negative Negative - 4(70) +++ mg/dL [facility] Blood, UA Positive Negative - 50 Dipak/mcL [facility] Comment on above: trace-intact Clarity, UA Clear [facility] re Color, UA Yellow [facility] Glucose, UA Negative Negative - 1999(110) ++++ mg/dL [facility] Interpretation and review of laboratory results Abnormal [facility] Ketones, UA Positive Negative - 160(16) ++++ mg/dL [facility] Comment on above: 15 Leukocytes, UA Positive Negative - 500+++ Jaswant/mcL [facility] Comment on above: small Nitrite, UA Negative Negative - Positive [facility] pH, UA 7 5 - 9 [facility] Protein, UA Positive Negative - 1999(20) ++++ mg/dL [facility] Comment on above: 30 Spec Grav, UA 1.025 1 - 1.03 [facility] Urobilinogen, UA 1.0 0.2 - 12 mg/dL [facility] US OB FOLLOW [...] II, MD, PHD at 27-Oct-2024 10:37:59 AM [facility] Normal Not Available Comment on above: Order Comment: US OB SCAN FOR GROWTH Estimated Date of Delivery: 01/04/25 Gestational Age as of 10/12/2024: 28w0d Urinalysis macro (dipstick) panel (U)on 10-26-2024 Bilirubin, UA Negative Negative - 4(70) +++ mg/dL [facility] Blood, UA Negative Negative - 50 Dipak/mcL [facility] Healthcare Clarity, UA Clear [facility] Color, UA Yellow [facility] Glucose, UA Negative Negative - 1999(110) ++++ mg/dL [facility] Interpretation and review of laboratory results Abnormal [facility] Ketones, UA Negative Negative - 160(16) ++++ mg/dL [facility] Leukocytes, UA Positive Negative - 500+++ Jaswant/mcL [facility] Comment on above: large Nitrite, UA Negative Negative - Positive [facility] pH, UA 6.5 5 - 9 [facility] Protein, UA Negative Negative - 1999(20) ++++ mg/dL [facility] Spec Grav, UA 1.01 1 - 1.03 [facility] Urobilinogen, UA 0.2 0.2 - 12 mg/dL [facility] Urinalysis macro (dipstick) panel (U)on 10-12-2024 Bilirubin, UA Negative Negative - 4(70) +++ mg/dL [facility] Blood, UA Negative Negative - 50 Dipak/mcL [facility] Clarity, UA Clear [facility] re Color, UA Yellow [facility] Glucose, UA Negative Negative - 1999(110) ++++ mg/dL [facility] Interpretation and review of laboratory results Abnormal [facility] Ketones, UA Negative Negative - 160(16) ++++ mg/dL [facility] Leukocytes, UA Positive Negative - 500+++ Jaswant/mcL [facility] Comment on above: large Nitrite, UA Negative Negative - Positive [facility] pH, UA 7 5 - 9 [facility] e Protein, UA Negative Negative - 1999(20) ++++ mg/dL [facility] Spec Grav, UA 1.015 1 - 1.03 [facility] Urobilinogen, UA 0.2 0.2 - 12 mg/dL [facility] ALL CBC WITH AUTO DIFFon BASOPHILS ABSOLUTE AUTO 0 [facility] Basophils/100 WBC (Bld) 0.4 % 0.2 - 2.0 % [facility] Eosinophils/100 WBC (Bld) 0.4 % Low 0.9 - 7.0 % [facility] Erythrocyte distribution width (RBC) [Ratio] 12.8 % 11.0 - 15.0 % [facility] Hematocrit (Bld) [Volume fraction] 31.4 % Low 36.0 - 48.0 % [facility] Hemoglobin (Bld) [Mass/Vol] 10.6 g/dL Low 12.0 - 16.0 g/dL [facility] IMMATURE GRANULOCYTES ABS AUTO 0.07 High [facility] Immature granulocytes/100 WBC (Bld) 0.7 % High 0.0 - 0.5 % [facility] Interpretation and review of laboratory results Abnormal [facility] LYMPHOCYTES ABSOLUTE AUTO 1.7 [facility] Lymphocytes/100 WBC (Bld) 17.8 % [...] e US OB INCOMPLETE ANATOMYon 0 09-23-2024 [place] [address] Ultrasound Report Signed Patient: MARISELA RANDALL MR#: [id number] : 2000 Acct:[id number] Age/Sex: 24 / F ADM Date: 09/22/24 Loc: US Attending Dr: Pal Pichardo D.O. Ordering Physician: Pal Pichardo D.O. Date of Service: 09/22/24 Procedure(s): US OB incomplete anatomy Accession Number(s): [id number] cc: Pal Pichardo D.O.; Samir Stroud INSTITUTION DIRECTOR [place] [id number] Patient Name: MARISELA RANDALL MRN: [id number] date: 2000 Sex: F Assigned Patient Location: US Current Patient Location: Accession/Order Number: [id number] Exam Date: 09/22/2024 16:10 Report Date: 09/23/2024 [...] M.D. Signed By: 09/23/24620 DD/ 8 TD/TT: Outpatient Admitting Clerk: [facility] Radiology, Radiologist, MD - 09/23/2024 [place] [address] Ultrasound Report Signed Patient: MARISELA RANDALL MR#: [id number] : 2000 Acct:[id number] Age/Sex: 24 / F ADM Date: 09/22/24 Loc: US Attending Dr: Pal Pichardo D.O. Ordering Physician: Pal Pichardo D.O. Date of Service: 09/22/24 Procedure(s): US OB incomplete anatomy Accession Number(s): [id number] cc: Pal Pichardo D.O.; Samir Stroud INSTITUTION DIRECTOR The [place] [address] Patient Name: MARISELA RANDALL MRN: [facility]:[id number] date: 2000 Sex: F Assigned Patient Location: US Current Patient Location: Accession/Order Number: [id number] Exam Date: 09/22/2024 16:10 Report Date: 09/23/2024 [...] M.D. Signed By: 09/23/24620 DD/ 8 TD/TT: Outpatient Admitting Clerk: [facility] [employer] Radiology Study observation (narrative) [facility] [employer] US OB INCOMPLETE ANATOMYOrde red By: Radiologist Radiology on 09-23-2024 [employer] Work Phone: AFP, SERUM, OPEN SPINA BIFID Aon 08-29-2024 AFP MOM 0.89 . [employer] AFP VALUE 51.3 ng/mL . [employer] COMMENT: Comment . [facility] Comment on above: Esha Pacheco , Ph.D., [facility] Director References: Available Upon Request. Multiples Of Median Cutoffs For AFP Elevations Crandall 2.5 Black 2.8 IDD 2.0 Twins 4.5 Abbreviation Definitions IDD - Insulin Dep Diabetes OSBR - Open Spina Bifida Risk For further inquiries contact [employer] [facility] at [phone]. This test was developed and its performance characteristics determined by [employer]. It has not been cleared or approved by the Food and Drug Administration. Performed at: [facility] [address] [place], [place] [id number] Senior Sous Chef: Manoj Flores [facility], Phone: [phone] GEST. AGE ON COLLECTION DATE 21.1 . weeks [facility] [employer] GESTAT. AGE BASED ON LMP . [facility] [employer] [facility] Comment on above: Recalculations are n ot recommended when gestational dating by LMP and ultrasound are within 10 days. INSULIN DEP DIABETES No . [facility] [employer] INTERPRETATION Comment . [facility] Comment on above: Interpretation: [...] Customer Services to discuss available options. The [employer] recommends amniocentesis be offered to women age 35 and older. [age] [facility] MULTIPLE GESTATION No . [facility] [place] [address] [place] [id number] . [facility] . [facility] [employer] RESULTS Report . [facility] [employer] [facility] TEST RESULTS: Negative . [facility] WEIGHT 179 . lbs [facility] [facility] N N LMP [id number] [phone] N 1 Y 179 N N N N N White/ [facility] [employer] Urinalysis macro (dipstick) panel (U)on 08-29-2024 Bilirubin, UA Negative Negative - 4(70) +++ mg/dL [facility] Blood, UA Negative Negative - 50 Dipak/mcL [facility] Clarity, UA Clear [facility] re Color, UA Yellow [facility] [employer] Glucose, UA Negative Negative - 1999(110) ++++ mg/dL [facility] Interpretation and review of laboratory results Abnormal [facility] Ketones, UA Negative Negative - 160(16) ++++ mg/dL [facility] Leukocytes, UA Positive Negative - 500+++ Jaswant/mcL [facility] Comment on above: small Nitrite, UA Negative Negative - Positive [facility] pH, UA 6 5 - 9 [facility] [employer] Protein, UA Negative Negative - 1999(20) ++++ mg/dL [facility] Spec Grav, UA 1.025 1 - 1.03 [facility] Urobilinogen, UA 0.2 0.2 - 12 mg/dL [facility] [employer] IGP,APTIMA HPV,AGE GDLNon AGE GDLN ACOG TESTING Note . [facility] Comment on above: TESTS RESULT FLAG UN ITS REF RANGE LAB Clinician Provided Cytology Information Source.............Cervix Other.............. No. of containers..01 ThinPrep Vial Age Denny OSPINA Kizzy... FLAG LEGEND: L-Low Normal,H-High Normal,LL-Alert Low,HH-Alert High <-Panic Low,>-Panic High,A-Abnormal,AA-Critical Abnormal Performed at: 01 =G [address] [address] Ambar Castillo MD, IGP, RFX APTIMA HPV ASCU Note . [facility] Comment on above: TESTS RESULT FLAG UN ITS REF RANGE LAB DIAGNOSIS: 02 NEGATIVE FOR INTRAEPITHELIAL LESION OR MALIGNANCY. Specimen adequacy: 02 Satisfactory for evaluation. No endocervical component is identified. An endocervical component is not commonly seen in the patient. Performed by: 02 Grecia Davis, Hogshead Packer ([facility]) . 02 Note: Note 02 The [...] <-Panic Low,>-Panic High,A-Abnormal,AA-Critical Abnormal Performed at: [address] [address] Ambar Castillo MD, Performed at: =[address] [id number] Senior Sous Chef: Ambar Castillo MD, Phone: [phone] Performed at: [address] [id number] Senior Sous Chef: Ambar Castillo MD, Phone: [phone] SPATULA-ALONE CERVIX [facility] RECURRENT VAGINITIS (HTRX)on 07-30-2024 ATOPOBIUM VAGINAE 0 [facility] ATOPOBIUM VAGINAE Not detected [facility] BVAB 2,3 (BACTERIAL VAGINOSIS ASSOCIATED BACTERIA 2, 3); MOBILUNCUS SPP 0 [facility] BVAB 2,3 (BACTERIAL VAGINOSIS ASSOCIATED BACTERIA 2, 3); MOBILUNCUS SPP Not detected [facility] CARTER ALBICANS, PARAPSILOSIS, TROPICALIS 0 [facility] CARTER ALBICANS, PARAPSILOSIS, TROPICALIS Not detected [facility] CARTER GLABRATA 0 [facility] CARTER GLABRATA Not detected [facility] CARTER KRUSEI 0 [facility] hcare CARTER KRUSEI Not detected [facility] CHLAMYDIA TRACHOMATIS 0 [facility] CHLAMYDIA TRACHOMATIS Not detected [facility] GARDNERELLA VAGINALIS 0 [facility] GARDNERELLA VAGINALIS Not detected [facility] MEGASPHAERA (TYPES 1, 2) 0 [facility] MEGASPHAERA (TYPES 1, 2) Not detected [facility] MYCOPLASMA GENITALIUM 0 [facility] MYCOPLASMA GENITALIUM Not detected [facility] NEISSERIA GONORRHOEAE 0 [facility] NEISSERIA GONORRHOEAE Not detected [facility] TRICHOMONAS VAGINALIS 0 [facility] TRICHOMONAS VAGINALIS Not detected [facility] Urinalysis macro (dipstick) panel (U)on 07-27-2024 Bilirubin, UA Negative Negative - 4(70) +++ mg/dL [facility] Blood, UA Negative Negative - 50 Dipak/mcL [facility] Healthcare Clarity, UA Clear [facility] Color, UA Yellow [facility] Glucose, UA Negative Negative - 1999(110) ++++ mg/dL [facility] Interpretation and review of laboratory results Normal [facility] Ketones, UA Negative Negative - 160(16) ++++ mg/dL [facility] Leukocytes, UA Negative Negative - 500+++ Jaswant/mcL [facility] Healthcare Nitrite, UA Negative Negative - Positive [facility] pH, UA 6 5 - 9 [facility] Protein, UA Negative Negative - 1999(20) ++++ mg/dL [facility] Spec Grav, UA 1.02 1 - 1.03 [facility] Healthcare Urobilinogen, UA 1.0 0.2 - 12 mg/dL [facility]inal[facility] macro (dipstick) panel (U)on 06-27-2024 Bilirubin, UA Negative Negative - 4(70) +++ mg/dL [facility] Blood, UA Negative Negative - 50 Dipak/mcL [facility] Healthcare Clarity, UA Clear [facility] Color, UA Yellow [facility] Glucose, UA Negative Negative - 1999(110) ++++ mg/dL [facility] Interpretation and review of laboratory results Abnormal [facility] Ketones, UA Negative Negative - 160(16) ++++ mg/dL [facility] Leukocytes, UA Trace Negative - 500+++ Jaswant/mcL [facility] Healthcare Nitrite, UA Negative Negative - Positive [facility] pH, UA 5.5 5 - 9 [facility] Protein, UA Negative Negative - 1999(20) ++++ mg/dL [facility] Spec Grav, UA 1.02 1 - 1.03 [facility] Urobilinogen, UA 0.2 0.2 - 12 mg/dL [facility] BOX TESTon 06-08-2024 BOX TEST SENT OUT KERA edwards BOX1 [facility] e BOX2 06/08/24 [facility] ( test) Ql (U)o n 05-27-2024 Interpretation and review of laboratory results Abnormal [facility] Preg Test, Ur Positive [facility]inalysis macro (dipstick) panel (U)on 05-27-2024 Bilirubin, UA Negative Negative - 4(70) +++ mg/dL [facility] Blood, UA Positive Negative - 50 Dipak/mcL [facility] Comment on above: trace intact Clarity, UA Clear [facility] re Color, UA Yellow [facility] e Glucose, UA Negative Negative - 2000(110) ++++ mg/dL [facility] Interpretation and review of laboratory results Abnormal [facility] Ketones, UA Negative Negative - 160(16) ++++ mg/dL [facility] Leukocytes, UA Trace Negative - 500+++ Jaswant/mcL [facility] Nitrite, UA Negative Negative - Positive [facility] pH, UA 7.0 5 - 9 [facility] e Protein, UA Negative Negative - 2000(20) ++++ mg/dL [facility] Spec Grav, UA 1.015 1 - 1.03 [facility] Urobilinogen, UA 0.2 0.2 - 12 mg/dL [facility] US RETROPERITONEAL COMPLETEo [...] on 10/16/2023 1:22 AM Normal [facility] US PELVIC WITH TRANSVAGINALo n 09-15-2023 [...] on 09/15/2023 6:54 PM Normal [facility] CHLAMYDIA/GC BY PCRon 2023 CHLAMYDIA/GC BY [...] are dependent on adequate specimen collection. Normal [facility] Comment on above: Performed By: #### C #### [facility] ([id number]) [address], [address] [place] [address] POCT , urineon 08-24 Beta HCG ( test) Ql (U) Negative [facility] URINALYSISon 09-08-2023 Bilirubin Ql (U) Negative Normal NEG [facility] BLOOD/HGB Negative Normal NEG [facility] CA OXALATE CRYSTALS PRESENT Abnormal NONE [facility] Color (U) YELLOW Normal YELLOW [facility] Glucose Ql (U) Negative Normal NEG [facility] Ketones Ql (U) Negative Normal NEG [facility] Leukocyte esterase Test strip Ql (U) Negative Normal NEG [facility] MUCOUS PRESENT Abnormal NONE [facility] Nitrite Ql (U) Negative Normal NEG [facility] pH (U) 6.5 [pH] Normal 5.0-8.5 [facility] Protein Ql (U) Trace Abnormal NEG [facility] R.B.CELLS 2 /hpf Normal 0-5 [facility] Specific gravity (U) [Rel density] 1.027 Normal 1.003-1.035 [facility] SQUAMOUS EPITHELIUM 14 /hpf High 0-5 [facility] TURBIDITY CLEAR Normal CLEAR [facility] Urobilinogen (U) [Mass/Vol] mg/dL Normal <1.1 [facility] W.B.CELLS 3 /hpf Normal 0-5 [facility] URINE CULTUREon 09-08-2023 Bacteria identified Cx Nom (U) CULTURE RESULTS 10-50,000 ORGANISMS/mL NORMAL UROGENITAL AYLIN Normal [facility] Comment on above: Performed By: #### 6 30-4 #### [facility] ([id number]) [address], [address] [place] [address] Urinalysison 09-08-2023 Bilirubin Ql (U) Negative Negative^Ne ga tive [facility] Calcium oxalate crystals LM Ql (Urine sed) PRESENT Abnormal NONE^NONE [facility] Color (U) YELLOW YELLOW^YELLOW [facility] Epithelial cells Auto (Urine sed) [#/Area] 14 High [facility] Glucose (U) [Mass/Vol] Negative Negative^Nega tive mg/dL [facility] Hemoglobin Auto test strip Ql (U) Negative Negative^Nega tive [facility] Interpretation and review of laboratory results Abnormal [facility] Ketones (U) [Mass/Vol] Negative Negative^Nega tive mg/dL [facility] Leukocyte esterase Auto test strip Ql (U) Negative Negative^Nega tive [facility] Mucus Ql (Urine sed) PRESENT Abnormal NONE^NONE [facility] Nitrite Auto test strip Ql (U) Negative Negative^Nega tive [facility] pH (U) 6.5 [pH] 5.0 - 8.5 [facility] Protein (U) [Mass/Vol] Trace Abnormal Negative^Nega tive mg/dL [facility] RBC Auto (Urine sed) [#/Area] 2 [facility] Specific gravity Refractometry automated (U) [Rel density] 1.027 1.003 - 1.035 [facility] Turbidity Ql (U) CLEAR CLEAR^CLEAR [facility] Urobilinogen Qn (U) NINF [facility] WBC Auto (Urine sed) [#/Area] 3 [facility] VAGINITIS PANEL PCRon 2023 VAGINITIS PANEL [...] clinical presentation to determine patient diagnosis. Normal [facility] Comment on above: Performed By: #### V PPCR #### [facility] ([id number]) [address], [address] [place] [address] Quick Strepon 04-02-2022 S. pyogenes Org specific cx Ql (Throat) Negative [employer] [facility] [employer] Other Quick Strep [facility] [employer] Other Vital Signs Date Time Vital Sign Value Performing Clinician Facility 01-23-2025 14:47-0400 Body weight 89.81 kg Carin VILLAGOMEZ Work Phone: [facility] 01-23-2025 14:47-0400 Diastolic blood pressure 72 mm[Hg] aCrin VILLAGOMEZ Work Phone: [facility] 01-23-2025 14:47-0400 Systolic blood pressure 118 mm[Hg] Carin VILLAGOMEZ Work Phone: [facility] 12-28-2024 15:23-0400 Body weight 100.7 kg Pal Kylee DO Work Phone: [facility] 12-28-2024 15:23-0400 Diastolic blood pressure 70 mm[Hg] Pal Kylee DO Work Phone: [facility] 12-28-2024 15:23-0400 Systolic blood pressure 130 mm[Hg] Pal Kylee DO Work Phone: [facility] 12-21-2024 15:55-0400 Body weight 100.43 kg Jesu Panda INSTITUTION DIRECTOR Work Phone: [facility] 12-21-2024 15:55-0400 Diastolic blood pressure 76 mm[Hg] Jesu Farzad INSTITUTION DIRECTOR Work Phone: [facility] 12-21-2024 15:55-0400 Systolic blood pressure 110 mm[Hg] Jesu Farzad INSTITUTION DIRECTOR Work Phone: [facility] 12-13-2024 14:27-0400 Body weight 99.22 kg Carin VILLAGOMEZ Work Phone: [facility] 12-13-2024 14:27-0400 Diastolic blood pressure 70 mm[Hg] Carin Garcia PA Work Phone: [facility] 12-13-2024 14:27-0400 Systolic blood pressure 120 mm[Hg] Carin David PA Work Phone: [facility] 12-07-2024 15:42-0400 Body weight 99.29 kg Pal Kylee DO Work Phone: [facility] 12-07-2024 15:42-0400 Diastolic blood pressure 82 mm[Hg] Pal Kylee DO Work Phone: [facility] 12-07-2024 15:42-0400 Systolic blood pressure 122 mm[Hg] Pal Kylee DO Work Phone: [facility] 11-24-2024 15:42-0400 Body weight 95.62 kg Carin Garcia PA Work Phone: [facility] 11-24-2024 15:42-0400 Diastolic blood pressure 74 mm[Hg] Carin Garcia PA Work Phone: [facility] 11-24-2024 15:42-0400 Systolic blood pressure 118 mm[Hg] Carin Garcia PA Work Phone: [facility] 10-26-2024 14:45-0500 Body weight 90.27 kg Pal Kylee DO Work Phone: [facility] 10-26-2024 14:45-0500 Diastolic blood pressure 76 mm[Hg] Pal Kylee DO Work Phone: [facility] 10-26-2024 14:45-0500 Systolic blood pressure 122 mm[Hg] Pal Kylee DO Work Phone: [facility] 10-12-2024 16:21-0500 Body weight 90.72 kg Carin David PA Work Phone: [facility] 10-12-2024 16:21-0500 Diastolic blood pressure 70 mm[Hg] Carin Garcia PA Work Phone: [facility] 10-12-2024 16:21-0500 Systolic blood pressure 120 mm[Hg] Carin VILLAGOMEZ Work Phone: [facility] 09-28-2024 16:23-0500 Body weight 88.51 kg Pal Kylee DO Work Phone: [facility] 09-28-2024 16:23-0500 Diastolic blood pressure 72 mm[Hg] Pal Kylee DO Work Phone: [facility] 09-28-2024 16:23-0500 Systolic blood pressure 116 mm[Hg] Pal Kylee DO Work Phone: [facility] 08-29-2024 15:54-0500 Body weight 84.82 kg Carin VILLAGOMEZ Work Phone: [facility] 08-29-2024 15:54-0500 Diastolic blood pressure 74 mm[Hg] Carin VILLAGOMEZ Work Phone: [facility] 08-29-2024 15:54-0500 Systolic blood pressure 120 mm[Hg] Carin VILLAGOMEZ Work Phone: [facility] 07-27-2024 15:32-0500 Body weight 81.38 kg Pal Kylee DO Work Phone: [facility] 07-27-2024 15:32-0500 Diastolic blood pressure 66 mm[Hg] Pal Kylee DO Work Phone: [facility] 07-27-2024 15:32-0500 Systolic blood pressure 108 mm[Hg] Pal Kylee DO Work Phone: [facility] 06-27-2024 16:10-0500 Body weight 79.83 kg Pal Kylee DO Work Phone: [facility] 06-27-2024 16:10-0500 Diastolic blood pressure 68 mm[Hg] Pal Kylee DO Work Phone: [facility] 06-27-2024 16:10-0500 Systolic blood pressure 108 mm[Hg] Pal Kylee DO Work Phone: [facility] 05-27-2024 10:31-0400 Body weight 79.38 kg [facility] Nurse [facility] 05-27-2024 10:31-0400 Diastolic blood pressure 80 mm[Hg] [facility] Nurse [facility] 05-27-2024 10:31-0400 Systolic blood pressure 122 mm[Hg] [facility] Nurse [facility] 10-13-2023 14:41-0500 Body height 165.1 cm Danielle Lange DO Work Phone: [facility] 10-13-2023 14:41-0500 Body mass index (BMI) [Ratio] 28.09 kg/m2 Danielle Lange DO Work Phone: [facility] 10-13-2023 14:41-0500 Body weight 76.57 kg Danielle Lange DO Work Phone: [facility] 10-13-2023 14:41-0500 Diastolic blood pressure 68 mm[Hg] Danielle Lange DO Work Phone: [facility] 10-13-2023 14:41-0500 Systolic blood pressure 104 mm[Hg] Danielle Lange DO Work Phone: [facility] 09-08-2023 11:06-0500 Body height 165.1 cm Danielle Lange DO Work Phone: [facility] 09-08-2023 11:06-0500 Body mass index (BMI) [Ratio] 28.22 kg/m2 Danielle Lange DO Work Phone: [facility] 09-08-2023 11:06-0500 Body weight 76.93 kg Danielle Lange DO Work Phone: [facility] 09-08-2023 11:06-0500 Diastolic blood pressure 70 mm[Hg] Danielle Lange DO Work Phone: [facility] 09-08-2023 11:06-0500 Systolic blood pressure 116 mm[Hg] Danielle Lange DO Work Phone: [facility] 04-02-2022 12:20-0400 Body height 167.64 cm Julianne Davidson Other [facility] Other 04-02-2022 12:20-0400 Body mass index (BMI) [Ratio] 30.66 kg/m2 Julianne Winklermond Other [facility] Other 04-02-2022 12:20-0400 Body temperature 99.3 [degF] Julianne Lety Other [facility] Other 04-02-2022 12:20-0400 Body weight 86.18 kg Julianne Winklermond Other [facility] Other 04-02-2022 12:20-0400 Respiratory rate 18 /min Julianne Winklermond Other [facility] Other 04-02-2022 12:20-0400 SaO2% (BldA) [Mass fraction] 99 % Julianne Davidson Other [facility] Other 07-06-2021 11:30-0500 Body height 165.1 cm Julianne Davidson Other [facility] Other 07-06-2021 11:30-0500 Body mass index (BMI) [Ratio] 29.95 kg/m2 Julianne Winklermond Other [facility] Other 07-06-2021 11:30-0500 Body temperature 98.2 [degF] Julianne Lety Other [facility] Other 07-06-2021 11:30-0500 Body weight 81.65 kg Julianne Lety Other [facility] Other 07-06-2021 11:30-0500 SaO2% (BldA) [Mass fraction] 99 % Julianne Lety Other [facility] Other Encounters Encounter Date Encounter Type Care Provider Facility Start: 01-23-2025 End: 01-23-2025 Office outpatient visit 15 minutes Carin VILLAGOMEZ Work Phone: [facility] Comment on above: Pain aggravated by b reast feeding; Flu-like symptoms; Breast pain, left Start: 01-08-2025 End: 01-08-2025 ambulatory Jignesh Morrison Facility:[facility] Start: 01-03-2025 End: 01-03-2025 Clinisync Result Encounter [...] 12-21-2024 End: 12-21-2024 flow sheet Jesu Farzad INSTITUTION DIRECTOR Work Phone: [facility] Comment on above: 38 weeks gestation o f ; Third trimester Start: 12-21-2024 End: 12-21-2024 ambulatory JESU FARZAD Not Available Start: 12-21-2024 End: 12-21-2024 Bamboo flowsheet Jesu Farzad INSTITUTION DIRECTOR Work Phone: [facility] Start: 12-21-2024 End: 12-21-2024 Bamboo flowsheet Jesu Farzad INSTITUTION DIRECTOR Work Phone: [facility] Start: 12-13-2024 [...] Start: 11-01-2024 ambulatory Micheal Salas [facility] Start: 10-26-2024 End: 10-26-2024 flow [...] 07-27-2024 End: 08-03-2024 Clinisync Result Encounter Pal Brookso DO Work Phone: [facility] External Department Unsolicited [...] Available Start: 10-29-2023 Orders Only Sowmya Retana [facility] Comment on above: Renal lithiasis (Yanet annita Dx); Calcium oxalate crystals in urine; Flank pain; Left sided abdominal pain Start: 10-15-2023 End: 10-16-2023 ambulatory [facility] Start: 10-13-2023 End: 10-13-[address] [facility] Start: 10-13-2023 End: 10-13-2023 Office outpatient visit 15 minutes Danielle Lange DO [facility] Comment on above: Renal lithiasis (Yanet annita Dx); Left sided abdominal pain; Flank pain; Calcium oxalate crystals in urine Start: 09-14-2023 End: 09-15-2023 ambulatory [facility] Start: 09-08-2023 End: 09-09-2023 ambulatory [facility] Start: 09-08-2023 End: 09-08-[address] [facility] Start: 09-08-2023 End: 09-08-2023 Office outpatient visit 15 minutes Danielle Liu Lange DO [facility] Comment on above: Dyspareunia in femal e (Primary Dx); Left sided abdominal pain; [place] Start: 04-02-2022 End: 04-02-2022 ambulatory Julianne Davidson Other [facility] Other Start: 04-02-2022 Office outpatient vi sit 15 minutes Julianne Davidson [facility] Start: 07-06-2021 (URG) Urgent Care Visit Julianne Winklerlinus d [facility] Start: 07-06-2021 End: 07-06-2021 ambulatory Julianne Davidson Other [facility] Other Start: 03-17-2019 End: 03-18-2019 Patient encounter procedure CLARICE MANZO Facility: Procedures Date Procedure Procedure Detail Performing Clinician Start: 01-03-2025 ALL CBC WITH AUTO DIFF Pal Kylee DO Work Phone: Start: 01-01-2025 [facility] UA (CLEAN/CATCH) STITCH SEPARATOR/MICRO IF IND. Pal Kylee DO Work Phone: [...] micrscp Carin Garcia PA Work Phone: Start: 10-26-2024 Urnls dip stick/tabl [...] Pap Smear [facility] Start: 02-13-2025 End: 02-13-2025 ambulatory 02/13/2025 1:30 PM EDT [facility] [address] [place] [address] Carin Garcia PA [address] [place], [place] [id number] [facility] Start: 01-30-2025 End: 01-30-2025 Patient encounter procedure 01/30/2025 3:20 PM EDT Office Visit [facility] [address] [place] [address] Carin Garcia PA [address] [place], [place] [id number] [facility] Start: 01-23-2025 End: 03-25-2026 US Breast - left Left breast US complete Imaging Routine Pain aggravated by breast feeding Breast pain, left Expected: 01/23/2025, Expires: 03/25/2026 [facility] Work Phone: Comment on above: Expected: 01/23/2025 , Expires: 03/25/2026 Start: 01-03-2025 End: 01-03-2025 Patient encounter procedure 01/03/2025 8:40 AM EDT Routine [facility] [address] [place] [address] Pal Pichardo DO [address] [place], [place] [id number] [facility] Start: 12-28-2024 End: 12-28-2024 Patient encounter procedure [facility] Comment on above: Arrived Start: 12-21-2024 End: 12-21-2024 Patient encounter procedure [facility] Comment on above: Arrived Start: 12-13-2024 End: 12-13-2024 Patient encounter procedure [facility] Comment on above: Arrived Start: 12-07-2024 End: 12-07-2024 Patient encounter procedure 12/07/2024 3:30 PM EDT Routine [facility] [address] [place] [phone] Pal Pichardo, DO [address] [place] [address] Arrived [facility] Comment on above: Arrived Start: 12-07-2024 End: 12-07-2025 CULTURE, GROUP B STREP WITH SUSCEPTIBLITY CULTURE, GROUP B STREP WITH SUSCEPTIBLITY Lab Routine Third trimester Expected: 12/07/2024, Expires: 12/07/2025 [facility] Work Phone: Comment on above: Expected: 12/07/2024 , Expires: 12/07/2025 Start: 11-09-2024 End: 11-09-2024 Patient encounter procedure 11/09/2024 3:20 PM EDT Routine [facility] [address] [facility] [place] [phone] Carin Garcia PA [address] [place] [address] [facility] Start: 10-26-2024 End: 10-26-2024 Patient encounter procedure 10/26/2024 2:40 PM EST Routine [facility] [address] [facility] [place] [phone] Pal Pichardo, DO [address] [place] [address] [facility] Start: 10-26-2024 End: 10-26-2024 Professional / ancillary services management 10/26/2024 2:00 PM EST Ancillary Procedure [facility] [address] [place] [phone] [facility] Start: 10-13-2024 Adult BMI Screening Adult BMI Screen ing [facility] Start: 10-13-2024 Tobacco Screening Tobacco Screening [facility] Start: 10-12-2024 End: 10-12-2024 Patient encounter procedure [facility] Comment on above: Arrived Start: 10-12-2024 End: 10-12-2025 US for US OB follow up transabdominal approach Imaging Routine Excessive growth affecting management of in third trimester, single or unspecified fetus Expected: 10/12/2024 (Approximate), Expires: 10/12/2025 [facility] Work Phone: Comment on above: Expected: 10/12/2024 (Approximate), Expires: 10/12/2025 Start: 09-28-2024 End: 09-28-2024 Patient encounter procedure [facility] Comment on above: Arrived Start: 09-28-2024 End: 09-28-2025 CBC panel - Blood by Automated count CBC Lab Routine Diabetes mellitus screening Expected: 09/28/2024 (Approximate), Expires: 09/28/2025 [facility] Work Phone: Comment on above: Expected: 09/28/2024 (Approximate), Expires: 09/28/2025 Start: 09-28-2024 End: 09-28-2025 Measurement of glucose 1 hour after glucose challenge for glucose tolerance test Glucose tolerance, 1 hour Lab Routine Diabetes mellitus screening Expected: 09/28/2024 (Approximate), Expires: 09/28/2025 [facility] Comment on above: Expected: 09/28/2024 (Approximate), Expires: 09/28/2025 Start: 09-08-2024 Adult BMI Screening Adult BMI Screen ing [facility] Start: 09-08-2024 Screening for Chlamy hernesto trachomatis Chlamydia Screening [facility] Start: 09-08-2024 Tobacco Screening Tobacco Screening [facility] Start: 08-29-2024 End: 08-29-2024 Patient encounter procedure [...] Arrived Start: 06-24-2024 Depression Screening Depression Scre [facility] Start: 06-01-2024 Adult BMI Follow Up Plan Adult BMI F ollow Up Plan [facility] Start: 05-27-2024 End: 05-27-2025 ABO/Rh ABO/Rh Lab [...] first trimester Expected: 05/27/2024 (Approximate), Expires: 05/27/2025 [facility] Comment on above: Expected: 05/27/2024 (Approximate), Expires: 05/27/2025 Start: 05-27-2024 End: 05-27-2025 US Pelvis transvaginal US OB transvaginal Imaging Routine Missed menses Expected: 05/27/2024 (Approximate), Expires: 05/27/2025 [facility] Comment on above: Expected: 05/27/2024 (Approximate), Expires: 05/27/2025 Start: 11-26-2023 DTaP,Tdap and Td Vac cines (7 - Td or Tdap) DTaP,Tdap and Td Vaccines (7 - Td or Tdap) [facility] Start: 10-13-2023 End: 10-13-2024 US Retroperitoneum Ultrasound retroperitoneal complete Imaging Routine Left sided abdominal pain Flank pain Renal lithiasis Calcium oxalate crystals in urine Expected: 10/13/2023, Expires: 10/13/2024 [facility] Work Phone: Comment on above: Expected: 10/13/2023 , Expires: 10/13/2024 Start: 10-06-2023 End: 10-06-2023 Patient encounter procedure 10/06/2023 2:00 PM EST Office Visit [facility] [address] [facility] [place] [address] Danielle Lange DO [address] [place], [place] [id number] [facility] Start: 09-14-2023 End: 09-14-2023 Patient encounter procedure 09/14/2023 2:00 PM EST Appointment [facility] [address] [place] [place] [address] [facility] Start: 09-08-2023 End: 09-08-2024 Bacteria identified in Urine by Culture [facility] Work Phone: Comment on above: Expected: 09/08/2023 (Approximate), Expires: 09/08/2024 Start: 09-08-2023 End: 09-08-2024 US Pelvis transabdominal and transvaginal Ultrasound pelvic with transvaginal Imaging Routine Left sided abdominal pain Expected: 09/08/2023, Expires: 09/08/2024 [facility] Comment on above: Expected: 09/08/2023 , Expires: 09/08/2024 Start: 09-08-2023 End: 09-08-2024 Vaginitis Panel PCR [facility] Comment on above: Expected: 09/08/2023 (Approximate), Expires: 09/08/2024 Start: 06-18-2023 Screening for Chlamy hernesto trachomatis Chlamydia Screening [facility] Start: 04-24-2023 Influenza vaccination Influenza Vacc ine [facility] Bacteria identified in Urine by Culture Urine culture Microbiology Routine Missed menses Ordered: 05/27/2024 [facility] Comment on above: Ordered: 05/27/2024 Bacteria identified in Urine by Culture Urine culture Microbiology Routine Urinary tract infection without hematuria, site unspecified Ordered: 10/12/2024 [facility] Comment on above: Ordered: 10/12/2024 CBC W Auto Different ial panel - Blood CBC and differential Lab Routine Missed menses , unspecified gestational age Ordered: 05/27/2024 [facility] Comment on above: Ordered: 05/27/2024 CHLAMYDIA TRACHOMATI S (GENITO/STI) CHLAMYDIA TRACHOMATIS (GENITO/STI) Lab Routine STD exposure Ordered: 07/27/2024 [facility] Comment on above: Ordered: 07/27/2024 End: 09-08-2024 Chlamydia/GC by PCR Rowdy Swab Chlamydia/GC by PCR Rowdy Swab Microbiology Routine Left sided abdominal pain 1 Occurrences starting 09/08/2023 until 09/08/2024 [facility] Comment on above: 1 Occurrences starti ng 09/08/2023 until 09/08/2024 Chlamydia/GC by PCR Rowdy Swab Chlamydia/GC by PCR Rowdy Swab Microbiology Routine Left sided abdominal pain 09/08/2023 7:35 PM [facility] Cytology Cervical or vaginal smear or scraping study Pap Smear Pathology and Cytology Routine Well woman exam with routine gynecological exam Ordered: 07/27/2024 [facility] Comment on above: Ordered: 07/27/2024 Hemoglobin A1c/Hemoglobin.total in Blood Hemoglobin A1c Lab Routine Missed menses , unspecified gestational age Ordered: 05/27/2024 [facility] Comment on above: Ordered: 05/27/2024 Hepatitis B virus clarke rface Ag [Presence] in Serum or Plasma by Immunoassay Hepatitis B surface antigen Lab Routine Missed menses , unspecified gestational age Ordered: 05/27/2024 [facility] Comment on above: Ordered: 05/27/2024 Hepatitis C virus Ab [Presence] in Serum or Plasma by Immunoassay Hepatitis C antibody Lab Routine Missed menses , unspecified gestational age Ordered: 05/27/2024 [facility] Comment on above: Ordered: 05/27/2024 HIV-1/HIV-2 antigen/antibody combination immunoassay HIV-1 and HIV-2 antibodies Lab Routine Missed menses , unspecified gestational age Ordered: 05/27/2024 [facility] Comment on above: Ordered: 05/27/2024 Neisseria gonorrhoea e DNA [Presence] in Unspecified specimen by MARIA M with probe detection Neisseria gonorrhea DNA probe, direct Lab Routine STD exposure Ordered: 07/27/2024 [facility] Comment on above: Ordered: 07/27/2024 Reagin Ab [Presence] in Serum by RPR RPR Lab Routine Missed menses , unspecified gestational age Ordered: 05/27/2024 [facility] Comment on above: Ordered: 05/27/2024 Rubella antibody, IgG Rubella an tibody, IgG Lab Routine Missed menses , unspecified gestational age Ordered: 05/27/2024 [facility] Comment on above: Ordered: 05/27/2024 SURESWAB(R) ADVANCED VAGINITIS PLUS, TMA SURESWAB(R) ADVANCED VAGINITIS PLUS, TMA Pathology and Cytology Routine Vaginal discharge STD exposure Ordered: 07/27/2024 [facility] Work Phone: Comment on above: Ordered: 07/27/2024 Immunizations Immunization Date Immunization Notes Care Provider Ton king 06-28-2009 influenza virus vaccine, unspecified formulation Danielle Lange DO Work Phone: [facility] Payers Date Payer Category Payer Self-pay 2024 Managed Care HMO (unspecified) [id number] 2024 Private Health Insurance [id number] 2019 Private Health Insurance [id number] 2019 Private Health Insurance [facility] PLUS [id number] 2019-Present [phone] [address] [address] [place] [address] [id number] 2001 Unknown [id number] 2.16.840.1.966520.3.579.2. 1286 2001 Unknown [id number] 2.16.840.1.734421.3.579.2. 1286 2001 Unknown [id number] 2.16.840.1.835807.3.579.2. 128 2001 Unknown [id number] 2.16.840.1.210627.3.579.2. 1286 2001 Unknown [id number] 2.16.840.1.705640.3.579.2. 1286 2001 Unknown [id number] 2.16.840.1.299395.3.579.2. 1259 2001 Unknown [id number] 2.16.840.1.098604.3.579.2. 9 2001 Unknown [id number] 2.16.840.1.776763.3.579.2. 9 2001 Unknown [id number] 2.16.840.1.191922.3.579.2. 1259 2001 Unknown [id number] 2.16.840.1.217612.3.579.2. 9 2001 Unknown [id number] 2.16.840.1.929504.3.579.2. 9 2001 Unknown [id number] 2.16.840.1.671783.3.579.2. 9 2001 Unknown [id number] 2.16.840.1.048769.3.579.2. 1258 2001 Unknown [id number] 2.16.840.1.720291.3.579.2. 1258 2001 Unknown [id number] 2.16.840.1.052581.3.579.2. 1258 2001 Unknown [id number] 2.16.840.1.155767.3.579.2. 9 2001 Unknown [id number] 2.16.840.1.746941.3.579.2. 1258 2001 Unknown [id number] 2.16.840.1.530612.3.579.2. 9 2001 Unknown [id number] 2.16.840.1.868101.3.579.2. 1258 2001 Unknown [id number] 2.16.840.1.976928.3.579.2. 1259 1976 Unknown [id number] 2.16.840.1.764547.3.579.2. 593 1959 Unknown [id number] Social History Date Type Detail Facility Sex Assigned At [facility] Other Start: 10-04-2020 End: 05-27-2024 Sex Assigned At [facility] Start: 06-18-2022 End: 05-27-2024 Tobacco smoking status NHIS Never smoked tobacco [facility] Start: 06-18-2022 End: 05-27-2024 Tobacco use and exposure Smokeless tobacco non-user [facility] Start: 05-27-2024 End: 01-23-2025 Alcoholic beverage intake Lifetime non-drinker (finding) [facility] Start: 10-04-2020 End: 05-27-2024 History of Social function [facility] Start: 04-13-2024 [facility] Start: 2001 Sex assigned at Female [facility] Start: 12-29-2023 Gender identity Identifies as female gender (finding) [facility] Start: 09-08-2023 End: 10-13-2023 Alcohol intake Current non-drinker of alcohol (finding) [facility] Frequency of Alcohol Consumption Never [facility] Start: 2001 Sex Assigned At Not on file [facility] Clinical Notes 04-02-2022 to 01-23-2025 HERNANDO Magallanes - 01/23/2025 2:20 PM Valentino Sanchez LPN - 12/28/2024 3:00 PM Benjy Panda NP - 12/21/2024 3:20 PM Valentino Sanchez LPN - 12/13/2024 2:20 PM EDT Note Date & Type Note Facility 01-23-2025 History of Present illness Narrative Reason for Appointment: Patient ID: Marisela Randall is a 24 y.o. female who presents for Sore breasts (Pt present today to discuss flu-like symptoms. Pt is also experiencing sore breasts from nursing. ) Patient presents today for Consult appointment. MEDICATIONS Current Outpatient Medications Medication Instructions [...] Negative. Endocrine: Negative. Allergic/Immunologic: Negative. OBJECTIVE Objective: OBGyn Exam Vitals: Estimated body mass index is 27.6 kg/m as calculated from the following: Height as of 09/20/18: 5' 5.5 . Weight as of 09/20/18: 168 lb 6.4 oz. BP: 118/72 No LMP recorded (lmp unknown). ASSESSMENT & PLAN ICD-10-CM 1. Pain aggravated by breast feeding R52 O92.79 2. Flu-like symptoms R68.89 Patient presents for flu-like symptoms with breast feeding and sore breast with nursing. Left breast pain has increased since Thursday. Patient voiced that she had mastitis 2 weeks ago with antibiotics. Patient seen in er and placed on clindamycin. Today she presents feeling nauseous with fever of 101.2 subjectively at home. She has area of firmness, soreness on left breast left out lower quadrant between 4-6 o clock. She is afebrile here. We will send her to US for ultrasound from office and tell her to start taking augmentin 875mg for 10 days and stop clindamycin. Patient instructed to go to er if symptoms worsen in next 48 hours. Patient will schedule follow up for next week Documented by Laila Allred LPN on behalf of: HERNANDO Magallanes documented in this encounter [facility] 12-28-2024 History of Present illness Narrative Reason [...] nursing note reviewed. Exam conducted with a workforce manager present. Vitals: Estimated body mass index is [...] Pal Pichardo DO documented in this encounter [facility] 12-21-2024 History of Present illness Narrative [...] nursing note reviewed. Exam conducted with a workforce manager present. Vitals: Estimated body mass index is [...] Jesu Panda NP documented in this encounter [facility] 12-13-2024 History of Present illness Narrative [...] nursing note reviewed. Exam conducted with a workforce manager present. Vitals: Estimated body mass index is [...] Pal Pichardo D.O. documented in this encounter [facility] 12-07-2024 History of Present illness Narrative [...] nursing note reviewed. Exam conducted with a workforce manager present. Vitals: Estimated body mass index is [...] Pal Pichardo DO documented in this encounter [facility] 11-24-2024 History of Present illness [...] of: HERNANDO Magallanes documented in this encounter [facility] 10-26-2024 History of Present illness [...] nursing note reviewed. Exam conducted with a workforce manager present. Vitals: Estimated body mass index is [...] Pal Pichardo DO documented in this encounter [facility] 10-12-2024 History of Present illness [...] of: HERNANDO Magallanes documented in this encounter [facility] 09-28-2024 History of Present illness [...] nursing note reviewed. Exam conducted with a workforce manager present. Vitals: Estimated body mass index is [...] Pal Pichardo DO documented in this encounter [facility] 08-29-2024 History of Present illness [...] of: HERNANDO Magallanes documented in this encounter [facility] 07-27-2024 History of Present illness [...] nursing note reviewed. Exam conducted with a workforce manager present. Vitals: Estimated body mass index is [...] Pal Pichardo DO documented in this encounter [facility] 06-27-2024 History of Present illness [...] Pal Pichardo DO documented in this encounter [facility] 05-27-2024 History of Present illness [...] or undercooked meat, and stay away from [facility]. 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 She states she has seen a hardwood floor installation helper, but was only counseled to not drink [...] PM Imaging Ultrasound pelvic with transvaginal (Order: [id number]) - 09/14/2023 Result History Ultrasound pelvic with transvaginal (Order #[id number]) on 09/15/2023 - Order Result History Report [...] to nephrology placed. documented in this encounter [facility] 09-08-2023 History of Present illness Narrative Subjective [...] alleviate her symptoms documented in this encounter [facility] 04-02-2022 Evaluation note Encounter Date Diagnosis Assessment Notes Mar, Viral pharyngitis (ICD-10 - J02.9) Pharyngitis/to nsillopharyngi tis: adult home care material was printed Drink plenty fluids, get plenty of rest. Take Tylenol or Motrin for aches pains or fevers. Continue your cephalexin as prescribed until gone. Follow-up with your family physician if no improvement in 2 to 3 days. [facility] Other Evaluation noteNort Intio Other Evaluation note* Diagnosis Missed menses , unspecified gestational age Encounter for supervision of normal first in first trimester documented in this encounter [facility]* Diagnosis First trimester state, incidental 12 weeks gestation of Nausea Nausea alone Viral upper respiratory tract infection Acute upper respiratory infections of unspecified site documented in this encounter [facility] HealthcareEvaluation note* Diagnosis Well woman exam with routine gynecological exam Routine gynecological examination Second trimester state, incidental 16 weeks gestation of Screening, , for anatomic survey Encounter for anatomic survey Vaginal discharge Leukorrhea, not specified as infective STD exposure documented in this encounter [facility]* Diagnosis Second trimester state, incidental 21 weeks gestation of documented in this encounter [facility] note* Diagnosis Dyspareunia in female- Primary Left sided abdominal pain Abdominal pain, unspecified site Mittelschmerz [facility] Diagnosis Second trimester state, incidental 26 weeks gestation of Diabetes mellitus screening Screening for diabetes mellitus documented in this encounter [facility]* Diagnosis Renal lithiasis- Primary Calculus of kidney Left sided abdominal pain Abdominal pain, unspecified site Flank pain Abdominal pain, unspecified site Calcium oxalate crystals in urine [facility]* Diagnosis Renal lithiasis- Primary Calculus of kidney Calcium oxalate crystals in urine Flank pain Abdominal pain, unspecified site Left sided abdominal pain Abdominal pain, unspecified site [facility]* Diagnosis Third trimester state, incidental 28 weeks gestation of Excessive growth affecting management of in third trimester, single or unspecified fetus Urinary tract infection without hematuria, site unspecified Low back pain, unspecified back pain laterality, unspecified chronicity, unspecified whether sciatica present documented in this encounter [facility]* Diagnosis Third trimester state, incidental 30 weeks gestation of Gastroesophageal reflux in documented in this encounter [facility]* Diagnosis 34 weeks gestation of Third trimester state, incidental documented in this encounter [facility]* Diagnosis Third trimester state, incidental 36 weeks gestation of documented in this encounter [facility]* Diagnosis Third trimester state, incidental 36 weeks gestation of documented in this encounter [facility]* Diagnosis 38 weeks gestation of Third trimester state, incidental documented in this encounter [facility]* Diagnosis Third trimester state, incidental 39 weeks gestation of documented in this encounter [facility]* Diagnosis Pain aggravated by breast feeding Flu-like symptoms Breast pain, left documented in this [facility] Narrative - [place] [facility] Other History general Narrative - Reported* Type Description Date Medical History chronic depression [facility] Other Instructions* Attachments The following attachments cannot be sent through Care Everywhere. * Painful Ovulation (Lithuanian) [facility]* Attachments The following attachments cannot be sent through Care Everywhere. * Kidney stones in adults (Lithuanian) documented in [facility] HospitalInstructionsNot on file documented in this encounterProProm[facility] HospitalReason for referral (narrative)* Consultation (Routine) - Pending Review Specialty Diagnoses / Procedures Referred By Contac t Referred To Contact Nephrology Diagnoses Left sided abdominal pain Flank pain Renal lithiasis Calcium oxalate crystals in urine Danielle Lange DO [address] [id number] Yannick Villagomez MD [address] [place] [id number] Referral ID Status Reason Start Date Expiration Date Visits Requested Visits Authorized [id number] Pending Review Specialty Services Required 10/13/2023 10/12/2024 1 1 [facility] ([facility]ative[facility] Consultation (Routine) - Pending Review Specialty Diagnoses / Procedures Referred By Contkathleen hough Referred To Contact Nephrology Diagnoses Renal lithiasis Calcium oxalate crystals in urine Flank pain Left sided abdominal pain Danielle Lange DO [address] [place] [address] Hussein Card MD [address] [place] [address] [place] [address] Referral ID Status Reason Start Date Expiration Date Visits Requested Visits Authorized [id number] Pending Review Specialty Services Required 10/29/2023 10/28/2024 1 1 [facility] Summary Purpose Family History No Family [...] and content) DATE CREATED AUTHOR [facility]15/2020 [facility] DATE CREATED AUTHOR AUTHOR'S ORGANIZ ATION 09/12/2023 [facility] DATE CREATED AUTHOR AUTHOR'S ORGANIZ ATION 10/21/2023 [facility] DATE CREATED AUTHOR AUTHOR'S ORGANIZ ATION 10/23/2023 [facility] DATE CREATED AUTHOR AUTHOR'S ORGANIZ ATION 11/04/2024 [facility] [place] [facility] DATE CREATED AUTHOR AUTHOR'S ORGANIZ ATION 12/31/2024 [facility] EPIC DATE CREATED AUTHOR AUTHOR'S ORGANIZ ATION 01/11/2025 [facility] REASON FOR VISIT (unrecogniz ed section and content) Reason Comments Initial Visit Reason Comments Routine Visit Reason Comments Well Women Visit Routine Visit STI Screening Reason Comments Abdominal Pain Left side started ab out 2 months agoPain the first day of cycle Reason Comments Follow-up Ultrasound results d /t pelvic pain Reason Comments Sore breasts Pt present today to discuss flu-like symptoms. Pt is also experiencing sore breasts from nursing. Care Teams (unrecognized sec tion and content) Shipyard Painter Relationship Specialty Start Date End Date Samir Stroud NP [address] [place] [address] Referring Physician Family Medicine 05/19/23 Shipyard Painter Relationship Specialty Start Date End Date Samir Struod NP [address] [place] [address] Referring Physician Family Medicine 05/19/23 Shipyard Painter Relationship Specialty Start Date End Date Samir Stroud NP [address] [place] [address] Referring Physician Family Medicine 05/19/23 Shipyard Painter Relationship Specialty Start Date End Date Samir Stroud NP [address] [place] [address] Referring Physician Family Medicine 05/19/23 Shipyard Painter Relationship Specialty Start Date End Date Samir Stroud NP [address] [place] [address] Referring Physician Family Medicine 05/19/23 Shipyard Painter Relationship Specialty Start Date End Date Samir Stroud NP [address] [place] [address] Referring Physician Family Medicine 05/19/23 Shipyard Painter Relationship Specialty Start Date End Date Samir Stroud NP [address] [place] [address] Referring Physician Family Medicine 05/19/23 Shipyard Painter Relationship Specialty Start Date End Date Samir Stroud NP [address] [place] [address] Referring Physician Family Medicine 05/19/23 Shipyard Painter Relationship Specialty Start Date End Date Samir Stroud NP [address] [place] [address] Referring Physician Family Medicine 05/19/23 Shipyard Painter Relationship Specialty Start Date End Date Samir Stroud APRN-CLAY DIGGER [address] [place] [address] PCP - General Family Medicine 12/28/22 Shipyard Painter Relationship Specialty Start Date End Date Samir Stroud NP [address] [place] [address] Referring Physician Family Medicine 05/19/23 Shipyard Painter Relationship Specialty Start Date End Date Samir Stroud SPA TECHNICIAN-CLAY DIGGER [address] [facility] [place] [address] PCP - General Family Medicine 12/28/22 Shipyard Painter Relationship Specialty Start Date End Date Samir Stroud APRN-CLAY DIGGER [address] [facility] [place] [address] PCP - General Family Medicine 12/28/22 Shipyard Painter Relationship Specialty Start Date End Date Samir Stroud NP [address] [place] [address] Referring Physician Family Medicine 05/19/23 Shipyard Painter Relationship Specialty Start Date End Date Samir Stroud NP [address] [place] [address] Referring Physician Family Medicine 05/19/23 Shipyard Painter Relationship Specialty Start Date End Date Samir Stroud NP Referring Physician Family Medicine 05/19/23 Shipyard Painter Relationship Specialty Start Date End Date Samir Stroud NP Referring Physician Family Medicine 05/19/23 Shipyard Painter Relationship Specialty Start Date End Date Samir Stroud NP Referring Physician Family Medicine 05/19/23 Shipyard Painter Relationship Specialty Start Date End Date Samir Stroud NP Referring Physician Family Medicine 05/19/23 Shipyard Painter Relationship Specialty Start Date End Date Samir Stroud NP Referring Physician Family Medicine 05/19/23 Shipyard Painter Relationship Specialty Start Date End Date Samir Stroud NP Referring Physician [facility] 05/19/23 Shipyard Painter Relationship Specialty Start Date End Date Samir Stroud NP Referring Physician [facility] Medicine 05/19/23 FOR RECORDS PERTAINING TO PATIENTS [...] BE BASED ON THE PRIMARY CLINICAL RECORDS. [facility]. provides no warranty or guarantee of the accuracy or completeness of information in this document.
== END 2025-01-23 16:09 | disposition home or self-care (01) ==
LOC: US 16:09
PROVIDERS: PCP Nurse Practitioner Family; Visit Provider Obstetrics & Gynecology
DX: O92.79 Other disorders of lactation (principal); R52 Pain, unspecified; R92.8 Other abnormal and inconclusive findings on diagnostic imaging of breast
CPT/HCPCS: 76641

== ENCOUNTER 2025-03-21 10:36 | Outpatient (OUT) | payer OTHER, MEDICAID, SELFPAY ==
--- NOTE | 2025-03-21 15:24 | PC.NURSE ---
Marisela arrive with questions. She is 8 weeks post delivery. 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 States has had mastitis 3 times already, nipples that are sore all the time Also notes that she is having a difficult time keeping up with demands. Baby taking 5 oz, every 3 hours and mom is pumping 3-5 oz every 3 hours. Marisela has 3 different pumps that she uses daily. Spectra C, Mom cosy wearable and EUFY wearable. Pt was previously measured to use a 26-28 mm flange for pumping. Marisela states I didn't think that was right, so I measured myself at a 21-22mm Has been using the smaller flange of 21mm with EUFY and a 24mm with a 21 mm insert for the Spectra and Mom Cosy. Reports 3 episodes of mastitis with antibiotic course. REports often feels like pumps are not emptying her breasts. Nipples bilaterally have blisters in tips and crack around base. Red in color and sore Marisela states that is why I have been trying different pumps LC measures nipples again and discussed why 28mm flanges are best fit at this time. Difficult to fit nipples into 21mm flange. Tries 24mm flange from Spectra is is tight with red ring at base of nipple. Unable to try a 28 flange as pt did not bring with her. Discussed using appropriate sized flange to increase comfort and milk output. Long discussion on small flange fit reduces output. Pt verbalized understanding. Pt to start with 28mm flange, and possibly an insert to 26mm. Pt to use smaller flanges minimally until she is able to order correct sizes. Pt to call for further support in 7-10 days as she is able to obtain larger flanges. Given information on increasing supply, breast care with mastitis and plugged ducts. Leaves ambulatory for home.
== END 2025-03-21 15:52 | disposition home or self-care (01) ==
PROVIDERS: PCP Nurse Practitioner Family; Visit Provider Obstetrics & Gynecology
DX: Z39.1 Encounter for care and examination of lactating mother (principal)